=== PATIENT | male | born 1965 | race American Indian/Alaskan Native ===

== ENCOUNTER 2016-12-18 22:20 | Inpatient (IN) | payer OTHER ==
[~2016-12-18] VITALS: Ht 185.4 cm; Wt 70.9 kg
[2016-12-19 04:17] VITALS: PULSE 98
[2016-12-19 04:35] VITALS: BP 170/113; RESP 20
[2016-12-19] MEDS ORDERED: THIA100T56 PO (04:41)
[2016-12-19] MEDS ORDERED: METH10TA2 PO (04:41)
[2016-12-19] MEDS ORDERED: LISI10TA2 PO (04:41)
[2016-12-19] MEDS ORDERED: METO-448 PO (04:41)
[2016-12-19] MEDS ORDERED: CHLO25CA9 PO (04:41)
[2016-12-19] MEDS ORDERED: QUET25TA33 PO (04:41)
[2016-12-19] MEDS ORDERED: LORAZEPAM 2 MG INJ IM PRN (05:00)
[2016-12-19] MEDS ORDERED: ACETAMINOPHEN 500 MG TAB PO PRN (05:00)
[2016-12-19] MEDS ORDERED: SOD CHLORIDE 0.9% 1,000 ML IV SCH (05:00)
[2016-12-19] MEDS ORDERED: ONDANSETRON 4 MG INJ IV PRN ×2 (05:00)
[2016-12-19] MEDS ORDERED: CHLORDIAZEPOXIDE 25 MG CAP PO PRN (05:00)
[2016-12-19 05:10] VITALS: Ht 185.4 cm; Wt 70.9 kg
--- NOTE | 2016-12-19 05:15 | HP ---
Date/Time of Note Date/Time of Note DATE: 12/19/16 TIME: 05:05 Assessment/Plan VTE Prophylaxis VTE Prophylaxis Intervention: SCD's Assessment/Plan Assessment/Plan 1. Alcohol intoxication, monitor for withdrawal -Banana bag alternating with IV fluids, Librium with as needed Ativan -Check basic labs including Utox -stoneworker/correctional case manager to provide information to help with abstinence 2. Probable alcohol induced seizure -See #1 3. Right elbow bursitis: no sign of septic joint - IR for drainage. will send sample for analysis -NSAIDs for now -We will order x-ray 4. Left wrist fracture, status post fall 3 weeks ago -currently covered -obtain xray of both hands because of right wrist pain and swelling(related to fall) -Pain medication as needed 5. History of hypertension -Continue home meds with adjustment as needed HPI/ROS Admit Date/Time Admit Date/Time Dec 19, 2016 at 03:50 Hx of Present Illness This is a 51-year-old male with history of hypertension and chronic alcohol abuse who initially presented to an outside hospital complaining of right elbow pain and tremor. He said his last drink was 20 hours prior to arriving to the outside hospital. He said he first noticed swelling on his right elbow 5 month ago which has been progressively getting worse. He is not quite sure whether or not this is related to trauma. He did however state that 3 weeks ago he fell down injuring his left wrist. He went to a hospital and was told he had a left wrist fracture and was placed on the splint, which he self removed due to discomfort. He made at that time of the fall, he might have had a seizure secondary to alcohol withdrawal. He denied a history of seizure, but reported he has been" blacking out really ". Patient is transferred to [facility] because of insurance reasons. He denies chest pain, shortness of breath, fever/chills, nausea or vomiting. Of note patient's home medication includes methadone which he said he has been taking for the past 4 years secondary to herniated cervical disc. He denied history of illicit drug use. . PMH/Family/Social Past Medical History Medical History: hypertension, other Social History Alcohol Use: heavy Smoking Status: Unknown if ever smoked Drug Use: none Exam/Review of Systems Vital Signs Vitals Vital Signs Date Time Temp Pulse Resp B/P Pulse Ox O2 Delivery O2 Flow Rate FiO2 9/4/17 04:35 97.9 88 20 170/113 97 Exam Constitutional: other (No acute distress) Head: atraumatic, normocephalic Eyes: EOMI, PERRL Respiratory: clear to auscultation, normal air movement Cardiovascular: nl pulses, regular rate and rhythm Gastrointestinal: non-tender, soft Extremities: normal pulses Medications Medications Current Medications Chlordiazepoxide (Librium) 25 mg Q6 PRN PO ANXIETY; Start 12/19/16 at 05:00 Lisinopril (Zestril) 10 mg DAILY PO ; Start 12/19/16 at 09:00 Methadone HCl (Methadone) 65 mg DAILY PO ; Start 12/19/16 at 09:00; Status UNV Metoprolol Tartrate (Lopressor) 12.5 mg BID PO ; Start 12/19/16 at 09:00 Quetiapine Fumarate (Seroquel) 25 mg HS PO ; Start 12/19/16 at 21:00 Thiamine HCl (Vitamin B1) 100 mg DAILY PO ; Start 12/19/16 at 09:00 Ondansetron HCl (Zofran Inj) 4 mg Q6H PRN IV NAUSEA AND/OR VOMITING; Start 12/19 at 05:00 Acetaminophen 500 mg 500 mg Q6H PRN PO PAIN AND OR ELEVATED TEMP; Start at 05:00 Sodium Chloride 1,000 ml @ 125 mls/hr Q8H IV ; Start 12/19/16 at 05:00; Status UNV Multivitamins/ Thiamine HCl/ Folic Acid/Sodium Chloride (Mvi Adult/ Vitamin B1/ Folic Acid/NS) 1,011.2 ml @ 125 mls/ hr DAILY@09 IVPB ; Start 12/19/16 at 09:00 ; Status UNV Chlordiazepoxide (Librium) 60 mg TID PO ; Start 12/19/16 at 09:00; Status UNV Lorazepam (Ativan) 2 mg Q1HWA PRN IM seizure & agitation withdrawal; Start 12/19 at 05:00; Status UNV Hydralazine HCl (Apresoline) 10 mg Q6 IV ; Start 12/19/16 at 06:00; Status UNV Ondansetron HCl (Zofran Inj) 4 mg Q4H PRN IV NAUSEA AND/OR VOMITING; Start 12/19 at 05:00; Status UNV TERRY YOUNGBLOOD MD Dec 19, 2016 05:15
[2016-12-19] MEDS ORDERED: hydrALAzine 20 MG INJ IV PRN (06:00)
[2016-12-19] MEDS ORDERED: IBUPROFEN 400 MG TAB PO SCH (06:00)
[2016-12-19 07:07] LABS: ABNORMAL IP MESSAGE 1; BASOPHILS % 0.4 % (0.0-2.0); EOSINOPHILS # 0.3 10^3/ul (0.0-0.5); EOSINOPHILS % 5.7 % (0.0-7.0); HEMATOCRIT 37.4 % (42.0-52.0); HEMOGLOBIN 12.5 g/dl (14.0-18.0); LYMPHOCYTES # 1.4 10^3/ul (0.8-2.9); LYMPHOCYTES % 25.6 % (15.0-51.0); MEAN CORPUSCULAR HEMOGLOBIN 31.6 pg (29.0-33.0); MEAN CORPUSCULAR HGB CONC 33.4 g/dl (32.0-37.0); MEAN CORPUSCULAR VOLUME 94.7 fl (82.0-101.0); MEAN PLATELET VOLUME 10.4 fl (7.4-10.4); MONOCYTE # 0.4 10^3/ul (0.3-0.9); NEUTROPHILS % 60.1 % (39.0-77.0); PLATELET COUNT 99 10^3/UL (140-415); POSITIVE DIFF @See below; RED BLOOD COUNT 3.95 10^6/ul (4.70-6.10); RED CELL DISTRIBUTION WIDTH 12.5 % (11.5-14.5); WHITE BLOOD COUNT 5.3 10^3/ul (4.8-10.8)
[2016-12-19 07:41] LABS: ALBUMIN 3.8 g/dl (3.3-4.9); ALBUMIN/GLOBULIN RATIO 1.18; BILIRUBIN,INDIRECT 1.6 mg/dl (0-1.1); BILIRUBIN,TOTAL 1.6 mg/dl (0.2-1.3); CALCIUM 9.2 mg/dl (8.4-10.2); CREATININE 0.63 mg/dl (0.61-1.24)
[2016-12-19 08:06] VITALS: BP 155/95; PULSE 112; RESP 20
[2016-12-19] MEDS ORDERED: MULTIVITAMINS 10 ML, THIAMINE 100 MG, FOLIC ACID 1 MG in SOD CHLORIDE 0.9% 1,000 ML IVPB SCH (09:00)
[2016-12-19] MEDS ORDERED: CHLORDIAZEPOXIDE 25 MG CAP PO SCH (09:00)
[2016-12-19] MEDS ORDERED: METOPROLOL 25 MG TAB PO SCH (09:00)
[2016-12-19] MEDS ORDERED: CHLORDIAZEPOXIDE 5 MG CAP PO SCH (09:00)
[2016-12-19] MEDS ORDERED: METHADONE 10 MG TAB PO SCH ×2 (09:00)
[2016-12-19] MEDS ORDERED: LORAZEPAM 2 MG INJ IV PRN (09:00)
[2016-12-19] MEDS ORDERED: LISINOPRIL 10 MG TAB PO SCH (09:00)
[2016-12-19] MEDS ORDERED: THIAMINE 100 MG TAB PO SCH (09:00)
[2016-12-19] MEDS ORDERED: METHADONE 10 MG TAB PO ONE (12:00)
--- NOTE | 2016-12-19 14:43 | RADRPT ---
PROCEDURE: XR Elbow. CLINICAL INDICATION: Right elbow pain TECHNIQUE: Three views of the right elbow are available for review COMPARISON: None available FINDINGS: No acute fracture or dislocation is seen. No radiopaque foreign body is identified. No fat pad sail sign is identified to indicate a hemarthrosis. There is no significant soft tissue swelling. IMPRESSION: 1. No acute fracture or dislocation. RPTAT: HH .Melissa Dawson MD, MD Date Time Electronically viewed and signed by .Melissa Dawson MD, on 12/19/2016 14:42 .N/
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
[2016-12-19] MEDS ORDERED: QUETIAPINE 25 MG TAB PO SCH (21:00)
== END 2016-12-19 11:15 | disposition left against medical advice (07) | DRG 558 ==
LOC: MS4 12-19 03:50
PROVIDERS: ADMIT Internal Medicine; ATTEND Internal Medicine
DX: M71.521 Other bursitis, not elsewhere classified, right elbow (principal); I10 Essential (primary) hypertension; F10.129 Alcohol abuse with intoxication, unspecified; S62.102D Fracture of unspecified carpal bone, left wrist, subsequent encounter for fracture with routine healing; W19.XXXD Unspecified fall, subsequent encounter
CPT/HCPCS: 80053; 85025; J0360; J2060; J3411; J7030

== ENCOUNTER 2016-12-25 22:16 | Inpatient (IN) | payer OTHER ==
[~2016-12-25] VITALS: Ht 185.4 cm; Wt 72.0 kg
[~2016-12-25 22:16] MED LIST: CHLO25CA9 PO; LISI10TA2 PO; METH10TA2 PO; METO-448 PO; QUET25TA33 PO; THIA100T56 PO
[2016-12-26] VITALS (15 sets, daily range): BP systolic 128–186; BP diastolic 86–112; PULSE 65–88; RESP 18–20; Ht 185.4 cm; Wt 72.0 kg
[2016-12-26] MEDS ORDERED: KETOROLAC 30 MG INJ IV STA (00:53)
[2016-12-26] MEDS ORDERED: hydrALAzine 20 MG INJ IV PRN (01:00)
[2016-12-26] MEDS: SOD CHLORIDE 0.9% 1,000 ML IV SCH ×2 (02:52→12:55)
[2016-12-26] MEDS ORDERED: ONDANSETRON 4 MG INJ IV PRN (03:00)
[2016-12-26] MEDS ORDERED: BISACODYL (EC) 5 MG TAB PO PRN (03:00)
[2016-12-26] MEDS ORDERED: NACL 0.9% 3 ML SYG IV SCH (03:00)
[2016-12-26] MEDS ORDERED: DOCUSATE SODIUM 100 MG CAP PO PRN (03:00)
[2016-12-26] MEDS ORDERED: ACETAMINOPHEN 325 MG TAB PO PRN (03:00)
[2016-12-26] MEDS: MULTIVITAMINS 10 ML, THIAMINE 100 MG, FOLIC ACID 1 MG in SOD CHLORIDE 0.9% 1,000 ML IV SCH (04:28)
[2016-12-26] MEDS: LORAZEPAM 2 MG INJ IV PRN (04:29)
[2016-12-26] MEDS: CHLORDIAZEPOXIDE 25 MG CAP PO SCH ×4 (04:29→22:04)
--- NOTE | 2016-12-26 05:45 | HP ---
Date/Time of Note Date/Time of Note DATE: 12/26/16 TIME: 05:28 Assessment/Plan VTE Prophylaxis VTE Prophylaxis Intervention: SCD's Assessment/Plan Chief Complaint/Hosp Course This is a 51-year-old male being admitted to the telemetry floor for: #1 alcohol withdrawal syndrome: Patient upon my examination was visibly anxious however he is not displaying any tremulous behavior, no hallucinations. At the current time will put the patient on a banana bag. Will start him on a Librium taper, Ativan as needed. Monitor for any seizure activity. Patient also reportedly fell and he has a left forehead abrasion. Will check a CAT scan of the head. #2 hypertension: Monitor patient's blood pressure, continue home metoprolol and lisinopril #3 chronic pain syndrome: Patient is taking methadone, will need to confirm methadone dosage in the a.m. #4 left upper extremity deformity: There appears to be a visible deformity of the left upper extremity, will obtain x-rays of the left forearm and the wrist. Patient likely will need an orthotic consult and cast/sling. #5 right elbow bursitis: Previous x-rays do not show any hemarthrosis. Continue to monitor provide pain control. #6 DVT GI prophylaxis: SCDs, acid faby Further treatment strategy will be implemented as per the clinical course Problems: HPI/ROS Admit Date/Time Admit Date/Time Dec 26, 2016 at 00:04 Hx of Present Illness Chief complaint: Alcohol withdrawal This is a 51-year-old male who was transferred from [facility] secondary to symptoms of alcohol withdrawal. Patient states that he was with his congregational group and there they noticed that he was tremulous and shaking. Patient was taken to [facility] where he was also visibly seen showing signs of alcohol withdrawal. Patient was stabilized with Ativan at [facility] and was subsequently transferred to [facility]. upon my examination patient states that he has been drinking for approximately a year when he started having issues with his . He reports that his last drink was approximately 2 days ago. His blood alcohol level according to the ED physician that I spoke to prior to the transfer on the phone was approximately 80. At the current time patient does not appear to be displaying withdrawal symptoms, though he does state that he feels anxious. Of note patient states that he also fell and hit his head however is unclear when this happened. He does have an abrasion of the forehead on the left side. Allergies: Penicillin, codeine Medications: See MAR ROS Const: As per HPI Eyes : No pain discharge or redness or change in visual acuity ENT: No pain, sore throat, congestion, congestion, dysphagia or discharge Respiratory: No shortness of breath, cough, sputum, wheezing, or pleuritic pain Cardiovascular: No chest pain, palpitation, PND, or edema GI : no change in appetite, abdominal pain, nausea, vomiting, diarrhea, constipation, or change in the color his stool Genitourinary: No dysuria, hematuria, flank pain , discharge or CVA tenderness Musculoskeletal: No joint pain, back pain, neck pain, restricted range of motion in neck or joints Skin: No rash, bruising or hives Neuro: As per HPI Endocrine: No polyuria, polydipsia, temperature intolerance Psych: As per HPI PMH/Family/Social Past Medical History Hypertension, chronic pain Past Surgical History None Past Surgical Hx: no surgical history Family History Significant Family History: other (Alcoholism: Father, brother) Social History Alcohol Use: heavy Smoking Status: Unknown if ever smoked Drug Use: none Exam/Review of Systems Vital Signs Vitals Vital Signs Date Time Temp Pulse Resp B/P Pulse Ox O2 Delivery O2 Flow Rate FiO2 12/26/16 04:09 83 12/26/16 04:01 98.6 19 151/91 96 12/26/16 00:21 Room Air Exam Exam General: Patient is lying in bed in no acute distress, patient does appear anxious. HEENT: Atraumatic, normocephalic. The pupils are equal, round and reactive. Extraocular motor are intact Neck: Supple with full range of motion. No rigidity or meningismus Chest: Nontender Lungs: Clear to auscultation bilaterally no crackles rales or wheezing Heart: Normal S1-S2, Regular rhythm and rate. No overt murmurs appreciated Abdomen: Soft , nontender, nondistended , bowel sounds are present. No guarding no rebound tenderness , No masses or organomegaly. No costovertebral temporal angle mass Extremities: Left forearm and wrist do display slight deformity, there apparently was fracture documented on his previous admission however there are no x-rays, right elbow appears to have bursitis Neurologic: Normal mental status, alert and oriented 3, patient does appear anxious. Speech normal, cranial nerves II through XII are intact, motor and sensory are intact, Skin: There does appear to be an abrasion of the right forehead Additional Comments Pertinent laboratory findings from the transferring facility [facility], please see documentation in the chart for additional details: CPK: 260 Hemoglobin 11.2, hematocrit 34.3 white blood cell count 6.9 platelets 144 INR 0.3 As per edition of [facility] blood alcohol level was approximately in the 80s Medications Medications Current Medications Lorazepam (Ativan) 1 mg Q2 PRN IV ANXIETY Last administered on 12/26/16 04:29 ; Admin Dose 1 MG; Start 12/26/16 at 01:00 Hydralazine HCl 10 mg 10 mg Q4H PRN IV HTN Last administered on 12/26/16 02:44 ; Admin Dose 10 MG; Start 12/26/16 at 01:00 Multivitamins 10 ml/Thiamine HCl 100 mg/Folic Acid 1 mg/Sodium Chloride 1,011.2 ml @ 125 mls/ hr DAILY@09 IV Last administered on 12/26/16 04:28; Admin Dose 125 MLS/HR; Start 12/26/16 at 01:34 Sodium Chloride (NS) 1,000 ml @ 80 mls/hr [id number] IV ; Start 12/26/16 at 02:52 Ondansetron HCl (Zofran Inj) 4 mg Q6H PRN IV NAUSEA AND/OR VOMITING; Start 03/03 at 03:00 Acetaminophen (Tylenol Tab) 650 mg Q6H PRN PO PAIN LEVEL 1-3 OR FEVER; Start at 03:00 Morphine Sulfate (morphine) 2 mg Q4H PRN IV PAIN LEVEL 7-10; Start 12/26/16 at 03:00 Docusate Sodium (Colace) 100 mg Q12H PRN PO CONSTIPATION; Start 12/26/16 at 03: 00 Bisacodyl (Dulcolax) 5 mg DAILY PRN PO CONSTIPATION; Start 12/26/16 at 03:00 Pantoprazole (Protonix Iv) 40 mg DAILY@06 IV ; Start 12/26/16 at 06:00 Chlordiazepoxide (Librium) 50 mg TID PO Last administered on 12/26/16 04:29; Admin Dose 50 MG; Start 12/26/16 at 03:00; Stop 12/27/16 at 02:59 Chlordiazepoxide (Librium) 25 mg QID PO ; Start 12/27/16 at 03:00; Stop at 02:59 Chlordiazepoxide (Librium) 25 mg TID PO ; Start 12/28/16 at 09:00; Stop at 08:59 DONITA KWAN Dec 26, 2016 05:41
[2016-12-26] MEDS: PANTOPRAZOLE 40 MG INJ IV SCH (06:56)
[2016-12-26 07:51] LABS: HEMOGLOBIN 11.3 g/dl (14.0-18.0)
[2016-12-26 08:36] LABS: ALBUMIN 3.6 g/dl (3.3-4.9); ALBUMIN/GLOBULIN RATIO 1.16; CALCIUM 8.8 mg/dl (8.4-10.2); CREATININE 0.59 mg/dl (0.61-1.24); POTASSIUM 3.5 mmol/L (3.5-5.1); TOTAL PROTEIN 6.7 g/dl (6.1-8.1)
[2016-12-26] MEDS ORDERED: MULTIVITAMINS 10 ML, THIAMINE 100 MG, FOLIC ACID 1 MG in SOD CHLORIDE 0.9% 1,000 ML IV SCH (09:00)
[2016-12-26] MEDS: LISINOPRIL 10 MG TAB PO SCH (09:00)
[2016-12-26] MEDS: METOPROLOL 25 MG TAB PO SCH ×2 (09:00→22:05)
[2016-12-26] MEDS: METHADONE 10 MG TAB PO SCH (11:19)
--- NOTE | 2016-12-26 12:09 | RADRPT ---
PROCEDURE: XR Left Wrist and forearm. CLINICAL INDICATION: Fall on the left hand with deformity TECHNIQUE: Three views of the left wrist were obtained. 2 views of the left forearm were obtained. COMPARISON: No prior studies are available for comparison. FINDINGS: Wrist: There is an ossific fragment within the dorsal aspect of the wrist dorsal to the carpal bone s measuring about 4 mm which may correspond with a triquetral fracture with overlying soft tissue sw elling. The carpal bones are otherwise intact. Forearm: There is no acute fracture within the radius or ulna. Small enthesophytes are present with in the olecranon. There is mild soft tissue swelling within the dorsal aspect of the mid forearm. No significant joint effusion is visualized within the elbow. RPTAT: ZZ IMPRESSION: 1. Small 4 mm ossific fragment dorsal to the carpal bones likely corresponding with a triquetral fra cture with overlying soft tissue swelling. 2. Mild soft tissue swelling within the dorsal mid forearm. No acute fracture within the forearm. .Rosa Maria Morris MD, MD Date Time Electronically viewed and signed by .Rosa Maria Morris MD, on 12/26/2016 12:09 .T/
[2016-12-26] MEDS: morphine 2 MG INJ IV PRN ×3 (12:45→22:12)
--- NOTE | 2016-12-26 20:22 | RADRPT ---
PROCEDURE: CT Brain without contrast. CLINICAL INDICATION: Fall, alcohol withdrawal. TECHNIQUE: A CT of the brain was performed on multidetector high-resolution CT scanner utilizing a xial sections from the skull base through the vertex without contrast. The scan was reviewed in sof t tissue brain and high frequency resolution bone algorithm windows. Images were reviewed on a high -resolution PACS workstation. One or more the following does reduction techniques were utilized: Aut omated exposure control, adjustment of the mA/ or kV according to patient's size, or use of iterativ e reconstruction technique. The exam CTDI = 44.84 mGy and the DLP = 720.23 mGy-cm. COMPARISON: None available. FINDINGS: The ventricles and sulci are mildly prominent indicative of volume loss. There is no intracranial h emorrhage, mass effect or midline shift. No abnormal intra-axial or extra-axial fluid collections a re seen. The crystal/white matter differentiation is preserved. There are mild scattered foci of hypoattenuation in the white matter, which are nonspecific in etiol ogy but likely reflect chronic small vessel ischemic changes. The visualized paranasal sinuses demo nstrate mild to moderate mucosal thickening of ethmoid air cells. The mastoid air cells are essentia lly clear. IMPRESSION: 1. No acute intracranial hemorrhage, transcortical infarction or mass effect. 2. Mild chronic small vessel ischemic changes. 3. Mild generalized cerebral volume loss. RPTAT: HH .Melissa Dawson MD, MD Date Time Electronically viewed and signed by .Melissa Dawson MD, MD on 12/26/2016 20:21 .N/
[2016-12-27] VITALS (11 sets, daily range): BP systolic 120–152; BP diastolic 75–102; PULSE 66–88; RESP 16–73
[2016-12-27] MEDS: morphine 2 MG INJ IV PRN ×5 (02:18→20:49)
[2016-12-27] MEDS: CHLORDIAZEPOXIDE 25 MG CAP PO SCH ×5 (03:32→20:18)
[2016-12-27] MEDS: SOD CHLORIDE 0.9% 1,000 ML IV SCH ×2 (03:34→16:22)
[2016-12-27] MEDS: PANTOPRAZOLE 40 MG INJ IV SCH (06:43)
[2016-12-27 08:03] LABS: ALBUMIN 3.5 g/dl (3.3-4.9); BILIRUBIN,INDIRECT 0.6 mg/dl (0-1.1); BILIRUBIN,TOTAL 0.6 mg/dl (0.2-1.3); TOTAL PROTEIN 6.6 g/dl (6.1-8.1)
[2016-12-27] MEDS: MULTIVITAMINS 10 ML, THIAMINE 100 MG, FOLIC ACID 1 MG in SOD CHLORIDE 0.9% 1,000 ML IV SCH (08:48)
[2016-12-27] MEDS: METHADONE 10 MG TAB PO SCH (08:49)
[2016-12-27] MEDS: METOPROLOL 25 MG TAB PO SCH ×2 (08:49→20:18)
[2016-12-27] MEDS: LISINOPRIL 10 MG TAB PO SCH (08:49)
--- NOTE | 2016-12-27 13:33 | PN ---
Date/Time of Note Date/Time of Note DATE: 12/27/16 TIME: 13:22 Assessment/Plan VTE Prophylaxis VTE Prophylaxis Intervention: SCD's Lines/Catheters IV Catheter Type (from Nrs): Peripheral IV Urinary Cath still in place: No Assessment/Plan Chief Complaint/Hosp Course Assessment and plan 1. Alcohol withdrawal syndrome. Cessation was advised. agriculture worker is following. On benzodiazepines as needed. Appears stable at present. CT scan of the head negative for any acute findings. 2. Essential hypertension. Continue on antihypertensives and adjust needed. Appears stable at present. 3. Reported chronic pain syndrome. Patient to be resumed on methadone medication. 4. Left upper extremity deformity. X-ray did show small from millimeter ossific fragment dorsal to the carpal bones likely corresponding with a triquetral fracture. Orthopedic surgeon was notified. Will place on left wrist splint per recommendations and plan for outpatient follow-up with Dr. Malone 5. Reported right elbow bursitis. Continue with pain management. Disposition and plan: Continue with analgesics. Patient with reported right knee pain and difficulty with ambulation. Will get physical therapy to follow. Will check following imaging of the right knee. Anticipate discharge within the next 24 hours if medically stable discussed plan of care with Dr. Liang Problems: Subjective 24 Hr Interval Summary Free Text/Dictation Reports moderate left wrist pain and difficulty with mobility Exam/Review of Systems Vital Signs Vitals Vital Signs Date Time Temp Pulse Resp B/P Pulse Ox O2 Delivery O2 Flow Rate FiO2 12/27/16 12:28 75 12/27/16 11:50 98.4 73 152/102 97 12/26/16 00:21 Room Air Intake and Output 12/26/16 12/26/16 12/27/16 15:00 23:00 07:00 Intake Total 1020 ml 1440 ml Output Total 1150 ml 900 ml Balance -130 ml 540 ml Exam Constitutional: alert, oriented Psych: nl mood/affect Eyes: nl conjunctiva Respiratory: clear to auscultation Cardiovascular: regular rate and rhythm Gastrointestinal: non-tender, soft Musculoskeletal: other (swelling left wrist with decreased mobility) Neurological: HEARING INSTRUMENT SPECIALIST II-XII intact, nl mental status, nl speech Skin: nl turgor Results Result Diagram: 12/26/1625 12/26/16 0625 Results 24 hrs Laboratory Tests Test 12/27/16 06:25 Total Bilirubin 0.6 Direct Bilirubin 0.00 Indirect Bilirubin 0.6 Aspartate Amino Transf (AST/SGOT) 29 Alanine Aminotransferase (ALT/SGPT) 24 Alkaline Phosphatase 65 Total Protein 6.6 Albumin 3.5 Medications Medications Current Medications Lorazepam (Ativan) 1 mg Q2 PRN IV ANXIETY Last administered on 12/26/16 04:29 ; Admin Dose 1 MG; Start 12/26/16 at 01:00 Hydralazine HCl 10 mg 10 mg Q4H PRN IV HTN Last administered on 12/26/16 02:44 ; Admin Dose 10 MG; Start 12/26/16 at 01:00 Multivitamins 10 ml/Thiamine HCl 100 mg/Folic Acid 1 mg/Sodium Chloride 1,011.2 ml @ 125 mls/ hr DAILY@09 IV Last administered on 12/27/16 08:48; Admin Dose 125 MLS/HR; Start 12/26/16 at 01:34 Sodium Chloride (NS) 1,000 ml @ 80 mls/hr [id number] IV Last administered on 12/27 03:34; Admin Dose 80 MLS/HR; Start 12/26/16 at 02:52 Ondansetron HCl (Zofran Inj) 4 mg Q6H PRN IV NAUSEA AND/OR VOMITING; Start 03/03 at 03:00 Acetaminophen (Tylenol Tab) 650 mg Q6H PRN PO PAIN LEVEL 1-3 OR FEVER; Start at 03:00 Morphine Sulfate (morphine) 2 mg Q4H PRN IV PAIN LEVEL 7-10 Last administered on 12/27/16 10:50; Admin Dose 2 MG; Start 12/26/16 at 03:00 Docusate Sodium (Colace) 100 mg Q12H PRN PO CONSTIPATION; Start 12/26/16 at 03: 00 Bisacodyl (Dulcolax) 5 mg DAILY PRN PO CONSTIPATION; Start 12/26/16 at 03:00 Pantoprazole (Protonix Iv) 40 mg DAILY@06 IV Last administered on 12/27/16 06: 43; Admin Dose 40 MG; Start 12/26/16 at 06:00 Chlordiazepoxide (Librium) 25 mg QID PO Last administered on 12/27/16 12:40; Admin Dose 25 MG; Start 12/27/16 at 03:00; Stop 12/28/16 at 02:59 Chlordiazepoxide (Librium) 25 mg TID PO ; Start 12/28/16 at 09:00; Stop at 08:59 Lisinopril (Zestril) 10 mg DAILY PO Last administered on 12/27/16 08:49; Admin Dose 10 MG; Start 12/26/16 at 09:00 Metoprolol Tartrate (Lopressor) 12.5 mg BID PO Last administered on 12/27/16 08:49; Admin Dose 12.5 MG; Start 12/26/16 at 09:00 Methadone HCl (Methadone) 65 mg DAILY PO Last administered on 12/27/16 08:49; Admin Dose 65 MG; Start 12/26/16 at 11:00 FATMATA CASH Dec 27, 2016 13:33
[2016-12-27] MEDS: LORAZEPAM 2 MG INJ IV PRN (20:18)
[2016-12-28] VITALS (13 sets, daily range): BP systolic 130–156; BP diastolic 81–96; PULSE 62–83; RESP 16–18
[2016-12-28] MEDS: LORAZEPAM 2 MG INJ IV PRN ×4 (00:54→21:51)
[2016-12-28] MEDS: morphine 2 MG INJ IV PRN ×5 (00:54→21:51)
[2016-12-28] MEDS: SOD CHLORIDE 0.9% 1,000 ML IV SCH ×2 (05:10→17:54)
[2016-12-28] MEDS: PANTOPRAZOLE (EC) 40 MG TAB PO SCH (05:10)
[2016-12-28] MEDS: MULTIVITAMINS 10 ML, THIAMINE 100 MG, FOLIC ACID 1 MG in SOD CHLORIDE 0.9% 1,000 ML IV SCH (08:25)
[2016-12-28] MEDS: METOPROLOL 25 MG TAB PO SCH ×2 (08:26→20:23)
[2016-12-28] MEDS: CHLORDIAZEPOXIDE 25 MG CAP PO SCH ×3 (08:28→20:23)
[2016-12-28] MEDS: LISINOPRIL 10 MG TAB PO SCH (08:29)
[2016-12-28] MEDS: METHADONE 10 MG TAB PO SCH (08:30)
--- NOTE | 2016-12-28 10:06 | RADRPT ---
PROCEDURE: XR Knee 3 Views. CLINICAL INDICATION: Right knee pain. TECHNIQUE: AP, lateral and tunnel view of the right knee were obtained. The images reviewed on a PACS workstation. COMPARISON: None. FINDINGS: The osseous structures are intact. No destructive bony lesions are observed. Interosseous spaces a re normal. Soft tissues are unremarkable. IMPRESSION: No visualized traumatic injury. If there is high clinical suspicion for traumatic injury, further evaluation with CT should be consi dered. RPTAT: AA .Quinten Roberto MD, MD Date Time Electronically viewed and signed by .Quinten Roberto MD, on 12/28/2016 10:05 .P/
[2016-12-28] MEDS ORDERED: QUET25TA33 PO (11:34)
[2016-12-28] MEDS ORDERED: METO-448 PO (11:34)
[2016-12-28] MEDS ORDERED: THIA100T56 PO (11:34)
[2016-12-28] MEDS ORDERED: LISI10TA2 PO (11:34)
--- NOTE | 2016-12-28 19:34 | PDOCDIS ---
Discharge Instructions DIAGNOSIS Discharge Diagnosis 1. Alcohol withdrawal syndrome. 2. Essential hypertension. 3. Reported chronic pain syndrome. 4. Left upper extremity deformity. 5. Reported right elbow bursitis. CONDITION Patient Condition: Stable HOME CARE INSTRUCTIONS: Special Diet: low fat/chol FOLLOW UP/APPOINTMENTS Follow-up Plan 1. Follow up with Dr. Malone within one week Office Address [address] [place] [id number] Office FATMATA CASH Dec 28, 2016 19:34
--- NOTE | 2016-12-28 19:46 | DS ---
Date/Time of Note Date/Time of Note DATE: 12/28/16 TIME: 19:45 Discharge Summary Admission/Discharge Info Admit Date/Time Dec 26, 2016 at 00:04 Discharge Date/Time Discharge Diagnosis 1. Alcohol withdrawal syndrome. 2. Essential hypertension. 3. Reported chronic pain syndrome. 4. Left upper extremity deformity. 5. Reported right elbow bursitis. Patient Condition: Stable Consults 1. Dr. Malone Hospital Course This is a 51-year-old male transferred from [facility] secondary to symptoms of alcohol withdrawal. Patient reportedly was with his anabaptism group when he was noted to be tremulous. He was brought to the hospital initially and given Ativan with good response. He was transferred to [facility] due to insurance issues. Patient reportedly had been drinking approximately about a year heavily due to having issues with his . He also reported that he had fell and hit his head however he does not know how this occurred. He is noted with an abrasion on his forehead as well. He had a CT scan of his brain that was negative for any acute intracranial hemorrhage or transcortical infarction or mass-effect. He also complained of left wrist pain and we did do a left wrist x-ray that did show him to have a small 4 mm ossific fragment dorsal to the carpus bones likely corresponding with a triquetral fracture with overlying soft tissue swelling. We did discuss with orthopedic surgeon Dr. Malone who after discussion recommended for placement of left wrist splint and outpatient follow-up with him in his office within a week. Patient was otherwise optimized medically. He was seen by health social work professor and advised for alcohol cessation. He was continued on antihypertensives for his hypertension and methadone for his chronic pain syndrome. He also was noted with a right elbow bursitis for which she was continued on analgesics. During his course of stay he did improve. The plan of care was discussed with the patient and patient did verbalizes understanding. On the day of discharge patient was in stable condition Discussed plan of care with Dr. Liang [place] Meds Active Scripts Thiamine* (Vitamin B-1*) 100 Mg Tablet, 100 MG PO DAILY for 30 Days, TAB Prov:FATMATA CASH 12/28/16 Metoprolol Tartrate* (Lopressor*) 25 Mg Tab, 12.5 MG PO BID, #60 TAB Prov:FATMATA CASH 12/28/16 Quetiapine Fumarate* (Quetiapine Fumarate*) 25 Mg Tablet, 25 MG PO HS for 30 Days, TAB Prov:FATMATA CASH 12/28/16 Lisinopril* (Lisinopril*) 10 Mg Tablet, 10 MG PO DAILY, #30 TAB Prov:FATMATA CASH 12/28/16 Reported Medications Methadone Hcl* (Methadone*) 10 Mg Tab, 65 MG PO DAILY, TAB 12/19/16 Discontinued Reported Medications Chlordiazepoxide* (Chlordiazepoxide*) 25 Mg Capsule, 25 MG PO Q6 Y for ANXIETY, CAP 12/19/16 Follow-up Plan 1. Follow up with Dr. Malone within one week Office Address [id number] [place] [address] [place] [id number] Office Primary Care Provider Care Physician No Primary Time spent on discharge: > 30 minutes FATMATA CASH Dec 28, 2016 19:46
[2016-12-29] VITALS (8 sets, daily range): BP systolic 121–150; BP diastolic 75–98; PULSE 66–78; RESP 16–18
[2016-12-29] MEDS: morphine 2 MG INJ IV PRN ×2 (01:58→05:48)
[2016-12-29] MEDS: LORAZEPAM 2 MG INJ IV PRN ×2 (01:58→05:48)
[2016-12-29] MEDS: SOD CHLORIDE 0.9% 1,000 ML IV SCH (05:53)
[2016-12-29] MEDS: PANTOPRAZOLE (EC) 40 MG TAB PO SCH (06:45)
[2016-12-29] MEDS: METOPROLOL 25 MG TAB PO SCH (08:24)
[2016-12-29] MEDS: LISINOPRIL 10 MG TAB PO SCH (08:24)
[2016-12-29] MEDS: METHADONE 10 MG TAB PO SCH (08:25)
[2016-12-29] MEDS: CHLORDIAZEPOXIDE 25 MG CAP PO SCH (08:25)
[2016-12-29] MEDS: MULTIVITAMINS 10 ML, THIAMINE 100 MG, FOLIC ACID 1 MG in SOD CHLORIDE 0.9% 1,000 ML IV SCH (08:29)
== END 2016-12-29 13:15 | disposition home or self-care (01) | DRG 897 ==
LOC: TEL 12-26 00:04
PROVIDERS: ADMIT Family Medicine; ATTEND Family Medicine
DX: F10.239 Alcohol dependence with withdrawal, unspecified (principal); I10 Essential (primary) hypertension; G89.4 Chronic pain syndrome; Y90.4 Blood alcohol level of 80-99 mg/100 ml; S62.112A Displaced fracture of triquetrum [cuneiform] bone, left wrist, initial encounter for closed fracture; M70.31 Other bursitis of elbow, right elbow; Z81.1 Family history of alcohol abuse and dependence; X58.XXXA Exposure to other specified factors, initial encounter; W19.XXXA Unspecified fall, initial encounter
CPT/HCPCS: 70450; 73090; 73560; 80053; 80076; 80306; 83036; 84443; 85014; 85018; 97116; 97161; 97166; C9113; J0360; J1885; J2060; J2270; J3411; J7030

== ENCOUNTER 2017-01-04 03:24 | Inpatient (IN) | payer OTHER ==
[2017-01-04] VITALS (12 sets, daily range): BP systolic 118–160; BP diastolic 78–102; PULSE 64–82; RESP 18–20; Ht 185.4 cm; Wt 72.6 kg
[~2017-01-04] VITALS: Ht 185.4 cm; Wt 72.6 kg
[~2017-01-04 03:24] MED LIST changes: -CHLO25CA9 PO
[2017-01-04] MEDS ORDERED: DOCUSATE SODIUM 100 MG CAP PO PRN (04:00)
[2017-01-04] MEDS ORDERED: NACL 0.9% 3 ML SYG IV SCH (04:00)
[2017-01-04] MEDS ORDERED: BISACODYL (EC) 5 MG TAB PO PRN (04:00)
[2017-01-04] MEDS ORDERED: ONDANSETRON 4 MG INJ IV PRN (04:00)
[2017-01-04] MEDS ORDERED: LORAZEPAM 2 MG INJ IM PRN (04:30)
[2017-01-04] MEDS ORDERED: HYDROCODONE/APAP (5/325) TAB PO PRN (04:30)
[2017-01-04] MEDS: CHLORDIAZEPOXIDE 25 MG CAP PO SCH ×4 (04:46→20:40)
[2017-01-04] MEDS: LORAZEPAM 2 MG INJ IV PRN ×4 (04:47→20:42)
[2017-01-04] MEDS ORDERED: traMADol 50 MG TAB PO PRN (06:00)
--- NOTE | 2017-01-04 06:03 | HP ---
Date/Time of Note Date/Time of Note DATE: 01/04/17 TIME: 05:53 Assessment/Plan VTE Prophylaxis VTE Prophylaxis Intervention: SCD's Lines/Catheters Urinary Cath still in place: No (CONDOM CATH) Assessment/Plan Chief Complaint/Hosp Course This is a 51-year-old male being admitted to the telemetry floor for: #1 alcohol intoxication: not displaying any tremulous behavior, no hallucinations. Blood alcohol level 367 at the current time will put the patient on a banana bag. Will start him on a Librium taper, Ativan as needed. Monitor for any seizure activity. #2 hypertension: Monitor patient's blood pressure, continue home metoprolol and lisinopril #3 chronic pain syndrome: Continue methadone for now, will need to to confirm dose in the a.m. #4 left upper extremity deformity: Left wrist fracture of the triquetral area patient. Patient was recommended to have a wrist splint laced however he is not wearing one at this time, he is to follow-up as an outpatient with Dr. Malone. #5 DVT GI prophylaxis: SCDs, acid faby Further treatment strategy will be implemented as per the clinical course Problems: HPI/ROS Admit Date/Time Admit Date/Time Jan 04, 2017 at 03:24 Hx of Present Illness Chief complaint: Alcohol intoxication This is a 51-year-old male who was transferred from [facility] with alcohol intoxication. As per transfer documentation, patient was found by family outside at the store being confused and he was drunk. Patient reports that he had a seizure however this was not witnessed. He states that he only had a 24 ounce of beer can yesterday. Patient's urine drug screen showed positive for methadone and his alcohol level was 367. Patient had a CAT scan that was performed at [facility] which was negative for any acute abnormality. Currently patient denies any visual or auditory hallucinations. Patient denies any suicidal or homicidal ideations Allergies: Penicillin, codeine medications: See YANETH HUNTER Const: As per HPI Eyes : No pain discharge or redness or change in visual acuity ENT: No pain, sore throat, congestion, congestion, dysphagia or discharge Respiratory: No shortness of breath, cough, sputum, wheezing, or pleuritic pain Cardiovascular: No chest pain, palpitation, PND, or edema GI : no change in appetite, abdominal pain, nausea, vomiting, diarrhea, constipation, or change in the color his stool Genitourinary: No dysuria, hematuria, flank pain , discharge or CVA tenderness Musculoskeletal: Left wrist pain status post fracture Skin: No rash, bruising or hives Neuro: No headache, dizziness, syncope, seizure, focal weakness Endocrine: No polyuria, polydipsia, temperature intolerance Psych: As per HPI PMH/Family/Social Past Medical History Hypertension, chronic pain, alcoholism Past Surgical History Past Surgical Hx: no surgical history Family History Significant Family History: other (Alcoholism in father, brother) Social History Alcohol Use: heavy Smoking Status: Unknown if ever smoked Drug Use: none Exam/Review of Systems Vital Signs Vitals Vital Signs Date Time Temp Pulse Resp B/P Pulse Ox O2 Delivery O2 Flow Rate FiO2 01/04/17 04:23 76 01/04/17 04:16 Nasal Cannula 2.0 01/04/17 04:13 98.2 18 155/97 100 Exam Exam General: Patient is lying in bed sleeping, he is easily arousable, he does appear slightly confused. HEENT: Atraumatic, normocephalic. The pupils are equal, round and reactive. Extraocular motor are intact Neck: Supple with full range of motion. No rigidity or meningismus Chest: Nontender Lungs: Clear to auscultation bilaterally no crackles rales or wheezing Heart: Normal S1-S2, Regular rhythm and rate. No overt murmurs appreciated Abdomen: Soft , nontender, nondistended , bowel sounds are present. No guarding no rebound tenderness , No masses or organomegaly. No costovertebral temporal angle mass Extremities: Left upper extremity visible deformity noted from recent wrist fracture Neurologic: Patient does appear slightly confused however he is alert and oriented 3. He is easily arousable. Cranial nerves II through XII intact. Additional Comments Pertinent laboratory findings below, full full report from [facility] available in the chart: Urine drug screen positive for methadone, blood alcohol level 367 CT scan of the head: No acute abnormality Medications Medications Current Medications Ondansetron HCl (Zofran Inj) 4 mg Q6H PRN IV NAUSEA AND/OR VOMITING; Start at 04:00 Docusate Sodium (Colace) 100 mg Q12H PRN PO CONSTIPATION; Start 01/04/17 at 04: 00 Bisacodyl (Dulcolax) 5 mg DAILY PRN PO CONSTIPATION; Start 01/04/17 at 04:00 Famotidine 20 mg 20 mg Q12 IV ; Start 01/04/17 at 09:00 Multivitamins/ Thiamine HCl/ Folic Acid/Sodium Chloride (Mvi Adult/ Vitamin B1/ Folic Acid/NS) 1,011.2 ml @ 125 mls/ hr DAILY@09 IVPB ; Start 01/04/17 at 09:00 Chlordiazepoxide (Librium) 50 mg TID PO Last administered on 01/04/17t 04:46; Admin Dose 50 MG; Start 01/04/17 at 04:30; Stop 01/05/17 at 04:29 Chlordiazepoxide (Librium) 25 mg QID PO ; Start 01/05/17 at 04:09; Stop at 04:08 Chlordiazepoxide (Librium) 25 mg TID PO ; Start 01/06/17 at 04:09; Stop at 04:08 Lorazepam (Ativan) 1 mg Q2H PRN IV AGITATION/ANXIETY Last administered on t 04:47; Admin Dose 1 MG; Start 01/04/17 at 04:30 Tramadol HCl (Ultram) 100 mg Q6H PRN PO PAIN LEVEL 1-5; Start 01/04/17 at 06:00 DONITA KWAN Jan 04, 2017 06:03
[2017-01-04] MEDS ORDERED: FAMOTIDINE 20 MG INJ IV SCH (09:00)
[2017-01-04] MEDS: MULTIVITAMINS 10 ML, THIAMINE 100 MG, FOLIC ACID 1 MG in SOD CHLORIDE 0.9% 1,000 ML IVPB SCH (09:20)
[2017-01-04] MEDS: METOPROLOL 25 MG TAB PO SCH ×2 (09:20→20:40)
[2017-01-04] MEDS: LISINOPRIL 10 MG TAB PO SCH (09:21)
[2017-01-04] MEDS: METHADONE 10 MG TAB PO SCH (09:21)
[2017-01-04] MEDS: THIAMINE 100 MG TAB PO SCH (09:21)
[2017-01-04] MEDS ORDERED: IBUPROFEN 200 MG TAB PO PRN (16:30)
[2017-01-04] MEDS: FAMOTIDINE 20 MG TAB PO SCH (20:40)
[2017-01-04] MEDS ORDERED: QUETIAPINE 25 MG TAB PO SCH (21:00)
[2017-01-05] VITALS (10 sets, daily range): BP systolic 137–160; BP diastolic 84–106; PULSE 65–74; RESP 16–20
[2017-01-05] MEDS: LORAZEPAM 2 MG INJ IV PRN ×2 (00:56→09:59)
[2017-01-05] MEDS: traMADol 50 MG TAB PO PRN ×2 (01:01→12:47)
[2017-01-05] MEDS: CHLORDIAZEPOXIDE 25 MG CAP PO SCH ×4 (07:38→17:52)
[2017-01-05 09:08] LABS: ALBUMIN 4.7 g/dl (3.3-4.9); ALBUMIN/GLOBULIN RATIO 1.34; ALKALINE PHOSPHATASE 290 IU/L (42-121); ANION GAP 13 (8-16); ASPARTATE AMINO TRANSFERASE 163 IU/L (15-46); BILIRUBIN,INDIRECT 0.9 mg/dl (0-1.1); BILIRUBIN,TOTAL 0.9 mg/dl (0.2-1.3); BLOOD UREA NITROGEN 7 mg/dl (7-20); CALCIUM 8.7 mg/dl (8.4-10.2); CARBON DIOXIDE 25 mmol/L (21-31); CHLORIDE 104 mmol/L (97-110); CREATININE 0.64 mg/dl (0.61-1.24); GLUCOSE 81 mg/dl (70-220); MAGNESIUM 1.7 mg/dl (1.7-2.5); POTASSIUM 4.4 mmol/L (3.5-5.1); SODIUM 138 mmol/L (135-144); TOTAL PROTEIN 8.2 g/dl (6.1-8.1)
[2017-01-05 09:19] LABS: ALANINE AMINOTRANSFERASE < 6 IU/L (13-69)
[2017-01-05] MEDS: THIAMINE 100 MG TAB PO SCH (09:42)
[2017-01-05] MEDS: METOPROLOL 25 MG TAB PO SCH (09:44)
[2017-01-05] MEDS: LISINOPRIL 10 MG TAB PO SCH (09:45)
[2017-01-05] MEDS: FAMOTIDINE 20 MG TAB PO SCH (09:45)
[2017-01-05] MEDS: METHADONE 10 MG TAB PO SCH (09:46)
[2017-01-05] MEDS: MULTIVITAMINS 10 ML, THIAMINE 100 MG, FOLIC ACID 1 MG in SOD CHLORIDE 0.9% 1,000 ML IVPB SCH (09:59)
[2017-01-05 11:14] LABS: BASOPHIL # 0.1 10^3/ul (0.0-0.1); BASOPHILS % 1.2 % (0.0-2.0); EOSINOPHILS # 0.2 10^3/ul (0.0-0.5); EOSINOPHILS % 3.7 % (0.0-7.0); HEMATOCRIT 34.3 % (42.0-52.0); HEMOGLOBIN 11.7 g/dl (14.0-18.0); LYMPHOCYTES # 1.3 10^3/ul (0.8-2.9); LYMPHOCYTES % 22.4 % (15.0-51.0); MEAN CORPUSCULAR HEMOGLOBIN 32.8 pg (29.0-33.0); MEAN CORPUSCULAR HGB CONC 34.1 g/dl (32.0-37.0); MEAN CORPUSCULAR VOLUME 96.1 fl (82.0-101.0); MEAN PLATELET VOLUME 8.9 fl (7.4-10.4); MONOCYTE # 0.7 10^3/ul (0.3-0.9); MONOCYTES % 11.7 % (0.0-11.0); NEUTROPHIL # 3.4 10^3/ul (1.6-7.5); NEUTROPHILS % 60.8 % (39.0-77.0); PLATELET COUNT 263 10^3/UL (140-415); RED BLOOD COUNT 3.57 10^6/ul (4.70-6.10); RED CELL DISTRIBUTION WIDTH 12.2 % (11.5-14.5); WHITE BLOOD COUNT 5.7 10^3/ul (4.8-10.8)
--- NOTE | 2017-01-05 14:31 | PN ---
Date/Time of Note Date/Time of Note DATE: 01/05/17 TIME: 14:30 Assessment/Plan VTE Prophylaxis VTE Prophylaxis Intervention: SCD's Lines/Catheters IV C[facility]ter Type (from [facility]): Peripheral IV Urinary Cath still in place: No ([facility] CATH) Assessment/Plan Chief Complaint/Hosp Course 1. Alcohol intoxication. The patient currently on Librium taper. On IV Ativan as needed. Monitor for any withdrawal seizures. 2. Essential hypertension. Continue antihypertensives. 3. Chronic pain syndrome. Continue methadone for now. 4. Small 4 mm ossific fragment dorsal to the left carpal bones likely corresponding with a triquetral fracture with overlying soft tissue swelling as per the x-ray on 12/26/2016. Orthopedic surgery was consulted on his previous visit to [facility], and orthopedic surgeon (Dr. Malone ) recommended left wrist splint and outpatient follow-up with him in his office in 1 week. The patient has been non-complaint with wearing a left wrist wrist. Nevertheless, his left wrist is less painful and functional. 5. Deconditioning. Status post physical therapy evaluation. Physical therapy recommending jail facility placement. 6. Fluids, electrolytes, and nutrition. Regular diet. 7. DVT prophylaxis. Bilateral sequential compression devices. 8. Plan. Physical therapy. Continue tapering dose of Librium. Move the patient to medical surgical floor. Case management consult for SNF placement. Case discussed with Dr. Doan. Problems: Subjective 24 Hr Interval Summary Free Text/Dictation Complains of feeling weak. Exam/Review of Systems Vital Signs Vitals Vital Signs Date Time Temp Pulse Resp B/P Pulse Ox O2 Delivery O2 Flow Rate FiO2 01/05/17 12:27 74 01/05/17 11:36 98.4 16 156/106 96 01/04/17 20:00 Nasal Cannula 2.0 Intake and Output 01/04/17 01/04/17 01/05/17 15:00 23:00 07:00 Intake Total 1520 ml 600 ml Output Total 400 ml 4000 ml Balance 1120 ml -3400 ml Exam General: Adequately build 51 year-old male lying in bed in no apparent distress. HEENT: Normocephalic, atraumatic. Eyes: Anicteric sclerae, conjunctivae clear. ENT: Nasal septum midline, oral mucosa moist. Neck supple, no JVD noticed. Respiratory: Bilaterally clear breath sounds. No use of accessory muscles of respiration. No adventitious breath sounds. Cardiovascular: S1, S2 heard. No murmurs or gallops. Abdomen: Soft, nontender, and nondistended. Bowel sounds positive in all 4 quadrants. Genitourinary: Deferred. Extremities: No cyanosis, no clubbing. Peripheral pulses palpable. Right elbow tenderness. Left wrist tenderness. Neurologic: Cranial nerves II through XII grossly intact. The patient is awake, alert, and oriented. Skin: Normal skin turgor. No skin rashes. Results Result Diagram: 01/05/17 1053 01/05/17 0800 Results 24 hrs Laboratory Tests Test 01/05/17 08:00 01/05/17 10:53 Sodium Level 138 Potassium Level 4.4 Chloride Level 104 Carbon Dioxide Level 25 Anion Gap 13 Blood Urea Nitrogen 7 Creatinine 0.64 Glucose Level 81 Calcium Level 8.7 Magnesium Level 1.7 Total Bilirubin 0.9 Direct Bilirubin 0.00 Indirect Bilirubin 0.9 Aspartate Amino Transf (AST/SGOT) 163 H Alanine Aminotransferase (ALT/SGPT) < 6 L Alkaline Phosphatase 290 H Total Protein 8.2 H Albumin 4.7 Globulin 3.50 H Albumin/Globulin Ratio 1.34 White Blood Count 5.7 Red Blood Count 3.57 L Hemoglobin 11.7 L Hematocrit 34.3 L Mean Corpuscular Volume 96.1 Mean Corpuscular Hemoglobin 32.8 Mean Corpuscular Hemoglobin Concent 34.1 Red Cell Distribution Width 12.2 Platelet Count 263 # Mean Platelet Volume 8.9 Neutrophils % 60.8 Lymphocytes % 22.4 Monocytes % 11.7 H Eosinophils % 3.7 Basophils % 1.2 Nucleated Red Blood Cells % 0.0 Neutrophils # 3.4 Lymphocytes # 1.3 Monocytes # 0.7 Eosinophils # 0.2 Basophils # 0.1 Nucleated Red Blood Cells # 0.0 Medications Medications Current Medications Ondansetron HCl (Zofran Inj) 4 mg Q6H PRN IV NAUSEA AND/OR VOMITING; Start at 04:00 Docusate Sodium (Colace) 100 mg Q12H PRN PO CONSTIPATION; Start 01/04/17 at 04: 00 Bisacodyl 5 mg 5 mg DAILY PRN PO CONSTIPATION; Start 01/04/17 at 04:00 Multivitamins/ Thiamine HCl/ Folic Acid/Sodium Chloride (Mvi Adult/ Vitamin B1/ Folic Acid/NS) 1,011.2 ml @ 125 mls/ hr DAILY@09 IVPB Last administered on 09:59; Admin Dose 125 MLS/HR; Start 01/04/17 at 09:00 Chlordiazepoxide (Librium) 25 mg QID PO Last administered on 01/05/17 12:46; Admin Dose 25 MG; Start 01/05/17 at 04:09; Stop 01/06/17 at 04:08 Chlordiazepoxide (Librium) 25 mg TID PO ; Start 01/06/17 at 04:09; Stop at 04:08 Lorazepam (Ativan) 1 mg Q2H PRN IV AGITATION/ANXIETY Last administered on 09:59; Admin Dose 1 MG; Start 01/04/17 at 04:30 Lisinopril (Zestril) 10 mg DAILY PO Last administered on 01/05/17 09:45; Admin Dose 10 MG; Start 01/04/17 at 09:00 Methadone HCl (Methadone) 65 mg DAILY PO Last administered on 01/05/17 09:46; Admin Dose 65 MG; Start 01/04/17 at 09:00 Metoprolol Tartrate (Lopressor) 12.5 mg BID PO Last administered on 01/05/17 09:44; Admin Dose 12.5 MG; Start 01/04/17 at 09:00 Quetiapine Fumarate (Seroquel) 25 mg HS PO Last administered on 01/04/17 20:40 ; Admin Dose 25 MG; Start 01/04/17 at 21:00 Thiamine HCl (Vitamin B1) 100 mg DAILY PO Last administered on 01/05/17 09:42 ; Admin Dose 100 MG; Start 01/04/17 at 09:00 Ibuprofen (Motrin) 200 mg Q6H PRN PO PAIN OR TEMP ABOVE 38C; Start 01/04/17 at 16:30 Tramadol HCl (Ultram) 50 mg Q6H PRN PO Pain Last administered on 01/05/17 12: 47; Admin Dose 50 MG; Start 01/04/17 at 16:30 Famotidine (Pepcid) 20 mg BID PO Last administered on 01/05/17 09:45; Admin Dose 20 MG; Start 01/04/17 at 21:00 ALLEGRA FAULKNER NP Jan 05, 2017 14:31
[2017-01-06] MEDS ORDERED: CHLORDIAZEPOXIDE 25 MG CAP PO SCH (04:09)
--- NOTE | 2017-01-06 07:13 | DS ---
Date/Time of Note Date/Time of Note DATE: 01/06/17 TIME: 07:13 Discharge Summary Admission/Discharge Info Admit Date/Time Jan 04, 2017 at 03:24 Discharge Date/Time Jan 05, 2017 at 20:25 Left AGAINST MEDICAL ADVICE. Discharge Diagnosis 1. Alcohol intoxication. 2. Essential hypertension. 3. Chronic pain syndrome. 4. Small 4 mm ossific fragment dorsal to the carpal bones likely corresponding with a triquetral fracture with overlying soft tissue swelling as per the x-ray on 12/26/2016. 5. Deconditioning. Patient Condition: Fair Hx of Present Illness Chief complaint: Alcohol intoxication This is a 51-year-old male who was transferred from [facility] with alcohol intoxication. As per transfer documentation, patient was found by family outside at the store being confused and he was drunk. Patient reported that he had a seizure however this was not witnessed. He stated that he only had a 24 ounce of beer can the previous day. Patient's urine drug screen showed positive for methadone and his alcohol level was 367. Patient had a CAT scan that was performed at [facility] which was negative for any acute abnormality. Allergies: Penicillin, codeine medications: See [facility] Hospital Course The patient was admitted to inpatient setting. The patient was started on a daily banana bag and tapering dose of Librium. The patient's antihypertensives were resumed for his underlying essential hypertension. The patient was maintained on methadone for his chronic pain. The patient had this small 4 mm ossific fragment dorsal to the carpal bones likely corresponding with a triquetral fracture with overlying soft tissue swelling as per the x-ray on 12/26. Orthopedic surgery was consulted on his previous visit to [facility], and orthopedic surgeon (Dr. Malone) recommended left wrist splint and outpatient follow-up with him in his office in 1 week. However, the patient has been noncompliant with wearing a left wrist splint and has not followed up with outpatient orthopedic surgery. The patient's left wrist edema and pain is more or less resolved. Ideally the patient needs to follow-up with outpatient orthopedic surgery. The patient was noticed to be deconditioned. Hence physical therapy evaluated the patient. Physical therapy recommended group home facility placement. Case management order was put in for a group home facility placement. Meanwhile, the patient decided to leave the hospital AGAINST MEDICAL ADVICE. The patient was informed about the consequences of leaving the hospital against medical advice including the possibility of . Nevertheless, the patient left the hospital AGAINST MEDICAL ADVICE. No discharge planning was done since the patient left the hospital AGAINST MEDICAL ADVICE. Home Meds Active Scripts Ibuprofen* (Motrin*) 600 Mg Tab, 600 MG PO Q8, #30 TAB Prov:SANTI DOTSON. DO 01/07/17 Tramadol HCl (Tramadol HCl) 50 Mg Tablet, 50 MG PO Q6, #20 TAB Prov:COURTNEYIONASBMARYJANEMARVIN A. DO 01/07/17 Lorazepam* (Lorazepam*) 1 Mg Tablet, 1 MG PO Q8H Y for ANXIETY, #10 TAB Prov:COURTNEYIONASBMARYJANEMARVIN MoyHernandez DO 01/07/17 Thiamine* (Vitamin B-1*) 100 Mg Tablet, 100 MG PO DAILY for 30 Days, TAB Prov:FATMATA CASH 12/28/16 Metoprolol Tartrate* (Lopressor*) 25 Mg Tab, 12.5 MG PO BID, #60 TAB Prov:FATMATA CASH 12/28/16 Quetiapine Fumarate* (Quetiapine Fumarate*) 25 Mg Tablet, 25 MG PO HS for 30 Days, TAB Prov:REGIDOFATMATA Sorto 12/28/16 Lisinopril* (Lisinopril*) 10 Mg Tablet, 10 MG PO DAILY, #30 TAB Prov:SHREYAFATMATA 12/28/16 Reported Medications Methadone Hcl* (Methadone*) 10 Mg Tab, 65 MG PO DAILY, TAB 12/19/16 Follow-up Plan Follow-up plan was provided since the patient left the hospital AGAINST MEDICAL ADVICE. Primary Care Provider Care Physician No Primary Time spent on discharge: < 30 minutes Pending Labs Laboratory Tests Test 01/05/17 08:00 01/05/17 10:53 Sodium Level 138mmol/L (135-144) Potassium Level 4.4mmol/L (3.5-5.1) Chloride Level 104mmol/L (97-110) Carbon Dioxide Level 25mmol/L (21-31) Anion Gap 13 (8-16) Blood Urea Nitrogen 7mg/dl (7-20) Creatinine 0.64mg/dl (0.61-1.24) Glucose Level 81mg/dl (70-220) Calcium Level 8.7mg/dl (8.4-10.2) Magnesium Level 1.7mg/dl (1.7-2.5) Total Bilirubin 0.9mg/dl (0.2-1.3) Direct Bilirubin 0.00mg/dl (0.00-0.20) Indirect Bilirubin 0.9mg/dl (0-1.1) Aspartate Amino Transf (AST/SGOT) 163IU/L (15-46) Alanine Aminotransferase (ALT/SGPT) < 6IU/L (13-69) Alkaline Phosphatase 290IU/L (42-121) Total Protein 8.2g/dl (6.1-8.1) Albumin 4.7g/dl (3.3-4.9) Globulin 3.50g/dl (1.3-3.2) Albumin/Globulin Ratio 1.34 White Blood Count 5.710^3/ul (4.8-10.8) Red Blood Count 3.5710^6/ul (4.70-6.10) Hemoglobin 11.7g/dl (14.0-18.0) Hematocrit 34.3% (42.0-52.0) Mean Corpuscular Volume 96.1fl (82.0-101.0) Mean Corpuscular Hemoglobin 32.8pg (29.0-33.0) Mean Corpuscular Hemoglobin Concent 34.1g/dl (32.0-37.0) Red Cell Distribution Width 12.2% (11.5-14.5) Platelet Count 07356^3/UL (140-415) Mean Platelet Volume 8.9fl (7.4-10.4) Neutrophils % 60.8% (39.0-77.0) Lymphocytes % 22.4% (15.0-51.0) Monocytes % 11.7% (0.0-11.0) Eosinophils % 3.7% (0.0-7.0) Basophils % 1.2% (0.0-2.0) Nucleated Red Blood Cells % 0.0/100WBC (0.0-0.0) Neutrophils # 3.410^3/ul (1.6-7.5) Lymphocytes # 1.310^3/ul (0.8-2.9) Monocytes # 0.710^3/ul (0.3-0.9) Eosinophils # 0.210^3/ul (0.0-0.5) Basophils # 0.110^3/ul (0.0-0.1) Nucleated Red Blood Cells # 0.010^3/ul (0.0-0.0) ALLEGRA FAULKNER NP Jan 06, 2017 07:13
== END 2017-01-05 20:25 | disposition left against medical advice (07) | DRG 894 ==
LOC: TEL 03:24
PROVIDERS: ADMIT Internal Medicine; ATTEND Internal Medicine
DX: F10.129 Alcohol abuse with intoxication, unspecified (principal); I10 Essential (primary) hypertension; G89.4 Chronic pain syndrome; M21.932 Unspecified acquired deformity of left forearm
CPT/HCPCS: 80053; 83735; 85025; 87081; 97162; 97530; J2060; J3411; J7030

== ENCOUNTER 2017-01-07 09:20 | Emergency (ER) | payer OTHER ==
[~2017-01-07] VITALS: Ht 167.6 cm; Wt 73.5 kg
[2017-01-07 09:23] VITALS: Ht 167.6 cm; Wt 73.5 kg
[2017-01-07] MEDS ORDERED: SOD CHLORIDE 0.9% 1,000 ML IV STA (09:44)
[2017-01-07] MEDS ORDERED: morphine 2 MG INJ IV ONE (10:00)
[2017-01-07] MEDS ORDERED: ONDANSETRON 4 MG INJ IV ONE (10:00)
[2017-01-07 10:11] LABS: BASOPHIL # 0.1 10^3/ul (0.0-0.1); BASOPHILS % 0.6 % (0.0-2.0); EOSINOPHILS # 0.1 10^3/ul (0.0-0.5); EOSINOPHILS % 0.9 % (0.0-7.0); HEMATOCRIT 36.8 % (42.0-52.0); HEMOGLOBIN 12.6 g/dl (14.0-18.0); LYMPHOCYTES # 1.4 10^3/ul (0.8-2.9); LYMPHOCYTES % 17.3 % (15.0-51.0); MEAN CORPUSCULAR HEMOGLOBIN 33.1 pg (29.0-33.0); MEAN CORPUSCULAR HGB CONC 34.2 g/dl (32.0-37.0); MEAN CORPUSCULAR VOLUME 96.6 fl (82.0-101.0); MEAN PLATELET VOLUME 8.7 fl (7.4-10.4); MONOCYTE # 0.5 10^3/ul (0.3-0.9); MONOCYTES % 6.1 % (0.0-11.0); NEUTROPHILS % 74.8 % (39.0-77.0); PLATELET COUNT 270 10^3/UL (140-415); RED BLOOD COUNT 3.81 10^6/ul (4.70-6.10); RED CELL DISTRIBUTION WIDTH 12.5 % (11.5-14.5)
--- NOTE | 2017-01-07 10:25 | ERD ---
ER Documentation Chief Complaint Date/Time DATE: 01/07/17 TIME: 10:21 Chief Complaint PT FELL DOWN JABIER ETOH SCENT ON PATIENT ALSO SAYS HE HAS A SEIZURE HPI This is a 51-year-old male who states that he missed his methadone dose yesterday and got drunk last night. He said he was at a park and he said he had a seizure and fell down an embankment and woke up in a river bed. The liver bed was dry. The patient states he is complaining of pain in both of his elbows, right knee, lumbar spine and right periorbital area. The patient smells of alcohol. Patient says he has a history of cervical and lumbar disc herniations, substance and alcohol abuse and seizures but states he is not on any seizure medication other than benzodiazepines. Patient denies any neck pain chest pain but does have some right rib pain, denies abdominal pain. The pain in the elbows and knee is described as sharp and worse with movement ROS All systems reviewed and are negative except as per history of present illness. Medications Home Meds Active Scripts Ibuprofen* (Motrin*) 600 Mg Tab, 600 MG PO Q8, #30 TAB Prov:SANTI DOTSON DO 01/07/17 Tramadol HCl (Tramadol HCl) 50 Mg Tablet, 50 MG PO Q6, #20 TAB Prov:SANTI DOTSON DO 01/07/17 Lorazepam* (Lorazepam*) 1 Mg Tablet, 1 MG PO Q8H Y for ANXIETY, #10 TAB Prov:SANTI DOTSON DO 01/07/17 Thiamine* (Vitamin B-1*) 100 Mg Tablet, 100 MG PO DAILY for 30 Days, TAB Prov:FATMATA CASH 12/28/16 Metoprolol Tartrate* (Lopressor*) 25 Mg Tab, 12.5 MG PO BID, #60 TAB Prov:FATMATA CASH 12/28/16 Quetiapine Fumarate* (Quetiapine Fumarate*) 25 Mg Tablet, 25 MG PO HS for 30 Days, TAB Prov:FATMATA CASH 12/28/16 Lisinopril* (Lisinopril*) 10 Mg Tablet, 10 MG PO DAILY, #30 TAB Prov:FATMATA CASH 12/28/16 Reported Medications Methadone Hcl* (Methadone*) 10 Mg Tab, 65 MG PO DAILY, TAB 12/19/16 Allergies Allergies: Coded Allergies: Penicillins (Verified Allergy, Severe, Hives, 12/19/16) codeine (Verified Allergy, Severe, Hives, 12/19/16) PMhx/Soc History of Surgery: No Anesthesia Reaction: No Hx Neurological Disorder: Yes (seizures) Hx Respiratory Disorders: Yes (has a nodule in the lungs) Hx Cardiac Disorders: Yes (HTN) Hx Psychiatric Problems: No Hx Miscellaneous Medical Probl: Yes (alcohol intoxication,htn,chronic pain syndrome) Hx Alcohol Use: Yes Hx Substance Use: Yes Hx Tobacco Use: Yes Smoking Status: Current every day smoker FmHx Family History: No coronary disease Physical Exam Vitals Vital Signs Date Time Temp Pulse Resp B/P Pulse Ox O2 Delivery O2 Flow Rate FiO2 01/07/17 11:47 98.8 89 18 116/78 98 01/07/17 09:23 98.8 112 18 119/82 98 Physical Exam Const: Well-developed, well-nourished smells of alcohol Head: Atraumatic, normocephalic Eyes: Normal Conjunctiva, PERRLA, EOMI, normal sclera, no nystagmus, there is some left periorbital contusion with some ecchymosis but no swelling. He says he can see the left thigh but is slightly blurry ENT: Normal External Ears, Nose and Mouth, moist mucus membranes. Neck: Full range of motion. No meningismus, no lymphadenopathy. Resp: Clear to auscultation bilaterally, no wheezing, rhonchi, rales, right mid axillary anterior rib tenderness Cardio: Regular rate and rhythm, no murmurs, S1 S2 present Abd: Soft, moderate right upper quadrant tenderness non distended. Normal bowel sounds, no guarding or rebound, no pulsitile abdominal masses or bruits Skin: No petechiae or rashes, no ecchymosis , no maculopapular rash Back: No midline or flank tenderness Ext: No cyanosis, or edema, FROM x 4, normal inspection, neurovascularly intact x 4, both elbows are tender to palpation of the medial aspects right more than left there is pain with range of motion but no swelling , the right lateral knee has tenderness with palpation and range of motion Neur: Awake and alert, STR 5/5 x 4, sensation intact x 4, no focal findings, cerebellum intact Psych: Normal Mood and Affect Result Diagram: 01/07/1759 01/07/1759 Results 24 hrs Laboratory Tests Test 01/07/17 09:59 White Blood Count 8.010^3/ul Red Blood Count 3.8110^6/ul Hemoglobin 12.6g/dl Hematocrit 36.8% Mean Corpuscular Volume 96.6fl Mean Corpuscular Hemoglobin 33.1pg Mean Corpuscular Hemoglobin Concent 34.2g/dl Red Cell Distribution Width 12.5% Platelet Count 71388^3/UL Mean Platelet Volume 8.7fl Neutrophils % 74.8% Lymphocytes % 17.3% Monocytes % 6.1% Eosinophils % 0.9% Basophils % 0.6% Nucleated Red Blood Cells % 0.0/100WBC Neutrophils # 6.010^3/ul Lymphocytes # 1.410^3/ul Monocytes # 0.510^3/ul Eosinophils # 0.110^3/ul Basophils # 0.110^3/ul Nucleated Red Blood Cells # 0.010^3/ul Sodium Level 143mmol/L Potassium Level 3.3mmol/L Chloride Level 102mmol/L Carbon Dioxide Level 29mmol/L Anion Gap 15 Blood Urea Nitrogen 5mg/dl Creatinine 0.71mg/dl Glucose Level 120mg/dl Calcium Level 8.7mg/dl Ethyl Alcohol Level 182.0mg/dl Current Medications Medications (Trade) Dose Ordered Sig/Minesh Route PRN Reason Start Time Stop Time Status Last Admin Dose Admin Sodium Chloride (NS) 1,000 ml @ 1,000 mls/hr Q1H STAT IV 01/07/17 09:44 01/07/17 10:43 DC 01/07/17 10:18 Morphine Sulfate (morphine) 6 mg ONCE ONCE IV 01/07/17 10:00 01/07/17 10:01 DC 01/07/17 10:19 Ondansetron HCl (Zofran Inj) 4 mg ONCE ONCE IV 01/07/17 10:00 01/07/17 10:01 DC 01/07/17 10:18 IV Flush 10 ml 10 ml STK-MED ONCE .ROUTE 01/07/17 10:44 01/07/17 10:45 DC Sodium Chloride (NS) 100 ml @ ud STK-MED ONCE .ROUTE 01/07/17 10:44 01/07/17 10:45 DC Iohexol (Omnipaque 300mg/ ml) 150 ml STK-MED ONCE .ROUTE 01/07/17 10:44 01/07/17 10:45 DC Procedures/MDM PROCEDURE: X-ray rib series CLINICAL INDICATION: Trauma, pain TECHNIQUE: Multiple images of the right ribs are obtained. COMPARISON: None available FINDINGS: Visualized osseous structures appear intact, without evidence of fracture or dislocation. There is no visualized pneumothorax. There is scarring or contusion in the peripheral right mid lung.. Soft tissue structures appear within normal limits. IMPRESSION: No rib fracture identified on plain film. Scarring or contusion in the peripheral right mid lung.. RPTAT: DD .Mick Kulkarni MD, MD Date Time Electronically viewed and signed by .Mick Kulkarni MD, MD on 01/07/2017 11:42 .T/ CC: SANTI DOTSON DO PROCEDURE: CT Abdomen and pelvis with contrast. CLINICAL INDICATION: Trauma TECHNIQUE: CT scan of the abdomen and pelvis with contrast was performed on a multidetector high-resolution CT scan. The patient was scanned following the uncomplicated intravenous administration of 90 ml Omnipaque-300. Coronal and sagittal reformatted images were obtained from the axial source images. Standard CT of the abdomen pelvis with contrast protocols were performed. The total exam CTDI equals 16.61 mGy and the total exam DLP equals 1072.45 mGy- cm. One or more of the following dose reduction techniques were used: - Automated exposure control. - Adjustment of the mA and/or kV according to patient size. Use of iterative reconstruction technique. COMPARISON: None. FINDINGS: There are acute fractures involving the right L1 and L2 transverse processes with minimal distraction but no offset. There are no other acute fractures. There is no evidence of subluxations. There is mild degenerative enthesopathy involving the lower thoracic and lumbar spine. In the dependent portions of the lung bases there is parenchymal changes suggestive of atelectasis. Remainder the lung bases are unremarkable. There is mild atherosclerosis of the aorta but no aneurysm. There is no evidence of extravasation of contrast to suggest active hemorrhage. No evidence of major vascular injury. The liver is normal in size with hepatic fatty infiltration. No focal hepatic lesions. The spleen pancreas adrenal glands and gallbladder are unremarkable. No evidence biliary ductal dilation. The kidneys are normal in size without focal lesions or obstructive uropathy. The urinary bladder is unremarkable. Prostate is unremarkable. Negative for intra-abdominal free fluid, free air or lymphadenopathy. The stomach, small bowel and large bowel are unremarkable. IMPRESSION: 1. Acute fractures of the right L1 and L2 transverse processes with minimal distraction but no offset. No other acute fractures or osseous malalignment. 2. No evidence of visceral lacerations. Negative for intra-abdominal free air or free fluid. 3. Mild hepatic fatty infiltration. 4. No evidence of major vascular injury. RPTAT:AAJJ Physician Brad Date Time Electronically viewed and signed by Angela Goodwin Physician on 01/07/2017 11:12 BM/ CC: SANTI DOTSON DO PROCEDURE: CT Brain without contrast. CLINICAL INDICATION: Trauma. Seizures. TECHNIQUE: CT scan of the brain was performed on a multidetector high- resolution CT scan. Axial imaging was obtained of the brain without contrast administration. Coronal and sagittal reformatted images were obtained from the axial source images. Standard CT scan of the head without contrast protocols were performed. The total exam CTDI equals 44.95 mGy and the total exam DLP equals 720.23 mGy- cm. One or more of the following dose reduction techniques were used: - Automated exposure control. - Adjustment of the mA and/or kV according to patient size. Use of iterative reconstruction technique. COMPARISON: None. FINDINGS: The ventricular system and peripheral CSF spaces are are proportionate prominent consistent with mild generalized cerebral volume loss. There is mild periventricular deep white matter changes that is nonspecific and consistent with chronic microvascular ischemic disease.. Negative for intracranial masses or midline shift. There is encephalomalacia involving the anterior inferior left frontal lobe likely sequelae from previous trauma. Franks-white matter junction is otherwise unremarkable. There is left periorbital soft tissue swelling. There is chronic bilateral maxillary , frontal and ethmoid sinus disease. No air-fluid levels within the paranasal sinuses visualized. The mastoids are unremarkable. The bones of the calvarium are intact. IMPRESSION: 1. Encephalomalacia involving the anterior inferior left frontal lobe likely sequela from previous trauma. Negative for intracranial masses or acute hemorrhages. 2. Left periorbital soft tissue swelling. 3. Mild generalized cerebral volume loss and nonspecific chronic microvascular ischemic disease. RPTAT:AAJJ Physician Brad Date Time Electronically viewed and signed by Physician Brad on 01/07/2017 10:48 BM/ CC: SANTI DOTSON DO PROCEDURE: CT Cervical Spine without contrast. CLINICAL INDICATION: Trauma, pain TECHNIQUE: Multiple axial cuts through the cervical spine with coronal and sagittal reformats were obtained without contrast. The calculated radiation dose measures 574 mGy centimeters. The CTDI measures 22 mGy One or more of the following dose reduction techniques were used: Automated exposure control. Adjustment of the mA and/or kV according to patient size. Use of iterative reconstruction technique. COMPARISON: None available FINDINGS: There is straightening of the normal cervical lordosis. There is a cervical levocurvature, which may be partially positional. There is moderate to severe disc space narrowing at C6-C7, and mild to moderate disc space narrowing at other levels from C4-C5 through C7-T1. Vertebral body heights are maintained. There is no subluxation. There is no dislocation or fracture. The atlantoaxial articulation appears normal. There is normal craniocervical alignment. There are mild broad-based disc protrusions at C3-C4 and C4-C5, and mild to moderate broad-based disc protrusions at C5-C6 and C6-C7, up to 3 mm. There is associated mild appearing central canal stenosis at C5-C6 and C6-C7, and minimal appearing central canal stenosis at C4-C5. There is uncovertebral hypertrophy most prominent at C6-C7. There is bony foraminal stenosis which appears mild to moderate on the left and moderate to severe on the right at C6- C7. There is no abnormal paravertebral soft tissue mass. IMPRESSION: 1. Straightening of the cervical lordosis. Cervical levocurvature, which may be partially positional. 2. No visualized acute fracture or dislocation. 3. Mild to moderate disc protrusions at C5-C6 and C6-C7, and mild disc protrusions at C3-C4 and C4-C5. Resulting mild appearing central canal stenosis at C5-C6 and C6-C7. 4. Uncovertebral hypertrophy most prominent at C6-C7. Resulting bony foraminal stenosis, which appears moderate to severe on the right and mild to moderate on the left at C6-C7. RPTAT: QQ .Mick Kulkarni MD, Date Time Electronically viewed and signed by .Mick Kulkarni MD, MD on 01/07/2017 10:52 .T/ CC: SANTI DOTSON DO PROCEDURE: XR Chest. CLINICAL INDICATION: Trauma TECHNIQUE: Frontal chest x-ray was obtained. COMPARISON: None. FINDINGS: Heart is not enlarged. Mediastinum is not widened. No hilar masses seen. Lungs are clear of any infiltrates. There is no effusion or pneumothorax. No fractures are visualized. IMPRESSION: No evidence for active cardiopulmonary disease. .Colby Matt MD, MD Date Time Electronically viewed and signed by .Colby Matt MD, MD on 01/07/2017 11: 52 .A/ CC: SANTI DOTSON DO PROCEDURE: XR Elbow. CLINICAL INDICATION: Trauma, pain TECHNIQUE: AP, lateral and oblique views of the left elbow performed. COMPARISON: None. FINDINGS: There is normal mineralization and alignment. No fracture or osseous lesion is identified. There are normal joints without evidence of arthritis or effusion. The soft tissues are unremarkable. There is a small posterior olecranon spur. There is mild overlying soft tissue swelling. IMPRESSION: No visualized fracture or dislocation. Mild soft tissue swelling over the posterior olecranon. Small olecranon spur. RPTAT: QQ .Mick Kulkarni MD, MD Date Time Electronically viewed and signed by .Mick Kulkarni MD, MD on 01/07/2017 11:54 .T/ CC: SANTI DOTSON DO PROCEDURE: XR Elbow. CLINICAL INDICATION: Trauma, pain TECHNIQUE: AP, lateral and oblique views of the right elbow performed. COMPARISON: None. FINDINGS: There is normal mineralization and alignment. No fracture or osseous lesion is identified. There are normal joints without evidence of arthritis or effusion. The soft tissues are unremarkable. IMPRESSION: Unremarkable examination. No visualized fracture or dislocation. RPTAT: QQ .Mick Kulkarni MD, MD Date Time Electronically viewed and signed by .Mick Kulkarni MD, MD on 01/07/2017 11:51 .T/ CC: SANTI DOTSON DO PROCEDURE: XR Knee. CLINICAL INDICATION: Trauma, pain TECHNIQUE: AP, lateral and oblique view of the right knee were obtained. The images reviewed on a PACS workstation. COMPARISON: None. FINDINGS: The bones appear intact, with no evidence of fracture, erosion, demineralization , or dislocation. The alignment of the femorotibial and patellofemoral joints appears normal. There is mild medial femoral tibial joint space narrowing. No evidence of effusion or soft tissue swelling is present. IMPRESSION: Mild medial femoral tibial joint space narrowing. No visualized fracture or dislocation. RPTAT: QQ .Mick Kulkarni MD, MD Date Time Electronically viewed and signed by .Mick Kulkarni MD, MD on 01/07/2017 11:46 .T/ CC: SANTI DOTSON DO PROCEDURE: CT Lumbar Spine. CLINICAL INDICATION: Trauma TECHNIQUE: Axial imaging was obtained through the lumbar spine using a multi- slice CT scanner. Standard CT scan of the lumbar spine without contrast protocols were performed. CTDI: 25.53 and DLP: 964.21. One or more of the following dose reduction techniques were used: - Automated exposure control. - Adjustment of the mA and/or kV according to patient size. Use of iterative reconstruction technique. COMPARISON: None. FINDINGS: There are acute fractures involving the right L1 and L2 transverse process sees. No other acute fractures. No evidence of subluxations. There is mild degenerative enthesopathy involving the lower thoracic and lumbar spine. There are posterior broad-based disc bulges involving the L2-3, L3-4, L4-5 and L5-S1 discs. No evidence of central spinal canal stenosis. No evidence of neural foraminal narrowing. The facet joints are unremarkable. There are no paraspinous masses. There is atherosclerosis of the aorta but no aneurysm. IMPRESSION: 1. Acute fractures involving the right L1 and L2 transverse processes without other acute fractures. No evidence of subluxations. 2. Degenerate changes as above. No evidence of central spinal canal or neural foraminal stenosis. Addendum: Dr. Dotson was telephoned this results on 01/07/2017 at 1055 hours. RPTAT:AAJJ Physician Brad Date Time Electronically viewed and signed by Physician Brad on 01/07/2017 11:03 BM/ CC: SANTI DOTSON DO Reevaluation patient is more comfortable. He is awake and alert and oriented discussed his injuries with him. He will seizure is alcohol related says he takes a medication of the benzos which he says he has Given prescription for Ativan and pain control Departure Diagnosis: Primary Impression: Fracture of transverse process of lumbar vertebra Encounter type: initial encounter Fracture type: closed Qualified Code: S32.009A - Closed fracture of transverse process of lumbar vertebra, initial encounter Additional Impressions: Contusion of knee, right Encounter type: initial encounter Qualified Code: S80.01XA - Contusion of right knee, initial encounter Multiple contusions Seizure disorder Condition: Stable SANTI DOTSON DO Jan 07, 2017 10:25
[2017-01-07 10:34] LABS: CALCIUM 8.7 mg/dl (8.4-10.2); CREATININE 0.71 mg/dl (0.61-1.24); POTASSIUM 3.3 mmol/L (3.5-5.1)
[2017-01-07] MEDS ORDERED: IOHEXOL 300MG/ML 150 ML BTL ONE (10:44)
[2017-01-07] MEDS ORDERED: SOD CHLORIDE 0.9% 100 ML ONE (10:44)
--- NOTE | 2017-01-07 10:48 | RADRPT ---
PROCEDURE: CT Brain without contrast. CLINICAL INDICATION: Trauma. Seizures. TECHNIQUE: CT scan of the brain was performed on a multidetector high-resolution CT scan. Axial im aging was obtained of the brain without contrast administration. Coronal and sagittal reformatted i mages were obtained from the axial source images. Standard CT scan of the head without contrast prot ocols were performed. The total exam CTDI equals 44.95 mGy and the total exam DLP equals 720.23 mGy-cm. One or more of the following dose reduction techniques were used: - Automated exposure control. - Adjustment of the mA and/or kV according to patient size. Use of iterative reconstruction technique. COMPARISON: None. FINDINGS: The ventricular system and peripheral CSF spaces are are proportionate prominent consistent with mil d generalized cerebral volume loss. There is mild periventricular deep white matter changes that is nonspecific and consistent with chronic microvascular ischemic disease.. Negative for intracranial m asses or midline shift. There is encephalomalacia involving the anterior inferior left frontal lobe likely sequelae from previous trauma. Franks-white matter junction is otherwise unremarkable. There is left periorbital soft tissue swelling. There is chronic bilateral maxillary , frontal and ethmoid s inus disease. No air-fluid levels within the paranasal sinuses visualized. The mastoids are unremark able. The bones of the calvarium are intact. IMPRESSION: 1. Encephalomalacia involving the anterior inferior left frontal lobe likely sequela from previous trauma. Negative for intracranial masses or acute hemorrhages. 2. Left periorbital soft tissue swelling. 3. Mild generalized cerebral volume loss and nonspecific chronic microvascular ischemic disease. RPTAT:AAJJ Physician Brad Date Time Electronically viewed and signed by Physician Brad on 01/07/2017 10:48 BM/
--- NOTE | 2017-01-07 10:52 | RADRPT ---
PROCEDURE: CT Cervical Spine without contrast. CLINICAL INDICATION: Trauma, pain TECHNIQUE: Multiple axial cuts through the cervical spine with coronal and sagittal reformats were obtained without contrast. The calculated radiation dose measures 574 mGy centimeters. The CTDI suze sures 22 mGy One or more of the following dose reduction techniques were used: Automated exposure control. Adjustment of the mA and/or kV according to patient size. Use of iterative reconstruction technique. COMPARISON: None available FINDINGS: There is straightening of the normal cervical lordosis. There is a cervical levocurvature, which may be partially positional. There is moderate to severe disc space narrowing at C6-C7, and mild to mod erate disc space narrowing at other levels from C4-C5 through C7-T1. Vertebral body heights are main tained. There is no subluxation. There is no dislocation or fracture. The atlantoaxial articulation appears normal. There is normal craniocervical alignment. There are mild broad-based disc protrusions at C3-C4 and C4-C5, and mild to moderate broad-based dis c protrusions at C5-C6 and C6-C7, up to 3 mm. There is associated mild appearing central canal steno sis at C5-C6 and C6-C7, and minimal appearing central canal stenosis at C4-C5. There is uncovertebra l hypertrophy most prominent at C6-C7. There is bony foraminal stenosis which appears mild to modera te on the left and moderate to severe on the right at C6-C7. There is no abnormal paravertebral soft tissue mass. IMPRESSION: 1. Straightening of the cervical lordosis. Cervical levocurvature, which may be partially positiona l. 2. No visualized acute fracture or dislocation. 3. Mild to moderate disc protrusions at C5-C6 and C6-C7, and mild disc protrusions at C3-C4 and C4- C5. Resulting mild appearing central canal stenosis at C5-C6 and C6-C7. 4. Uncovertebral hypertrophy most prominent at C6-C7. Resulting bony foraminal stenosis, which appe ars moderate to severe on the right and mild to moderate on the left at C6-C7. RPTAT: QQ .Mick Kulkarni MD, MD Date Time Electronically viewed and signed by .Mick Kulkarni MD, on 01/07/2017 10:52 .T/
--- NOTE | 2017-01-07 11:03 | RADRPT ---
PROCEDURE: CT Lumbar Spine. CLINICAL INDICATION: Trauma TECHNIQUE: Axial imaging was obtained through the lumbar spine using a multi-slice CT scanner. Sta ndard CT scan of the lumbar spine without contrast protocols were performed. CTDI: 25.53 and DLP: 964.21. One or more of the following dose reduction techniques were used: - Automated exposure control. - Adjustment of the mA and/or kV according to patient size. Use of iterative reconstruction technique. COMPARISON: None. FINDINGS: There are acute fractures involving the right L1 and L2 transverse process sees. No other acute frac tures. No evidence of subluxations. There is mild degenerative enthesopathy involving the lower thor acic and lumbar spine. There are posterior broad-based disc bulges involving the L2-3, L3-4, L4-5 an d L5-S1 discs. No evidence of central spinal canal stenosis. No evidence of neural foraminal narrowi ng. The facet joints are unremarkable. There are no paraspinous masses. There is atherosclerosis of the aorta but no aneurysm. IMPRESSION: 1. Acute fractures involving the right L1 and L2 transverse processes without other acute fracture s. No evidence of subluxations. 2. Degenerate changes as above. No evidence of central spinal canal or neural foraminal stenosis. Addendum: Dr. Santoyo was telephoned this results on 01/07/2017 at 1055 hours. RPTAT:AAJJ Physician Brad Date Time Electronically viewed and signed by Physician Brad on 01/07/2017 11:03 BM/
--- NOTE | 2017-01-07 11:12 | RADRPT ---
PROCEDURE: CT Abdomen and pelvis with contrast. CLINICAL INDICATION: Trauma TECHNIQUE: CT scan of the abdomen and pelvis with contrast was performed on a multidetector high-r esolution CT scan. The patient was scanned following the uncomplicated intravenous administration o f 90 ml Omnipaque-300. Coronal and sagittal reformatted images were obtained from the axial source images. Standard CT of the abdomen pelvis with contrast protocols were performed. The total exam CTDI equals 16.61 mGy and the total exam DLP equals 1072.45 mGy-cm. One or more of the following dose reduction techniques were used: - Automated exposure control. - Adjustment of the mA and/or kV according to patient size. Use of iterative reconstruction technique. COMPARISON: None. FINDINGS: There are acute fractures involving the right L1 and L2 transverse processes with minimal distractio n but no offset. There are no other acute fractures. There is no evidence of subluxations. There is mild degenerative enthesopathy involving the lower thoracic and lumbar spine. In the dependent portions of the lung bases there is parenchymal changes suggestive of atelectasis. Remainder the lung bases are unremarkable. There is mild atherosclerosis of the aorta but no aneurysm. There is no evidence of extravasation of contrast to suggest active hemorrhage. No evidence of major vascular injury. The liver is normal in size with hepatic fatty infiltration. No focal hepatic lesions. The spleen pa ncreas adrenal glands and gallbladder are unremarkable. No evidence biliary ductal dilation. The kidneys are normal in size without focal lesions or obstructive uropathy. The urinary bladder is unremarkable. Prostate is unremarkable. Negative for intra-abdominal free fluid, free air or lymphadenopathy. The stomach, small bowel and large bowel are unremarkable. IMPRESSION: 1. Acute fractures of the right L1 and L2 transverse processes with minimal distraction but no offs et. No other acute fractures or osseous malalignment. 2. No evidence of visceral lacerations. Negative for intra-abdominal free air or free fluid. 3. Mild hepatic fatty infiltration. 4. No evidence of major vascular injury. RPTAT:AAJJ Physician Brad Date Time Electronically viewed and signed by Physician Brad on 01/07/2017 11:12 BM/
--- NOTE | 2017-01-07 11:42 | RADRPT ---
PROCEDURE: X-ray rib series CLINICAL INDICATION: Trauma, pain TECHNIQUE: Multiple images of the right ribs are obtained. COMPARISON: None available FINDINGS: Visualized osseous structures appear intact, without evidence of fracture or dislocation. There is no visualized pneumothorax. There is scarring or contusion in the peripheral right mid lung.. Soft tissue structures appear within normal limits. IMPRESSION: No rib fracture identified on plain film. Scarring or contusion in the peripheral right mid lung.. RPTAT: DD .Mick Kulkarni MD, Date Time Electronically viewed and signed by .Mick Kulkarni MD, on 01/07/2017 11:42 .T/
--- NOTE | 2017-01-07 11:46 | RADRPT ---
PROCEDURE: XR Knee. CLINICAL INDICATION: Trauma, pain TECHNIQUE: AP, lateral and oblique view of the right knee were obtained. The images reviewed on a PACS workstation. COMPARISON: None. FINDINGS: The bones appear intact, with no evidence of fracture, erosion, demineralization, or dislocation. Th e alignment of the femorotibial and patellofemoral joints appears normal. There is mild medial femor al tibial joint space narrowing. No evidence of effusion or soft tissue swelling is present. IMPRESSION: Mild medial femoral tibial joint space narrowing. No visualized fracture or dislocation. RPTAT: QQ .Mick Kulkarni MD, MD Date Time Electronically viewed and signed by .Mick Kulkarni MD, MD on 01/07/2017 11:46 .T/
--- NOTE | 2017-01-07 11:51 | RADRPT ---
PROCEDURE: XR Elbow. CLINICAL INDICATION: Trauma, pain TECHNIQUE: AP, lateral and oblique views of the right elbow performed. COMPARISON: None. FINDINGS: There is normal mineralization and alignment. No fracture or osseous lesion is identified. There are normal joints without evidence of arthritis or effusion. The soft tissues are unremarkable. IMPRESSION: Unremarkable examination. No visualized fracture or dislocation. RPTAT: QQ .Mick Kulkarni MD, MD Date Time Electronically viewed and signed by .Mick Kulkarni MD, on 01/07/2017 11:51 .T/
--- NOTE | 2017-01-07 11:52 | RADRPT ---
PROCEDURE: XR Chest. CLINICAL INDICATION: Trauma TECHNIQUE: Frontal chest x-ray was obtained. COMPARISON: None. FINDINGS: Heart is not enlarged. Mediastinum is not widened. No hilar masses seen. Lungs are clear of any infi ltrates. There is no effusion or pneumothorax. No fractures are visualized. IMPRESSION: No evidence for active cardiopulmonary disease. .Colby Matt MD, MD Date Time Electronically viewed and signed by .Colby Mtat MD, on 01/07/2017 11:52 .A/
--- NOTE | 2017-01-07 11:54 | RADRPT ---
PROCEDURE: XR Elbow. CLINICAL INDICATION: Trauma, pain TECHNIQUE: AP, lateral and oblique views of the left elbow performed. COMPARISON: None. FINDINGS: There is normal mineralization and alignment. No fracture or osseous lesion is identified. There are normal joints without evidence of arthritis or effusion. The soft tissues are unremarkable. There i s a small posterior olecranon spur. There is mild overlying soft tissue swelling. IMPRESSION: No visualized fracture or dislocation. Mild soft tissue swelling over the posterior olecranon. Small olecranon spur. RPTAT: QQ .Mick Kulkarni MD, Date Time Electronically viewed and signed by .Mick Kulkarni MD, on 01/07/2017 11:54 .T/
[2017-01-07] MEDS ORDERED: TRAM50TA2 PO (13:16)
[2017-01-07] MEDS ORDERED: IBUP-1542 PO (13:16)
[2017-01-07] MEDS ORDERED: LORA1TAB PO (13:16)
[2017-01-07 14:47] VITALS: BP 125/74; PULSE 78; RESP 16; TEMP 98.2
== END 2017-01-07 14:45 | disposition home or self-care (01) ==
LOC: E/R 09:20
DX: S32.018A Other fracture of first lumbar vertebra, initial encounter for closed fracture (principal); S32.029A Unspecified fracture of second lumbar vertebra, initial encounter for closed fracture; S80.01XA Contusion of right knee, initial encounter; S00.12XA Contusion of left eyelid and periocular area, initial encounter; I10 Essential (primary) hypertension; F17.210 Nicotine dependence, cigarettes, uncomplicated; G40.909 Epilepsy, unspecified, not intractable, without status epilepticus; R40.2142 Coma scale, eyes open, spontaneous, at arrival to emergency department; R40.2252 Coma scale, best verbal response, oriented, at arrival to emergency department; R40.2362 Coma scale, best motor response, obeys commands, at arrival to emergency department; W18.39XA Other fall on same level, initial encounter; Y92.830 Public park as the place of occurrence of the external cause
CPT/HCPCS: 70450; 71010; 71100; 72125; 72131; 73080; 73562; 74177; 80048; 80306; 85025; 96374; 96375; J2270; J2405; J7030; Q9967; Z7502; Z7610

== ENCOUNTER 2017-01-12 18:39 | Emergency (ER) | payer OTHER ==
[~2017-01-12] VITALS: Ht 182.9 cm; Wt 76.0 kg
[~2017-01-12 18:39] MED LIST changes: +IBUP-1542 PO; +LORA1TAB PO; +TRAM50TA2 PO
[2017-01-12 18:54] VITALS: Ht 182.9 cm; Wt 76.0 kg
[2017-01-12] MEDS ORDERED: LORAZEPAM 2 MG INJ IV ONE (21:30)
[2017-01-12 22:30] LABS: HEMATOCRIT 36.2 % (42.0-52.0); MEAN CORPUSCULAR HEMOGLOBIN 33.2 pg (29.0-33.0); MEAN CORPUSCULAR HGB CONC 33.1 g/dl (32.0-37.0); MEAN CORPUSCULAR VOLUME 100.3 fl (82.0-101.0); POSITIVE DIFF @See below; RED BLOOD COUNT 3.61 10^6/ul (4.70-6.10); RED CELL DISTRIBUTION WIDTH 12.9 % (11.5-14.5); WHITE BLOOD COUNT 5.6 10^3/ul (4.8-10.8)
[2017-01-12 22:32] LABS: MEAN PLATELET VOLUME 11.4 fl (7.4-10.4); PLATELET COUNT 102 10^3/UL (140-415)
[2017-01-12 22:35] LABS: PROTIME 13.2 Sec (12.2-14.2)
[2017-01-12 22:36] LABS: PARTIAL THROMBOPLASTIN TIME 23.7 Sec (25.0-35.0)
[2017-01-12] MEDS ORDERED: HYDR-902 PO (22:36)
--- NOTE | 2017-01-12 22:42 | RADRPT ---
PROCEDURE: CT Brain without contrast. CLINICAL INDICATION: Trauma due to a fall. Headache. TECHNIQUE: A CT of the brain without contrast was performed utilizing axial sections from the skul l base through the vertex. The patient was scanned without intravenous contrast enhancement. Sagitta l and coronal reformatted images were obtained using the data from the axial images. Total exam DLP is 844.30 mGy-cm. CTDIvol is 43.20 mGy. One or more of the following dose reduction techniques we re used: Automated exposure control, adjustment of the mA and/or kV according to patient size, use o f iterative reconstruction technique. COMPARISON: CT scan of the brain dated 01/07/2017. FINDINGS: As seen previously, there is a small region of encephalomalacia in the left frontal lobe inferiorly medially. The crystal and white matter differentiation is otherwise normal. There is mild enlargement of the ventricles and subarachnoid spaces consistent with atrophy. There is no intracranial hemorrhage or space-occupying lesion. There is no skull fracture or lytic lesion. There is bilateral maxillary sinus mucoperiosteal thick ening. IMPRESSION: 1. Small region of encephalomalacia in the left frontal lobe inferiorly medially. 2. Mild atrophy. 3. Bilateral maxillary sinus mucoperiosteal thickening. 4. Otherwise unremarkable noncontrast CT scan of the brain. 5. No significant change from 01/07/2017. RPTAT: QQ .Sushil Suárez MD, Date Time Electronically viewed and signed by .Sushil Suárez MD, on 01/12/2017 22:41 .R/
[2017-01-12 22:44] LABS: CALCIUM 9.1 mg/dl (8.4-10.2); CREATININE 0.7 mg/dl (0.61-1.24); POTASSIUM 4.3 mmol/L (3.5-5.1)
--- NOTE | 2017-01-12 22:45 | RADRPT ---
PROCEDURE: CT Facial Bones. CLINICAL INDICATION: Trauma due to a fall. Facial pain. TECHNIQUE: Helical axial sections were obtained through the facial bones without intravenous contr ast enhancement. Sagittal and coronal reformatted images were accomplished using the data from the axial images. Total exam DLP is 564.12 mGy-cm. CTDIvol is 29.45 mGy. One or more of the followin g dose reduction techniques were used: Automated exposure control, adjustment of the mA and/or kV ac cording to patient size, use of iterative reconstruction technique. COMPARISON: No prior study is available for comparison. FINDINGS: There is bilateral maxillary sinus mucoperiosteal thickening consistent with chronic sinusitis. Ther e is mild mucosal thickening in the ethmoid and frontal sinuses. The sinuses are otherwise normal. There is diastases of the region of the medial wall of the right orbit. The osseous structures are o therwise intact. There is no fracture or lytic lesion. The orbits are normal. The globes are intact. The extraocular muscles and optic nerves are normal. The nasal septum is midline. The ostiomeatal complexes are normal. There is bilateral nilsa bullosa. The turbinates are otherwise unremarkable. The mandible and maxilla are intact. The zygomatic arches and pterygoid plates are normal. IMPRESSION: 1. Bilateral chronic maxillary sinusitis. 2. Mild mucosal thickening in the ethmoid and frontal sinuses. 3. 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 4. Bilateral nilsa bullosa. 5. Otherwise unremarkable study. RPTAT: QQ .Sushil Suárez MD, Date Time Electronically viewed and signed by .Sushil Suárez MD, on 01/12/2017 22:44 .R/
--- NOTE | 2017-01-12 22:46 | RADRPT ---
PROCEDURE: CT Cervical Spine without contrast. CLINICAL INDICATION: Trauma due to a fall. Neck pain. TECHNIQUE: Helical axial sections were obtained through the cervical spine without intravenous con trast enhancement. Sagittal and coronal reformatted images were accomplished using the data from th e axial images. Total exam DLP is 454.54 mGy-cm. CTDIvol is 22.15 mGy. One or more of the followi ng dose reduction techniques were used: Automated exposure control, adjustment of the mA and/or kV a ccording to patient size, use of iterative reconstruction technique. COMPARISON: No prior studies are available for comparison. FINDINGS: There is normal stature and alignment of the vertebrae. There is no fracture. There are degenerative changes with disc space narrowing and osteophytes at C4-5 and C6-7. There is no lytic or blastic lesion. The paravertebral soft tissues are normal. IMPRESSION: 1. Degenerative change at C4-5 and C6-7. 2. No acute abnormality. RPTAT: QQ .Sushil Suárez MD, MD Date Time Electronically viewed and signed by .Sushil Suárez MD, on 01/12/2017 22:46 .R/
--- NOTE | 2017-01-12 22:48 | ERD ---
ER Documentation Chief Complaint Date/Time DATE: 01/12/17 TIME: 22:47 Chief Complaint seizure yesterday and fell down, nasal injury,Leye hematoma L/R arm pain HPI Patient is a 51-year-old male with hypertension and alcohol abuse who presents with a seizure. He said that he fell to the ground. He says "I have been having seizures for over 1 month". He said that he fell and hit his face and thinks he might have broken his nose. He also has right elbow pain. ROS All systems reviewed and are negative except as per history of present illness. Medications Home Meds Active Scripts Hydrocodone/Acetaminophen ([place] 10-325 Tablet) 1 Each Tablet, 1 TAB PO Q6H Y for PAIN, #4 TAB Prov:HORTENSIA JUDGE MD 01/12/17 Ibuprofen* (Motrin*) 600 Mg Tab, 600 MG PO Q8, #30 TAB Prov:SANTI DOTSON DO 01/07/17 Tramadol HCl (Tramadol HCl) 50 Mg Tablet, 50 MG PO Q6, #20 TAB Prov:SANTI DOTSON DO 01/07/17 Lorazepam* (Lorazepam*) 1 Mg Tablet, 1 MG PO Q8H Y for ANXIETY, #10 TAB Prov:SANTI DOTSON DO 01/07/17 Thiamine* (Vitamin B-1*) 100 Mg Tablet, 100 MG PO DAILY for 30 Days, TAB Prov:FATMATA CASH 12/28/16 Metoprolol Tartrate* (Lopressor*) 25 Mg Tab, 12.5 MG PO BID, #60 TAB Prov:FATMATA CASH 12/28/16 Quetiapine Fumarate* (Quetiapine Fumarate*) 25 Mg Tablet, 25 MG PO HS for 30 Days, TAB Prov:FATMATA CASH 12/28/16 Lisinopril* (Lisinopril*) 10 Mg Tablet, 10 MG PO DAILY, #30 TAB Prov:FATMATA CASH 12/28/16 Reported Medications Methadone Hcl* (Methadone*) 10 Mg Tab, 65 MG PO DAILY, TAB 12/19/16 Allergies Allergies: Coded Allergies: Penicillins (Verified Allergy, Severe, Hives, 12/19/16) codeine (Verified Allergy, Severe, Hives, 12/19/16) PMhx/Soc History of Surgery: No Anesthesia Reaction: No Hx Neurological Disorder: Yes (seizures) Hx Respiratory Disorders: Yes (has a nodule in the lungs) Hx Cardiac Disorders: Yes (HTN) Hx Psychiatric Problems: No Hx Miscellaneous Medical Probl: Yes (alcohol intoxication,htn,chronic pain syndrome) Hx Alcohol Use: Yes Hx Substance Use: Yes Hx Tobacco Use: Yes Smoking Status: Current every day smoker FmHx Family History: No diabetes Physical Exam Vitals Vital Signs Date Time Temp Pulse Resp B/P Pulse Ox O2 Delivery O2 Flow Rate FiO2 01/12/17 21:13 97.6 88 20 105/72 97 Room Air 01/12/17 18:54 97.6 98 20 106/59 97 Physical Exam Const: Swelling to the face Head: Atraumatic Eyes: Normal Conjunctiva ENT: Swelling to the left face and nose Neck: Full range of motion..~ No meningismus. Resp: Clear to auscultation bilaterally Cardio: Regular rate and rhythm, no murmurs Abd: Soft, non tender, non distended. Normal bowel sounds Skin: Bruising to the elbow Back: No midline or flank tenderness Ext: Left elbow swelling over the olecranon with bruising Neur: Awake and alert, moves all 4 extremities Result Diagram: 01/12/17215101/12/172151 Results 24 hrs Laboratory Tests Test 01/12/17 21:52 White Blood Count 5.610^3/ul Red Blood Count 3.6110^6/ul Hemoglobin 12.0g/dl Hematocrit 36.2% Mean Corpuscular Volume 100.3fl Mean Corpuscular Hemoglobin 33.2pg Mean Corpuscular Hemoglobin Concent 33.1g/dl Red Cell Distribution Width 12.9% Platelet Count 42219^3/UL Mean Platelet Volume 11.4fl Neutrophils % % Lymphocytes % % Monocytes % % Eosinophils % % Basophils % % Nucleated Red Blood Cells % 0.0/100WBC Neutrophils # 10^3/ul Lymphocytes # 10^3/ul Monocytes # 10^3/ul Eosinophils # 10^3/ul Basophils # 10^3/ul Nucleated Red Blood Cells # 10^3/ul Prothrombin Time 13.2Sec Prothrombin Time Ratio 1.0 INR International Normalized Ratio 1.00 Activated Partial Thromboplast Time 23.7Sec Sodium Level 140mmol/L Potassium Level 4.3mmol/L Chloride Level 105mmol/L Carbon Dioxide Level 26mmol/L Anion Gap 13 Blood Urea Nitrogen 5mg/dl Creatinine 0.70mg/dl Glucose Level 72mg/dl Calcium Level 9.1mg/dl Troponin I Pending Current Medications Medications (Trade) Dose Ordered Sig/Minesh Route PRN Reason Start Time Stop Time Status Last Admin Dose Admin Lorazepam (Ativan) 1 mg ONCE ONCE IV 01/12/17 21:30 01/12/17 21:31 DC 01/12/17 22:02 Procedures/MDM CT brain shows no skull fracture or hemorrhage per radiology. CT facial bone shows no obvious fracture per radiology. CT cervical spine shows no fracture per radiology. X-ray of the right elbow is pending at this time. Smoking Cessation Therapy: Pt. was lectured for greater than 3 minutes on the health risks of continued smoking and the benefits of cessation. Patient is a 51-year-old male who presents with likely alcohol withdrawal seizure. He has a history of heavy alcohol use. The patient was given Ativan to prevent alcohol withdrawal. The patient has a CT scan of the brain, face, and cervical spine which were basically negative for serious traumatic injury. The patient has an x-ray of the right elbow pending. Laboratory studies are basically normal but troponin is pending at this time as well. If the x-ray of the elbow and troponin are negative I believe outpatient management is appropriate. The patient will be given a short course of [place] for pain he can return for any worsening symptoms. He needs to follow-up with a primary doctor within the next 24-48 hours as he does not currently have a primary doctor. He may require antiseizure medications. He should try to stop drinking alcohol to excess under the care of a local outpatient treatment center. He could return for any worsening symptoms. Departure Diagnosis: Primary Impression: Fall Encounter type: initial encounter Qualified Code: W19.XXXA - Fall, initial encounter Additional Impressions: Alcohol abuse Seizure disorder Condition: Fair Patient Instructions: Fracture, Nose (With X-Ray), Seizure, Recurrent [Adult] Referrals: COMMUNITY CLINICS YOU HAVE RECEIVED A MEDICAL SCREENING EXAM AND THE RESULTS INDICATE THAT YOU DO NOT HAVE A CONDITION THAT REQUIRES URGENT TREATMENT IN THE EMERGENCY DEPARTMENT. FURTHER EVALUATION AND TREATMENT OF YOUR CONDITION CAN WAIT UNTIL YOU ARE SEEN IN YOUR DOCTORS OFFICE WITHIN THE NEXT 1-2 DAYS. IT IS YOUR RESPONSIBILITY TO MAKE AN APPOINTMENT FOR FOLOW-UP CARE. IF YOU HAVE A PRIMARY DOCTOR --you should call your primary doctor and schedule an appointment IF YOU DO NOT HAVE A PRIMARY DOCTOR YOU CAN CALL OUR PHYSICIAN REFERRAL HOTLINE AT IF YOU CAN NOT AFFORD TO SEE A PHYSICIAN YOU CAN CHOSE FROM THE FOLLOWING [facility] [address] [facility] [address] [facility] [facility] [address] [facility] [address] [facility]. [facility] [address] [facility]. [facility]. [address] Additional Instructions: Call your primary care doctor TOMORROW for an appointment during the next 1-2 days.See the doctor sooner or return here if your condition worsens before your appointment time. HORTENSIA JUDGE MD Jan 12, 2017 22:48
[2017-01-12 22:53] LABS: TROPONIN-I 0.022 ng/ml (0.00-0.12)
[2017-01-12 23:28] LABS: EOSINOPHILS # 0.1 10^3/ul (0.0-0.5); EOSINOPHILS % (M) 2 % (0.0-7.0); LYMPHOCYTES # 2.6 10^3/ul (0.8-2.9); MONOCYTE # 0.4 10^3/ul (0.3-0.9); MONOCYTES % (M) 8 % (0-11)
--- NOTE | 2017-01-13 00:19 | RADRPT ---
PROCEDURE: XR Elbow. CLINICAL INDICATION: 51-year of age, male. Pain. TECHNIQUE: Three views of the right elbow. COMPARISON: None available. FINDINGS: Negative for evidence of acute fracture. Normal alignment. Negative for evidence of elbow joint effusion. There is soft tissue swelling at the ulnar and posterior aspects of the elbow. IMPRESSION: Negative for evidence of acute fracture or dislocation of the right elbow. Soft tissue swelling of the ulnar and posterior aspects of the elbow. If there is a history of traum a, this could represent contusion. RPTAT: HCTS Physician Justina Date Time Electronically viewed and signed by Physician Justian on 01/13/2017 00:18 CS/
[2017-01-13 00:33] VITALS: BP 111/76; PULSE 78; RESP 16; TEMP 97.6
[2017-01-14] MEDS ORDERED: LORA0.5T PO (05:48)
[2017-01-14] MEDS ORDERED: HYDR-906 PO (05:50)
== END 2017-01-13 00:34 | disposition home or self-care (01) ==
LOC: E/R 18:39
DX: F10.120 Alcohol abuse with intoxication, uncomplicated (principal); R40.2252 Coma scale, best verbal response, oriented, at arrival to emergency department; G40.909 Epilepsy, unspecified, not intractable, without status epilepticus; I10 Essential (primary) hypertension; F17.210 Nicotine dependence, cigarettes, uncomplicated; R40.2142 Coma scale, eyes open, spontaneous, at arrival to emergency department; R40.2362 Coma scale, best motor response, obeys commands, at arrival to emergency department; R07.9 Chest pain, unspecified
CPT/HCPCS: 36415; 70450; 70486; 72125; 73080; 80048; 84484; 85025; 85610; 85730; 96374; J2060; Z7502

== ENCOUNTER 2017-01-13 21:01 | Inpatient (IN) | payer OTHER ==
[~2017-01-13] VITALS: Ht 185.4 cm; Wt 74.2 kg
[~2017-01-13 21:01] MED LIST changes: +HYDR-902 PO
[2017-01-13] MEDS ORDERED: LEVETIRACETAM 1000 MG (PMX) 100 ML IVPB STA (22:45)
[2017-01-13] MEDS ORDERED: SOD CHLORIDE 0.9% 1,000 ML IV STA (22:45)
[2017-01-13 23:40] LABS: BASOPHILS % 0.6 % (0.0-2.0); EOSINOPHILS # 0.4 10^3/ul (0.0-0.5); EOSINOPHILS % 7.2 % (0.0-7.0); HEMATOCRIT 33.2 % (42.0-52.0); LYMPHOCYTES # 2.1 10^3/ul (0.8-2.9); LYMPHOCYTES % 43.1 % (15.0-51.0); MEAN CORPUSCULAR HEMOGLOBIN 33.1 pg (29.0-33.0); MEAN CORPUSCULAR HGB CONC 33.1 g/dl (32.0-37.0); MEAN PLATELET VOLUME 11.1 fl (7.4-10.4); MONOCYTE # 0.6 10^3/ul (0.3-0.9); MONOCYTES % 11.4 % (0.0-11.0); NEUTROPHIL # 1.8 10^3/ul (1.6-7.5); NEUTROPHILS % 37.5 % (39.0-77.0); POSITIVE DIFF @See below; RED BLOOD COUNT 3.32 10^6/ul (4.70-6.10); RED CELL DISTRIBUTION WIDTH 12.9 % (11.5-14.5); WHITE BLOOD COUNT 4.8 10^3/ul (4.8-10.8)
[2017-01-13 23:56] LABS: CALCIUM 8.7 mg/dl (8.4-10.2); CREATININE 0.91 mg/dl (0.61-1.24); POTASSIUM 3.7 mmol/L (3.5-5.1)
[2017-01-14 00:11] LABS: ADD UMIC NO; UR ASCORBIC ACID NEGATIVE (NEGATIVE); UR BILIRUBIN (Dip) NEGATIVE (NEGATIVE); UR BLOOD (Dip) NEGATIVE (NEGATIVE); UR CLARITY CLEAR (CLEAR); UR COLOR STRAW (YELLOW); UR GLUCOSE (Dip) NEGATIVE (NEGATIVE); UR KETONES (Dip) NEGATIVE (NEGATIVE); UR LEUKOCYTE ESTERASE (Dip) NEGATIVE Leu/ul (NEGATIVE); UR NITRITE (Dip) NEGATIVE (NEGATIVE); UR SPECIFIC GRAVITY (Dip) 1.003 (1.003-1.030); UR TOTAL PROTEIN (Dip) NEGATIVE (NEGATIVE); UR UROBILINOGEN (Dip) NEGATIVE (NEGATIVE)
[2017-01-14 00:51] LABS: PLATELET COUNT 130 10^3/UL (140-415)
--- NOTE | 2017-01-14 03:22 | ERA ---
ER Documentation Chief Complaint Date/Time DATE: 01/14/17 TIME: 03:17 Chief Complaint seizure today hx- alcoholic abuse HPI This 51-year-old male comes to emergency room after [place] [address] [place] [address]. He states there witnessed by bystanders and it was a innocent bystander who was unknown to him that gave him a ride to the hospital afterwards. Denies having drank alcohol for the last 2 days. States that he has been falling multiple times including today. Says that he has no specific pain but has pain all over his entire body. Has a history of alcohol withdrawal seizures. States that his seizure medicines are Ativan and Librium, and so is not on any actual seizure medication. Review of the patient's EMR and he was admitted 10 days ago. At that time physical therapy thought the patient has significant debility and recommended transfer to a rehab facility however the patient left AGAINST MEDICAL ADVICE. Documentation of any seizures witnessed by medical personnel. ROS All systems reviewed and are negative except as per history of present illness. Medications Home Meds Active Scripts Hydrocodone/Acetaminophen ([place] 10-325 Tablet) 1 Each Tablet, 1 TAB PO Q6H Y for PAIN, #4 TAB Prov:HORTENSIA JUDGE MD 01/12/17 Ibuprofen* (Motrin*) 600 Mg Tab, 600 MG PO Q8, #30 TAB Prov:SANTI DOTSON DO 01/07/17 Tramadol HCl (Tramadol HCl) 50 Mg Tablet, 50 MG PO Q6, #20 TAB Prov:SANTI DOTSON DO 01/07/17 Lorazepam* (Lorazepam*) 1 Mg Tablet, 1 MG PO Q8H Y for ANXIETY, #10 TAB Prov:SANTI DOTSON DO 01/07/17 Thiamine* (Vitamin B-1*) 100 Mg Tablet, 100 MG PO DAILY for 30 Days, TAB Prov:FATMATA CASH 12/28/16 Metoprolol Tartrate* (Lopressor*) 25 Mg Tab, 12.5 MG PO BID, #60 TAB Prov:FATMATA CASH 12/28/16 Quetiapine Fumarate* (Quetiapine Fumarate*) 25 Mg Tablet, 25 MG PO HS for 30 Days, TAB Prov:FATMATA CASH 12/28/16 Lisinopril* (Lisinopril*) 10 Mg Tablet, 10 MG PO DAILY, #30 TAB Prov:FATMATA CASH 12/28/16 Reported Medications Methadone Hcl* (Methadone*) 10 Mg Tab, 65 MG PO DAILY, TAB 12/19/16 Allergies Allergies: Coded Allergies: Penicillins (Verified Allergy, Severe, Hives, 12/19/16) codeine (Verified Allergy, Severe, Hives, 12/19/16) PMhx/Soc History of Surgery: No Anesthesia Reaction: No Hx Neurological Disorder: Yes (seizures) Hx Respiratory Disorders: Yes (has a nodule in the lungs) Hx Cardiac Disorders: Yes (HTN) Hx Psychiatric Problems: Yes Hx Miscellaneous Medical Probl: Yes (alcohol intoxication,htn,chronic pain syndrome) Hx Alcohol Use: Yes Hx Substance Use: Yes Hx Tobacco Use: No Smoking Status: Unknown if ever smoked Physical Exam Vitals Vital Signs Date Time Temp Pulse Resp B/P Pulse Ox O2 Delivery O2 Flow Rate FiO2 01/14/17 01:58 71 27 116/74 100 Nasal Cannula 2.0 01/14/17 00:33 75 16 107/65 100 Room Air 01/13/17 23:49 68 13 112/71 99 Nasal Cannula 2.0 01/13/17 21:04 97.6 99 20 109/61 98 Physical Exam Const: [] No distress Head: Atraumatic Eyes: Normal Conjunctiva EOMI, PERRLA ENT: Normal External Ears, Nose and Mouth. Neck: Full range of motion..~No midline tenderness or tenderness in range of motion. Resp: Clear to auscultation bilaterally Cardio: Regular rate and rhythm, no murmurs Abd: Soft, non tender, non distended. Normal bowel sounds Skin: No petechiae or rashes Back: No midline or flank tenderness Ext: No cyanosis, or edema distal pulses intact all 4 extremities. Neur: Awake and alert oriented 3, somnolent slow to answer some questions, cranial nerves II through XII intact, no cerebellar deficits. Gait not tested Psych: Normal Mood and Affect Result Diagram: 01/13/17231201/13/17 2313 Results 24 hrs Laboratory Tests Test 01/13/17 23:13 01/13/17 23:45 White Blood Count 4.810^3/ul Red Blood Count 3.3210^6/ul Hemoglobin 11.0g/dl Hematocrit 33.2% Mean Corpuscular Volume 100.0fl Mean Corpuscular Hemoglobin 33.1pg Mean Corpuscular Hemoglobin Concent 33.1g/dl Red Cell Distribution Width 12.9% Platelet Count 51304^3/UL Mean Platelet Volume 11.1fl Neutrophils % 37.5% Lymphocytes % 43.1% Monocytes % 11.4% Eosinophils % 7.2% Basophils % 0.6% Nucleated Red Blood Cells % 0.0/100WBC Neutrophils # 1.810^3/ul Lymphocytes # 2.110^3/ul Monocytes # 0.610^3/ul Eosinophils # 0.410^3/ul Basophils # 0.010^3/ul Nucleated Red Blood Cells # 0.010^3/ul Sodium Level 136mmol/L Potassium Level 3.7mmol/L Chloride Level 102mmol/L Carbon Dioxide Level 28mmol/L Anion Gap 10 Blood Urea Nitrogen 4mg/dl Creatinine 0.91mg/dl Glucose Level 78mg/dl Calcium Level 8.7mg/dl Urine Color STRAW Urine Clarity CLEAR Urine pH 5.0 Urine Specific [place] 1.003 Urine Ketones NEGATIVEmg/dL Urine Nitrite NEGATIVEmg/dL Urine Bilirubin NEGATIVEmg/dL Urine Urobilinogen NEGATIVEmg/dL Urine Leukocyte Esterase NEGATIVELeu/ul Urine Hemoglobin NEGATIVEmg/dL Urine Glucose NEGATIVEmg/dL Urine Total Protein NEGATIVEmg/dl Current Medications Medications (Trade) Dose Ordered Sig/Minesh Route PRN Reason Start Time Stop Time Status Last Admin Dose Admin Sodium Chloride 1,000 ml @ 1,000 mls/hr Q1H STAT IV 01/13/17 22:45 01/13/17 23:44 DC 01/14/17 00:04 Levetiracetam (Keppra 1,000mg/ 100ml (Pmx)) 100 ml @ 400 mls/hr ONCE STAT IVPB 01/13/17 22:45 01/13/17 22:59 DC 01/14/17 00:09 Ondansetron HCl (Zofran Inj) 4 mg BRIDGE ORDER PRN IV NAUSEA AND/OR VOMITING 01/14/17 03:30 01/15/17 03:29 Acetaminophen (Tylenol Tab) 650 mg ER BRIDGE PRN PO MILD PAIN/FEVER 01/14/17 03:30 01/15/17 03:29 Procedures/MDM Patient with possible multiple seizures with possible alcohol withdrawal as an etiology. Also states he has multiple falls. The patient does not seem completely reliable himself he did have 2 visits the emergency room since his hospitalization and leaving AGAINST MEDICAL ADVICE. 1 of those he had a transverse process fracture. Patient fears that is going to continue to follow and continue to have seizures. He was given a liter of normal saline and loaded with a gram of Keppra in the emergency room. He states that he is willing to stay in the hospital and receive transfer to acute facility because he does not want to keep falling down and passing out for unknown reasons. Departure Diagnosis: Primary Impression: Seizure disorder Additional Impressions: Thrombocytopenia Multiple falls Condition: Stable ARIN PARSONS DO Jan 14, 2017 03:22
[2017-01-14] MEDS ORDERED: ACETAMINOPHEN 325 MG TAB PO PRN (03:30)
[2017-01-14] MEDS ORDERED: ONDANSETRON 4 MG INJ IV PRN (03:30)
[2017-01-14 04:08] LABS: BARBITURATES Negative (NEGATIVE); BENZODIAZEPINES Positive (NEGATIVE); CANNABINOIDS Negative (NEGATIVE); COCAINE Negative (NEGATIVE); OPIATES Negative (NEGATIVE)
[2017-01-14] MEDS ORDERED: ALBUTEROL/IPRATROPIUM (NEB) 3 ML AMP HHN PRN (05:00)
[2017-01-14] MEDS ORDERED: LORAZEPAM 2 MG INJ IV PRN (05:00)
[2017-01-14] MEDS ORDERED: NACL 0.9% 3 ML SYG IV SCH (05:00)
[2017-01-14 05:35] VITALS: Ht 185.4 cm; Wt 74.2 kg
[2017-01-14] MEDS ORDERED: LORA0.5T PO (05:48)
[2017-01-14] MEDS ORDERED: HYDR-906 PO (05:50)
[2017-01-14] MEDS ORDERED: IBUPROFEN 600 MG TAB PO SCH (06:00)
[2017-01-14] MEDS: traMADol 50 MG TAB PO SCH ×3 (06:00→18:00)
[2017-01-14 06:11] VITALS: BP 132/86; RESP 16
--- NOTE | 2017-01-14 06:28 | HP ---
Date/Time of Note Date/Time of Note DATE: 01/14/17 TIME: 06:19 Assessment/Plan VTE Prophylaxis VTE Prophylaxis Intervention: heparin Assessment/Plan Assessment/Plan 1. Seizure disorder -Keppra with as needed Ativan -Head CT from 2 days ago shows a small encephalomalacia but no acute findings -Check EtOH -Neurology consult 2. History of alcohol abuse, as well as alcohol induced seizure -Patient denied drinking since last admission about 2 weeks ago -We will check EtOH level -Abstinence enforced 3. History of hypertension -Continue antihypertensives adjustment as needed HPI/ROS Admit Date/Time Admit Date/Time Jan 14, 2017 at 03:05 Hx of Present Illness This is a 51-year-old male with a history of hypertension, alcohol abuse, chronic pain syndrome who presented to the emergency department complaining of seizure. Patient was recently admitted here and was actually discharged about 10 days ago. At that time he was admitted for alcohol intoxication and frequent falls. He was evaluated by PT and plan was to discharge to acute rehab , however patient decided to leave AMA. He was actually 2 days ago complaining of seizure. At that time head CT shows small encephalomalacia otherwise no acute findings. Now he is returning back to the ER complaining of having had 2 episodes of seizure while [place]. Denied recently drinking alcohol. PMH/Family/Social Past Medical History Medical History: hypertension, other (Seizure) Past Surgical History Past Surgical Hx: no surgical history Social History Alcohol Use: heavy Smoking Status: Unknown if ever smoked Drug Use: none Exam/Review of Systems Vital Signs Vitals Vital Signs Date Time Temp Pulse Resp B/P Pulse Ox O2 Delivery O2 Flow Rate FiO2 01/14/17 06:11 98.5 67 16 132/86 96 01/14/17 04:06 Room Air 01/14/17 01:58 2.0 Exam Constitutional: alert, oriented Head: atraumatic, normocephalic Eyes: EOMI, PERRL Respiratory: clear to auscultation, normal air movement Cardiovascular: nl pulses, regular rate and rhythm Gastrointestinal: non-tender, soft Extremities: normal pulses Labs Result Diagram: 01/13/17 88101/13/172312 Medications Medications Current Medications Lorazepam (Ativan) 2 mg Q1H PRN IV seizure; Start 01/14/17 at 05:00 Morphine Sulfate (morphine) 2 mg Q4H PRN IV PAIN LEVEL 7-10; Start 01/14/17 at 05:00 Acetaminophen/ Hydrocodone Bitart ([place] (10/325)) 1 tab Q6H PRN PO PAIN; Start 01/14/17 at 05:00 Ibuprofen (Motrin) 600 mg Q8 PO ; Start 01/14/17 at 06:00 Lisinopril (Zestril) 10 mg DAILY PO ; Start 01/14/17 at 09:00 Lorazepam (Ativan) 1 mg Q8H PRN PO ANXIETY; Start 01/14/17 at 05:00 Methadone HCl (Methadone) 65 mg DAILY PO ; Start 01/14/17 at 09:00; Status UNV Metoprolol Tartrate (Lopressor) 12.5 mg BID PO ; Start 01/14/17 at 09:00 Quetiapine Fumarate (Seroquel) 25 mg HS PO ; Start 01/14/17 at 21:00 Thiamine HCl (Vitamin B1) 100 mg DAILY PO ; Start 01/14/17 at 09:00 Tramadol HCl 50 mg 50 mg Q6 PO ; Start 01/14/17 at 06:00 Levetiracetam (Keppra 500 Mg/ 100ml (Pmx)) 100 ml @ 400 mls/hr Q12 IVPB ; Start 01/14/17 at 09:00 TERRY YOUNGBLOOD MD Jan 14, 2017 06:28
[2017-01-14] MEDS: HYDROCODONE/APAP (10/325) TAB PO PRN ×2 (07:06→17:12)
[2017-01-14 07:08] LABS: BASOPHILS % 0.8 % (0.0-2.0); EOSINOPHILS # 0.2 10^3/ul (0.0-0.5); EOSINOPHILS % 4.8 % (0.0-7.0); HEMATOCRIT 35.5 % (42.0-52.0); HEMOGLOBIN 11.5 g/dl (14.0-18.0); LYMPHOCYTES # 1.5 10^3/ul (0.8-2.9); LYMPHOCYTES % 38.5 % (15.0-51.0); MEAN CORPUSCULAR HGB CONC 32.4 g/dl (32.0-37.0); MEAN CORPUSCULAR VOLUME 101.7 fl (82.0-101.0); MEAN PLATELET VOLUME 9.4 fl (7.4-10.4); MONOCYTE # 0.4 10^3/ul (0.3-0.9); MONOCYTES % 10.2 % (0.0-11.0); NEUTROPHIL # 1.8 10^3/ul (1.6-7.5); NEUTROPHILS % 45.4 % (39.0-77.0); PLATELET COUNT 153 10^3/UL (140-415); RED BLOOD COUNT 3.49 10^6/ul (4.70-6.10); RED CELL DISTRIBUTION WIDTH 12.8 % (11.5-14.5); WHITE BLOOD COUNT 3.9 10^3/ul (4.8-10.8)
[2017-01-14 07:36] LABS: ALBUMIN 3.4 g/dl (3.3-4.9); ALBUMIN/GLOBULIN RATIO 1.17; BILIRUBIN,INDIRECT 0.2 mg/dl (0-1.1); BILIRUBIN,TOTAL 0.2 mg/dl (0.2-1.3); CALCIUM 8.4 mg/dl (8.4-10.2); CREATININE 0.74 mg/dl (0.61-1.24); POTASSIUM 4.1 mmol/L (3.5-5.1); TOTAL PROTEIN 6.3 g/dl (6.1-8.1)
--- NOTE | 2017-01-14 07:41 | RADRPT ---
PROCEDURE: CT Brain without contrast. CLINICAL INDICATION: Seizure, fall TECHNIQUE: A CT of the brain was performed on a GE 64-slice CT scanner utilizing axial imaging fr om the skull base through the vertex without IV contrast. Multiplanar reformatted images were made. Images were reviewed on a PACS workstation. The CTDIvol is 44.1 mGy and the DLP is 720.23 mGycm. One or more of the following dose reduction techniques were used: automated exposure control, adjus tment of the mA and/or kV according to patient size, or use of iterative reconstruction technique. COMPARISON: 01/12/2017 FINDINGS: Small inferior right frontal cortical hypodensity and inferior frontal lobe encephalomalacia are aga in seen. There is no intracranial hemorrhage, mass effect, or midline shift. No extra-axial fluid c ollection is seen. The ventricles and sulci are normal in size and configuration. The crystal white ma tter differentiation appears well-preserved. The brainstem and posterior fossa are normal. There is mucosal thickening in the bilateral ethmoid sinuses. The calvarium is normal. IMPRESSION: 1. No evidence of acute intracranial pathology. 2. Evidence of prior traumatic injury in the inferior frontal lobes. RPTAT: HCNS Physician Percy Date Time Electronically viewed and signed by Physician Percy on 01/14/2017 07:40 /
[2017-01-14 08:46] VITALS: BP 144/91; RESP 21
[2017-01-14] MEDS ORDERED: LISINOPRIL 10 MG TAB PO SCH (09:00)
[2017-01-14] MEDS ORDERED: METOPROLOL 25 MG TAB PO SCH (09:00)
[2017-01-14] MEDS: LEVETIRACETAM 500 MG (PMX) 100 ML IVPB SCH ×2 (09:07→21:37)
[2017-01-14] MEDS: THIAMINE 100 MG TAB PO SCH (09:11)
[2017-01-14] MEDS: METHADONE 10 MG TAB PO SCH (10:17)
[2017-01-14] MEDS: LORAZEPAM 1 MG TAB PO PRN ×2 (12:31→23:15)
[2017-01-14 14:00] VITALS: BP 135/57; RESP 21
--- NOTE | 2017-01-14 14:29 | PN ---
Date/Time of Note Date/Time of Note DATE: 01/14/17 TIME: 14:25 Assessment/Plan VTE Prophylaxis VTE Prophylaxis Intervention: LMWH Lines/Catheters IV Catheter Type (from Nrsg): Saline Lock Assessment/Plan Chief Complaint/Hosp Course 51 yo male with h/o etoh use d/o, opiate use d/o on methadone who presents with recurrent orthostatic syncope - EKG without arrythmia - Monitor on telemetry - Remove offending medications - Check TTE Opiate use d/o: - Continue methadone maintenance Etoh use d/o: - Monitor for withdrawal - Thiamine, folate PT/OT DIscharge to self care Problems: Subjective 24 Hr Interval Summary Free Text/Dictation To me patient reprots clear orhtostatic symptoms, does not seem like there was any seizure activity to my histoyr Reprots feelign dizzy when standing, clear prodrome and then syncoep Denies any chest symptoms prior, no palpitations or CP Exam/Review of Systems Vital Signs Vitals Vital Signs Date Time Temp Pulse Resp B/P Pulse Ox O2 Delivery O2 Flow Rate FiO2 01/14/17 08:46 98.0 70 21 144/91 95 01/14/17 04:06 Room Air 01/14/17 01:58 2.0 Intake and Output 01/13/17 01/13/17 01/14/17 15:00 23:00 07:00 Intake Total 150 ml Output Total 0 ml Balance 150 ml Results Result Diagram: 01/14/1736 01/14/1736 Results 24 hrs Laboratory Tests Test 01/13/17 23:13 01/13/17 23:45 01/14/17 06:36 White Blood Count 4.8 3.9 L Red Blood Count 3.32 L 3.49 L Hemoglobin 11.0 L 11.5 L Hematocrit 33.2 L 35.5 L Mean Corpuscular Volume 100.0 101.7 H Mean Corpuscular Hemoglobin 33.1 H 33.0 Mean Corpuscular Hemoglobin Concent 33.1 32.4 Red Cell Distribution Width 12.9 12.8 Platelet Count 130 #L 153 Mean Platelet Volume 11.1 H 9.4 Neutrophils % 37.5 L 45.4 Lymphocytes % 43.1 38.5 Monocytes % 11.4 H 10.2 Eosinophils % 7.2 H 4.8 Basophils % 0.6 0.8 Nucleated Red Blood Cells % 0.0 0.0 Neutrophils # 1.8 1.8 Lymphocytes # 2.1 1.5 Monocytes # 0.6 0.4 Eosinophils # 0.4 0.2 Basophils # 0.0 0.0 Nucleated Red Blood Cells # 0.0 0.0 Sodium Level 136 141 Potassium Level 3.7 4.1 Chloride Level 102 109 Carbon Dioxide Level 28 24 Anion Gap 10 12 Blood Urea Nitrogen 4 L 3 L Creatinine 0.91 0.74 Glucose Level 78 71 Calcium Level 8.7 8.4 Urine Color STRAW Urine Clarity CLEAR Urine pH 5.0 Urine Specific Felch 1.003 Urine Ketones NEGATIVE Urine Nitrite NEGATIVE Urine Bilirubin NEGATIVE Urine Urobilinogen NEGATIVE Urine Leukocyte Esterase NEGATIVE Urine Hemoglobin NEGATIVE Urine Glucose NEGATIVE Urine Total Protein NEGATIVE Urine Opiates Screen Negative Urine Barbiturates Negative Urine Amphetamines Screen Negative Urine Benzodiazepines Screen Positive Urine Cocaine Screen Negative Urine Cannabinoids Negative Total Bilirubin 0.2 Direct Bilirubin 0.00 Indirect Bilirubin 0.2 Aspartate Amino Transf (AST/SGOT) 43 Alanine Aminotransferase (ALT/SGPT) 28 Alkaline Phosphatase 52 Total Protein 6.3 Albumin 3.4 Globulin 2.90 Albumin/Globulin Ratio 1.17 Medications Medications Current Medications Lorazepam (Ativan) 2 mg Q1H PRN IV seizure; Start 01/14/17 at 05:00 Morphine Sulfate (morphine) 2 mg Q4H PRN IV PAIN LEVEL 7-10; Start 01/14/17 at 05:00 Acetaminophen/ Hydrocodone Bitart ([place] (10/325)) 1 tab Q6H PRN PO PAIN Last administered on 01/14/17 07:06; Admin Dose 1 TAB; Start 01/14/17 at 05:00 Ibuprofen (Motrin) 600 mg Q8 PO ; Start 01/14/17 at 06:00 Lisinopril (Zestril) 10 mg DAILY PO Last administered on 01/14/17 09:11; Admin Dose 10 MG; Start 01/14/17 at 09:00 Lorazepam (Ativan) 1 mg Q8H PRN PO ANXIETY Last administered on 01/14/17 12:31 ; Admin Dose 1 MG; Start 01/14/17 at 05:00 Methadone HCl (Methadone) 65 mg DAILY PO Last administered on 01/14/17 10:17; Admin Dose 65 MG; Start 01/14/17 at 10:00 Metoprolol Tartrate (Lopressor) 12.5 mg BID PO Last administered on 01/14/17 09:13; Admin Dose 12.5 MG; Start 01/14/17 at 09:00 Quetiapine Fumarate (Seroquel) 25 mg HS PO ; Start 01/14/17 at 21:00 Thiamine HCl (Vitamin B1) 100 mg DAILY PO Last administered on 01/14/17 09:11 ; Admin Dose 100 MG; Start 01/14/17 at 09:00 Tramadol HCl 50 mg 50 mg Q6 PO ; Start 01/14/17 at 06:00 Levetiracetam (Keppra 500 Mg/ 100ml (Pmx)) 100 ml @ 400 mls/hr Q12 IVPB Last administered on 01/14/17 09:07; Admin Dose 400 MLS/HR; Start 01/14/17 at 09:00 Miscellaneous Information Patients own medicat... BID@10,16 XX ; Start 01/14/17 at 10:00 JUANITA LAWTON MD Jan 14, 2017 14:29
[2017-01-14 20:59] VITALS: BP 127/84; RESP 16
[2017-01-14] MEDS: morphine 2 MG INJ IV PRN (21:46)
[2017-01-14] MEDS: QUETIAPINE 25 MG TAB PO SCH (21:46)
[2017-01-15 02:54] VITALS: BP 139/91; RESP 16
[2017-01-15] MEDS: traMADol 50 MG TAB PO SCH ×4 (05:15→18:00)
[2017-01-15] MEDS: morphine 2 MG INJ IV PRN ×4 (05:15→20:19)
[2017-01-15 05:30] LABS: BASOPHILS % 0.4 % (0.0-2.0); EOSINOPHILS # 0.3 10^3/ul (0.0-0.5); EOSINOPHILS % 5.7 % (0.0-7.0); HEMATOCRIT 34.3 % (42.0-52.0); HEMOGLOBIN 11.3 g/dl (14.0-18.0); LYMPHOCYTES # 1.8 10^3/ul (0.8-2.9); LYMPHOCYTES % 40.2 % (15.0-51.0); MEAN CORPUSCULAR HEMOGLOBIN 32.6 pg (29.0-33.0); MEAN CORPUSCULAR HGB CONC 32.9 g/dl (32.0-37.0); MEAN CORPUSCULAR VOLUME 98.8 fl (82.0-101.0); MEAN PLATELET VOLUME 9.5 fl (7.4-10.4); MONOCYTE # 0.4 10^3/ul (0.3-0.9); MONOCYTES % 9.2 % (0.0-11.0); NEUTROPHILS % 44.3 % (39.0-77.0); PLATELET COUNT 177 10^3/UL (140-415); RED BLOOD COUNT 3.47 10^6/ul (4.70-6.10); RED CELL DISTRIBUTION WIDTH 12.7 % (11.5-14.5); WHITE BLOOD COUNT 4.6 10^3/ul (4.8-10.8)
[2017-01-15 06:03] LABS: CALCIUM 8.8 mg/dl (8.4-10.2); CREATININE 0.77 mg/dl (0.61-1.24); MAGNESIUM 1.7 mg/dl (1.7-2.5); PHOSPHORUS 4.3 mg/dl (2.5-4.9); POTASSIUM 3.7 mmol/L (3.5-5.1)
[2017-01-15 08:00] VITALS: BP 155/91; RESP 20
[2017-01-15] MEDS: THIAMINE 100 MG TAB PO SCH (08:48)
[2017-01-15] MEDS: METHADONE 10 MG TAB PO SCH (08:49)
[2017-01-15] MEDS: LEVETIRACETAM 500 MG (PMX) 100 ML IVPB SCH (08:49)
[2017-01-15] MEDS: LORAZEPAM 1 MG TAB PO PRN (12:52)
[2017-01-15 14:00] VITALS: BP 141/80; RESP 19
--- NOTE | 2017-01-15 15:08 | RADRPT ---
PROCEDURE: MRI Brain without contrast. CLINICAL INDICATION: Seizure. TECHNIQUE: An MRI of the brain was performed utilizing the following sequences: Sagittal and axial T1 weighted, axial T2 weighted, coronal FSPGR, axial diffusion weighted with ADC mapping, coronal G RE, coronal and axial FLAIR. COMPARISON: 01/07/2017. FINDINGS: No diffusion weighted abnormalities are seen to suggest the presence of acute ischemia or recent inf arct. No hypointense signal abnormalities are seen on the GRE images to suggest the presence of blo od degradation products. There is no evidence of intracranial hemorrhage, mass effect, or midline s hift. No extra-axial fluid collections are seen. The ventricles and sulci are mildly enlarged indica tive of volume loss including bilateral hippocampi. Bilateral hippocampi are otherwise symmetric in size and signal intensity. There is encephalomalacia involving bilateral anterior inferior frontal lobes, left greater than rig ht, which likely represents sequela of prior traumatic injury. There are mild scattered foci of T2 FLAIR hyperintensity in the periventricular, deep, and subcortic al white matter, which are nonspecific in etiology but likely reflect chronic small vessel ischemic changes. No abnormal intracranial vascular flow void is noted. The visualized paranasal sinuses demonstrate m ild to moderate mucosal thickening more pronounced in maxillary sinuses and ethmoid air cells. IMPRESSION: 1. No acute intracranial hemorrhage, infarction or mass. 2. Mild chronic small vessel ischemic changes. 3. Encephalomalacia involving bilateral anterior inferior frontal lobes, likely sequela of prior tr aumatic injury. 4. Mild generalized cerebral volume loss. RPTAT: HFN .Melissa Dawson MD, MD Date Time Electronically viewed and signed by .Melissa Dawson MD, MD on 01/15/2017 15:07 .N/
--- NOTE | 2017-01-15 15:48 | PN ---
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0 Intake and Output 01/14/17 01/14/17 01/15/17 15:00 23:00 07:00 Intake Total 100 ml 900 ml 560 ml Output Total 1200 ml 1750 ml Balance 100 ml -300 ml -1190 ml Exam Constitutional: alert, oriented, well developed Psych: nl mood/affect, no complaints Head: atraumatic, normocephalic Eyes: EOMI, PERRL, nl conjunctiva, nl lids, nl sclera ENMT: nl external ears & nose, nl lips & teeth, nl nasal mucosa & septum Neck: non-tender, supple Respiratory: clear to auscultation, normal air movement Cardiovascular: nl pulses, regular rate and rhythm Gastrointestinal: nl liver, spleen, non-tender, soft Musculoskeletal: nl extremities to inspection, nl gait and stance Extremities: normal pulses Neurological: 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 intact, nl mental status, nl speech, nl strength Skin: nl turgor, No rash or lesions Lymph: nl lymph nodes Results Result Diagram: 01/15/17 0507 01/15/17 0507 Results 24 hrs Laboratory Tests Test 01/15/17 05:07 White Blood Count 4.6 L Red Blood Count 3.47 L Hemoglobin 11.3 L Hematocrit 34.3 L Mean Corpuscular Volume 98.8 Mean Corpuscular Hemoglobin 32.6 Mean Corpuscular Hemoglobin Concent 32.9 Red Cell Distribution Width 12.7 Platelet Count 177 Mean Platelet Volume 9.5 Neutrophils % 44.3 Lymphocytes % 40.2 Monocytes % 9.2 Eosinophils % 5.7 Basophils % 0.4 Nucleated Red Blood Cells % 0.0 Neutrophils # 2.0 Lymphocytes # 1.8 Monocytes # 0.4 Eosinophils # 0.3 Basophils # 0.0 Nucleated Red Blood Cells # 0.0 Sodium Level 139 Potassium Level 3.7 Chloride Level 104 Carbon Dioxide Level 31 Anion Gap 8 Blood Urea Nitrogen 7 Creatinine 0.77 Glucose Level 91 Calcium Level 8.8 Phosphorus Level 4.3 Magnesium Level 1.7 Medications Medications Current Medications Lorazepam (Ativan) 2 mg Q1H PRN IV seizure; Start 01/14/17 at 05:00 Morphine Sulfate (morphine) 2 mg Q4H PRN IV PAIN LEVEL 7-10 Last administered on 01/15/17 15:25; Admin Dose 2 MG; Start 01/14/17 at 05:00 Acetaminophen/ Hydrocodone Bitart ([place] (10/325)) 1 tab Q6H PRN PO PAIN Last administered on 01/14/17 17:12; Admin Dose 1 TAB; Start 01/14/17 at 05:00 Lorazepam (Ativan) 1 mg Q8H PRN PO ANXIETY Last administered on 01/15/17 12:52 ; Admin Dose 1 MG; Start 01/14/17 at 05:00 Methadone HCl (Methadone) 65 mg DAILY PO Last administered on 01/15/17 08:49; Admin Dose 65 MG; Start 01/14/17 at 10:00 Quetiapine Fumarate (Seroquel) 25 mg HS PO Last administered on 01/14/17 21:46 ; Admin Dose 25 MG; Start 01/14/17 at 21:00 Thiamine HCl (Vitamin B1) 100 mg DAILY PO Last administered on 01/15/17 08:48 ; Admin Dose 100 MG; Start 01/14/17 at 09:00 Tramadol HCl (Ultram) 50 mg Q6 PO ; Start 01/14/17 at 06:00 Miscellaneous Information Patients own medicat... BID@ XX ; Start 01/14/17 at 10:00 Levetiracetam (Keppra) 500 mg BID PO ; Start 01/15/17 at 21:00 JUANITA LAWTON MD Jan 15, 2017 15:48
[2017-01-15 19:28] VITALS: BP 151/91; RESP 16
[2017-01-15] MEDS: QUETIAPINE 25 MG TAB PO SCH (20:19)
[2017-01-15] MEDS: LEVETIRACETAM 500 MG TAB PO SCH (20:19)
[2017-01-15 21:20] VITALS: BP 140/84; RESP 16
[2017-01-16] MEDS: morphine 2 MG INJ IV PRN ×5 (01:03→20:43)
[2017-01-16 01:57] VITALS: BP 168/94; RESP 18
[2017-01-16] MEDS: hydrALAzine 20 MG INJ IV PRN (03:06)
[2017-01-16 03:46] VITALS: BP 143/95; PULSE 68
[2017-01-16] MEDS: traMADol 50 MG TAB PO SCH ×4 (05:13→18:00)
[2017-01-16 07:41] VITALS: BP 158/92; RESP 18
[2017-01-16] MEDS: METHADONE 10 MG TAB PO SCH (08:50)
[2017-01-16] MEDS: LEVETIRACETAM 500 MG TAB PO SCH ×2 (08:51→20:40)
[2017-01-16] MEDS: THIAMINE 100 MG TAB PO SCH (08:52)
[2017-01-16] MEDS: LISINOPRIL 10 MG TAB PO SCH (13:13)
[2017-01-16 14:28] VITALS: BP 148/73; RESP 16
[2017-01-16] MEDS: LORAZEPAM 1 MG TAB PO PRN (15:10)
--- NOTE | 2017-01-16 17:56 | PN ---
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 as well as imbalance /disequilibrium Opiate use d/o: - Continue methadone maintenance Etoh use d/o: - Monitor for withdrawal - Thiamine, folate SW consult for social issues/alcoholism PT/OT DIscharge to SNF Problems: Subjective 24 Hr Interval Summary Free Text/Dictation Recommended for SNF by PT, referred Emotinal problems at length, no pain Feels imbalance Exam/Review of Systems Vital Signs Vitals Vital Signs Date Time Temp Pulse Resp B/P Pulse Ox O2 Delivery O2 Flow Rate FiO2 01/16/17 14:28 98.3 82 16 148/73 96 01/14/17 04:06 Room Air 01/14/17 01:58 2.0 Intake and Output 01/15/17 01/15/17 01/16/17 15:00 23:00 07:00 Intake Total 100 ml 1200 ml 480 ml Output Total 1500 ml 1700 ml Balance 100 ml -300 ml -1220 ml Results Result Diagram: 01/15/17 0507 01/15/17 0507 Medications Medications Current Medications Lorazepam (Ativan) 2 mg Q1H PRN IV seizure; Start 01/14/17 at 05:00 Morphine Sulfate (morphine) 2 mg Q4H PRN IV PAIN LEVEL 7-10 Last administered on 01/16/17 16:43; Admin Dose 2 MG; Start 01/14/17 at 05:00 Acetaminophen/ Hydrocodone Bitart ([place] (10/325)) 1 tab Q6H PRN PO PAIN Last administered on 01/14/17 17:12; Admin Dose 1 TAB; Start 01/14/17 at 05:00 Lorazepam (Ativan) 1 mg Q8H PRN PO ANXIETY Last administered on 01/16/17 15:10 ; Admin Dose 1 MG; Start 01/14/17 at 05:00 Methadone HCl (Methadone) 65 mg DAILY PO Last administered on 01/16/17 08:50; Admin Dose 65 MG; Start 01/14/17 at 10:00 Quetiapine Fumarate (Seroquel) 25 mg HS PO Last administered on 01/15/17 20:19 ; Admin Dose 25 MG; Start 01/14/17 at 21:00 Thiamine HCl (Vitamin B1) 100 mg DAILY PO Last administered on 01/16/17 08:52 ; Admin Dose 100 MG; Start 01/14/17 at 09:00 Tramadol HCl (Ultram) 50 mg Q6 PO ; Start 01/14/17 at 06:00 Miscellaneous Information Patients own medicat... BID@10,16 XX ; Start 01/14/17 at 10:00 Levetiracetam (Keppra) 500 mg BID PO Last administered on 01/16/17 08:51; Admin Dose 500 MG; Start 01/15/17 at 21:00 Hydralazine HCl (Apresoline) 10 mg Q4H PRN IV ELEVATED BLOOD PRESSURE Last administered on 01/16/17 03:06; Admin Dose 10 MG; Start 01/16/17 at 03:30 Lisinopril (Zestril) 10 mg DAILY PO Last administered on 01/16/17 13:13; Admin Dose 10 MG; Start 01/16/17 at 12:00 JUANITA LAWTON MD Jan 16, 2017 17:56
[2017-01-16] MEDS: QUETIAPINE 25 MG TAB PO SCH (20:40)
[2017-01-16 21:17] VITALS: BP 137/75; RESP 18
--- NOTE | 2017-01-16 22:29 | RADRPT ---
Echocardiogram Report Patient Name: ALLI CAI Gender: Male Date: 1965 Study Date: 15-Jan-2017 Jailer/Training Officer: MAC Location: I Ref. Physician: JUANITA LAWTON Quality: Adequate Procedures: Transthoracic echocardiogram with complete 2D, M-Mode, and Doppler examination. Indications: Syncope. 2D/M Mode Doppler Measurement Value Normal Ranges Measurement Value Normal Ranges AoR Diam MM 3.5 cm AV Peak Bowen 1.3 m/sec ACS MM 2.0 cm AV Peak PG 6.5 mmHg LVIDd 2D 5.1 3.5 - 5.6 cm LVOT Peak Bow[place] 0.7 m/sec LVIDs 2D 3.4 2.1 - 4.1 cm LVOT Peak PG 1.8 mmHg LVPWd 2D 1.0 0.6 - 1.1 cm MV E Peak Bowen 0.6 m/sec IVSd 2D 1.0 0.6 - 1.1 cm MV A Peak Bowen 0.3 m/sec EDV 2D 122.1 cm3 MV E/A 1.8 ESV 2D 37.7 cm3 MV Decel Time 120 msec LA Dimen 2D 3.6 2.3 - 4.0 cm MV Decel Clare 5 MV E/A 1.8 TR Peak Bowen 2.0 m/sec TR Peak PG 16.5 mmHg PV Peak Bowen 0.8 m/sec PV Peak PG 3.0 mmHg RVSP 19.5 mmHg Findings Left Ventricle: Normal left ventricular systolic function. Normal left ventricular cavity size. Normal left ventricular wall thickness. Ejection fraction is visually estimated at 55 %. Right Ventricle: Normal right ventricular size. Normal right ventricular systolic function. Left Atrium: The left atrium is normal in size. Right Atrium: The right atrium is normal in size. Mitral Valve: Normal appearance of the mitral valve. Mild mitral valve regurgitation. Aortic Valve: No significant aortic stenosis or insufficiency. Normal trileaflet aortic valve structure. Tricuspid Valve: Normal appearance of the tricuspid valve. Estimated peak PA systolic pressure 19 mmHg. There is trace tricuspid regurgitation. Pulmonic Valve: Normal pulmonic valve appearance. There is trace pulmonic regurgitation. Pericardium: Normal pericardium with no significant pericardial effusion. Aorta: Normal aortic root. IVC: Normal size and normal respiratory collapse consistent with normal right atrial pressure. Pulmonary Artery: Normal pulmonary artery size. Conclusions Normal left ventricular systolic function. Normal left ventricular cavity size. Normal left ventricular wall thickness. Ejection fraction is visually estimated at 55 %. Normal right ventricular size. Normal right ventricular systolic function. The left atrium is normal in size. The right atrium is normal in size. Normal appearance of the mitral valve. Mild mitral valve regurgitation. No significant valvular stenosis or regurgitation seen of remaining visualized valves. Normal pericardium with no significant pericardial effusion. Electronically Signed By: Miguel Paige 16-Jan-2017 22:28:51 -0700 Patient Name: ALLI CAI Study Date: 15-Jan-2017 [id number]
[2017-01-17 02:41] VITALS: BP 154/82; RESP 18
[2017-01-17] MEDS: morphine 2 MG INJ IV PRN ×5 (02:52→22:59)
[2017-01-17] MEDS: traMADol 50 MG TAB PO SCH ×4 (05:49→16:33)
[2017-01-17 07:39] VITALS: BP 143/85; RESP 16
[2017-01-17] MEDS: THIAMINE 100 MG TAB PO SCH (08:11)
[2017-01-17] MEDS: LEVETIRACETAM 500 MG TAB PO SCH ×2 (08:12→20:40)
[2017-01-17] MEDS: METHADONE 10 MG TAB PO SCH (08:12)
[2017-01-17] MEDS: LISINOPRIL 10 MG TAB PO SCH (08:13)
[2017-01-17] MEDS: LORAZEPAM 1 MG TAB PO PRN ×2 (08:17→20:40)
[2017-01-17 14:22] VITALS: BP 129/82; RESP 18
--- NOTE | 2017-01-17 15:16 | PN ---
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 as well as imbalance /disequilibrium Opiate use d/o: - Continue methadone maintenance Etoh use d/o: - Thiamine, folate SW consult for social issues/alcoholism PT/OT DIscharge to [facility] Stable for discharge Problems: Subjective 24 Hr Interval Summary Free Text/Dictation Working w PT Feels well Awaiting placement Exam/Review of Systems Vital Signs Vitals Vital Signs Date Time Temp Pulse Resp B/P Pulse Ox O2 Delivery O2 Flow Rate FiO2 01/17/17 14:22 98.0 69 18 129/82 93 01/14/17 04:06 Room Air 01/14/17 01:58 2.0 Intake and Output 01/16/17 01/16/17 01/17/17 15:00 23:00 07:00 Intake Total 600 ml 600 ml Output Total 500 ml Balance 600 ml 100 ml Exam Constitutional: alert, oriented, well developed Psych: nl mood/affect, no complaints Head: atraumatic, normocephalic Eyes: EOMI, PERRL, nl conjunctiva, nl lids, nl sclera ENMT: nl external ears & nose, nl lips & teeth, nl nasal mucosa & septum Neck: non-tender, supple Respiratory: clear to auscultation, normal air movement Cardiovascular: nl pulses, regular rate and rhythm Gastrointestinal: nl liver, spleen, non-tender, soft Musculoskeletal: nl extremities to inspection, nl gait and stance Extremities: normal pulses 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, nl mental status, nl speech, nl strength Skin: nl turgor, No rash or lesions Lymph: nl lymph nodes Results Result Diagram: 01/15/17 0507 01/15/17 050 Medications Medications Current Medications Lorazepam (Ativan) 2 mg Q1H PRN IV seizure; Start 01/14/17 at 05:00 Morphine Sulfate (morphine) 2 mg Q4H PRN IV PAIN LEVEL 7-10 Last administered on 01/17/17 13:06; Admin Dose 2 MG; Start 01/14/17 at 05:00 Acetaminophen/ Hydrocodone Bitart ([place] (10/325)) 1 tab Q6H PRN PO PAIN Last administered on 01/14/17 17:12; Admin Dose 1 TAB; Start 01/14/17 at 05:00 Lorazepam (Ativan) 1 mg Q8H PRN PO ANXIETY Last administered on 01/17/17 08:17 ; Admin Dose 1 MG; Start 01/14/17 at 05:00 Methadone HCl (Methadone) 65 mg DAILY PO Last administered on 01/17/17 08:12; Admin Dose 65 MG; Start 01/14/17 at 10:00 Quetiapine Fumarate (Seroquel) 25 mg HS PO Last administered on 01/16/17 20:40 ; Admin Dose 25 MG; Start 01/14/17 at 21:00 Thiamine HCl (Vitamin B1) 100 mg DAILY PO Last administered on 01/17/17 08:11 ; Admin Dose 100 MG; Start 01/14/17 at 09:00 Tramadol HCl (Ultram) 50 mg Q6 PO ; Start 01/14/17 at 06:00 Miscellaneous Information Patients own medicat... BID@10,16 XX Last administered on 01/17/17 10:00; Admin Dose 1 EA; Start 01/14/17 at 10:00 Levetiracetam (Keppra) 500 mg BID PO Last administered on 01/17/17 08:12; Admin Dose 500 MG; Start 01/15/17 at 21:00 Hydralazine HCl (Apresoline) 10 mg Q4H PRN IV ELEVATED BLOOD PRESSURE Last administered on 01/16/17 03:06; Admin Dose 10 MG; Start 01/16/17 at 03:30 Lisinopril (Zestril) 10 mg DAILY PO Last administered on 01/17/17 08:13; Admin Dose 10 MG; Start 01/16/17 at 12:00 JUANITA LAWTON MD Jan 17, 2017 15:16
[2017-01-17 20:24] VITALS: BP 143/81; RESP 20
[2017-01-17] MEDS: QUETIAPINE 25 MG TAB PO SCH (20:41)
[2017-01-18 02:00] VITALS: BP 151/79; RESP 19
[2017-01-18] MEDS: morphine 2 MG INJ IV PRN ×5 (02:54→23:00)
[2017-01-18] MEDS: traMADol 50 MG TAB PO SCH ×4 (05:01→17:54)
[2017-01-18 08:00] VITALS: BP 170/94; RESP 20
[2017-01-18] MEDS: METHADONE 10 MG TAB PO SCH (08:20)
[2017-01-18] MEDS: LEVETIRACETAM 500 MG TAB PO SCH ×2 (08:20→20:34)
[2017-01-18] MEDS: THIAMINE 100 MG TAB PO SCH (08:21)
[2017-01-18] MEDS: LISINOPRIL 10 MG TAB PO SCH (08:21)
[2017-01-18] MEDS: hydrALAzine 20 MG INJ IV PRN (08:21)
[2017-01-18 14:25] VITALS: BP 133/83; RESP 18
--- NOTE | 2017-01-18 15:36 | PN ---
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 as well as imbalance /disequilibrium Opiate use d/o: - Continue methadone maintenance Etoh use d/o: - Thiamine, folate SW consult for social issues/alcoholism PT/OT DIscharge to [facility] Stable for discharge Problems: Subjective 24 Hr Interval Summary Free Text/Dictation No change to clinical status Awaiting placement Exam/Review of Systems Vital Signs Vitals Vital Signs Date Time Temp Pulse Resp B/P Pulse Ox O2 Delivery O2 Flow Rate FiO2 01/18/17 14:25 98.7 81 18 133/83 96 Intake and Output 01/17/17 01/17/17 01/18/17 15:00 23:00 07:00 Intake Total 1380 ml 500 ml Output Total 800 ml Balance 1380 ml -300 ml Exam Constitutional: alert, oriented, well developed Psych: nl mood/affect, no complaints Head: atraumatic, normocephalic Eyes: EOMI, PERRL, nl conjunctiva, nl lids, nl sclera ENMT: nl external ears & nose, nl lips & teeth, nl nasal mucosa & septum Neck: non-tender, supple Respiratory: clear to auscultation, normal air movement Cardiovascular: nl pulses, regular rate and rhythm Gastrointestinal: nl liver, spleen, non-tender, soft Musculoskeletal: nl extremities to inspection, nl gait and stance Extremities: normal pulses Neurological: FARO DEALER II-XII intact, nl mental status, nl speech, nl strength Skin: nl turgor, No rash or lesions Lymph: nl lymph nodes Results Result Diagram: 01/15/17 0507 01/15/17 0507 Medications Medications Current Medications Lorazepam (Ativan) 2 mg Q1H PRN IV seizure; Start 01/14/17 at 05:00 Morphine Sulfate (morphine) 2 mg Q4H PRN IV PAIN LEVEL 7-10 Last administered on 01/18/17t 14:34; Admin Dose 2 MG; Start 01/14/17 at 05:00 Acetaminophen/ Hydrocodone Bitart ([place] (10/325)) 1 tab Q6H PRN PO PAIN Last administered on 01/14/17 17:12; Admin Dose 1 TAB; Start 01/14/17 at 05:00 Lorazepam (Ativan) 1 mg Q8H PRN PO ANXIETY Last administered on 01/17/17 20:40 ; Admin Dose 1 MG; Start 01/14/17 at 05:00 Methadone HCl (Methadone) 65 mg DAILY PO Last administered on 01/18/17 08:20; Admin Dose 65 MG; Start 01/14/17 at 10:00 Quetiapine Fumarate (Seroquel) 25 mg HS PO Last administered on 01/17/17 20:41 ; Admin Dose 25 MG; Start 01/14/17 at 21:00 Thiamine HCl (Vitamin B1) 100 mg DAILY PO Last administered on 01/18/17 08:21 ; Admin Dose 100 MG; Start 01/14/17 at 09:00 Tramadol HCl (Ultram) 50 mg Q6 PO ; Start 01/14/17 at 06:00 Miscellaneous Information Patients own medicat... BID@10,16 XX Last administered on 01/17/17 16:33; Admin Dose 1 EA; Start 01/14/17 at 10:00 Levetiracetam (Keppra) 500 mg BID PO Last administered on 01/18/17 08:20; Admin Dose 500 MG; Start 01/15/17 at 21:00 Hydralazine HCl (Apresoline) 10 mg Q4H PRN IV ELEVATED BLOOD PRESSURE Last administered on 01/18/17 08:21; Admin Dose 10 MG; Start 01/16/17 at 03:30 Lisinopril (Zestril) 10 mg DAILY PO Last administered on 01/18/17 08:21; Admin Dose 10 MG; Start 01/16/17 at 12:00 JUANITA LAWTON MD Jan 18, 2017 15:36
[2017-01-18] MEDS: LORAZEPAM 1 MG TAB PO PRN (16:08)
[2017-01-18 19:24] VITALS: BP 133/78
[2017-01-18] MEDS: QUETIAPINE 25 MG TAB PO SCH (20:34)
[2017-01-18 21:37] VITALS: BP 144/87; RESP 18
[2017-01-19 02:00] VITALS: BP 123/72; RESP 19
[2017-01-19] MEDS: morphine 2 MG INJ IV PRN ×4 (04:27→22:33)
[2017-01-19] MEDS: traMADol 50 MG TAB PO SCH ×4 (05:20→16:41)
[2017-01-19 07:20] VITALS: BP 138/83; RESP 16
[2017-01-19] MEDS: LEVETIRACETAM 500 MG TAB PO SCH ×2 (09:04→21:15)
[2017-01-19] MEDS: THIAMINE 100 MG TAB PO SCH (09:04)
[2017-01-19] MEDS: LISINOPRIL 10 MG TAB PO SCH (09:05)
[2017-01-19] MEDS: METHADONE 10 MG TAB PO SCH (09:09)
--- NOTE | 2017-01-19 13:39 | PN ---
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 as well as imbalance /disequilibrium Opiate use d/o: - Continue methadone maintenance Etoh use d/o: - Thiamine, folate SW consult for social issues/alcoholism PT/OT DIscharge to [facility] Stable for discharge Problems: Subjective 24 Hr Interval Summary Free Text/Dictation No change to clinical status Awaiting placement Exam/Review of Systems Vital Signs Vitals Vital Signs Date Time Temp Pulse Resp B/P Pulse Ox O2 Delivery O2 Flow Rate FiO2 01/19/17 07:20 98.4 63 16 138/83 94 Intake and Output 01/18/17 01/18/17 01/19/17 15:00 23:00 07:00 Intake Total 1680 ml 950 ml Output Total 900 ml 1500 ml Balance 780 ml -550 ml Exam Constitutional: alert, oriented, well developed Psych: nl mood/affect, no complaints Head: atraumatic, normocephalic Eyes: EOMI, PERRL, nl conjunctiva, nl lids, nl sclera ENMT: nl external ears & nose, nl lips & teeth, nl nasal mucosa & septum Neck: non-tender, supple Respiratory: clear to auscultation, normal air movement Cardiovascular: nl pulses, regular rate and rhythm Gastrointestinal: nl liver, spleen, non-tender, soft Musculoskeletal: nl extremities to inspection, nl gait and stance Extremities: normal pulses Neurological: SURGICAL GARMENT ASSEMBLER II-XII intact, nl mental status, nl speech, nl strength Skin: nl turgor, No rash or lesions Lymph: nl lymph nodes Results Result Diagram: 01/15/177 01/15/17 050 Medications Medications Current Medications Lorazepam (Ativan) 2 mg Q1H PRN IV seizure; Start 01/14/17 at 05:00 Morphine Sulfate (morphine) 2 mg Q4H PRN IV PAIN LEVEL 7-10 Last administered on 01/19/17t 11:21; Admin Dose 2 MG; Start 01/14/17 at 05:00 Acetaminophen/ Hydrocodone Bitart ([place] (10/325)) 1 tab Q6H PRN PO PAIN Last administered on 01/14/17 17:12; Admin Dose 1 TAB; Start 01/14/17 at 05:00 Lorazepam (Ativan) 1 mg Q8H PRN PO ANXIETY Last administered on 01/18/17 16:08 ; Admin Dose 1 MG; Start 01/14/17 at 05:00 Methadone HCl (Methadone) 65 mg DAILY PO Last administered on 01/19/17 09:09; Admin Dose 65 MG; Start 01/14/17 at 10:00 Quetiapine Fumarate (Seroquel) 25 mg HS PO Last administered on 01/18/17 20:34 ; Admin Dose 25 MG; Start 01/14/17 at 21:00 Thiamine HCl (Vitamin B1) 100 mg DAILY PO Last administered on 01/19/17 09:04 ; Admin Dose 100 MG; Start 01/14/17 at 09:00 Tramadol HCl (Ultram) 50 mg Q6 PO ; Start 01/14/17 at 06:00 Miscellaneous Information Patients own medicat... BID@10,16 XX Last administered on 01/17/17 16:33; Admin Dose 1 EA; Start 01/14/17 at 10:00 Levetiracetam (Keppra) 500 mg BID PO Last administered on 01/19/17 09:04; Admin Dose 500 MG; Start 01/15/17 at 21:00 Hydralazine HCl (Apresoline) 10 mg Q4H PRN IV ELEVATED BLOOD PRESSURE Last administered on 01/18/17 08:21; Admin Dose 10 MG; Start 01/16/17 at 03:30 Lisinopril (Zestril) 10 mg DAILY PO Last administered on 01/19/17 09:05; Admin Dose 10 MG; Start 01/16/17 at 12:00 JUANITA LAWTON MD Jan 19, 2017 13:38
[2017-01-19 14:08] VITALS: BP 163/97; RESP 16
[2017-01-19] MEDS: LORAZEPAM 1 MG TAB PO PRN (21:14)
[2017-01-19] MEDS: QUETIAPINE 25 MG TAB PO SCH (21:15)
[2017-01-19 21:44] VITALS: BP 140/86; RESP 18
[2017-01-20] MEDS: hydrALAzine 20 MG INJ IV PRN ×2 (00:39→20:54)
[2017-01-20 03:10] VITALS: BP_SYST 122; BP_SYST 130; BP_DIAS 67; BP_DIAS 77; RESP 16
[2017-01-20] MEDS: morphine 2 MG INJ IV PRN ×5 (04:13→23:27)
[2017-01-20] MEDS: traMADol 50 MG TAB PO SCH ×4 (04:13→17:23)
[2017-01-20 07:47] VITALS: BP 126/82; RESP 18
[2017-01-20] MEDS: THIAMINE 100 MG TAB PO SCH (08:45)
[2017-01-20] MEDS: LEVETIRACETAM 500 MG TAB PO SCH ×2 (08:45→20:54)
[2017-01-20] MEDS: METHADONE 10 MG TAB PO SCH (08:45)
[2017-01-20] MEDS: LISINOPRIL 10 MG TAB PO SCH (08:45)
[2017-01-20 14:00] VITALS: BP 135/80; RESP 20
--- NOTE | 2017-01-20 14:51 | PN ---
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 as well as imbalance /disequilibrium Opiate use d/o: - Continue methadone maintenance Etoh use d/o: - Thiamine, folate SW consult for social issues/alcoholism PT/OT DIscharge to [facility] Stable for discharge Problems: Subjective 24 Hr Interval Summary Free Text/Dictation No change to clinical status Awaiting placement PT Exam/Review of Systems Vital Signs Vitals Vital Signs Date Time Temp Pulse Resp B/P Pulse Ox O2 Delivery O2 Flow Rate FiO2 01/20/17 07:47 98.3 70 18 126/82 98 Intake and Output 01/19/17 01/19/17 01/20/17 15:00 23:00 07:00 Intake Total 900 ml 440 ml Balance 900 ml 440 ml Exam Constitutional: alert, oriented, well developed Psych: nl mood/affect, no complaints Head: atraumatic, normocephalic Eyes: EOMI, PERRL, nl conjunctiva, nl lids, nl sclera ENMT: nl external ears & nose, nl lips & teeth, nl nasal mucosa & septum Neck: non-tender, supple Respiratory: clear to auscultation, normal air movement Cardiovascular: nl pulses, regular rate and rhythm Gastrointestinal: nl liver, spleen, non-tender, soft Musculoskeletal: nl extremities to inspection, nl gait and stance Extremities: normal pulses Neurological: POLICE JUDGE II-XII intact, nl mental status, nl speech, nl strength Skin: nl turgor, No rash or lesions Lymph: nl lymph nodes Medications Medications Current Medications Lorazepam (Ativan) 2 mg Q1H PRN IV seizure; Start 01/14/17 at 05:00 Morphine Sulfate (morphine) 2 mg Q4H PRN IV PAIN LEVEL 7-10 Last administered on 01/20/17t 13:00; Admin Dose 2 MG; Start 01/14/17 at 05:00 Acetaminophen/ Hydrocodone Bitart ([place] (10/325)) 1 tab Q6H PRN PO PAIN Last administered on 01/14/17 17:12; Admin Dose 1 TAB; Start 01/14/17 at 05:00 Lorazepam (Ativan) 1 mg Q8H PRN PO ANXIETY Last administered on 01/19/17 21:14 ; Admin Dose 1 MG; Start 01/14/17 at 05:00 Methadone HCl (Methadone) 65 mg DAILY PO Last administered on 01/20/17 08:45; Admin Dose 65 MG; Start 01/14/17 at 10:00 Quetiapine Fumarate (Seroquel) 25 mg HS PO Last administered on 01/19/17 21:15 ; Admin Dose 25 MG; Start 01/14/17 at 21:00 Thiamine HCl (Vitamin B1) 100 mg DAILY PO Last administered on 01/20/17 08:45 ; Admin Dose 100 MG; Start 01/14/17 at 09:00 Tramadol HCl (Ultram) 50 mg Q6 PO ; Start 01/14/17 at 06:00 Miscellaneous Information Patients own medicat... BID@10,16 XX Last administered on 01/17/17 16:33; Admin Dose 1 EA; Start 01/14/17 at 10:00 Levetiracetam (Keppra) 500 mg BID PO Last administered on 01/20/17 08:45; Admin Dose 500 MG; Start 01/15/17 at 21:00 Hydralazine HCl (Apresoline) 10 mg Q4H PRN IV ELEVATED BLOOD PRESSURE Last administered on 01/20/17 00:39; Admin Dose 10 MG; Start 01/16/17 at 03:30 Lisinopril (Zestril) 10 mg DAILY PO Last administered on 01/20/17 08:45; Admin Dose 10 MG; Start 01/16/17 at 12:00 JUANITA LAWTON MD Jan 20, 2017 14:51
[2017-01-20] MEDS: LORAZEPAM 1 MG TAB PO PRN (19:54)
[2017-01-20] MEDS: QUETIAPINE 25 MG TAB PO SCH (20:54)
[2017-01-20 22:36] VITALS: BP 169/100; RESP 18
[2017-01-21 03:26] VITALS: BP 120/71; RESP 18
[2017-01-21] MEDS: morphine 2 MG INJ IV PRN ×2 (04:02→09:01)
[2017-01-21] MEDS: traMADol 50 MG TAB PO SCH ×4 (06:00→18:00)
[2017-01-21 08:42] VITALS: BP 154/89; RESP 20
[2017-01-21] MEDS: THIAMINE 100 MG TAB PO SCH (09:00)
[2017-01-21] MEDS: LEVETIRACETAM 500 MG TAB PO SCH ×2 (09:00→20:43)
[2017-01-21] MEDS: LISINOPRIL 10 MG TAB PO SCH (09:00)
[2017-01-21] MEDS: METHADONE 10 MG TAB PO SCH (09:01)
[2017-01-21] MEDS ORDERED: IBUPROFEN 600 MG TAB PO PRN (11:30)
--- NOTE | 2017-01-21 14:07 | PN ---
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 as well as imbalance /disequilibrium Opiate use d/o: - Continue methadone maintenance Etoh use d/o: - Thiamine, folate SW consult for social issues/alcoholism PT/OT DIscharge to [facility] pending placement Stable for discharge Problems: Subjective 24 Hr Interval Summary Free Text/Dictation No change to clinical status Awaiting placement Exam/Review of Systems Vital Signs Vitals Vital Signs Date Time Temp Pulse Resp B/P Pulse Ox O2 Delivery O2 Flow Rate FiO2 01/21/17 08:42 98.2 82 20 154/89 96 Intake and Output 01/20/17 01/20/17 01/21/17 15:00 23:00 07:00 Intake Total 1420 ml 720 ml Output Total 550 ml Balance 1420 ml 170 ml Exam Constitutional: alert, oriented, well developed Psych: nl mood/affect, no complaints Head: atraumatic, normocephalic Eyes: EOMI, PERRL, nl conjunctiva, nl lids, nl sclera ENMT: nl external ears & nose, nl lips & teeth, nl nasal mucosa & septum Neck: non-tender, supple Respiratory: clear to auscultation, normal air movement Cardiovascular: nl pulses, regular rate and rhythm Gastrointestinal: nl liver, spleen, non-tender, soft Musculoskeletal: nl extremities to inspection, nl gait and stance Extremities: normal pulses Neurological: TRANSMITTER OPERATOR II-XII intact, nl mental status, nl speech, nl strength Skin: nl turgor, No rash or lesions Lymph: nl lymph nodes Medications Medications Current Medications Lorazepam (Ativan) 1 mg Q8H PRN PO ANXIETY Last administered on 01/20/17 19:54 ; Admin Dose 1 MG; Start 01/14/17 at 05:00 Methadone HCl (Methadone) 65 mg DAILY PO Last administered on 01/21/17 09:01; Admin Dose 65 MG; Start 01/14/17 at 10:00 Quetiapine Fumarate (Seroquel) 25 mg HS PO Last administered on 01/20/17 20:54 ; Admin Dose 25 MG; Start 01/14/17 at 21:00 Thiamine HCl (Vitamin B1) 100 mg DAILY PO Last administered on 01/21/17 09:00 ; Admin Dose 100 MG; Start 01/14/17 at 09:00 Tramadol HCl (Ultram) 50 mg Q6 PO ; Start 01/14/17 at 06:00 Miscellaneous Information Patients own medicat... BID@10,16 XX Last administered on 01/17/17 16:33; Admin Dose 1 EA; Start 01/14/17 at 10:00 Levetiracetam (Keppra) 500 mg BID PO Last administered on 01/21/17 09:00; Admin Dose 500 MG; Start 01/15/17 at 21:00 Lisinopril (Zestril) 10 mg DAILY PO Last administered on 01/21/17 09:00; Admin Dose 10 MG; Start 01/16/17 at 12:00 Ibuprofen (Motrin) 600 mg Q6H PRN PO pain; Start 01/21/17 at 11:30 JUANITA LAWTON MD Jan 21, 2017 14:07
[2017-01-21 14:35] VITALS: BP 160/94; RESP 20
[2017-01-21] MEDS: LORAZEPAM 1 MG TAB PO PRN (15:47)
[2017-01-21 20:17] VITALS: BP 146/64; RESP 20
[2017-01-21] MEDS: QUETIAPINE 25 MG TAB PO SCH (20:43)
[2017-01-22] MEDS: LORAZEPAM 1 MG TAB PO PRN ×3 (01:03→17:13)
[2017-01-22 02:21] VITALS: BP 138/74; RESP 18
[2017-01-22] MEDS: traMADol 50 MG TAB PO SCH ×5 (06:10→23:42)
[2017-01-22] MEDS: LISINOPRIL 10 MG TAB PO SCH (08:32)
[2017-01-22] MEDS: LEVETIRACETAM 500 MG TAB PO SCH ×2 (08:32→20:38)
[2017-01-22] MEDS: THIAMINE 100 MG TAB PO SCH (08:33)
[2017-01-22] MEDS: METHADONE 10 MG TAB PO SCH (08:33)
[2017-01-22 08:45] VITALS: BP 141/92; RESP 18
[2017-01-22 15:20] VITALS: BP 119/79; RESP 18
--- NOTE | 2017-01-22 15:32 | PN ---
Date/Time of Note Date/Time of Note DATE: 01/22/17 TIME: 15:31 Assessment/Plan VTE Prophylaxis VTE Prophylaxis Intervention: LMWH Lines/Catheters IV Catheter Type (from Nrsg): Saline Lock Assessment/Plan Chief Complaint/Hosp Course 51 yo male with h/o etoh use d/o, opiate use d/o on methadone who presents with recurrent orthostatic syncope, gait imbalance. Now awaiting placement to [facility]. No acute medical issues, cleared for discharge. 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 as well as imbalance /disequilibrium Opiate use d/o: - Continue methadone maintenance Etoh use d/o: - Thiamine, folate SW consult for social issues/alcoholism PT/OT DIscharge to [facility] pending placement Stable for discharge Problems: Subjective 24 Hr Interval Summary Free Text/Dictation No change to clinical status Awaiting placement Exam/Review of Systems Vital Signs Vitals Vital Signs Date Time Temp Pulse Resp B/P Pulse Ox O2 Delivery O2 Flow Rate FiO2 01/22/17 15:20 98.3 79 18 119/79 97 Intake and Output 01/21/17 01/21/17 01/22/17 15:00 23:00 07:00 Intake Total 1500 ml 60 ml Balance 1500 ml 60 ml Exam Constitutional: alert, oriented, well developed Psych: nl mood/affect, no complaints Head: atraumatic, normocephalic Eyes: EOMI, PERRL, nl conjunctiva, nl lids, nl sclera ENMT: nl external ears & nose, nl lips & teeth, nl nasal mucosa & septum Neck: non-tender, supple Respiratory: clear to auscultation, normal air movement Cardiovascular: nl pulses, regular rate and rhythm Gastrointestinal: nl liver, spleen, non-tender, soft Musculoskeletal: nl extremities to inspection, nl gait and stance Extremities: normal pulses Neurological: AUTOMATION DRIVER II-XII intact, nl mental status, nl speech, nl strength Skin: nl turgor, No rash or lesions Lymph: nl lymph nodes Medications Medications Current Medications Lorazepam (Ativan) 1 mg Q8H PRN PO ANXIETY Last administered on 01/22/17 09:13 ; Admin Dose 1 MG; Start 01/14/17 at 05:00 Methadone HCl (Methadone) 65 mg DAILY PO Last administered on 01/22/17 08:33; Admin Dose 65 MG; Start 01/14/17 at 10:00 Quetiapine Fumarate (Seroquel) 25 mg HS PO Last administered on 01/21/17 20:43 ; Admin Dose 25 MG; Start 01/14/17 at 21:00 Thiamine HCl (Vitamin B1) 100 mg DAILY PO Last administered on 01/22/17 08:33 ; Admin Dose 100 MG; Start 01/14/17 at 09:00 Tramadol HCl (Ultram) 50 mg Q6 PO Last administered on 01/22/17 12:00; Admin Dose 50 MG; Start 01/14/17 at 06:00 Miscellaneous Information Patients own medicat... BID@10,16 XX Last administered on 01/17/17 16:33; Admin Dose 1 EA; Start 01/14/17 at 10:00 Levetiracetam (Keppra) 500 mg BID PO Last administered on 01/22/17 08:32; Admin Dose 500 MG; Start 01/15/17 at 21:00 Lisinopril (Zestril) 10 mg DAILY PO Last administered on 01/22/17 08:32; Admin Dose 10 MG; Start 01/16/17 at 12:00 Ibuprofen (Motrin) 600 mg Q6H PRN PO pain; Start 01/21/17 at 11:30 JUANITA LAWTON MD Jan 22, 2017 15:32
[2017-01-22 19:40] VITALS: BP 171/101; RESP 16
[2017-01-22] MEDS: QUETIAPINE 25 MG TAB PO SCH (20:38)
[2017-01-22] MEDS ORDERED: HYDROCODONE/APAP (5/325) TAB ONE (22:06)
[2017-01-22] MEDS: HYDROCODONE/APAP (5/325) TAB PO PRN (22:10)
[2017-01-22 23:42] VITALS: BP 141/81; PULSE 66
[2017-01-23] VITALS (11 sets, daily range): BP systolic 142–172; BP diastolic 82–101; PULSE 62–76; RESP 16–20
[2017-01-23] MEDS: HYDROCODONE/APAP (5/325) TAB PO PRN ×3 (05:27→21:42)
[2017-01-23] MEDS: traMADol 50 MG TAB PO SCH ×3 (06:21→18:04)
[2017-01-23] MEDS: LEVETIRACETAM 500 MG TAB PO SCH ×2 (08:29→20:36)
[2017-01-23] MEDS: METHADONE 10 MG TAB PO SCH (08:30)
[2017-01-23] MEDS: LISINOPRIL 10 MG TAB PO SCH (08:30)
--- NOTE | 2017-01-23 16:29 | PN ---
Date/Time of Note Date/Time of Note DATE: 01/23/17 TIME: 16:24 Assessment/Plan VTE Prophylaxis VTE Prophylaxis Intervention: SCD's Lines/Catheters IV [facility] Saline Lock Assessment/Plan Chief Complaint/Hosp Course 1. Seizure secondary to alcohol withdrawal-stable Continue Keppra 2. Polysubstance abuse with opioid and alcohol abuse Continue methadone maintenance clinical resource manager to place in alcohol cessation program Continue thiamine, of note patient has only been drinking for approximately 6 months but has been drinking heavily SW consult for social issues/alcoholism Medically stable for discharge Prophylaxis: SCDs Dispo: Placement pending Problems: Subjective 24 Hr Interval Summary Constitutional: no complaints Exam/Review of Systems Vital Signs Vitals Vital Signs Date Time Temp Pulse Resp B/P Pulse Ox O2 Delivery O2 Flow Rate FiO2 01/23/17 15:15 98.6 80 20 148/101 97 Intake and Output 01/22/17 01/22/17 01/23/17 15:00 23:00 07:00 Intake Total 1400 ml 300 ml Balance 1400 ml 300 ml Exam Constitutional: alert, oriented Respiratory: clear to auscultation Cardiovascular: regular rate and rhythm Gastrointestinal: soft, No distended Musculoskeletal: nl extremities to inspection Medications Medications Current Medications Lorazepam (Ativan) 1 mg Q8H PRN PO ANXIETY Last administered on 01/22/17 17:13 ; Admin Dose 1 MG; Start 01/14/17 at 05:00 Methadone HCl (Methadone) 65 mg DAILY PO Last administered on 01/23/17 08:30; Admin Dose 65 MG; Start 01/14/17 at 10:00 Quetiapine Fumarate (Seroquel) 25 mg HS PO Last administered on 01/22/17 20:38 ; Admin Dose 25 MG; Start 01/14/17 at 21:00 Tramadol HCl (Ultram) 50 mg Q6 PO Last administered on 01/23/17 12:08; Admin Dose 50 MG; Start 01/14/17 at 06:00 Miscellaneous Information Patients own medicat... BID@10,16 XX Last administered on 01/17/17 16:33; Admin Dose 1 EA; Start 01/14/17 at 10:00 Levetiracetam (Keppra) 500 mg BID PO Last administered on 01/23/17 08:29; Admin Dose 500 MG; Start 01/15/17 at 21:00 Lisinopril (Zestril) 10 mg DAILY PO Last administered on 01/23/17 08:30; Admin Dose 10 MG; Start 01/16/17 at 12:00 Ibuprofen (Motrin) 600 mg Q6H PRN PO pain; Start 01/21/17 at 11:30 Hydralazine HCl (Apresoline) 25 mg Q6H PRN PO FOR SBP >160 Last administered on 01/23/17 09:49; Admin Dose 25 MG; Start 01/22/17 at 20:30 Acetaminophen/ Hydrocodone Bitart ([place] (5/325)) 1 tab Q6H PRN PO MODERATE PAIN Last administered on 01/23/17 15:23; Admin Dose 1 TAB; Start 01/22/17 at 22:30 EDIN FU Jan 23, 2017 16:29
[2017-01-23] MEDS: LORAZEPAM 1 MG TAB PO PRN (20:36)
[2017-01-23] MEDS: QUETIAPINE 25 MG TAB PO SCH (20:36)
[2017-01-24 00:22] VITALS: BP 131/81; PULSE 68
[2017-01-24 02:47] VITALS: BP 141/81; RESP 19
[2017-01-24] MEDS: traMADol 50 MG TAB PO SCH ×5 (05:27→23:58)
[2017-01-24 08:00] VITALS: BP 151/91; PULSE 69; RESP 20
[2017-01-24] MEDS: LEVETIRACETAM 500 MG TAB PO SCH ×2 (08:10→20:35)
[2017-01-24] MEDS: LISINOPRIL 10 MG TAB PO SCH (08:10)
[2017-01-24] MEDS: METHADONE 10 MG TAB PO SCH (08:11)
[2017-01-24] MEDS: LORAZEPAM 1 MG TAB PO PRN ×2 (11:44→20:38)
--- NOTE | 2017-01-24 15:43 | PN ---
Date/Time of Note Date/Time of Note DATE: 01/24/17 TIME: 15:41 Assessment/Plan VTE Prophylaxis VTE Prophylaxis Intervention: SCD's Lines/Catheters IV [facility]ter Type (from [facility]): Saline Lock Assessment/Plan Chief Complaint/Hosp Course 1. Seizure secondary to alcohol withdrawal-stable Continue Keppra 2. 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 Prophylaxis: SCDs Dispo: Placement pending Problems: Subjective 24 Hr Interval Summary Constitutional: no complaints Exam/Review of Systems Vital Signs Vitals Vital Signs Date Time Temp Pulse Resp B/P Pulse Ox O2 Delivery O2 Flow Rate FiO2 01/24/17 08:00 98.4 69 20 151/91 97 Room Air Intake and Output 01/23/17 01/23/17 01/24/17 15:00 23:00 07:00 Intake Total 1100 ml 620 ml Balance 1100 ml 620 ml Exam Constitutional: alert, oriented Respiratory: clear to auscultation Cardiovascular: regular rate and rhythm Gastrointestinal: soft, No distended Musculoskeletal: nl extremities to inspection Medications Medications Current Medications Lorazepam (Ativan) 1 mg Q8H PRN PO ANXIETY Last administered on 01/24/17 11: 44; Admin Dose 1 MG; Start 01/14/17 at 05:00 Methadone HCl (Methadone) 65 mg DAILY PO Last administered on 01/24/17 08:11 ; Admin Dose 65 MG; Start 01/14/17 at 10:00 Quetiapine Fumarate (Seroquel) 25 mg HS PO Last administered on 01/23/17 20:36 ; Admin Dose 25 MG; Start 01/14/17 at 21:00 Tramadol HCl (Ultram) 50 mg Q6 PO Last administered on 01/24/17 12:48; Admin Dose 50 MG; Start 01/14/17 at 06:00 Miscellaneous Information Patients own medicat... BID@10,16 XX Last administered on 01/17/17 16:33; Admin Dose 1 EA; Start 01/14/17 at 10:00 Levetiracetam (Keppra) 500 mg BID PO Last administered on 01/24/17 08:10; Admin Dose 500 MG; Start 01/15/17 at 21:00 Lisinopril (Zestril) 10 mg DAILY PO Last administered on 01/24/17 08:10; Admin Dose 10 MG; Start 01/16/17 at 12:00 Ibuprofen (Motrin) 600 mg Q6H PRN PO pain; Start 01/21/17 at 11:30 Hydralazine HCl (Apresoline) 25 mg Q6H PRN PO FOR SBP >160 Last administered on 01/23/17 20:36; Admin Dose 25 MG; Start 01/22/17 at 20:30 Acetaminophen/ Hydrocodone Bitart ([place] (5/325)) 1 tab Q6H PRN PO MODERATE PAIN Last administered on 01/23/17 21:42; Admin Dose 1 TAB; Start 01/22/17 at 22:30 EDIN FU Jan 24, 2017 15:43
[2017-01-24 15:58] VITALS: BP 151/82; PULSE 83; RESP 19
[2017-01-24] MEDS: HYDROCODONE/APAP (5/325) TAB PO PRN ×2 (16:00→22:31)
[2017-01-24 20:32] VITALS: BP 156/89; RESP 16
[2017-01-24] MEDS: QUETIAPINE 25 MG TAB PO SCH (20:35)
[2017-01-25 02:41] VITALS: BP 157/64; RESP 18
[2017-01-25] MEDS: HYDROCODONE/APAP (5/325) TAB PO PRN ×3 (04:42→22:14)
[2017-01-25] MEDS: traMADol 50 MG TAB PO SCH ×3 (05:49→17:40)
[2017-01-25 08:00] VITALS: BP 170/100; RESP 18
[2017-01-25] MEDS: LISINOPRIL 10 MG TAB PO SCH (09:06)
[2017-01-25] MEDS: METHADONE 10 MG TAB PO SCH (09:07)
[2017-01-25] MEDS: LEVETIRACETAM 500 MG TAB PO SCH ×2 (09:07→21:14)
[2017-01-25 14:39] VITALS: BP 169/93; RESP 20
[2017-01-25] MEDS: LORAZEPAM 1 MG TAB PO PRN (15:27)
--- NOTE | 2017-01-25 19:12 | PN ---
Date/Time of Note Date/Time of Note DATE: 01/25/17 TIME: 19:10 Assessment/Plan VTE Prophylaxis VTE Prophylaxis Intervention: SCD's Lines/Catheters IV [facility]from [facility] Saline Lock Assessment/Plan Chief Complaint/Hosp Course 1. Seizure secondary to alcohol withdrawal-stable Continue Keppra 2. 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 Hypertension-BP still elevated Increase lisinopril dose Prophylaxis: SCDs Dispo: Placement pending Problems: Subjective 24 Hr Interval Summary Psychological: anxiety Exam/Review of Systems Vital Signs Vitals Vital Signs Date Time Temp Pulse Resp B/P Pulse Ox O2 Delivery O2 Flow Rate FiO2 01/25/17 14:39 98.2 67 20 169/93 99 01/24/17 15:58 Room Air Intake and Output 01/24/17 01/24/17 01/25/17 15:00 23:00 07:00 Intake Total 1420 ml 520 ml Output Total 1000 ml 600 ml Balance 420 ml -80 ml Exam Constitutional: alert Respiratory: clear to auscultation Cardiovascular: regular rate and rhythm Gastrointestinal: soft, No distended Musculoskeletal: nl extremities to inspection Medications Medications Current Medications Lorazepam (Ativan) 1 mg Q8H PRN PO ANXIETY Last administered on 01/25/17 15: 27; Admin Dose 1 MG; Start 01/14/17 at 05:00 Methadone HCl (Methadone) 65 mg DAILY PO Last administered on 01/25/17 09:07 ; Admin Dose 65 MG; Start 01/14/17 at 10:00 Quetiapine Fumarate (Seroquel) 25 mg HS PO Last administered on 01/24/17 20: 35; Admin Dose 25 MG; Start 01/14/17 at 21:00 Tramadol HCl (Ultram) 50 mg Q6 PO Last administered on 01/25/17 17:40; Admin Dose 50 MG; Start 01/14/17 at 06:00 Miscellaneous Information Patients own medicat... BID@10,16 XX Last administered on 01/17/17 16:33; Admin Dose 1 EA; Start 01/14/17 at 10:00 Levetiracetam (Keppra) 500 mg BID PO Last administered on 01/25/17 09:07; Admin Dose 500 MG; Start 01/15/17 at 21:00 Lisinopril (Zestril) 10 mg DAILY PO Last administered on 01/25/17 09:06; Admin Dose 10 MG; Start 01/16/17 at 12:00 Ibuprofen (Motrin) 600 mg Q6H PRN PO pain; Start 01/21/17 at 11:30 Hydralazine HCl (Apresoline) 25 mg Q6H PRN PO FOR SBP >160 Last administered on 01/25/17 15:20; Admin Dose 25 MG; Start 01/22/17 at 20:30 Acetaminophen/ Hydrocodone Bitart ([place] (5/325)) 1 tab Q6H PRN PO MODERATE PAIN Last administered on 01/25/17 15:27; Admin Dose 1 TAB; Start 01/22/17 at 22:30 EDIN FU Jan 25, 2017 19:12
[2017-01-25] MEDS ORDERED: LISINOPRIL 10 MG TAB PO ONE (19:30)
[2017-01-25 20:41] VITALS: BP 147/91; RESP 16
[2017-01-25] MEDS: QUETIAPINE 25 MG TAB PO SCH (21:14)
[2017-01-26] MEDS: LORAZEPAM 1 MG TAB PO PRN ×2 (00:07→18:44)
[2017-01-26] MEDS: traMADol 50 MG TAB PO SCH ×5 (00:10→23:36)
[2017-01-26 02:40] VITALS: BP 134/82; RESP 16
[2017-01-26 07:54] VITALS: BP 130/79; RESP 18
[2017-01-26] MEDS: METHADONE 10 MG TAB PO SCH (08:13)
[2017-01-26] MEDS: LEVETIRACETAM 500 MG TAB PO SCH ×2 (08:13→21:16)
[2017-01-26] MEDS ORDERED: LISINOPRIL 20 MG TAB PO SCH (09:00)
[2017-01-26] MEDS: HYDROCODONE/APAP (5/325) TAB PO PRN ×2 (12:40→21:16)
--- NOTE | 2017-01-26 15:15 | PN ---
Date/Time of Note Date/Time of Note DATE: 01/26/17 TIME: 15:14 Assessment/Plan VTE Prophylaxis VTE Prophylaxis Intervention: SCD's Lines/Catheters IV Catheter Type (from [facility]): Saline Lock Assessment/Plan Chief Complaint/Hosp Course 1. Seizure secondary to alcohol withdrawal-stable Continue Keppra 2. 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 Hypertension-BP now stable Increased lisinopril dose Prophylaxis: SCDs Dispo: Placement pending Problems: Subjective 24 Hr Interval Summary Constitutional: no complaints Exam/Review of Systems Vital Signs Vitals Vital Signs Date Time Temp Pulse Resp B/P Pulse Ox O2 Delivery O2 Flow Rate FiO2 01/26/17 07:54 98.6 67 18 130/79 98 01/24/17 15:58 Room Air Intake and Output 01/25/17 01/25/17 01/26/17 15:00 23:00 07:00 Intake Total 800 ml 500 ml Output Total 600 ml Balance 800 ml -100 ml Exam Constitutional: alert Respiratory: clear to auscultation Cardiovascular: regular rate and rhythm Gastrointestinal: soft, No distended Musculoskeletal: nl extremities to inspection Medications Medications Current Medications Lorazepam (Ativan) 1 mg Q8H PRN PO ANXIETY Last administered on 01/26/17 00: 07; Admin Dose 1 MG; Start 01/14/17 at 05:00 Methadone HCl (Methadone) 65 mg DAILY PO Last administered on 01/26/17 08:13 ; Admin Dose 65 MG; Start 01/14/17 at 10:00 Quetiapine Fumarate (Seroquel) 25 mg HS PO Last administered on 01/25/17 21: 14; Admin Dose 25 MG; Start 01/14/17 at 21:00 Tramadol HCl (Ultram) 50 mg Q6 PO Last administered on 01/26/17 11:31; Admin Dose 50 MG; Start 01/14/17 at 06:00 Miscellaneous Information Patients own medicat... BID@10,16 XX Last administered on 01/17/17 16:33; Admin Dose 1 EA; Start 01/14/17 at 10:00 Levetiracetam (Keppra) 500 mg BID PO Last administered on 01/26/17 08:13; Admin Dose 500 MG; Start 01/15/17 at 21:00 Ibuprofen (Motrin) 600 mg Q6H PRN PO pain; Start 01/21/17 at 11:30 Hydralazine HCl (Apresoline) 25 mg Q6H PRN PO FOR SBP >160 Last administered on 01/25/17 22:18; Admin Dose 25 MG; Start 01/22/17 at 20:30 Acetaminophen/ Hydrocodone Bitart ([place] (5/325)) 1 tab Q6H PRN PO MODERATE PAIN Last administered on 01/26/17 12:40; Admin Dose 1 TAB; Start 01/22/17 at 22:30 Lisinopril (Zestril) 20 mg DAILY PO Last administered on 01/26/17 08:17; Admin Dose 20 MG; Start 01/26/17 at 09:00 EDIN FU Jan 26, 2017 15:15
[2017-01-26 16:48] VITALS: BP 141/89; RESP 20
[2017-01-26] MEDS: QUETIAPINE 25 MG TAB PO SCH (21:16)
[2017-01-26 21:57] VITALS: BP 163/98; RESP 18
[2017-01-26 22:48] VITALS: BP 155/88; PULSE 72
[2017-01-27 03:07] VITALS: BP 148/88; RESP 18
[2017-01-27] MEDS: HYDROCODONE/APAP (5/325) TAB PO PRN ×3 (04:33→20:15)
[2017-01-27] MEDS: traMADol 50 MG TAB PO SCH ×4 (06:12→23:37)
[2017-01-27 08:27] VITALS: BP 152/98; RESP 17
[2017-01-27] MEDS: LEVETIRACETAM 500 MG TAB PO SCH ×2 (09:39→20:31)
[2017-01-27] MEDS: METHADONE 10 MG TAB PO SCH (09:40)
[2017-01-27] MEDS ORDERED: LISINOPRIL 20 MG TAB PO ONE (10:00)
[2017-01-27 14:00] VITALS: BP 160/96; RESP 20
--- NOTE | 2017-01-27 14:08 | PN ---
Date/Time of Note Date/Time of Note DATE: 01/27/17 TIME: 14:03 Assessment/Plan VTE Prophylaxis VTE Prophylaxis Intervention: SCD's Lines/Catheters IV Catheter Type (from [facility]): Saline Lock Assessment/Plan Chief Complaint/Hosp Course 1. Seizure secondary to alcohol withdrawal-stable Continue Keppra 2. 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 Hypertension-BP still slightly elevated Increased lisinopril dose Prophylaxis: SCDs Dispo: Placement pending Problems: Subjective 24 Hr Interval Summary Constitutional: no complaints Exam/Review of Systems Vital Signs Vitals Vital Signs Date Time Temp Pulse Resp B/P Pulse Ox O2 Delivery O2 Flow Rate FiO2 01/27/17 08:27 97.2 63 17 152/98 97 01/24/17 15:58 Room Air Intake and Output 01/26/17 01/26/17 01/27/17 15:00 23:00 07:00 Intake Total 1270 ml 950 ml Balance 1270 ml 950 ml Exam Constitutional: alert, oriented Respiratory: clear to auscultation Cardiovascular: regular rate and rhythm Gastrointestinal: soft, No distended Musculoskeletal: nl extremities to inspection Medications Medications Current Medications Lorazepam (Ativan) 1 mg Q8H PRN PO ANXIETY Last administered on 01/26/17 18: 44; Admin Dose 1 MG; Start 01/14/17 at 05:00 Methadone HCl (Methadone) 65 mg DAILY PO Last administered on 01/27/17 09:40 ; Admin Dose 65 MG; Start 01/14/17 at 10:00 Quetiapine Fumarate (Seroquel) 25 mg HS PO Last administered on 01/26/17 21: 16; Admin Dose 25 MG; Start 01/14/17 at 21:00 Tramadol HCl (Ultram) 50 mg Q6 PO Last administered on 01/27/17 12:42; Admin Dose 50 MG; Start 01/14/17 at 06:00 Miscellaneous Information Patients own medicat... BID@10,16 XX Last administered on 01/17/17 16:33; Admin Dose 1 EA; Start 01/14/17 at 10:00 Levetiracetam (Keppra) 500 mg BID PO Last administered on 01/27/17 09:39; Admin Dose 500 MG; Start 01/15/17 at 21:00 Ibuprofen (Motrin) 600 mg Q6H PRN PO pain; Start 01/21/17 at 11:30 Hydralazine HCl (Apresoline) 25 mg Q6H PRN PO FOR SBP >160 Last administered on 01/26/17 21:17; Admin Dose 25 MG; Start 01/22/17 at 20:30 Acetaminophen/ Hydrocodone Bitart ([place] (5/325)) 1 tab Q6H PRN PO MODERATE PAIN Last administered on 01/27/17 11:12; Admin Dose 1 TAB; Start 01/22/17 at 22:30 Lisinopril (Zestril) 40 mg DAILY PO ; Start 01/28/17 at 09:00 EDIN FU Jan 27, 2017 14:08
[2017-01-27 15:07] VITALS: BP 146/85; RESP 20
[2017-01-27] MEDS: LORAZEPAM 1 MG TAB PO PRN ×2 (15:18→23:37)
[2017-01-27 20:00] VITALS: BP 169/98; RESP 19
[2017-01-27] MEDS: QUETIAPINE 25 MG TAB PO SCH (20:31)
[2017-01-27 20:45] VITALS: BP 155/84
[2017-01-28 02:00] VITALS: BP 130/84; RESP 19
[2017-01-28] MEDS: HYDROCODONE/APAP (5/325) TAB PO PRN ×3 (02:37→21:15)
[2017-01-28] MEDS: traMADol 50 MG TAB PO SCH ×3 (05:32→17:47)
[2017-01-28 08:27] VITALS: BP 156/92; RESP 18
[2017-01-28] MEDS: LEVETIRACETAM 500 MG TAB PO SCH ×2 (08:27→20:56)
[2017-01-28] MEDS: LISINOPRIL 20 MG TAB PO SCH (08:27)
[2017-01-28] MEDS: METHADONE 10 MG TAB PO SCH (08:28)
[2017-01-28] MEDS: LORAZEPAM 1 MG TAB PO PRN ×2 (12:57→21:15)
--- NOTE | 2017-01-28 14:04 | PN ---
Date/Time of Note Date/Time of Note DATE: 01/28/17 TIME: 14:04 Assessment/Plan VTE Prophylaxis VTE Prophylaxis Intervention: SCD's Lines/Catheters IV [facility]ter Type (from [facility]): Saline Lock Assessment/Plan Chief Complaint/Hosp Course 1. Seizure secondary to alcohol withdrawal-stable Continue Keppra 2. 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 Hypertension-BP still slightly elevated Increased lisinopril dose Prophylaxis: SCDs Dispo: Placement pending Problems: Subjective 24 Hr Interval Summary Constitutional: no complaints Exam/Review of Systems Vital Signs Vitals Vital Signs Date Time Temp Pulse Resp B/P Pulse Ox O2 Delivery O2 Flow Rate FiO2 01/28/17 08:27 98.1 61 18 156/92 98 01/27/17 15:07 Room Air Intake and Output 01/27/17 01/27/17 01/28/17 15:00 23:00 07:00 Intake Total 1020 ml 850 ml Output Total 240 ml Balance 780 ml 850 ml Exam Constitutional: alert, oriented Respiratory: clear to auscultation Cardiovascular: regular rate and rhythm Gastrointestinal: soft, No distended Musculoskeletal: nl extremities to inspection Medications Medications Current Medications Lorazepam (Ativan) 1 mg Q8H PRN PO ANXIETY Last administered on 01/28/17 12: 57; Admin Dose 1 MG; Start 01/14/17 at 05:00 Methadone HCl (Methadone) 65 mg DAILY PO Last administered on 01/28/17 08:28 ; Admin Dose 65 MG; Start 01/14/17 at 10:00 Quetiapine Fumarate (Seroquel) 25 mg HS PO Last administered on 01/27/17 20: 31; Admin Dose 25 MG; Start 01/14/17 at 21:00 Tramadol HCl (Ultram) 50 mg Q6 PO Last administered on 01/28/17 11:46; Admin Dose 50 MG; Start 01/14/17 at 06:00 Miscellaneous Information Patients own medicat... BID@10,16 XX Last administered on 01/17/17 16:33; Admin Dose 1 EA; Start 01/14/17 at 10:00 Levetiracetam (Keppra) 500 mg BID PO Last administered on 01/28/17 08:27; Admin Dose 500 MG; Start 01/15/17 at 21:00 Ibuprofen (Motrin) 600 mg Q6H PRN PO pain; Start 01/21/17 at 11:30 Hydralazine HCl (Apresoline) 25 mg Q6H PRN PO FOR SBP >160 Last administered on 01/27/17 20:15; Admin Dose 25 MG; Start 01/22/17 at 20:30 Acetaminophen/ Hydrocodone Bitart ([place] (5/325)) 1 tab Q6H PRN PO MODERATE PAIN Last administered on 01/28/17 02:37; Admin Dose 1 TAB; Start 01/22/17 at 22:30 Lisinopril (Zestril) 40 mg DAILY PO Last administered on 01/28/17 08:27; Admin Dose 40 MG; Start 01/28/17 at 09:00 EDIN FU Jan 28, 2017 14:04
[2017-01-28 14:14] VITALS: BP 130/94; RESP 16
[2017-01-28 20:00] VITALS: BP 160/100; RESP 18
[2017-01-28] MEDS: QUETIAPINE 25 MG TAB PO SCH (20:56)
[2017-01-28 21:08] VITALS: BP 161/100; PULSE 71
[2017-01-28 23:20] VITALS: BP 138/87; PULSE 61
[2017-01-29] MEDS: traMADol 50 MG TAB PO SCH ×4 (00:07→18:25)
[2017-01-29 02:58] VITALS: BP 139/91; RESP 18
[2017-01-29] MEDS: LORAZEPAM 1 MG TAB PO PRN ×3 (05:51→22:02)
[2017-01-29 08:21] VITALS: BP 138/84; RESP 18
[2017-01-29] MEDS: LEVETIRACETAM 500 MG TAB PO SCH ×2 (08:42→19:35)
[2017-01-29] MEDS: LISINOPRIL 20 MG TAB PO SCH (08:42)
[2017-01-29] MEDS: METHADONE 10 MG TAB PO SCH (08:43)
[2017-01-29 14:00] VITALS: BP 143/88; RESP 19
[2017-01-29] MEDS: HYDROCODONE/APAP (5/325) TAB PO PRN ×2 (16:00→23:01)
--- NOTE | 2017-01-29 18:35 | PN ---
Date/Time of Note Date/Time of Note DATE: 01/29/17 TIME: 18:34 Assessment/Plan VTE Prophylaxis VTE Prophylaxis Intervention: SCD's Lines/Catheters IV Catheter Type (from [facility]): Saline Lock Urinary Cath still in place: No Assessment/Plan Chief Complaint/Hosp Course 1. Seizure secondary to alcohol withdrawal-stable Continue Keppra 2. 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 Hypertension-BP stable Continue lisinopril 40 mg daily Prophylaxis: SCDs Dispo: Placement pending Problems: Subjective 24 Hr Interval Summary Constitutional: no complaints Exam/Review of Systems Vital Signs Vitals Vital Signs Date Time Temp Pulse Resp B/P Pulse Ox O2 Delivery O2 Flow Rate FiO2 01/29/17 14:00 98.5 70 19 143/88 97 01/27/17 15:07 Room Air Intake and Output 01/28/17 01/28/17 01/29/17 14:59 22:59 06:59 Intake Total 1380 ml 1150 ml Balance 1380 ml 1150 ml Exam Constitutional: alert, oriented Respiratory: clear to auscultation Cardiovascular: regular rate and rhythm Gastrointestinal: soft, No distended Musculoskeletal: nl extremities to inspection Medications Medications Current Medications Lorazepam (Ativan) 1 mg Q8H PRN PO ANXIETY Last administered on 01/29/17 14: 23; Admin Dose 1 MG; Start 01/14/17 at 05:00 Methadone HCl (Methadone) 65 mg DAILY PO Last administered on 01/29/17 08:43 ; Admin Dose 65 MG; Start 01/14/17 at 10:00 Quetiapine Fumarate (Seroquel) 25 mg HS PO Last administered on 01/28/17 20: 56; Admin Dose 25 MG; Start 01/14/17 at 21:00 Tramadol HCl (Ultram) 50 mg Q6 PO Last administered on 01/29/17 18:25; Admin Dose 50 MG; Start 01/14/17 at 06:00 Miscellaneous Information Patients own medicat... BID@10,16 XX Last administered on 01/17/17 16:33; Admin Dose 1 EA; Start 01/14/17 at 10:00 Levetiracetam (Keppra) 500 mg BID PO Last administered on 01/29/17 08:42; Admin Dose 500 MG; Start 01/15/17 at 21:00 Ibuprofen (Motrin) 600 mg Q6H PRN PO pain; Start 01/21/17 at 11:30 Hydralazine HCl (Apresoline) 25 mg Q6H PRN PO FOR SBP >160 Last administered on 01/28/17 21:08; Admin Dose 25 MG; Start 01/22/17 at 20:30 Acetaminophen/ Hydrocodone Bitart ([place] (5/325)) 1 tab Q6H PRN PO MODERATE PAIN Last administered on 01/29/17 16:00; Admin Dose 1 TAB; Start 01/22/17 at 22:30 Lisinopril (Zestril) 40 mg DAILY PO Last administered on 01/29/17 08:42; Admin Dose 40 MG; Start 01/28/17 at 09:00 EDIN FU Jan 29, 2017 18:35
[2017-01-29] MEDS: QUETIAPINE 25 MG TAB PO SCH (19:35)
[2017-01-29 20:50] VITALS: BP 155/94; RESP 18
[2017-01-30] VITALS (7 sets, daily range): BP systolic 129–174; BP diastolic 79–102; PULSE 73–79; RESP 16–18
[2017-01-30] MEDS: traMADol 50 MG TAB PO SCH ×4 (00:23→18:10)
[2017-01-30] MEDS: LISINOPRIL 20 MG TAB PO SCH (08:35)
[2017-01-30] MEDS: LEVETIRACETAM 500 MG TAB PO SCH ×2 (08:36→20:24)
[2017-01-30] MEDS: METHADONE 10 MG TAB PO SCH (08:36)
[2017-01-30] MEDS: HYDROCODONE/APAP (5/325) TAB PO PRN ×2 (14:20→20:24)
[2017-01-30] MEDS: LORAZEPAM 1 MG TAB PO PRN ×2 (14:51→22:37)
[2017-01-30] MEDS: QUETIAPINE 25 MG TAB PO SCH (20:24)
[2017-01-31] MEDS: traMADol 50 MG TAB PO SCH ×4 (00:08→17:29)
[2017-01-31 01:58] VITALS: BP 136/88; RESP 16
[2017-01-31 07:33] VITALS: BP 141/90; RESP 18
[2017-01-31] MEDS: METHADONE 10 MG TAB PO SCH (08:38)
[2017-01-31] MEDS: LEVETIRACETAM 500 MG TAB PO SCH ×2 (08:38→21:00)
[2017-01-31] MEDS: LISINOPRIL 20 MG TAB PO SCH (08:38)
[2017-01-31] MEDS: HYDROCODONE/APAP (5/325) TAB PO PRN ×3 (08:39→21:07)
[2017-01-31] MEDS: LORAZEPAM 1 MG TAB PO PRN ×2 (10:38→21:00)
[2017-01-31 14:37] VITALS: BP 129/78; RESP 18
--- NOTE | 2017-01-31 18:20 | PN ---
Date/Time of Note Date/Time of Note DATE: 01/31/17 TIME: 18:20 Assessment/Plan VTE Prophylaxis VTE Prophylaxis Intervention: LMWH Lines/Catheters IV Catheter Type (from Nrs): Saline Lock Urinary Cath still in place: No Assessment/Plan Chief Complaint/Hosp Course 51 yo male with h/o etoh use d/o, opiate use d/o on methadone who presents with recurrent orthostatic syncope, gait imbalance. Now awaiting placement to [facility]. No acute medical issues, cleared for discharge. 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 as well as imbalance /disequilibrium Opiate use d/o: - Continue methadone maintenance Etoh use d/o: - Thiamine, folate SW consult for social issues/alcoholism PT/OT DIscharge to [facility] tomorrow Stable for discharge Problems: Subjective 24 Hr Interval Summary Free Text/Dictation AMbulation improved Agrees to be discharged to community tomorrow, feels comfortable ambulating Exam/Review of Systems Vital Signs Vitals Vital Signs Date Time Temp Pulse Resp B/P Pulse Ox O2 Delivery O2 Flow Rate FiO2 01/31/17 14:37 98.3 80 18 129/78 95 01/30/17 12:27 Room Air 01/29/17 23:00 2.0 Intake and Output 01/30/17 01/30/17 01/31/17 15:00 23:00 07:00 Intake Total 480 ml Balance 480 ml Medications Medications Current Medications Lorazepam (Ativan) 1 mg Q8H PRN PO ANXIETY Last administered on 01/31/17 10: 38; Admin Dose 1 MG; Start 01/14/17 at 05:00 Methadone HCl (Methadone) 65 mg DAILY PO Last administered on 01/31/17 08:38 ; Admin Dose 65 MG; Start 01/14/17 at 10:00 Quetiapine Fumarate (Seroquel) 25 mg HS PO Last administered on 01/30/17 20: 24; Admin Dose 25 MG; Start 01/14/17 at 21:00 Tramadol HCl (Ultram) 50 mg Q6 PO Last administered on 01/31/17 17:29; Admin Dose 50 MG; Start 01/14/17 at 06:00 Miscellaneous Information Patients own medicat... BID@16 XX Last administered on 01/17/17 16:33; Admin Dose 1 EA; Start 01/14/17 at 10:00 Levetiracetam (Keppra) 500 mg BID PO Last administered on 01/31/17 08:38; Admin Dose 500 MG; Start 01/15/17 at 21:00 Ibuprofen (Motrin) 600 mg Q6H PRN PO pain; Start 01/21/17 at 11:30 Hydralazine HCl (Apresoline) 25 mg Q6H PRN PO FOR SBP >160 Last administered on 01/30/17 21:31; Admin Dose 25 MG; Start 01/22/17 at 20:30 Acetaminophen/ Hydrocodone Bitart ([place] (5/325)) 1 tab Q6H PRN PO MODERATE PAIN Last administered on 01/31/17 14:45; Admin Dose 1 TAB; Start 01/22/17 at 22:30 Lisinopril (Zestril) 40 mg DAILY PO Last administered on 01/31/17 08:38; Admin Dose 40 MG; Start 01/28/17 at 09:00 JAUNITA LAWTON MD Jan 31, 2017 18:20
[2017-01-31 20:50] VITALS: BP_SYST 109; BP_SYST 138; BP_DIAS 56; BP_DIAS 88; RESP 18
[2017-01-31] MEDS: QUETIAPINE 25 MG TAB PO SCH (21:00)
[2017-01-31 23:05] VITALS: BP 164/95
[2017-02-01] MEDS: traMADol 50 MG TAB PO SCH ×3 (00:13→13:04)
[2017-02-01 01:00] VITALS: BP 133/70
[2017-02-01 02:07] VITALS: BP 134/84; RESP 18
[2017-02-01 07:32] VITALS: BP 140/91; RESP 18
[2017-02-01] MEDS: LEVETIRACETAM 500 MG TAB PO SCH (09:02)
[2017-02-01] MEDS: LISINOPRIL 20 MG TAB PO SCH (09:02)
[2017-02-01] MEDS: METHADONE 10 MG TAB PO SCH (09:02)
--- NOTE | 2017-02-01 16:30 | DS ---
Date/Time of Note Date/Time of Note DATE: 02/01/17 TIME: 16:28 Discharge Summary Admission/Discharge Info Admit Date/Time Jan 14, 2017 at 03:05 Discharge Date/Time Feb 01, 2017 at 14:30 Hx of Present Illness This is a 51-year-old male with a history of hypertension, alcohol abuse, chronic pain syndrome who presented to the emergency department complaining of seizure. Patient was recently admitted here and was actually discharged about 10 days ago. At that time he was admitted for alcohol intoxication and frequent falls. He was evaluated by PT and plan was to discharge to acute rehab , however patient decided to leave AMA. He was actually 2 days ago complaining of seizure. At that time head CT shows small encephalomalacia otherwise no acute findings. Now he is returning back to the ER complaining of having had 2 episodes of seizure while [place]. Denied recently drinking alcohol. Hospital Course 51 yo male with h/o etoh use d/o, opiate use d/o on methadone who presents with recurrent orthostatic syncope, gait imbalance. 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 However he was not accepted. He stayed about two weeks and worked as an [employer] PT. His ambulation improved greatly so he was discharged to the community Home Meds Active Scripts Ibuprofen* (Motrin*) 600 Mg Tab, 600 MG PO Q8, #30 TAB Prov:SANTI DOTSON DO 01/07/17 Quetiapine Fumarate* (Quetiapine Fumarate*) 25 Mg Tablet, 25 MG PO HS for 30 Days, TAB Prov:FATMATA CASH 12/28/16 Lisinopril* (Lisinopril*) 10 Mg Tablet, 10 MG PO DAILY, #30 TAB Prov:FATMATA CASH 12/28/16 Reported Medications Methadone Hcl* (Methadone*) 10 Mg Tab, 65 MG PO DAILY, TAB 12/19/16 Discontinued Reported Medications Hydrocodone/Acetaminophen ([place] 5-325 Tablet) 1 Each Tablet, 1 EACH PO, TAB 9/30/17 Lorazepam* (Lorazepam*) 0.5 Mg Tablet, 0.5 MG PO HS Y for ANXIETY, TAB 01/14/17 Discontinued Scripts Tramadol HCl (Tramadol HCl) 50 Mg Tablet, 50 MG PO Q6, #20 TAB Prov:SANTI DOTSON DO 01/07/17 Thiamine* (Vitamin B-1*) 100 Mg Tablet, 100 MG PO DAILY for 30 Days, TAB Prov:FATMATA CASH 12/28/16 Metoprolol Tartrate* (Lopressor*) 25 Mg Tab, 12.5 MG PO BID, #60 TAB Prov:FATMATA CASH 12/28/16 Primary Care Provider Care Physician No Primary JUANITA LAWTON MD Feb 01, 2017 16:29
== END 2017-02-01 14:30 | disposition home or self-care (01) | DRG 897 ==
LOC: E/R 21:01 → PP2 01-14 03:05
PROVIDERS: ADMIT Internal Medicine; ATTEND Internal Medicine
DX: F10.239 Alcohol dependence with withdrawal, unspecified (principal); F11.20 Opioid dependence, uncomplicated; G93.89 Other specified disorders of brain; G62.1 Alcoholic polyneuropathy; I10 Essential (primary) hypertension; G40.909 Epilepsy, unspecified, not intractable, without status epilepticus; G89.4 Chronic pain syndrome; I95.1 Orthostatic hypotension; R26.89 Other abnormalities of gait and mobility; Z91.81 History of falling
CPT/HCPCS: 36415; 70450; 70551; 80048; 80053; 80307; 81003; 83735; 84100; 85025; 87081; 93306; 96374; 97110; 97116; 97164; 97530; J0360; J1953; J2270; J7030

== ENCOUNTER 2017-02-04 19:08 | Emergency (ER) | payer OTHER ==
[~2017-02-04] VITALS: Ht 182.9 cm; Wt 78.0 kg
[~2017-02-04 19:08] MED LIST changes: -HYDR-902 PO; -LORA1TAB PO; -METO-448 PO; -THIA100T56 PO; -TRAM50TA2 PO
[2017-02-04 19:11] VITALS: Ht 182.9 cm; Wt 78.0 kg
[2017-02-04] MEDS ORDERED: LORAZEPAM 2 MG INJ IV STA (20:04)
[2017-02-04] MEDS ORDERED: SOD CHLORIDE 0.9% 1,000 ML IV STA (20:04)
--- NOTE | 2017-02-04 20:57 | RADRPT ---
PROCEDURE: XR left elbow. CLINICAL INDICATION: Left elbow pain. TECHNIQUE: 3 views. Frontal, lateral, and oblique. COMPARISON: No prior study is available for comparison. FINDINGS: There is no fracture or dislocation. The soft tissues are normal. Articular surfaces are intact. There is an olecranon spur. There is no lytic or blastic lesion. There is no radiopaque foreign body. IMPRESSION: 1. Olecranon spur. 2. Otherwise unremarkable images of the left elbow. RPTAT: QQ .Sushil Suárez MD, MD Date Time Electronically viewed and signed by .Sushil Suárez MD, on 02/04/2017 20:57 .R/
--- NOTE | 2017-02-04 20:58 | RADRPT ---
PROCEDURE: XR Left Humerus. CLINICAL INDICATION: Left arm pain. TECHNIQUE: AP and lateral views of the left humerus were performed. COMPARISON: None. FINDINGS: There is no fracture or dislocation. The soft tissues are normal. Articular surfaces are intact. There is an olecranon spur. There is no lytic or blastic lesion. There is no radiopaque foreign body. IMPRESSION: 1. Olecranon spur. 2. Otherwise unremarkable images of the left humerus. RPTAT: QQ .Sushil Suárez MD, MD Date Time Electronically viewed and signed by .Sushil Suárez MD, on 02/04/2017 20:57 .R/
[2017-02-04 21:09] LABS: BASOPHILS % 0.6 % (0.0-2.0); EOSINOPHILS # 0.4 10^3/ul (0.0-0.5); HEMATOCRIT 34.9 % (42.0-52.0); HEMOGLOBIN 11.5 g/dl (14.0-18.0); LYMPHOCYTES # 2.5 10^3/ul (0.8-2.9); LYMPHOCYTES % 38.8 % (15.0-51.0); MEAN CORPUSCULAR HEMOGLOBIN 31.4 pg (29.0-33.0); MEAN CORPUSCULAR VOLUME 95.4 fl (82.0-101.0); MEAN PLATELET VOLUME 9.2 fl (7.4-10.4); MONOCYTE # 0.6 10^3/ul (0.3-0.9); MONOCYTES % 9.1 % (0.0-11.0); NEUTROPHIL # 2.9 10^3/ul (1.6-7.5); NEUTROPHILS % 45.3 % (39.0-77.0); PLATELET COUNT 211 10^3/UL (140-415); RED BLOOD COUNT 3.66 10^6/ul (4.70-6.10); RED CELL DISTRIBUTION WIDTH 11.9 % (11.5-14.5); WHITE BLOOD COUNT 6.4 10^3/ul (4.8-10.8)
[2017-02-04 21:32] LABS: ALANINE AMINOTRANSFERASE 32 IU/L (13-69); ALBUMIN 4.1 g/dl (3.3-4.9); ALBUMIN/GLOBULIN RATIO 1.41; ALKALINE PHOSPHATASE 54 IU/L (42-121); ANION GAP 14 (8-16); ASPARTATE AMINO TRANSFERASE 23 IU/L (15-46); BLOOD UREA NITROGEN 13 mg/dl (7-20); CALCIUM 8.4 mg/dl (8.4-10.2); CARBON DIOXIDE 29 mmol/L (21-31); CHLORIDE 104 mmol/L (97-110); CREATININE 0.98 mg/dl (0.61-1.24); GLUCOSE 86 mg/dl (70-220); POTASSIUM 3.7 mmol/L (3.5-5.1); SODIUM 143 mmol/L (135-144)
[2017-02-04 21:47] LABS: SALICYLATE < 1.0 mg/dl (5.0-30.0)
[2017-02-04 21:55] LABS: ACETAMINOPHEN < 10.0 ug/ml (10.0-30.0)
--- NOTE | 2017-02-04 22:19 | ERD ---
ER Documentation Chief Complaint Chief Complaint bib self, cc: uncontrolled seizures and weakness, last seizure was this mor HPI This is a 51-year-old male with a history of alcoholism and seizures who presents to the emergency room for evaluation of a seizure today. This patient states that he remembers having a seizure and it lasted approximately 30 seconds. This patient does state that he drank alcohol and his last drink was approximately 3 hours prior to arrival in the emergency room. Patient is not on any antilipid medications at this time denies any other coingestions of drugs. He denies any other symptoms except for pain in his left elbow which she has had for approximately 3 months duration. The patient denies any trauma to the area. ROS All systems reviewed and are negative except as per history of present illness. Medications Home Meds Active Scripts Ibuprofen* (Motrin*) 600 Mg Tab, 600 MG PO Q8, #30 TAB Prov:SANTI DOTSON DO 01/07/17 Quetiapine Fumarate* (Quetiapine Fumarate*) 25 Mg Tablet, 25 MG PO HS for 30 Days, TAB Prov:FATMATA CASH 12/28/16 Lisinopril* (Lisinopril*) 10 Mg Tablet, 10 MG PO DAILY, #30 TAB Prov:FATMATA CASH 12/28/16 Reported Medications Methadone Hcl* (Methadone*) 10 Mg Tab, 65 MG PO DAILY, TAB 12/19/16 Discontinued Reported Medications Hydrocodone/Acetaminophen ([place] 5-325 Tablet) 1 Each Tablet, 1 EACH PO, TAB 01/14/17 Lorazepam* (Lorazepam*) 0.5 Mg Tablet, 0.5 MG PO HS Y for ANXIETY, TAB 01/14/17 Discontinued Scripts Tramadol HCl (Tramadol HCl) 50 Mg Tablet, 50 MG PO Q6, #20 TAB Prov:SANTI DOTSON DO 01/07/17 Thiamine* (Vitamin B-1*) 100 Mg Tablet, 100 MG PO DAILY for 30 Days, TAB Prov:FATMATA CASH 12/28/16 Metoprolol Tartrate* (Lopressor*) 25 Mg Tab, 12.5 MG PO BID, #60 TAB Prov:FATMATA CASH 12/28/16 Allergies Allergies: Coded Allergies: Penicillins (Unverified Allergy, Severe, Hives, 01/14/17) codeine (Unverified Allergy, Severe, Hives, 01/14/17) PMhx/Soc History of Surgery: No Anesthesia Reaction: No Hx Neurological Disorder: Yes (seizures) Hx Respiratory Disorders: No Hx Cardiac Disorders: Yes (HTN) Hx Psychiatric Problems: Yes Hx Miscellaneous Medical Probl: Yes Hx Alcohol Use: Yes Hx Substance Use: No Hx Tobacco Use: No Physical Exam Vitals Vital Signs Date Time Temp Pulse Resp B/P Pulse Ox O2 Delivery O2 Flow Rate FiO2 02/04/17 19:11 98.5 81 19 120/81 Physical Exam Const: No acute distress Head: Atraumatic Eyes: Normal Conjunctiva ENT: Dry mucous membranes, normal External Ears, Nose and Mouth. Neck: Full range of motion..~ No meningismus. Resp: Clear to auscultation bilaterally Cardio: Regular rate and rhythm, no murmurs Abd: Soft, non tender, non distended. Normal bowel sounds Skin: No petechiae or rashes Back: No midline or flank tenderness Ext: No cyanosis, or edema Neur: Awake and alert Psych: Mild agitation Result Diagram: 02/04/17 2100 02/04/17 2100 Results 24 hrs Laboratory Tests Test 02/04/17 21:00 White Blood Count 6.410^3/ul Red Blood Count 3.6610^6/ul Hemoglobin 11.5g/dl Hematocrit 34.9% Mean Corpuscular Volume 95.4fl Mean Corpuscular Hemoglobin 31.4pg Mean Corpuscular Hemoglobin Concent 33.0g/dl Red Cell Distribution Width 11.9% Platelet Count 03501^3/UL Mean Platelet Volume 9.2fl Neutrophils % 45.3% Lymphocytes % 38.8% Monocytes % 9.1% Eosinophils % 6.0% Basophils % 0.6% Nucleated Red Blood Cells % 0.0/100WBC Neutrophils # 2.910^3/ul Lymphocytes # 2.510^3/ul Monocytes # 0.610^3/ul Eosinophils # 0.410^3/ul Basophils # 0.010^3/ul Nucleated Red Blood Cells # 0.010^3/ul Sodium Level 143mmol/L Potassium Level 3.7mmol/L Chloride Level 104mmol/L Carbon Dioxide Level 29mmol/L Anion Gap 14 Blood Urea Nitrogen 13mg/dl Creatinine 0.98mg/dl Glucose Level 86mg/dl Calcium Level 8.4mg/dl Total Bilirubin 0.0mg/dl Direct Bilirubin 0.00mg/dl Indirect Bilirubin 0.0mg/dl Aspartate Amino Transf (AST/SGOT) 23IU/L Alanine Aminotransferase (ALT/SGPT) 32IU/L Alkaline Phosphatase 54IU/L Total Protein 7.0g/dl Albumin 4.1g/dl Globulin 2.90g/dl Albumin/Globulin Ratio 1.41 Salicylates Level < 1.0mg/dl Acetaminophen Level < 10.0ug/ml Ethyl Alcohol Level 139.0mg/dl Current Medications Medications (Trade) Dose Ordered Sig/Minesh Route PRN Reason Start Time Stop Time Status Last Admin Dose Admin Sodium Chloride (NS) 1,000 ml @ 1,000 mls/hr Q1H STAT IV 02/04/17 20:04 02/04/17 21:03 DC 02/04/17 20:04 Lorazepam (Ativan) 1 mg ONCE STAT IV 02/04/17 20:04 02/04/17 20:07 DC 02/04/17 20:04 Procedures/MDM X-ray Elbow 3V Interpreted by me: Fat Pads: [Normal] Bones: [No fracture] Joints: [No dislocation] Foreign body: [None] X-ray Humerus 2V Interpreted by me: Bones: No fracture Joints: No dislocation Foreign body: None This 51-year-old male presents to the ER for evaluation of seizure activity. This patient has had no seizure activity since being in the emergency room. I reviewed this patient's previous medical records and it appears he has been admitted multiple times in the past month and he did have a transfer arranged for him for a assisted living facility however the patient refused and left the hospital AGAINST MEDICAL ADVICE. The patient is hemodynamically stable in the emergency room, he was mildly agitated and was given 1 mg of Ativan. His blood alcohol level is 139 and this patient will be discharged home is clinically sober as he is no signs of alcohol withdrawal at this time and lab work is within normal limits Departure Diagnosis: Primary Impression: Alcohol abuse Additional Impressions: Seizure-like activity Normocytic anemia Condition: Stable LIZ RIVERA DO Feb 04, 2017 22:19
[2017-02-05 01:59] LABS: ADD UMIC NO; UR ASCORBIC ACID NEGATIVE (NEGATIVE); UR BILIRUBIN (Dip) NEGATIVE (NEGATIVE); UR BLOOD (Dip) NEGATIVE (NEGATIVE); UR CLARITY CLEAR (CLEAR); UR COLOR STRAW (YELLOW); UR GLUCOSE (Dip) NEGATIVE (NEGATIVE); UR KETONES (Dip) NEGATIVE (NEGATIVE); UR LEUKOCYTE ESTERASE (Dip) NEGATIVE Leu/ul (NEGATIVE); UR NITRITE (Dip) NEGATIVE (NEGATIVE); UR SPECIFIC GRAVITY (Dip) 1.008 (1.003-1.030); UR TOTAL PROTEIN (Dip) NEGATIVE (NEGATIVE); UR UROBILINOGEN (Dip) NEGATIVE (NEGATIVE)
[2017-02-05 02:16] LABS: BENZODIAZEPINES Positive (NEGATIVE)
[2017-02-05 02:18] LABS: BARBITURATES Negative (NEGATIVE); CANNABINOIDS Negative (NEGATIVE); COCAINE Negative (NEGATIVE); OPIATES Negative (NEGATIVE)
[2017-02-05 02:40] VITALS: BP 114/74; PULSE 67; RESP 16; TEMP 98.3
== END 2017-02-05 02:45 | disposition home or self-care (01) ==
LOC: E/R 19:08
DX: F10.10 Alcohol abuse, uncomplicated (principal); D64.9 Anemia, unspecified; I10 Essential (primary) hypertension
CPT/HCPCS: 36415; 73060; 73080; 80053; 80306; 80307; 81003; 85025; 96374; J2060; J7030; Z7502

== ENCOUNTER 2017-02-06 04:20 | Inpatient (IN) | payer OTHER ==
[~2017-02-06] VITALS: Ht 185.4 cm; Wt 72.3 kg
[2017-02-06 07:19] VITALS: BP_SYST 169; BP_SYST 177; BP_DIAS 100; BP_DIAS 93; RESP 18
[2017-02-06 09:01] VITALS: Ht 185.4 cm; Wt 72.3 kg
--- NOTE | 2017-02-06 11:40 | HP ---
Date/Time of Note Date/Time of Note DATE: 02/06/17 TIME: 11:40 Assessment/Plan VTE Prophylaxis VTE Prophylaxis Intervention: ambulation Lines/Catheters IV Catheter Type (from Nrs): Saline Lock Assessment/Plan Chief Complaint/Hosp Course 51 yo male with h/o etoh use, chronic pain on methadone who was transferred from [facility] with recurrent seizure-like activities and sudden onset lower back pain after he fell 1. Unwitnessed seizure-like activities, in a patient with alcohol abuse. Currently he does not have any seizures. At this time, I am not sure if it is a seizure versus alcoholic polyneuropathy as well as imbalance/disequilibrium. -Obtain EEG,Ativan PRN. -At this time, we do not think that patient needs to be on seizure medication as there is no witnessed seizures and patient is not having any seizures in- house. Regardless, we will place patient on fall and seizure precautions. 2. Lumbar back pain, status post fall. -Obtain MRI lumbar spine. -Ketorolac IV PRN for pain control. 3. Chronic pain with opiate use -Continued on methadone maintenance. Dose affirmed with his methadone clinic. 4. Etoh use -Patient will be placed on daily banana bag -Cessation advised. 5. Essential hypertension, escalated. -Resume lisinopril. Add metoprolol. 5. Homelessness. 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 Follow-up with ordered testis. Patient will be placed on a diet. Rest of the management depend on hospital course. Approximately 60 minutes was spent on this history and physical. Patient was seen in collaboration with Dr. King. Problems: HPI/ROS Admit Date/Time Admit Date/Time Feb 06, 2017 at 06:24 Hx of Present Illness This is a 51-year-old male with a past medical history hypertension, alcohol abuse, chronic pain syndrome-on methadone treatment, multiple hospitalization and ER visits for EtOH associated syncopal episodes, seizure-like activities, who was transferred from [facility] for evaluation of similar unwitnessed seizure-like activities. This time he also had lower back pain after he fell. Patient has been drinking and his last alcohol consumption was 2 days ago. Patient had multiple ER visits and hospitalization for similar seizure-like activities after he had alcohol intake. Apparently patient was admitted and had workup done at [facility] from January 14 - February 01 and at that time,he left [place] though he could have benefited from further rehabilitation. At my encounter with the patient, he reported having malaise, inability to walk with tremors which she describes as a "seizure-like activities" that has been going on for a while. He is not on any seizure treatment as outpatient. Patient has not seen a neurologist in the past. He reports alcohol use, however he has not been drinking for the past 2 days. Patient denied chest pain , palpitation, shortness of breath, headache, vision changes, speech disturbance , focal deficits, nausea, vomiting, abdominal pain, alteration in consciousness or other constitutional symptoms. Medical records from outside hospital unremarkable labs except for mildly a potassium 3.3. He had negative UA. ROS A 12 point review of system was assessed and is negative other than what is mentioned in the HPI. PMH/Family/Social Past Medical History See HPI Past Surgical History See HPI Past Surgical Hx: no surgical history Social History Daily alcohol abuse. Denies smoking or illicit drug use history. Smoking Status: Light tobacco smoker Exam/Review of Systems Vital Signs Vitals Vital Signs Date Time Temp Pulse Resp B/P Pulse Ox O2 Delivery O2 Flow Rate FiO2 02/06/17 07:19 98.3 80 18 169/93 97 Exam Exam General: Anxious looking male , not in any acute distress . HEENT: Normocephalic, Atraumatic, No laceration or hematoma; Eyes: PEERL, Conjunctiva clear, Anicteric sclera Neck: Supple without any lymphadenopathy, nontender, no JVD, no carotid bruits, trachea midline, no thyromegaly Cardiac: S1, S2 auscultated, regular rhythm and rate, no mumurs or gallop Pulmonary: Normal respiratory effort. Chest clear to auscultation bilaterally, no adventitious breath sounds GI: Abdomen normal to inspection. Soft, non tender, non- distended, no masses, no rebound tenderness or guarding. Bowel sounds active on all four quadrants Genitourinary: Deferred Extremities: No cyanosis, clubbing, or edema. Pulses [2+] bilaterally. Full ROM on all four extremities. No focal weakness appreciated. Neurologic: Alert to person, place, time, and situation. Anxious, intact sensation. Skin: Clean,dry, and intact. No ecchymosis, no rashes, or lesions DUNBAR,CHANTELL V. MIXER LEVER OPERATOR Feb 06, 2017 11:40
[2017-02-06] MEDS ORDERED: ONDANSETRON 4 MG INJ IV PRN (12:00)
[2017-02-06] MEDS ORDERED: ACETAMINOPHEN 650 MG SUPP PR PRN (12:00)
[2017-02-06] MEDS ORDERED: NACL 0.9% 3 ML SYG IV SCH (12:00)
[2017-02-06] MEDS ORDERED: ACETAMINOPHEN 325 MG TAB PO PRN (12:00)
[2017-02-06] MEDS: METOPROLOL 25 MG TAB PO SCH ×2 (12:55→20:49)
[2017-02-06] MEDS: LISINOPRIL 10 MG TAB PO SCH (12:55)
[2017-02-06] MEDS: KETOROLAC 15 MG INJ IV PRN ×2 (12:57→20:48)
[2017-02-06 13:01] LABS: ANION GAP 12 (8-16); BLOOD UREA NITROGEN 8 mg/dl (7-20); CALCIUM 9.3 mg/dl (8.4-10.2); CARBON DIOXIDE 29 mmol/L (21-31); CHLORIDE 102 mmol/L (97-110); GLUCOSE 97 mg/dl (70-220); POTASSIUM 4.1 mmol/L (3.5-5.1); SODIUM 139 mmol/L (135-144)
[2017-02-06] MEDS: SOD CHLORIDE 0.9% 1,000 ML IV SCH ×2 (13:06→19:32)
[2017-02-06 13:53] VITALS: BP 159/97; RESP 18
[2017-02-06] MEDS ORDERED: METHADONE 10 MG TAB PO ONE (14:00)
[2017-02-06] MEDS: IBUPROFEN 600 MG TAB PO SCH ×2 (14:00→21:50)
[2017-02-06 14:10] LABS: FOLATE > 20.0 ng/ml (2.8-20.0)
[2017-02-06] MEDS: MULTIVITAMINS 10 ML, THIAMINE 100 MG, FOLIC ACID 1 MG in SOD CHLORIDE 0.9% 1,000 ML IVPB SCH (14:19)
[2017-02-06 16:19] LABS: BASOPHIL # 0.1 10^3/ul (0.0-0.1); BASOPHILS % 0.6 % (0.0-2.0); EOSINOPHILS # 0.1 10^3/ul (0.0-0.5); EOSINOPHILS % 0.6 % (0.0-7.0); HEMATOCRIT 41.4 % (42.0-52.0); HEMOGLOBIN 13.7 g/dl (14.0-18.0); LYMPHOCYTES # 1.6 10^3/ul (0.8-2.9); LYMPHOCYTES % 17.3 % (15.0-51.0); MEAN CORPUSCULAR HEMOGLOBIN 30.9 pg (29.0-33.0); MEAN CORPUSCULAR HGB CONC 33.1 g/dl (32.0-37.0); MEAN CORPUSCULAR VOLUME 93.2 fl (82.0-101.0); MEAN PLATELET VOLUME 9.8 fl (7.4-10.4); MONOCYTE # 0.4 10^3/ul (0.3-0.9); MONOCYTES % 4.8 % (0.0-11.0); NEUTROPHIL # 6.9 10^3/ul (1.6-7.5); NEUTROPHILS % 76.4 % (39.0-77.0); PLATELET COUNT 260 10^3/UL (140-415); RED BLOOD COUNT 4.44 10^6/ul (4.70-6.10); RED CELL DISTRIBUTION WIDTH 11.6 % (11.5-14.5)
[2017-02-06] MEDS ORDERED: hydrALAzine 20 MG INJ IV PRN (18:00)
[2017-02-06 20:13] VITALS: BP 153/96; RESP 18
[2017-02-06] MEDS: QUETIAPINE 25 MG TAB PO SCH (20:48)
[2017-02-06] MEDS: FAMOTIDINE 20 MG TAB PO SCH (20:48)
[2017-02-07 00:10] VITALS: BP 126/78; PULSE 65
[2017-02-07 02:00] VITALS: BP 128/77; RESP 18
[2017-02-07] MEDS: SOD CHLORIDE 0.9% 1,000 ML IV SCH ×4 (03:24→19:32)
[2017-02-07] MEDS: IBUPROFEN 600 MG TAB PO SCH ×3 (05:19→22:00)
[2017-02-07 06:19] LABS: BASOPHILS % 0.5 % (0.0-2.0); EOSINOPHILS # 0.3 10^3/ul (0.0-0.5); EOSINOPHILS % 3.9 % (0.0-7.0); HEMATOCRIT 37.2 % (42.0-52.0); HEMOGLOBIN 12.4 g/dl (14.0-18.0); LYMPHOCYTES # 2.3 10^3/ul (0.8-2.9); LYMPHOCYTES % 35.9 % (15.0-51.0); MEAN CORPUSCULAR HEMOGLOBIN 31.4 pg (29.0-33.0); MEAN CORPUSCULAR HGB CONC 33.3 g/dl (32.0-37.0); MEAN CORPUSCULAR VOLUME 94.2 fl (82.0-101.0); MEAN PLATELET VOLUME 9.8 fl (7.4-10.4); MONOCYTE # 0.5 10^3/ul (0.3-0.9); MONOCYTES % 7.1 % (0.0-11.0); NEUTROPHIL # 3.3 10^3/ul (1.6-7.5); NEUTROPHILS % 52.3 % (39.0-77.0); PLATELET COUNT 193 10^3/UL (140-415); RED BLOOD COUNT 3.95 10^6/ul (4.70-6.10); RED CELL DISTRIBUTION WIDTH 11.9 % (11.5-14.5); WHITE BLOOD COUNT 6.4 10^3/ul (4.8-10.8)
[2017-02-07 07:01] LABS: ALBUMIN 3.7 g/dl (3.3-4.9); ALBUMIN/GLOBULIN RATIO 1.32; BILIRUBIN,INDIRECT 0.4 mg/dl (0-1.1); BILIRUBIN,TOTAL 0.4 mg/dl (0.2-1.3); CALCIUM 8.7 mg/dl (8.4-10.2); CREATININE 0.78 mg/dl (0.61-1.24); MAGNESIUM 1.8 mg/dl (1.7-2.5); POTASSIUM 3.6 mmol/L (3.5-5.1); TOTAL PROTEIN 6.5 g/dl (6.1-8.1)
[2017-02-07 07:18] VITALS: BP 149/103; RESP 18
[2017-02-07] MEDS: MULTIVITAMINS 10 ML, THIAMINE 100 MG, FOLIC ACID 1 MG in SOD CHLORIDE 0.9% 1,000 ML IVPB SCH (08:20)
[2017-02-07] MEDS: LISINOPRIL 10 MG TAB PO SCH (08:21)
[2017-02-07] MEDS: METOPROLOL 25 MG TAB PO SCH ×2 (08:21→21:10)
[2017-02-07] MEDS: FAMOTIDINE 20 MG TAB PO SCH ×2 (08:21→21:09)
[2017-02-07] MEDS: KETOROLAC 15 MG INJ IV PRN ×3 (08:22→21:28)
[2017-02-07] MEDS: METHADONE 10 MG TAB PO SCH (08:22)
[2017-02-07 08:23] LABS: THYROID STIMULATING HORMONE 0.947 MIU/L (0.465-4.680)
[2017-02-07] MEDS ORDERED: LISINOPRIL 10 MG TAB PO SCH (09:00)
--- NOTE | 2017-02-07 10:33 | PN ---
Date/Time of Note Date/Time of Note DATE: 02/07/17 TIME: 10:30 Assessment/Plan VTE Prophylaxis VTE Prophylaxis Intervention: ambulation Lines/Catheters IV Catheter Type (from Nrs): Peripheral IV Urinary Cath still in place: No Assessment/Plan Chief Complaint/Hosp Course 51 yo male with h/o etoh use, chronic pain on methadone who was transferred from [facility] with recurrent seizure-like activities and sudden onset lower back pain after he fell 1. Unwitnessed seizure-like activities, in a patient with alcohol abuse. No seizures in house. At this time, I am not sure if it is a seizure versus alcoholic polyneuropathy as well as imbalance/disequilibrium. -F/u EEG, Continue Ativan PRN. -At this time, we do not think that patient needs to be on seizure medication as there is no witnessed seizures and patient is not having any seizures in- house. -Fall precaution 2. Lumbar back pain, status post fall. -F/u MRI lumbar spine. -Ketorolac IV PRN for pain control. 3. Chronic pain with opiate use -Continued on methadone maintenance. Dose affirmed with his methadone clinic. 4. Etoh use. Stable.No DTs -Continue daily banana bag -Cessation advised. 5. Essential hypertension, Stable -on lisinopril/ metoprolol. 5. Homelessness. 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 DISP: Estimate DC in next 24 hrs if no further work up needed based on diagnostic studies findings. Patient was seen in collaboration with Dr. King. Problems: Subjective 24 Hr Interval Summary Free Text/Dictation With improved pain status. No seizure activities. Exam/Review of Systems Vital Signs Vitals Vital Signs Date Time Temp Pulse Resp B/P Pulse Ox O2 Delivery O2 Flow Rate FiO2 02/07/17 07:18 98.5 62 18 149/103 97 Intake and Output 02/06/17 02/06/17 02/07/17 15:00 23:00 07:00 Intake Total 125 ml 2551.2 ml 1375 ml Output Total 1850 ml 1725 ml Balance 125 ml 701.2 ml -350 ml Exam General: Anxious looking male , not in any acute distress . HEENT: Normocephalic, Atraumatic, No laceration or hematoma; Eyes: PEERL, Conjunctiva clear, Anicteric sclera Neck: Supple without any lymphadenopathy, nontender, no JVD, no carotid bruits, trachea midline, no thyromegaly Cardiac: S1, S2 auscultated, regular rhythm and rate, no mumurs or gallop Pulmonary: Normal respiratory effort. Chest clear to auscultation bilaterally, no adventitious breath sounds GI: Abdomen normal to inspection. Soft, non tender, non- distended, no masses, no rebound tenderness or guarding. Bowel sounds active on all four quadrants Genitourinary: Deferred Extremities: No cyanosis, clubbing, or edema. Pulses [2+] bilaterally. Full ROM on all four extremities. No focal weakness appreciated. Neurologic: Alert to person, place, time, and situation. Anxious, intact sensation. Skin: Clean,dry, and intact. No ecchymosis, no rashes, or lesions Results Result Diagram: 02/07/17 0543 02/07/17 0543 Results 24 hrs Laboratory Tests Test 02/06/17 12:19 02/06/17 15:31 02/07/17 05:43 02/07/17 05:52 Sodium Level 139 140 Potassium Level 4.1 3.6 Chloride Level 102 105 Carbon Dioxide Level 29 25 Anion Gap 12 14 Blood Urea Nitrogen 8 14 Creatinine 0.70 0.78 Glucose Level 97 84 Calcium Level 9.3 8.7 Magnesium Level 2.0 1.8 Folate > 20.0 H White Blood Count 9.0 # 6.4 # Red Blood Count 4.44 #L 3.95 L Hemoglobin 13.7 L 12.4 L Hematocrit 41.4 L 37.2 L Mean Corpuscular Volume 93.2 94.2 Mean Corpuscular Hemoglobin 30.9 31.4 Mean Corpuscular Hemoglobin Concent 33.1 33.3 Red Cell Distribution Width 11.6 11.9 Platelet Count 260 # 193 # Mean Platelet Volume 9.8 9.8 Neutrophils % 76.4 52.3 Lymphocytes % 17.3 35.9 Monocytes % 4.8 7.1 Eosinophils % 0.6 3.9 Basophils % 0.6 0.5 Nucleated Red Blood Cells % 0.0 0.0 Neutrophils # 6.9 3.3 Lymphocytes # 1.6 2.3 Monocytes # 0.4 0.5 Eosinophils # 0.1 0.3 Basophils # 0.1 0.0 Nucleated Red Blood Cells # 0.0 0.0 Vitamin D 1,25-Dihydroxy 45.1 Total Bilirubin 0.4 Direct Bilirubin 0.00 Indirect Bilirubin 0.4 Aspartate Amino Transf (AST/SGOT) 15 Alanine Aminotransferase (ALT/SGPT) 28 Alkaline Phosphatase 52 Total Protein 6.5 Albumin 3.7 Globulin 2.80 Albumin/Globulin Ratio 1.32 Triglycerides Level 56 Cholesterol Level 125 LDL Cholesterol, Calculated 53 HDL Cholesterol 61 Cholesterol/HDL Ratio 2.0 Thyroid Stimulating Hormone (TSH) 0.947 Hemoglobin A1c 4.8 Medications Medications Current Medications Sodium Chloride (NS) 1,000 ml @ 125 mls/hr Q8H IV Last administered on 05:19; Admin Dose 125 MLS/HR; Start 02/06/17 at 11:32 Ondansetron HCl (Zofran Inj) 4 mg Q6H PRN IV NAUSEA AND/OR VOMITING; Start at 12:00 Acetaminophen (Tylenol Tab) 650 mg Q6H PRN PO PAIN LEVEL 1-3 OR FEVER; Start 02/06/17 at 12:00 Acetaminophen (Tylenol Supp) 650 mg Q6H PRN AR PAIN LEVEL 1-3 OR FEVER; Start 02/06/17 at 12:00 Famotidine (Pepcid) 20 mg Q12 PO Last administered on 02/07/17 08:21; Admin Dose 20 MG; Start 02/06/17 at 21:00 Lorazepam (Ativan) 1 mg Q2H PRN IV SEIZURE; Start 02/06/17 at 12:00 Ibuprofen (Motrin) 600 mg Q8 PO ; Start 02/06/17 at 14:00 Methadone HCl (Methadone) 65 mg DAILY PO Last administered on 02/07/17 08:22 ; Admin Dose 65 MG; Start 02/07/17 at 09:00 Quetiapine Fumarate 25 mg 25 mg HS PO Last administered on 02/06/17 20:48; Admin Dose 25 MG; Start 02/06/17 at 21:00 Multivitamins/ Thiamine HCl/ Folic Acid/Sodium Chloride (Mvi Adult/ Vitamin B1/ Folic Acid/NS) 1,011.2 ml @ 125 mls/ hr DAILY@09 IVPB Last administered on 08:20; Admin Dose 125 MLS/HR; Start 02/06/17 at 13:00 Lisinopril (Zestril) 10 mg DAILY PO Last administered on 02/07/17 08:21; Admin Dose 10 MG; Start 02/06/17 at 12:00 Metoprolol Tartrate (Lopressor) 25 mg BID PO Last administered on 02/07/17 08 :21; Admin Dose 25 MG; Start 02/06/17 at 12:00 Ketorolac Tromethamine (Toradol) 15 mg Q6H PRN IV PAIN Last administered on 08:22; Admin Dose 15 MG; Start 02/06/17 at 12:30; Stop 02/09/17 at 12: 29 Hydralazine HCl (Apresoline) 10 mg Q2 PRN IV ELEVATED BLOOD PRESSURE Last administered on 02/06/17 18:10; Admin Dose 10 MG; Start 02/06/17 at 18:00 CHANTELL DUNBAR NP Feb 07, 2017 10:33
[2017-02-07 13:47] VITALS: BP 172/108; RESP 18
[2017-02-07 14:00] VITALS: BP 151/70
[2017-02-07] MEDS: LORAZEPAM 2 MG INJ IV PRN ×2 (15:38→21:28)
--- NOTE | 2017-02-07 17:22 | RADRPT ---
PROCEDURE: MRI lumbar spine without contrast CLINICAL INDICATION: Back pain TECHNIQUE: An high-resolution MRI of the lumbar spine was performed utilizing the following sequen danny: Sagittal and axial T1 weighted, sagittal and axial T2 weighted, and sagittal fat suppressed T2 . COMPARISON: Lumbar spine CT. 01/07/2017 FINDINGS: Recent right L1 and L2 transverse process fractures with edema. No acute vertebral compression fracture. No evidence of a diffuse marrow replacing process. The conu s medullaris terminates at L1-2. T12 - L1: The disk is preserved in height. There is no significant disk protrusion, spinal canal or foraminal stenosis. L1 - L2: The disk is preserved in height. There is no significant disk protrusion, spinal canal or foraminal stenosis. L2 - L3: The disk is preserved in height. There is no significant disk protrusion, spinal canal or foraminal stenosis. L3 - L4: The disk is preserved in height. Minimal disc bulging without significant spinal canal or foraminal narrowing. L4 - L5: The disk is preserved in height. Small disc bulge with left foraminal disc annular fissu re. Mild bilateral foraminal narrowing. No significant spinal canal narrowing. L5 - S1: The disk is preserved in height. Small disc bulging and facet arthropathy. No significant spinal canal narrowing. Mild bilateral foraminal narrowing. Paraspinal soft tissues are unremarkable. IMPRESSION: Recent right L1 and L2 transverse process fractures with edema are again seen. No acute vertebral compression fracture. No significant spinal canal stenosis. Mild lower lumbar degenerative changes. RPTAT: AA .Jorge Milner MD, Date Time Electronically viewed and signed by .Jorge Milner MD, on 02/07/2017 17:22 .T/
[2017-02-07 21:00] VITALS: BP 164/100; RESP 20
[2017-02-07] MEDS: QUETIAPINE 25 MG TAB PO SCH (21:09)
[2017-02-08 01:39] VITALS: BP 147/91; RESP 20
[2017-02-08] MEDS: SOD CHLORIDE 0.9% 1,000 ML IV SCH ×2 (03:32→05:54)
[2017-02-08] MEDS: IBUPROFEN 600 MG TAB PO SCH ×2 (06:00→14:00)
[2017-02-08 07:23] VITALS: BP 163/103; RESP 18
[2017-02-08] MEDS: LISINOPRIL 10 MG TAB PO SCH (09:01)
[2017-02-08] MEDS: METHADONE 10 MG TAB PO SCH (09:01)
[2017-02-08] MEDS: FAMOTIDINE 20 MG TAB PO SCH (09:02)
[2017-02-08] MEDS: METOPROLOL 25 MG TAB PO SCH (09:02)
--- NOTE | 2017-02-08 09:20 | PDOCDIS ---
Discharge Instructions CONDITION Patient Condition: Stable HOME CARE INSTRUCTIONS: Diet Instructions: Regular FOLLOW UP/APPOINTMENTS Follow-up Plan 1.Follow up with primary care physician in 1 week If you don't have one please let someone know, we can give you resources that may help you pick one. You may also call your insurance company to assign one to you. Review your medication list with your nurse before leaving and if you need new prescriptions please let your nurse know. I may have made changes to your home medications or given you new prescriptions, please let your primary doctor know as well. Stay compliant with your medications and report any side effects to your PCP or pharmacist. Return to the ER if you have any concerns and cannot reach your doctors or call your insurance company, they usually have a nurse that can help you. 2. Call 911 or go to the nearest emergency room if experiencing loss of consciousness, dizziness, chest pain, shortness of breath, vomiting/abdominal pain, speech difficulties, motor weakness or any unusual symptoms. Other instructions to help with your back pain: Avoid prolonged sitting to avoid stress on the lower back. Can use some warm compress on lower back to help with pain. Take pain medications as prescribed. Do not lift anything over 15 pounds until all the pain is gone. You may also use a back brace. When you lift objects, use safe lifting technique. Follow- up with your healthcare provider in 1 week. Call your healthcare provider if you feel weakness or numbness in one or both legs, loss of control of bowels or bladder, numbness in the groin or genital area, chest pain, shortness of breath , back pain that spreads to one or both legs. CHANTELL DUNBAR NP Feb 08, 2017 09:20
[2017-02-08] MEDS ORDERED: METO-448 PO (09:21)
--- NOTE | 2017-02-08 09:28 | DS ---
Date/Time of Note Date/Time of Note DATE: 02/08/17 TIME: 09:26 Discharge Summary Admission/Discharge Info Admit Date/Time Feb 06, 2017 at 06:24 Discharge Date/Time Discharge Diagnosis 1. 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 2. Recent closed L1, L2 transverse process fracture. Stable. 3. Chronic pain with opiate use ,on methadone maintenance. 4. Etoh use. 5. Essential hypertension-with medication noncompliance. 5. Homelessness. Patient Condition: Stable Procedures 02/07/2017. Lumbar MRI. MPRESSION: Recent right L1 and L2 transverse process fractures with edema are again seen. No acute vertebral compression fracture. No significant spinal canal stenosis. Mild lower lumbar degenerative changes. Hx of Present Illness This is a 51-year-old male with a past medical history hypertension, alcohol abuse, chronic pain syndrome-on methadone treatment, multiple hospitalization and ER visits for EtOH associated syncopal episodes, seizure-like activities, who was transferred from [facility] for evaluation of similar unwitnessed seizure-like activities. This time he also had lower back pain after he fell. Patient has been drinking and his last alcohol consumption was 2 days ago. Patient had multiple ER visits and hospitalization for similar seizure-like activities after he had alcohol intake. Apparently patient was admitted and had workup done at [facility] from January 14 - February 01 and at that time,he left AMA though he could have benefited from further rehabilitation. At my encounter with the patient, he reported having malaise, inability to walk with tremors which she describes as a "seizure-like activities" that has been going on for a while. He is not on any seizure treatment as outpatient. Patient has not seen a neurologist in the past. He reports alcohol use, however he has not been drinking for the past 2 days. Patient denied chest pain , palpitation, shortness of breath, headache, vision changes, speech disturbance , focal deficits, nausea, vomiting, abdominal pain, alteration in consciousness or other constitutional symptoms. Medical records from outside hospital unremarkable labs except for mildly a potassium 3.3. He had negative UA. Hospital Course Patient was kept on seizure and fall precaution. He was given adequate analgesia for his underlying back pain. MRI of the lumbar spine revealed stable recent closed fracture of L1 and L2 transverse process. There was no acute vertebral compression fractures or spinal canal stenosis. Patient did not have any neurovascular compromise. He was able to ambulate without any assist. His pain was very minimal. At this time, patient does not require any further neurosurgical consult in house and he can be monitored as outpatient with pain medications as well as proper body mechanics to avoid further pressure on lumbar area. Patient was also counseled on alcohol cessation. During the course of hospitalization, he was noted with escalated hypertension as he was also very anxious. Patient also does not take his blood pressure medications regularly as outpatient. He was given instructions on medication compliance. Patient did not have any seizure activities while his stay at [facility]. EEG report pending. However, there is no seizure activities witnessed during the cours eof hospitalization. 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 He does not require any seizure treatment. Patient is medically stable for discharge with outpatient primary care follow- up. cut in worker consult has been ordered in regards to his homelessness situation. Patient opted for going back to his homelessness situation upon discharge. Disposition: Patient will be discharged home to society. Approximately 60 minutes was spent in coordinating the discharge on this patient. Patient was seen in collaboration with Dr. King. Home Meds Active Scripts Multivitamins* (Theragran*) 1 Tab Tab, 1 TAB PO DAILY, #30 TAB Prov:CHANTELL DUNBAR V. [employer] 02/08/17 Thiamine* (Thiamine*) 100 Mg Tablet, 100 MG PO DAILY, #30 TAB Prov:DUNBARPARADISE SANCHEZA V. [employer] 02/08/17 Metoprolol Tartrate* (Lopressor*) 25 Mg Tab, 25 MG PO BID, #60 TAB Prov:CHANTELL DUNBAR [employer]. [employer] 02/08/17 Ibuprofen* (Motrin*) 600 Mg Tab, 600 MG PO Q8, #30 TAB Prov:SANTI DOTSON DO 01/07/17 Quetiapine Fumarate* (Quetiapine Fumarate*) 25 Mg Tablet, 25 MG PO HS for 30 Days, TAB Prov:FATMATA CASH 12/28/16 Lisinopril* (Lisinopril*) 10 Mg Tablet, 10 MG PO DAILY, #30 TAB Prov:FATMATA CASH 12/28/16 Reported Medications Methadone Hcl* (Methadone*) 10 Mg Tab, 65 MG PO DAILY, TAB 12/19/16 Follow-up Plan 1.Follow up with primary care physician in 1 week If you don't have one please let someone know, we can give you resources that may help you pick one. You may also call your insurance company to assign one to you. Review your medication list with your nurse before leaving and if you need new prescriptions please let your nurse know. I may have made changes to your home medications or given you new prescriptions, please let your primary doctor know as well. Stay compliant with your medications and report any side effects to your PCP or pharmacist. Return to the ER if you have any concerns and cannot reach your doctors or call your insurance company, they usually have a nurse that can help you. 2. Call 911 or go to the nearest emergency room if experiencing loss of consciousness, dizziness, chest pain, shortness of breath, vomiting/abdominal pain, speech difficulties, motor weakness or any unusual symptoms. Other instructions to help with your back pain: Avoid prolonged sitting to avoid stress on the lower back. Can use some warm compress on lower back to help with pain. Take pain medications as prescribed. Do not lift anything over 15 pounds until all the pain is gone. You may also use a back brace. When you lift objects, use safe lifting technique. Follow- up with your healthcare provider in 1 week. Call your healthcare provider if you feel weakness or numbness in one or both legs, loss of control of bowels or bladder, numbness in the groin or genital area, chest pain, shortness of breath , back pain that spreads to one or both legs. Primary Care Provider [facility] CHANTELL DUNBAR NP Feb 08, 2017 09:28 Primary Care Provider [facility] CHANTELL DUNBAR NP Feb 08, 2017 09:28
[2017-02-08] MEDS: LORAZEPAM 2 MG INJ IV PRN ×2 (09:45→13:49)
[2017-02-08] MEDS ORDERED: THIA100T10 PO (09:48)
[2017-02-08] MEDS ORDERED: MULTI PO (09:48)
[2017-02-08 14:44] VITALS: BP 157/93; RESP 18
== END 2017-02-08 15:40 | disposition home or self-care (01) | DRG 74 ==
LOC: MS2 06:24
PROVIDERS: ADMIT Internal Medicine; ATTEND Internal Medicine
DX: G62.1 Alcoholic polyneuropathy (principal); E87.8 Other disorders of electrolyte and fluid balance, not elsewhere classified; S32.019A Unspecified fracture of first lumbar vertebra, initial encounter for closed fracture; R56.9 Unspecified convulsions; S32.029A Unspecified fracture of second lumbar vertebra, initial encounter for closed fracture; I10 Essential (primary) hypertension; F10.10 Alcohol abuse, uncomplicated; F11.10 Opioid abuse, uncomplicated; G89.29 Other chronic pain; M54.5 Low back pain; Z59.0 Homelessness; X58.XXXA Exposure to other specified factors, initial encounter; Y93.9 Activity, unspecified; Y92.009 Unspecified place in unspecified non-institutional (private) residence as the place of occurrence of the external cause; Z91.19 Patient's noncompliance with other medical treatment and regimen
CPT/HCPCS: 72148; 80048; 80053; 80061; 82652; 82746; 83036; 83735; 84425; 84443; 85025; 95819; 97163; J0360; J1885; J2060; J3411; J7030

== ENCOUNTER 2017-06-11 10:15 | Emergency (ER) | END 2017-06-11 12:51 | disposition home or self-care (01) ==

== ENCOUNTER 2017-07-18 17:35 | Emergency (ER) | END 2017-07-18 22:13 | disposition left against medical advice (07) ==

== ENCOUNTER 2017-08-21 15:51 | Emergency (ER) | END 2017-08-22 01:30 | disposition short-term general hospital (02) ==

== ENCOUNTER 2017-08-24 15:31 | Emergency (ER) | END 2017-08-24 18:40 | disposition left against medical advice (07) ==

== ENCOUNTER 2017-08-25 03:43 | Emergency (ER) | END 2017-08-25 08:58 | disposition home or self-care (01) ==

== ENCOUNTER 2017-09-12 15:45 | Emergency (ER) | END 2017-09-12 19:08 | disposition home or self-care (01) ==

== ENCOUNTER → 2017-10-05 | Emergency (ER) | END | disposition home or self-care (01) ==

== ENCOUNTER 2017-10-08 15:02 | Emergency (ER) | END 2017-10-08 20:58 | disposition home or self-care (01) ==

== ENCOUNTER 2017-10-11 10:44 | Emergency (ER) | END 2017-10-11 13:30 | disposition home or self-care (01) ==

== ENCOUNTER 2017-10-13 14:42 | Emergency (ER) | END 2017-10-13 22:55 | disposition home or self-care (01) ==

== ENCOUNTER 2017-10-16 09:06 | Emergency (ER) | END 2017-10-16 12:16 | disposition home or self-care (01) ==

== ENCOUNTER 2017-10-26 15:15 | Emergency (ER) | END 2017-10-26 18:26 | disposition left against medical advice (07) ==

== ENCOUNTER 2017-10-29 09:16 | Emergency (ER) | END 2017-10-29 12:42 | disposition home or self-care (01) ==

== ENCOUNTER 2017-10-30 20:22 | Emergency (ER) | END 2017-10-30 23:55 | disposition home or self-care (01) ==

== ENCOUNTER 2017-11-16 19:50 | Emergency (ER) | END 2017-11-17 00:49 | disposition home or self-care (01) ==

== ENCOUNTER 2017-11-24 15:08 | Emergency (ER) | END 2017-11-24 19:17 | disposition home or self-care (01) ==

== ENCOUNTER 2017-11-30 17:44 | Emergency (ER) | END 2017-11-30 19:12 | disposition home or self-care (01) ==

== ENCOUNTER 2017-12-04 22:44 | Emergency (ER) | END 2017-12-05 02:56 | disposition home or self-care (01) ==

== ENCOUNTER 2017-12-09 17:44 | Emergency (ER) | END 2017-12-09 19:58 | disposition left against medical advice (07) ==

== ENCOUNTER 2017-12-12 12:53 | Emergency (ER) | END 2017-12-12 15:41 | disposition home or self-care (01) ==

== ENCOUNTER 2017-12-12 20:36 | Emergency (ER) | END 2017-12-13 06:48 | disposition home or self-care (01) ==

== ENCOUNTER 2017-12-18 23:34 | Emergency (ER) | END 2017-12-19 04:41 | disposition home or self-care (01) ==

== ENCOUNTER 2017-12-26 02:12 | Inpatient (IN) | END 2017-12-27 16:15 | disposition left against medical advice (07) | DRG 894 ==

== ENCOUNTER 2017-12-31 23:11 | Emergency (ER) | END 2018-01-01 01:30 | disposition left against medical advice (07) ==

== ENCOUNTER 2018-01-01 07:38 | Emergency (ER) | END 2018-01-01 11:29 | disposition home or self-care (01) ==

== ENCOUNTER 2018-01-20 01:23 | Emergency (ER) | END 2018-01-20 02:33 | disposition home or self-care (01) ==

== ENCOUNTER 2018-09-13 15:41 | Emergency (ER) | payer OTHER ==
[~2018-09-13] VITALS: Ht 185.4 cm; Wt 71.5 kg
[~2018-09-13 15:41] MED LIST changes: +AMLO-147 PO; -IBUP-1542 PO; +LEVE-5 PO; +LEVE500T8 PO; +LEVE750T70 PO; -METH10TA2 PO; +METO-335 PO; +METO-448 PO; -QUET25TA33 PO
[2018-09-13 15:43] VITALS: Ht 185.4 cm; Wt 71.5 kg
[2018-09-13] MEDS ORDERED: ACETAMINOPHEN 325 MG TAB PO ONE (16:30)
[2018-09-13] MEDS ORDERED: IBUP-1542 PO (17:41)
[2018-09-13] MEDS ORDERED: HYDR25TA6 PO (18:00)
--- NOTE | 2018-09-13 18:28 | ERD ---
ER Documentation Chief Complaint Chief Complaint BODY PAIN DUE TO FALL; ETOH; TOMMY ALCOHOL @ 2 AM HPI Patient is a 52-year-old male with hypertension, alcohol abuse who presents saying "I am feeling bad". The patient said that he recently relapsed with alcohol today. He fell today. He has back pain and neck pain. He has bilateral hand pain. He is not on blood thinning medications. Upon review of old medical records the patient has multiple visits to the ER for various complaints. Review of the emergency department information exchange system shows visits to 5 separate emergency departments for a total of 33 visits over the past 1 year. He does not currently have a primary doctor. ROS All systems reviewed and are negative except as per history of present illness. Medications Home Meds Active Scripts Hydrochlorothiazide* (Hydrochlorothiazide*) 25 Mg Tab, 25 MG PO DAILY, #30 TAB Prov:HORTENSIA JUDGE MD 09/13/18 Ibuprofen* (Motrin*) 600 Mg Tab, 600 MG PO Q6H PRN for PAIN AND OR ELEVATED TEM P, #30 TAB Prov:HORTENSIA JUDGE MD 09/13/18 Metoprolol Succinate* (Toprol XL*) 25 Mg Tab.sr.24h, 25 MG PO DAILY, #30 TAB Prov:PASBETTE NAJERA F 01/20/18 Lisinopril* (Lisinopril*) 10 Mg Tablet, 10 MG PO DAILY, #30 TAB Prov:BETTE RICHEY F 01/20/18 Levetiracetam* (Keppra*) 500 Mg Tablet, 500 MG PO BID, #60 TAB Prov:BETTE RICHEY 01/20/18 Levetiracetam* (Keppra*) 750 Mg Tablet, 750 MG PO BID, #60 TAB Prov:SANTI DOTSON DO 01/01/18 Amlodipine Besylate* (Amlodipine Besylate*) 10 Mg Tablet, 10 MG PO BID, #30 TAB Prov:CLYDE TARIQ 10/30/17 Reported Medications Levetiracetam* (Levetiracetam*) 500 Mg Tablet, 500 MG PO BID, TAB 12/13/17 Lisinopril* (Lisinopril*) 10 Mg Tablet, 10 MG PO DAILY, #30 TAB 08/21/17 Metoprolol Tartrate* (Lopressor*) 25 Mg Tab, 25 MG PO BID, #60 TAB 08/21/17 Allergies Allergies: Coded Allergies: Penicillins (Verified Allergy, Severe, Hives, 01/01/18) codeine (Verified Allergy, Severe, Hives, 01/01/18) 10/13/17: PER MD, PT STATES CAN TOLERATE MORPHINE PMhx/Soc History of Surgery: No Anesthesia Reaction: No Hx Neurological Disorder: Yes (hx seizures ) Hx Respiratory Disorders: No Hx Cardiac Disorders: Yes (hx HTN) Hx Psychiatric Problems: No Hx Miscellaneous Medical Probl: Yes (Hx drug use, Alcoholism) Hx Alcohol Use: Yes (very minimal trying to quit) Hx Substance Use: Yes (sometimes) Hx Tobacco Use: Yes Smoking Status: Current every day smoker FmHx Family History: No diabetes Physical Exam Vitals Vital Signs Date Temp Pulse Resp B/P (MAP) Pulse Ox O2 O2 Flow FiO2 Time Delivery Rate 09/13/18 98.0 99 19 161/112 95 Room Air 16:26 (128) 09/13/18 98.0 111 19 186/113 96 15:43 (137) Physical Exam Const: No acute distress Head: Atraumatic Eyes: Normal Conjunctiva ENT: Normal External Ears, Nose and Mouth. Neck: Full range of motion. No meningismus. Resp: Clear to auscultation bilaterally Cardio: Regular rate and rhythm, no murmurs Abd: Soft, non tender, non distended. Normal bowel sounds Skin: No petechiae or rashes Back: No midline or flank tenderness Ext: Bilateral hand swelling Neur: Awake and alert Psych: Normal Mood and Affect Results 24 hrs Current Medications Medications Dose Sig/Minesh Start Time Status Last (Trade) Ordered Route PRN Stop Time Admin Dose Reason Admin 650 mg ONCE ONCE 09/13/18 DC 09/13/18 Acetaminophen PO 16:30 16:32 (Tylenol 09/13/18 16:31 Tab) Procedures/MDM CT head negative for skull fracture or intracranial hemorrhage per radiology. CT cervical spine negative for fracture per radiology. Smoking Cessation Therapy: Pt. was lectured for greater than 3 minutes on the health risks of continued smoking and the benefits of cessation. Patient is a 52-year-old male with hypertension and alcohol abuse who presents with a fall. CT head and cervical spine were negative. Bilateral hand x-ray were negative for fracture. The patient will be discharged and can follow-up with the local clinics within 24 to 48 hours for reevaluation. I believe he has a concussion but I doubt skull fracture or intracranial hemorrhage or other serious traumatic injury. The patient was given a list of the local outpatient alcohol detox centers as well. Departure Diagnosis: Primary Impression: Concussion Encounter type: initial encounter Loss of consciousness presence/duration: without LOC Qualified Codes: S06.0X0A - Concussion without loss of consciousness, initial encounter Additional Impressions: Alcoholic intoxication Complication of substance-induced condition: uncomplicated Qualified Codes: F10.920 - Alcohol use, unspecified with intoxication, uncomplicated Fall Encounter type: initial encounter Qualified Codes: W19.XXXA - Unspecified fall, initial encounter Condition: Fair Patient Instructions: Concussion, Alcohol Intoxication, Fall, Mechanical Additional Instructions: Call your primary care doctor TOMORROW for an appointment during the next 1-2 days.See the doctor sooner or return here if your condition worsens before your appointment time. HORTENSIA JUDGE MD September 13, 2018 18:28
[2018-09-13 18:30] VITALS: BP 160/103; PULSE 93; RESP 13
== END 2018-09-13 18:30 | disposition home or self-care (01) ==
LOC: E/R 15:41
DX: S06.0X0A Concussion without loss of consciousness, initial encounter (principal); F10.920 Alcohol use, unspecified with intoxication, uncomplicated; I10 Essential (primary) hypertension; F17.210 Nicotine dependence, cigarettes, uncomplicated; W18.39XA Other fall on same level, initial encounter; Y92.9 Unspecified place or not applicable
CPT/HCPCS: 70450; 72125; 73130; Z7610

== ENCOUNTER 2018-11-16 14:18 | Inpatient (IN) | payer OTHER ==
[~2018-11-16] VITALS: Ht 182.9 cm; Wt 76.7 kg
[~2018-11-16 14:18] MED LIST changes: +ACET325T33 PO; +ASPI-817 PO; +ATOR-2 PO; +CARV6.2579 PO; +CLIN150C17 PO; +CLIN300C10 PO; +ENAL10TA PO; +FOLI-49 PO; +HYDR-3609 PO; +HYDR25TA6 PO; +IBUP-1542 PO; +LACT1CAP28 PO; +LEVO500T48 PO; +LISI-471 PO; +NITR0.4T32 SL; +THIA100T56 PO
[2018-11-16 14:22] VITALS: Ht 182.9 cm; Wt 76.7 kg
[2018-11-16] MEDS ORDERED: KETOROLAC 30 MG INJ IV STA (14:40)
[2018-11-16] MEDS ORDERED: CLINDAMYCIN 900 MG/D5W (PMX) 50 ML IVPB STA (14:40)
--- NOTE | 2018-11-16 18:20 | ERD ---
ER Documentation Chief Complaint Chief Complaint RIGHT LEG POSSIBLE SPIDER BITE, SWOLLEN, RED HPI 53-year-old male who presents to the emergency room with left ankle pain and swelling. He states that he saw an insect bite in 1 to 2 days ago. Since then he has had noted significant swelling redness pain and discomfort to the ankle. To the point now where he is having trouble walking. He denies any fevers or chills. The pain is moderate to severe. It is worse to touch and constant. ROS All systems reviewed and are negative except as per history of present illness. Medications Home Meds Reported Medications Carvedilol* (Carvedilol*) 6.25 Mg Tablet, 6.25 MG PO BID, #60 TAB 11/16/18 Lisinopril* (Lisinopril*) 20 Mg Tablet, 40 MG PO DAILY, #30 TAB 11/16/18 Amlodipine Besylate* (Amlodipine Besylate*) 10 Mg Tablet, 10 MG PO DAILY, #30 TAB 11/16/18 Nitroglycerin* (Nitroglycerin* SL) 0.4 Mg Tab.subl, 0.4 MG SL Q5MIN PRN for CHEST PAIN, BOTTLE 11/16/18 Thiamine* (Vitamin B-1*) 100 Mg Tablet, 100 MG PO DAILY, TAB 11/16/18 Atorvastatin* (Atorvastatin*) 80 Mg Tablet, 80 MG PO QHS, #30 TAB 11/16/18 Levetiracetam* (Levetiracetam*) 500 Mg Tablet, 500 MG PO BID, TAB 11/16/18 Aspirin* (Aspirin* EC) 81 Mg Tablet.dr, 81 MG PO DAILY, TAB 11/16/18 Folic Acid* (Folic Acid*) 1 Mg Tablet, 1 MG PO DAILY, TAB 11/16/18 Enalapril Maleate* (Enalapril Maleate*) 10 Mg Tablet, 10 MG PO BID, TAB 11/16/18 Discontinued Reported Medications Levetiracetam* (Levetiracetam*) 500 Mg Tablet, 500 MG PO BID, TAB 12/13/17 Lisinopril* (Lisinopril*) 10 Mg Tablet, 10 MG PO DAILY, #30 TAB 08/21/17 Metoprolol Tartrate* (Lopressor*) 25 Mg Tab, 25 MG PO BID, #60 TAB 08/21/17 Discontinued Scripts Hydrochlorothiazide* (Hydrochlorothiazide*) 25 Mg Tab, 25 MG PO DAILY, #30 TAB Prov:HORTENSIA JUDGE MD 09/13/18 Ibuprofen* (Motrin*) 600 Mg Tab, 600 MG PO Q6H PRN for PAIN AND OR ELEVATED TEMP, #30 TAB Prov:HORTENSIA JUDGE MD 09/13/18 Metoprolol Succinate* (Toprol XL*) 25 Mg Tab.sr.24h, 25 MG PO DAILY, #30 TAB Prov:PASILABANBETTE F 01/20/18 Lisinopril* (Lisinopril*) 10 Mg Tablet, 10 MG PO DAILY, #30 TAB Prov:PASILABANBETTE F 01/20/18 Levetiracetam* (Keppra*) 500 Mg Tablet, 500 MG PO BID, #60 TAB Prov:BELENILABANBETTE F 01/20/18 Levetiracetam* (Keppra*) 750 Mg Tablet, 750 MG PO BID, #60 TAB Prov:SANTI DOTSON DO 01/01/18 Amlodipine Besylate* (Amlodipine Besylate*) 10 Mg Tablet, 10 MG PO BID, #30 TAB Prov:CLYDE TARIQ 10/30/17 Allergies Allergies: Coded Allergies: Penicillins (Verified Allergy, Severe, Hives, 11/16/18) codeine (Verified Allergy, Severe, Hives, 11/16/18) 10/13/17: PER MD, PT STATES CAN TOLERATE MORPHINE PMhx/Soc History of Surgery: No Anesthesia Reaction: No Hx Neurological Disorder: Yes (hx seizures ) Hx Respiratory Disorders: No Hx Cardiac Disorders: Yes (hx HTN) Hx Psychiatric Problems: No Hx Miscellaneous Medical Probl: Yes (Hx drug use, Alcoholism) Hx Alcohol Use: Yes (USED TO DRINK ALCOHOL BEFORE) Hx Substance Use: Yes (sometimes) Hx Tobacco Use: Yes Smoking Status: Former smoker FmHx Family History: No diabetes Physical Exam Vitals Vital Signs Date Temp Pulse Resp B/P (MAP) Pulse Ox O2 O2 Flow FiO2 Time Delivery Rate 11/16/18 89 17 142/88 100 Room Air 18:00 (106) 11/16/18 91 17 130/89 99 Room Air 16:00 (103) 8/2/19 99.2 90 18 152/90 99 14:22 (110) Physical Exam General: Well developed, well nourished, no acute distress Head: Normocephalic, atraumatic. Eyes: Pupils equally reactive, EOM intact ENT: Moist mucous membranes Neck: Supple, no lymphadenopathy Respiratory: Lungs clear bilaterally, no distress Cardiovascular: RRR, no murmurs, rubs, or gallops Abdominal: Soft, non-tender, non-distended, no peritoneal signs : Deferred MSK: Left lower extremity and left ankle significantly swollen with area of induration erythema warmth and tenderness. Patient's joint is able to be range for the patient is having significant pain. Good capillary refill. Neurologic: Alert and oriented, moving all extremities, normal speech, no focal weakness, no cerebellar signs Skin: No rash Psych: Normal mood Result Diagram: 11/16/18 1519 11/16/18 1519 Results 24 hrs Laboratory Tests Test 11/16/18 15:08 11/16/18 15:19 POC Venous Lactate 1.9 mmol/L White Blood Count 8.2 10^3/ul Red Blood Count 3.53 10^6/ul Hemoglobin 11.0 g/dl Hematocrit 33.7 % Mean Corpuscular Volume 95.5 fl Mean Corpuscular Hemoglobin 31.2 pg Mean Corpuscular Hemoglobin Concent 32.6 g/dl Red Cell Distribution Width 12.4 % Platelet Count 166 10^3/UL Mean Platelet Volume 9.5 fl Immature Granulocytes % 0.200 % Neutrophils % 71.1 % Lymphocytes % 15.6 % Monocytes % 11.5 % Eosinophils % 1.2 % Basophils % 0.4 % Nucleated Red Blood Cells % 0.0 /100WBC Immature Granulocytes # 0.020 10^3/ul Neutrophils # 5.8 10^3/ul Lymphocytes # 1.3 10^3/ul Monocytes # 0.9 10^3/ul Eosinophils # 0.1 10^3/ul Basophils # 0.0 10^3/ul Nucleated Red Blood Cells # 0.0 10^3/ul Erythrocyte Sedimentation Rate 48 mm/Hr Prothrombin Time 12.3 Sec Prothrombin Time Ratio 1.0 INR International Normalized Ratio 0.90 Activated Partial Thromboplast Time 27.5 Sec Sodium Level 140 mmol/L Potassium Level 3.4 mmol/L Chloride Level 101 mmol/L Carbon Dioxide Level 32 mmol/L Anion Gap 7 Blood Urea Nitrogen 17 mg/dl Creatinine 0.70 mg/dl Est Glomerular Filtrat Rate mL/min > 60 mL/min Glucose Level 93 mg/dl Calcium Level 8.9 mg/dl C-Reactive Protein 6.7 mg/dl Current Medications Medications Dose Sig/Minesh Start Time Status Last (Trade) Ordered Route PRN Stop Time Admin Dose Reason Admin Clindamycin 50 ml @ 50 ONCE STAT 11/16/18 DC 11/16/18 HCl/ mls/hr IVPB 14:40 11/16/18 15:30 Dextrose 15:39 Ketorolac 30 mg ONCE STAT 11/16/18 DC 11/16/18 Tromethamine IV 14:40 11/16/18 15:17 (Toradol) 14:43 Ondansetron 4 mg BRIDGE ORDER 11/16/18 HCl (Zofran PRN IV 18:30 11/17/18 Inj) NAUSEA/VOMITI 18:29 NG 650 mg ER BRIDGE 11/16/18 Acetaminophen PRN PO 18:30 11/17/18 (Tylenol .MILD PAIN 18:29 Tab) 1-3 OR TEMP Procedures/MDM EKG, MONITORS, & DIAGNOSTIC IMAGING: X-ray left ankle: IMPRESSION: 1. Diffuse soft tissue swelling with no subcutaneous air or radiopaque foreign body. 2. Otherwise, unremarkable left ankle series. CXR Chest x-ray: I reviewed and interpreted a 1 view of the chest Mediastinum: No enlargement Cardiac silhouette: No cardiomegaly Airspace: Clear lung stroud bilaterally without evidence of pneumothorax Bones: No evidence of fracture LAB INTERPRETATION: I reviewed the laboratory testing and it shows elevated ESR CRP MEDICAL DECISION MAKING: Patient has evidence of cellulitis of the left ankle. The clinical exam is not consistent with necrotizing fasciitis. Low concern for septic arthritis given that the patient seems to have extra-articular swelling. ER COURSE: * The patient's laboratory testing is reassuring however the patient's ESR and CRP are elevated. Again low concern for septic arthritis or necrotizing process. However the patient is having difficulty ambulating. I discussed inpatient versus outpatient options. The patient feels very uncomfortable with discharge. I believe inpatient hospitalization for several doses of IV antibiotics would be reasonable. * Patient does not have Sirs criteria this is not consistent with sepsis. Clindamycin provided. CONSULTATION: None DISPOSITION PLAN: Accepting care team and consultations: I discussed the current laboratory data, diagnostic imaging and emergency care provided. Admitting team: Dr. Liang Admitting team indication: Insurance directed Departure Diagnosis: Primary Impression: Cellulitis of left lower extremity Condition: Stable DEANDRE AGARWAL MD Nov 16, 2018 18:20
[2018-11-16] MEDS ORDERED: ACETAMINOPHEN 325 MG TAB PO PRN ×2 (18:30→19:00)
[2018-11-16] MEDS ORDERED: ONDANSETRON 4 MG INJ IV PRN ×2 (18:30→19:00)
--- NOTE | 2018-11-16 18:50 | HP ---
Date/Time of Note Date/Time of Note DATE: 11/16/18 TIME: 18:49 Assessment/Plan VTE Prophylaxis SCD applied (from Nsg): Yes Pharmacological prophylaxis: other Lines/Catheters IV Catheter Type (from Nrsg): Saline Lock Assessment/Plan Hospital Course Assessment and plan: 53-year-old male past medical history of alcohol use, seizures from alcohol use, hypertension, chronic low back pain, anxiety depression, who presents to the emergency room with left ankle pain and swelling. #Lower extremity left cellulitis: -Continue broad-spectrum antibiotics, consider getting wound care consult and or podiatry consult. -Get PT eval, check TSH, A1c lipid panel -Tylenol. Beta fevers, low-dose IV fluids #Alcohol use: Counseled on cessation, monitor for withdrawal #Prior history of alcohol induced seizures: No present issues, monitor for now, Ativan as needed #Hypertension: Blood pressure stable, hydralazine as needed monitor #Chronic low back pain: Coccygeal pain control medicine, PT eval Result Diagram: 11/16/18 1519 11/16/18 1519 Results 24hrs Laboratory Tests Test 11/16/18 15:08 11/16/18 15:19 POC Venous Lactate 1.9 White Blood Count 8.2 # Red Blood Count 3.53 L Hemoglobin 11.0 L Hematocrit 33.7 L Mean Corpuscular Volume 95.5 Mean Corpuscular Hemoglobin 31.2 Mean Corpuscular Hemoglobin Concent 32.6 Red Cell Distribution Width 12.4 Platelet Count 166 Mean Platelet Volume 9.5 Immature Granulocytes % 0.200 Neutrophils % 71.1 Lymphocytes % 15.6 Monocytes % 11.5 H Eosinophils % 1.2 Basophils % 0.4 Nucleated Red Blood Cells % 0.0 Immature Granulocytes # 0.020 Neutrophils # 5.8 Lymphocytes # 1.3 Monocytes # 0.9 Eosinophils # 0.1 Basophils # 0.0 Nucleated Red Blood Cells # 0.0 Erythrocyte Sedimentation Rate 48 H Prothrombin Time 12.3 Prothrombin Time Ratio 1.0 INR International Normalized Ratio 0.90 Activated Partial Thromboplast Time 27.5 Sodium Level 140 Potassium Level 3.4 L Chloride Level 101 Carbon Dioxide Level 32 H Anion Gap 7 Blood Urea Nitrogen 17 Creatinine 0.70 Est Glomerular Filtrat Rate mL/min > 60 Glucose Level 93 Calcium Level 8.9 C-Reactive Protein 6.7 H HPI/ROS Admit Date/Time Admit Date/Time Hx of Present Illness 53-year-old male past medical history of alcohol use, seizures from alcohol use, hypertension, chronic low back pain, anxiety depression, who presents to the emergency room with left ankle pain and swelling. Symptoms have been going on for the last few days. She claims possible insect bite in 1 to 2 days ago. Since then he has had noted significant swelling redness pain and discomfort to the ankle. Patient also has had difficulty ambulating. He denies any fevers or chills, nausea vomiting, upper lower GI bleeding, chest pain or shortness of breath. The pain is moderate to severe. It is worse to touch and constant. When patient arrived he was given a dose of IV antibiotics secondary to signs of cellulitis. PMH/Family/Social Past Medical History Medications Current Medications Ondansetron HCl (Zofran Inj) 4 mg BRIDGE ORDER PRN IV NAUSEA/VOMITING; Start 11/16/18 at 18:30; Stop 11/17/18 at 18:29 Acetaminophen (Tylenol Tab) 650 mg ER BRIDGE PRN PO .MILD PAIN 1-3 OR TEMP; Start 11/16/18 at 18:30; Stop 11/17/18 at 18:29 Coded Allergies: Penicillins (Verified Allergy, Severe, Hives, 11/16/18) codeine (Verified Allergy, Severe, Hives, 11/16/18) 10/13/17: PER MD, PT STATES CAN TOLERATE MORPHINE Past Surgical History Past Surgical Hx: no surgical history Family History Significant Family History: no pertinent family hx Social History Alcohol Use: occasionally Smoking Status: Former smoker Drug Use: other (Former) Exam/Review of Systems Vital Signs Vitals Vital Signs Date Temp Pulse Resp B/P (MAP) Pulse Ox O2 O2 Flow FiO2 Time Delivery Rate 11/16/18 89 17 142/88 100 Room Air 18:00 (106) 11/16/18 99.2 14:22 Exam Exam General: Lying in bed, no acute distress Head: Normocephalic, atraumatic. Eyes: Pupils equally reactive, EOM intact ENT: Moist mucous membranes Neck: Supple, no lymphadenopathy Respiratory: Lungs clear bilaterally, no distress Cardiovascular: RRR, no murmurs, rubs, or gallops Abdominal: Soft, non-tender, non-distended, no peritoneal signs MSK: Left lower extremity and left ankle significantly swollen with area of induration erythema warmth and tenderness. Neurologic: No focal deficit RAMAN WEBER. Nov 16, 2018 18:50
[2018-11-16] MEDS ORDERED: NACL 0.9% 3 ML SYG IV SCH (19:00)
[2018-11-16] MEDS ORDERED: DOCUSATE SODIUM 100 MG CAP PO PRN (19:00)
[2018-11-16] MEDS ORDERED: ALBUTEROL/IPRATROPIUM (NEB) 3 ML AMP HHN PRN (19:00)
[2018-11-16] MEDS ORDERED: VANCOMYCIN IV PER PHARMACY XX SCH (19:00)
[2018-11-16] MEDS ORDERED: MAGNESIUM HYDROXIDE 30ML CUP PO PRN (19:00)
[2018-11-16] MEDS ORDERED: NITROGLYCERIN (SL) 0.4 MG TAB SL PRN (19:00)
[2018-11-16] MEDS ORDERED: hydrALAzine 20 MG INJ IV PRN (19:00)
[2018-11-16] MEDS: SOD CHLORIDE 0.45% 1,000 ML IV SCH (19:54)
[2018-11-16] MEDS ORDERED: VANCOMYCIN HCL 2 GM in SOD CHLORIDE 0.9% 500 ML IVPB SCH (20:30)
[2018-11-16] MEDS: morphine 2 MG INJ IV PRN (21:44)
[2018-11-16 22:31] VITALS: BP 174/86; PULSE 83; RESP 18
[2018-11-16] MEDS: CLINDAMYCIN 900 MG/D5W (PMX) 50 ML IVPB SCH (23:33)
[2018-11-17 02:38] VITALS: BP 162/85; PULSE 84; RESP 20
[2018-11-17] MEDS: CLINDAMYCIN 900 MG/D5W (PMX) 50 ML IVPB SCH ×3 (06:29→22:00)
[2018-11-17 08:00] VITALS: BP 140/87; PULSE 91; RESP 20
[2018-11-17] MEDS ORDERED: VANCOMYCIN 1.5 GM/NS 250 ML 250 ML IVPB SCH (08:00)
[2018-11-17] MEDS: SOD CHLORIDE 0.45% 1,000 ML IV SCH ×2 (08:06→19:11)
[2018-11-17] MEDS: morphine 2 MG INJ IV PRN ×4 (08:18→23:44)
[2018-11-17] MEDS ORDERED: POTASSIUM CHLORIDE (SR) 20 MEQ TAB PO STA (12:28)
--- NOTE | 2018-11-17 12:34 | PN ---
Date/Time of Note Date/Time of Note DATE: 11/17/18 TIME: 12:32 Assessment/Plan VTE Prophylaxis Risk score (from Nsg)>0 risk: 2 SCD applied (from Nsg): Yes Pharmacological prophylaxis: other Lines/Catheters IV Catheter Type (from Nrsg): Peripheral IV Assessment/Plan Hospital Course S: Patient seen by speech therapy team awoken physical therapy team. Also seen by social work assistant. Still having some left lower semi-pain complaints, no fevers. On antibiotic still. O: VS- see below PE: General: Lying in bed, no acute distress Head: Normocephalic, atraumatic. Eyes: Pupils equally reactive, EOM intact ENT: Moist mucous membranes Neck: Supple, no lymphadenopathy Respiratory: Lungs clear bilaterally, no distress Cardiovascular: RRR, no murmurs, rubs, or gallops Abdominal: Soft, non-tender, non-distended, no peritoneal signs MSK: Left lower extremity and left ankle significantly swollen with area of induration erythema warmth and tenderness. Neurologic: No focal deficit Assessment and plan: 53-year-old male past medical history of alcohol use, seizures from alcohol use, hypertension, chronic low back pain, anxiety depression, who presents to the emergency room with left ankle pain and swelling. #Lower extremity left cellulitis: Slowly improving -Continue broad-spectrum antibiotics, follow further recommendations from wound care team, follow-up final culture results -Continue PT -Tylenol as needed, low-dose IV fluids -We will also check bilateral lower extremity Doppler study to rule out DVT #Alcohol use: Counseled on cessation, monitor for withdrawal #Prior history of alcohol induced seizures: No present issues - monitor for now, Ativan as needed #Hypertension: Blood pressure stable - continue hydralazine as needed, monitor #Chronic low back pain: Continue pain control medicine use cautiously, PT eval Result Diagram: 11/17/18 0434 11/17/18 0434 Results 24hrs Laboratory Tests Test 11/16/18 15:08 11/16/18 15:19 11/16/18 20:00 11/16/18 22:17 POC Venous Lactate 1.9 White Blood Count 8.2 # Red Blood Count 3.53 L Hemoglobin 11.0 L Hematocrit 33.7 L Mean Corpuscular Volume 95.5 Mean Corpuscular 31.2 Hemoglobin Mean Corpuscular 32.6 Hemoglobin Concent Red Cell Distribution 12.4 Width Platelet Count 166 Mean Platelet Volume 9.5 Immature Granulocytes % 0.200 Neutrophils % 71.1 Lymphocytes % 15.6 Monocytes % 11.5 H Eosinophils % 1.2 Basophils % 0.4 Nucleated Red Blood 0.0 Cells % Immature Granulocytes # 0.020 Neutrophils # 5.8 Lymphocytes # 1.3 Monocytes # 0.9 Eosinophils # 0.1 Basophils # 0.0 Nucleated Red Blood 0.0 Cells # Erythrocyte 48 H Sedimentation Rate Prothrombin Time 12.3 Prothrombin Time Ratio 1.0 INR International 0.90 Normalized Ratio Activated 27.5 Partial Thromboplast Time Sodium Level 140 Potassium Level 3.4 L Chloride Level 101 Carbon Dioxide Level 32 H Anion Gap 7 Blood Urea Nitrogen 17 Creatinine 0.70 Est Glomerular Filtrat > 60 Rate mL/min Glucose Level 93 Calcium Level 8.9 C-Reactive Protein 6.7 H Free Thyroxine 0.90 Ethyl Alcohol Level < 10.0 H Lactic Acid Level 2.6 *H 0.7 Test 11/17/18 04:34 White Blood Count 6.0 # Red Blood Count 3.31 L Hemoglobin 10.4 L Hematocrit 31.0 L Mean Corpuscular Volume 93.7 Mean Corpuscular 31.4 Hemoglobin Mean Corpuscular 33.5 Hemoglobin Concent Red Cell Distribution 12.0 Width Platelet Count 152 Mean Platelet Volume 9.8 Immature Granulocytes % 0.200 Neutrophils % 60.9 Lymphocytes % 24.1 Monocytes % 12.0 H Eosinophils % 2.5 Basophils % 0.3 Nucleated Red Blood 0.0 Cells % Immature Granulocytes # 0.010 Neutrophils # 3.7 Lymphocytes # 1.5 Monocytes # 0.7 Eosinophils # 0.2 Basophils # 0.0 Nucleated Red Blood 0.0 Cells # Sodium Level 140 Potassium Level 3.1 L Chloride Level 105 Carbon Dioxide Level 28 Anion Gap 7 Blood Urea Nitrogen 10 Creatinine 0.52 L Est Glomerular Filtrat > 60 Rate mL/min Glucose Level 100 Hemoglobin A1c 5.6 Lactic Acid Level 1.0 Calcium Level 8.4 Phosphorus Level 3.5 Magnesium Level 1.9 Triglycerides Level 40 Cholesterol Level 96 L LDL Cholesterol, 50 Calculated HDL Cholesterol 38 Cholesterol/HDL Ratio 2.5 Thyroid Stimulating 0.194 L Hormone (TSH) Exam/Review of Systems Exam Vitals Vital Signs Date Temp Pulse Resp B/P (MAP) Pulse Ox O2 O2 Flow FiO2 Time Delivery Rate 11/17/18 98.6 91 20 140/87 98 08:00 (104) 11/16/18 Room Air 20:54 Intake and Output 11/16/18 11/16/18 11/17/18 1515:00 23:00 07:00 IntakeIntake Total 925 ml OutputOutput Total 300 ml BalanceBalance 625 ml Results Results 24hrs Laboratory Tests Test 11/16/18 15:08 11/16/18 15:19 11/16/18 20:00 11/16/18 22:17 POC Venous Lactate 1.9 White Blood Count 8.2 # Red Blood Count 3.53 L Hemoglobin 11.0 L Hematocrit 33.7 L Mean Corpuscular Volume 95.5 Mean Corpuscular 31.2 Hemoglobin Mean Corpuscular 32.6 Hemoglobin Concent Red Cell Distribution 12.4 Width Platelet Count 166 Mean Platelet Volume 9.5 Immature Granulocytes % 0.200 Neutrophils % 71.1 Lymphocytes % 15.6 Monocytes % 11.5 H Eosinophils % 1.2 Basophils % 0.4 Nucleated Red Blood 0.0 Cells % Immature Granulocytes # 0.020 Neutrophils # 5.8 Lymphocytes # 1.3 Monocytes # 0.9 Eosinophils # 0.1 Basophils # 0.0 Nucleated Red Blood 0.0 Cells # Erythrocyte 48 H Sedimentation Rate Prothrombin Time 12.3 Prothrombin Time Ratio 1.0 INR International 0.90 Normalized Ratio Activated 27.5 Partial Thromboplast Time Sodium Level 140 Potassium Level 3.4 L Chloride Level 101 Carbon Dioxide Level 32 H Anion Gap 7 Blood Urea Nitrogen 17 Creatinine 0.70 Est Glomerular Filtrat > 60 Rate mL/min Glucose Level 93 Calcium Level 8.9 C-Reactive Protein 6.7 H Free Thyroxine 0.90 Ethyl Alcohol Level < 10.0 H Lactic Acid Level 2.6 *H 0.7 Test 11/17/18 04:34 White Blood Count 6.0 # Red Blood Count 3.31 L Hemoglobin 10.4 L Hematocrit 31.0 L Mean Corpuscular Volume 93.7 Mean Corpuscular 31.4 Hemoglobin Mean Corpuscular 33.5 Hemoglobin Concent Red Cell Distribution 12.0 Width Platelet Count 152 Mean Platelet Volume 9.8 Immature Granulocytes % 0.200 Neutrophils % 60.9 Lymphocytes % 24.1 Monocytes % 12.0 H Eosinophils % 2.5 Basophils % 0.3 Nucleated Red Blood 0.0 Cells % Immature Granulocytes # 0.010 Neutrophils # 3.7 Lymphocytes # 1.5 Monocytes # 0.7 Eosinophils # 0.2 Basophils # 0.0 Nucleated Red Blood 0.0 Cells # Sodium Level 140 Potassium Level 3.1 L Chloride Level 105 Carbon Dioxide Level 28 Anion Gap 7 Blood Urea Nitrogen 10 Creatinine 0.52 L Est Glomerular Filtrat > 60 Rate mL/min Glucose Level 100 Hemoglobin A1c 5.6 Lactic Acid Level 1.0 Calcium Level 8.4 Phosphorus Level 3.5 Magnesium Level 1.9 Triglycerides Level 40 Cholesterol Level 96 L LDL Cholesterol, 50 Calculated HDL Cholesterol 38 Cholesterol/HDL Ratio 2.5 Thyroid Stimulating 0.194 L Hormone (TSH) Medications Medication Current Medications IV Flush (NS 3 ml) 3 ml PER PROTOCOL IV ; Start 11/16/18 at 19:00 Ondansetron HCl (Zofran Inj) 4 mg Q6H PRN IV NAUSEA/VOMITING; Start 11/16/18 at 19:00 Acetaminophen (Tylenol Tab) 650 mg Q6H PRN PO .PAIN 1-3 OR TEMP; Start 11/16/18 at 19:00 Acetaminophen/ Hydrocodone Bitart ([place] (5/325)) 1 tab Q6H PRN PO .MOD PAIN 4- 6; Start 11/16/18 at 19:00 Morphine Sulfate (morphine) 2 mg Q4H PRN IV .SEVERE PAIN 7-10 Last administered on 11/17/18at 08:18; Admin Dose 2 MG; Start 11/16/18 at 19:00 Docusate Sodium (Colace) 100 mg Q12H PRN PO .CONSTIPATION; Start 11/16/18 at 19:00 Magnesium Hydroxide (Milk Of Mag) 30 ml DAILY PRN PO .CONSTIPATION; Start 11/16/18 at 19:00 Sodium Chloride 1,000 ml @ 75 mls/hr [id number] IV Last administered on 11/16/18at 19:54; Admin Dose 75 MLS/HR; Start 11/16/18 at 18:46 Lorazepam (Ativan) 0.5 mg Q6H PRN IV ANXIETY; Start 11/16/18 at 19:00 Albuterol/ Ipratropium (Duoneb) 3 ml Q4H RESP THERAPY PRN HHN SHORTNESS OF BREATH; Start 11/16/18 at 19:00 Hydralazine HCl (Apresoline) 10 mg Q6H PRN IV ELEVATED BLOOD PRESSURE; Start 11/16/18 at 19:00 Nitroglycerin (Nitroglycerin (Sl Tab) 0.4 Mg) 1 tab Q5M PRN SL ANGINA; Start 11/16/18 at 19:00 Clindamycin HCl/ Dextrose 50 ml @ 50 mls/hr Q8 IVPB Last administered on 11/17/18at 06:29; Admin Dose 50 MLS/HR; Start 11/16/18 at 22:00 Potassium Chloride (Klor-Con 20) 40 meq ONCE STAT PO ; Start 11/17/18 at 12:28; Stop 11/17/18 at 12:29; Status RAMAN PARIKH Nov 17, 2018 12:34
[2018-11-17] MEDS: HYDROCODONE/APAP (5/325) TAB PO PRN ×2 (12:52→21:40)
[2018-11-17 14:09] VITALS: BP 171/95; PULSE 94; RESP 20
[2018-11-17 14:10] VITALS: BP 188/91
[2018-11-17 15:10] VITALS: BP 138/86; PULSE 89; RESP 20
[2018-11-17 20:17] VITALS: BP 149/95; PULSE 92; RESP 19
[2018-11-18 01:39] VITALS: BP 137/89; PULSE 83; RESP 18
[2018-11-18] MEDS: morphine 2 MG INJ IV PRN ×4 (04:57→23:45)
[2018-11-18] MEDS: CLINDAMYCIN 900 MG/D5W (PMX) 50 ML IVPB SCH ×3 (05:31→21:12)
[2018-11-18 08:00] VITALS: BP 173/99; PULSE 88; RESP 20
[2018-11-18 09:34] VITALS: BP 156/87; PULSE 94
[2018-11-18] MEDS: SOD CHLORIDE 0.45% 1,000 ML IV SCH (10:18)
[2018-11-18] MEDS: HYDROCODONE/APAP (5/325) TAB PO PRN ×3 (11:09→22:11)
[2018-11-18 13:45] VITALS: BP 168/97; PULSE 95; RESP 20
--- NOTE | 2018-11-18 15:28 | PN ---
Date/Time of Note Date/Time of Note DATE: 11/18/18 TIME: 15:26 Assessment/Plan VTE Prophylaxis Risk score (from Nsg)>0 risk: 2 SCD applied (from Nsg): Yes Pharmacological prophylaxis: other Lines/Catheters IV Catheter Type (from Nrsg): Saline Lock Assessment/Plan Hospital Course S: Patient had no acute events overnight. Lower extremity ultrasound results reviewed. Waiting to be seen by podiatry team in the next few minutes. O: VS- see below PE: General: Lying in bed, no acute distress Head: Normocephalic, atraumatic. Eyes: Pupils equally reactive, EOM intact ENT: Moist mucous membranes Neck: Supple, no lymphadenopathy Respiratory: Lungs clear bilaterally, no distress Cardiovascular: RRR, no murmurs, rubs, or gallops Abdominal: Soft, non-tender, non-distended, no peritoneal signs MSK: Left lower extremity and left ankle significantly swollen with area of induration erythema warmth and tenderness, with elevation noted on the left medial malleolar area Neurologic: No focal deficit Assessment and plan: 53-year-old male past medical history of alcohol use, seizures from alcohol use, hypertension, chronic low back pain, anxiety depression, who presents to the emergency room with left ankle pain and swelling. #Lower extremity left cellulitis: Slowly improving, but still much fluctuance around the left medial ankle/malleolar area -Continue broad-spectrum antibiotics, follow further recommendations from wound care team, follow-up final culture results -Continue PT, and again we will obtain podiatry consult, as patient may need incision and drainage -Tylenol as needed, low-dose IV fluids #Alcohol use: Counseled on cessation, monitor for withdrawal #Prior history of alcohol induced seizures: No present issues - monitor for now, Ativan as needed #Hypertension: Blood pressure stable - continue hydralazine as needed, monitor #Chronic low back pain: Continue pain control medicine use cautiously, PT Result Diagram: 11/18/1852511/18/18525 Results 24hrs Laboratory Tests Test 11/18/18 05:26 White Blood Count 7.4 # Red Blood Count 3.45 L Hemoglobin 10.8 L Hematocrit 32.0 L Mean Corpuscular Volume 92.8 Mean Corpuscular Hemoglobin 31.3 Mean Corpuscular Hemoglobin Concent 33.8 Red Cell Distribution Width 11.9 Platelet Count 168 Mean Platelet Volume 10.0 Immature Granulocytes % 0.300 Neutrophils % 68.7 Lymphocytes % 18.7 Monocytes % 10.4 Eosinophils % 1.6 Basophils % 0.3 Nucleated Red Blood Cells % 0.0 Immature Granulocytes # 0.020 Neutrophils # 5.1 Lymphocytes # 1.4 Monocytes # 0.8 Eosinophils # 0.1 Basophils # 0.0 Nucleated Red Blood Cells # 0.0 Sodium Level 137 Potassium Level 3.3 L Chloride Level 102 Carbon Dioxide Level 30 Anion Gap 5 Blood Urea Nitrogen 10 Creatinine 0.59 L Est Glomerular Filtrat Rate mL/min > 60 Glucose Level 102 Calcium Level 8.6 Free Thyroxine 0.93 Exam/Review of Systems Exam Vitals Vital Signs Date Temp Pulse Resp B/P (MAP) Pulse Ox O2 O2 Flow FiO2 Time Delivery Rate 11/18/18 98.7 95 20 168/97 98 13:45 (120) 11/16/18 Room Air 20:54 Intake and Output 11/17/18 11/17/18 11/18/18 1515:00 23:00 07:00 IntakeIntake Total 900 ml 1175 ml 725 ml OutputOutput Total 2000 ml 500 ml 875 ml BalanceBalance -1100 ml 675 ml -150 ml Results Results 24hrs Laboratory Tests Test 11/18/18 05:26 White Blood Count 7.4 # Red Blood Count 3.45 L Hemoglobin 10.8 L Hematocrit 32.0 L Mean Corpuscular Volume 92.8 Mean Corpuscular Hemoglobin 31.3 Mean Corpuscular Hemoglobin Concent 33.8 Red Cell Distribution Width 11.9 Platelet Count 168 Mean Platelet Volume 10.0 Immature Granulocytes % 0.300 Neutrophils % 68.7 Lymphocytes % 18.7 Monocytes % 10.4 Eosinophils % 1.6 Basophils % 0.3 Nucleated Red Blood Cells % 0.0 Immature Granulocytes # 0.020 Neutrophils # 5.1 Lymphocytes # 1.4 Monocytes # 0.8 Eosinophils # 0.1 Basophils # 0.0 Nucleated Red Blood Cells # 0.0 Sodium Level 137 Potassium Level 3.3 L Chloride Level 102 Carbon Dioxide Level 30 Anion Gap 5 Blood Urea Nitrogen 10 Creatinine 0.59 L Est Glomerular Filtrat Rate mL/min > 60 Glucose Level 102 Calcium Level 8.6 Free Thyroxine 0.93 Medications Medication Current Medications IV Flush (NS 3 ml) 3 ml PER PROTOCOL IV ; Start 11/16/18 at 19:00 Ondansetron HCl (Zofran Inj) 4 mg Q6H PRN IV NAUSEA/VOMITING; Start 11/16/18 at 19:00 Acetaminophen (Tylenol Tab) 650 mg Q6H PRN PO .PAIN 1-3 OR TEMP; Start 11/16/18 at 19:00 Acetaminophen/ Hydrocodone Bitart ([place] (5/325)) 1 tab Q6H PRN PO .MOD PAIN 4- 6 Last administered on 11/18/18 11:09; Admin Dose 1 TAB; Start 11/16/18 at 19:00 Morphine Sulfate (morphine) 2 mg Q4H PRN IV .SEVERE PAIN 7-10 Last administered on 11/18/18 12:56; Admin Dose 2 MG; Start 11/16/18 at 19:00 Docusate Sodium (Colace) 100 mg Q12H PRN PO .CONSTIPATION; Start 11/16/18 at 19:00 Magnesium Hydroxide (Milk Of Mag) 30 ml DAILY PRN PO .CONSTIPATION; Start 11/16/18 at 19:00 Sodium Chloride 1,000 ml @ 75 mls/hr [id number] IV Last administered on 11/18/18 10:18; Admin Dose 75 MLS/HR; Start 11/16/18 at 18:46 Lorazepam (Ativan) 0.5 mg Q6H PRN IV ANXIETY; Start 11/16/18 at 19:00 Albuterol/ Ipratropium (Duoneb) 3 ml Q4H RESP THERAPY PRN HHN SHORTNESS OF BREATH; Start 11/16/18 at 19:00 Hydralazine HCl (Apresoline) 10 mg Q6H PRN IV ELEVATED BLOOD PRESSURE Last administered on 11/18/18 08:14; Admin Dose 10 MG; Start 11/16/18 at 19:00 Nitroglycerin (Nitroglycerin (Sl Tab) 0.4 Mg) 1 tab Q5M PRN SL ANGINA; Start 11/16/18 at 19:00 Clindamycin HCl/ Dextrose 50 ml @ 50 mls/hr Q8 IVPB Last administered on 11/18/18 05:31; Admin Dose 50 MLS/HR; Start 11/16/18 at 22:00 RAMAN WEBER Nov 18, 2018 15:28
--- NOTE | 2018-11-18 15:43 | CONS ---
Assessment/Plan Assessment/Plan Assessment/Plan (Daily) Left lower extremity cellulitis Left lower extremity abscess Pain in limb Alcohol dependence HTN Plan Patient with clinical signs of abscess formation to left lower extremity. Plan for OR incision and drainage tomorrow. NPO after midnight tonight. Prepare consent. Betadine to abscess site with dry sterile dressings, Continue with IV abx as per recommendations. DVT negative. MRI and non invasive arterial studies ordered. Consultation Date/Type/Reason Admit Date/Time Date/Time of Note DATE: 11/18/18 TIME: 15:42 Hx of Present Illness 53 y/o M with past medical history of alcohol use, seizures from alcohol use, hypertension, chronic low back pain, anxiety depression, presents to the floor with left ankle swelling, redness, and pain. Patient relates an insect bite to the left medial ankle area and he also noted the insect scurry away when it happened. Patient reported headaches, fevers, and chills. Patient admitted to the hospital and had been receiving IV abx which has improved some of his symptoms. Patient also reported pain 7/10 aching pain and had difficulty walking. ROS negative except for HPI Past Medical History alcohol use, seizures from alcohol use, hypertension, chronic low back pain, anxiety depression Home Meds Reported Medications Carvedilol* (Carvedilol*) 6.25 Mg Tablet, 6.25 MG PO BID, #60 TAB 11/16/18 Lisinopril* (Lisinopril*) 20 Mg Tablet, 40 MG PO DAILY, #30 TAB 11/16/18 Amlodipine Besylate* (Amlodipine Besylate*) 10 Mg Tablet, 10 MG PO DAILY, #30 TAB 11/16/18 Nitroglycerin* (Nitroglycerin* SL) 0.4 Mg Tab.subl, 0.4 MG SL Q5MIN PRN for CHEST PAIN, BOTTLE 11/16/18 Thiamine* (Vitamin B-1*) 100 Mg Tablet, 100 MG PO DAILY, TAB 11/16/18 Atorvastatin* (Atorvastatin*) 80 Mg Tablet, 80 MG PO QHS, #30 TAB 11/16/18 Levetiracetam* (Levetiracetam*) 500 Mg Tablet, 500 MG PO BID, TAB 11/16/18 Aspirin* (Aspirin* EC) 81 Mg Tablet.dr, 81 MG PO DAILY, TAB 11/16/18 Folic Acid* (Folic Acid*) 1 Mg Tablet, 1 MG PO DAILY, TAB 11/16/18 Enalapril Maleate* (Enalapril Maleate*) 10 Mg Tablet, 10 MG PO BID, TAB 11/16/18 Discontinued Reported Medications Levetiracetam* (Levetiracetam*) 500 Mg Tablet, 500 MG PO BID, TAB 12/13/17 Lisinopril* (Lisinopril*) 10 Mg Tablet, 10 MG PO DAILY, #30 TAB 08/21/17 Metoprolol Tartrate* (Lopressor*) 25 Mg Tab, 25 MG PO BID, #60 TAB 08/21/17 Discontinued Scripts Hydrochlorothiazide* (Hydrochlorothiazide*) 25 Mg Tab, 25 MG PO DAILY, #30 TAB Prov:HORTENSIA JUDGE MD 09/13/18 Ibuprofen* (Motrin*) 600 Mg Tab, 600 MG PO Q6H PRN for PAIN AND OR ELEVATED TEMP, #30 TAB Prov:HORTENSIA JUDGE MD 09/13/18 Metoprolol Succinate* (Toprol XL*) 25 Mg Tab.sr.24h, 25 MG PO DAILY, #30 TAB Prov:PASILABANORAAR F 01/20/18 Lisinopril* (Lisinopril*) 10 Mg Tablet, 10 MG PO DAILY, #30 TAB Prov:PASILABANORAAR F 01/20/18 Levetiracetam* (Keppra*) 500 Mg Tablet, 500 MG PO BID, #60 TAB Prov:PASILABANORAAR F 01/20/18 Levetiracetam* (Keppra*) 750 Mg Tablet, 750 MG PO BID, #60 TAB Prov:SANTI DOTSON DO 01/01/18 Amlodipine Besylate* (Amlodipine Besylate*) 10 Mg Tablet, 10 MG PO BID, #30 TAB Prov:CLYDE TARIQ 10/30/17 Medications Current Medications IV Flush (NS 3 ml) 3 ml PER PROTOCOL IV ; Start 11/16/18 at 19:00 Ondansetron HCl (Zofran Inj) 4 mg Q6H PRN IV NAUSEA/VOMITING; Start 11/16/18 at 19:00 Acetaminophen (Tylenol Tab) 650 mg Q6H PRN PO .PAIN 1-3 OR TEMP; Start 11/16/18 at 19:00 Acetaminophen/ Hydrocodone Bitart ([place] (5/325)) 1 tab Q6H PRN PO .MOD PAIN 4- 6 Last administered on 11/18/18 11:09; Admin Dose 1 TAB; Start 11/16/18 at 19:00 Morphine Sulfate (morphine) 2 mg Q4H PRN IV .SEVERE PAIN 7-10 Last administered on 11/18/18 12:56; Admin Dose 2 MG; Start 11/16/18 at 19:00 Docusate Sodium (Colace) 100 mg Q12H PRN PO .CONSTIPATION; Start 11/16/18 at 19:00 Magnesium Hydroxide (Milk Of Mag) 30 ml DAILY PRN PO .CONSTIPATION; Start 11/16/18 at 19:00 Sodium Chloride 1,000 ml @ 75 mls/hr [id number] IV Last administered on 11/18/18 10:18; Admin Dose 75 MLS/HR; Start 11/16/18 at 18:46 Lorazepam (Ativan) 0.5 mg Q6H PRN IV ANXIETY; Start 11/16/18 at 19:00 Albuterol/ Ipratropium (Duoneb) 3 ml Q4H RESP THERAPY PRN HHN SHORTNESS OF BREATH; Start 11/16/18 at 19:00 Hydralazine HCl (Apresoline) 10 mg Q6H PRN IV ELEVATED BLOOD PRESSURE Last administered on 11/18/18 08:14; Admin Dose 10 MG; Start 11/16/18 at 19:00 Nitroglycerin (Nitroglycerin (Sl Tab) 0.4 Mg) 1 tab Q5M PRN SL ANGINA; Start 11/16/18 at 19:00 Clindamycin HCl/ Dextrose 50 ml @ 50 mls/hr Q8 IVPB Last administered on 11/18/18 05:31; Admin Dose 50 MLS/HR; Start 11/16/18 at 22:00 Allergies: Coded Allergies: Penicillins (Verified Allergy, Severe, Hives, 11/16/18) codeine (Verified Allergy, Severe, Hives, 11/16/18) 10/13/17: PER MD, PT STATES CAN TOLERATE MORPHINE Past Surgical History Past Surgical Hx: no surgical history Family History Significant Family History: hypertension Social History Alcohol Use: occasionally Smoking Status: Light tobacco smoker Drug Use: other (Former) Exam/Review of Systems Exam Vitals Vital Signs Date Temp Pulse Resp B/P (MAP) Pulse Ox O2 O2 Flow FiO2 Time Delivery Rate 11/18/18 98.7 95 20 168/97 98 13:45 (120) 11/16/18 Room Air 20:54 Intake and Output 11/17/18 11/17/18 11/18/18 1515:00 23:00 07:00 IntakeIntake Total 900 ml 1175 ml 725 ml OutputOutput Total 2000 ml 500 ml 875 ml BalanceBalance -1100 ml 675 ml -150 ml Exam DP/PT pulses palpable Protective sensations intact Pain on palpation to left medial ankle abscess site with localized erythema. Eschar formation to the posterior achilles area with no open ulcerations appreciated. Muscle strength 4/5 to left foot in all compartments. Calf is soft however mild tenderness noted with palpation. Results Result Diagram: 11/18/18 0526 11/18/18 0526 Results 24hrs Laboratory Tests Test 11/18/18 05:26 White Blood Count 7.4 # Red Blood Count 3.45 L Hemoglobin 10.8 L Hematocrit 32.0 L Mean Corpuscular Volume 92.8 Mean Corpuscular Hemoglobin 31.3 Mean Corpuscular Hemoglobin Concent 33.8 Red Cell Distribution Width 11.9 Platelet Count 168 Mean Platelet Volume 10.0 Immature Granulocytes % 0.300 Neutrophils % 68.7 Lymphocytes % 18.7 Monocytes % 10.4 Eosinophils % 1.6 Basophils % 0.3 Nucleated Red Blood Cells % 0.0 Immature Granulocytes # 0.020 Neutrophils # 5.1 Lymphocytes # 1.4 Monocytes # 0.8 Eosinophils # 0.1 Basophils # 0.0 Nucleated Red Blood Cells # 0.0 Sodium Level 137 Potassium Level 3.3 L Chloride Level 102 Carbon Dioxide Level 30 Anion Gap 5 Blood Urea Nitrogen 10 Creatinine 0.59 L Est Glomerular Filtrat Rate mL/min > 60 Glucose Level 102 Calcium Level 8.6 Free Thyroxine 0.93 Medications Medication Current Medications IV Flush (NS 3 ml) 3 ml PER PROTOCOL IV ; Start 11/16/18 at 19:00 Ondansetron HCl (Zofran Inj) 4 mg Q6H PRN IV NAUSEA/VOMITING; Start 11/16/18 at 19:00 Acetaminophen (Tylenol Tab) 650 mg Q6H PRN PO .PAIN 1-3 OR TEMP; Start 11/16/18 at 19:00 Acetaminophen/ Hydrocodone Bitart ([place] (5/325)) 1 tab Q6H PRN PO .MOD PAIN 4- 6 Last administered on 11/18/18 11:09; Admin Dose 1 TAB; Start 11/16/18 at 19:00 Morphine Sulfate (morphine) 2 mg Q4H PRN IV .SEVERE PAIN 7-10 Last administered on 11/18/18 12:56; Admin Dose 2 MG; Start 11/16/18 at 19:00 Docusate Sodium (Colace) 100 mg Q12H PRN PO .CONSTIPATION; Start 11/16/18 at 19:00 Magnesium Hydroxide (Milk Of Mag) 30 ml DAILY PRN PO .CONSTIPATION; Start 11/16/18 at 19:00 Sodium Chloride 1,000 ml @ 75 mls/hr [id number] IV Last administered on 11/18/18 10:18; Admin Dose 75 MLS/HR; Start 11/16/18 at 18:46 Lorazepam (Ativan) 0.5 mg Q6H PRN IV ANXIETY; Start 11/16/18 at 19:00 Albuterol/ Ipratropium (Duoneb) 3 ml Q4H RESP THERAPY PRN HHN SHORTNESS OF BREATH; Start 11/16/18 at 19:00 Hydralazine HCl (Apresoline) 10 mg Q6H PRN IV ELEVATED BLOOD PRESSURE Last administered on 11/18/18 08:14; Admin Dose 10 MG; Start 11/16/18 at 19:00 Nitroglycerin (Nitroglycerin (Sl Tab) 0.4 Mg) 1 tab Q5M PRN SL ANGINA; Start 11/16/18 at 19:00 Clindamycin HCl/ Dextrose 50 ml @ 50 mls/hr Q8 IVPB Last administered on 11/18/18 05:31; Admin Dose 50 MLS/HR; Start 11/16/18 at 22:00 NICOLE CONNOR DPM Nov 18, 2018 15:43
[2018-11-18] MEDS ORDERED: POTASSIUM CHLORIDE (SR) 20 MEQ TAB PO STA (15:48)
[2018-11-18 19:31] VITALS: BP 176/105; PULSE 85; RESP 18
[2018-11-18] MEDS: LORAZEPAM 2 MG INJ IV PRN (21:12)
[2018-11-18] MEDS ORDERED: HYDROCODONE/APAP (5/325) TAB PO PRN (21:30)
[2018-11-19] VITALS (16 sets, daily range): BP systolic 152–171; BP diastolic 63–105; PULSE 68–96; RESP 12–96
[2018-11-19] MEDS: SOD CHLORIDE 0.45% 1,000 ML IV SCH ×2 (00:06→04:01)
[2018-11-19] MEDS: morphine 2 MG INJ IV PRN ×4 (04:25→20:23)
[2018-11-19] MEDS: CLINDAMYCIN 900 MG/D5W (PMX) 50 ML IVPB SCH ×3 (05:46→21:23)
[2018-11-19] MEDS: HYDROCODONE/APAP (5/325) TAB PO PRN (06:00)
[2018-11-19] MEDS: LORAZEPAM 2 MG INJ IV PRN ×2 (09:49→21:29)
--- NOTE | 2018-11-19 10:17 | PN ---
Date/Time of Note Date/Time of Note DATE: 11/19/18 TIME: 10:14 Assessment/Plan VTE Prophylaxis Risk score (from Ns)>0 risk: 3 SCD applied (from Ns): No SCD contraindicated: low risk/ambulating Pharmacological prophylaxis: NA/contraindicated Pharm contraindication: surgical contra Lines/Catheters IV Catheter Type (from [facility], [place]): Saline Lock Assessment/Plan Hospital Course Assessment and plan 1. Left lower extremity abscess, stable. May need home health wound care on discharge. for I&D today. -No chest pain dyspnea, patient can proceed forward to I&D, with low perioperative risk 2. Chronic alcoholism, quit 2 years ago 3. Past tobacco 4. Past substance abuse? 5. Chronic hypertension 6. Anemia stable 7. Chronic anxiety depression 8. Seizure disorder? Last seizure 2 3 months ago S: moderate pain no fever no diarrhea O: vss Sickle exam No pallor Regular clear Benign No edema, abscess dressed pulses intact Result Diagram: 11/19/18 0535 11/19/18 0535 Results 24hrs Laboratory Tests Test 11/19/18 05:35 White Blood Count 5.9 # Red Blood Count 3.47 L Hemoglobin 10.9 L Hematocrit 31.6 L Mean Corpuscular Volume 91.1 Mean Corpuscular Hemoglobin 31.4 Mean Corpuscular Hemoglobin Concent 34.5 Red Cell Distribution Width 11.8 Platelet Count 188 Mean Platelet Volume 9.6 Immature Granulocytes % 0.300 Neutrophils % 61.7 Lymphocytes % 24.2 Monocytes % 10.4 Eosinophils % 2.9 Basophils % 0.5 Nucleated Red Blood Cells % 0.0 Immature Granulocytes # 0.020 Neutrophils # 3.6 Lymphocytes # 1.4 Monocytes # 0.6 Eosinophils # 0.2 Basophils # 0.0 Nucleated Red Blood Cells # 0.0 Sodium Level 139 Potassium Level 3.5 Chloride Level 104 Carbon Dioxide Level 28 Anion Gap 7 Blood Urea Nitrogen 13 Creatinine 0.65 Est Glomerular Filtrat Rate mL/min > 60 Glucose Level 98 Calcium Level 8.7 Exam/Review of Systems Exam Vitals Vital Signs Date Temp Pulse Resp B/P (MAP) Pulse Ox O2 O2 Flow FiO2 Time Delivery Rate 11/19/18 98.0 76 20 161/88 97 08:09 (112) 11/16/18 Room Air 20:54 Intake and Output 11/18/18 11/18/18 11/19/18 1515:00 23:00 07:00 IntakeIntake Total 1725 ml 1150 ml 1180 ml OutputOutput Total 3700 ml 1100 ml 900 ml BalanceBalance -1975 ml 50 ml 280 ml Results Results 24hrs Laboratory Tests Test 11/19/18 05:35 White Blood Count 5.9 # Red Blood Count 3.47 L Hemoglobin 10.9 L Hematocrit 31.6 L Mean Corpuscular Volume 91.1 Mean Corpuscular Hemoglobin 31.4 Mean Corpuscular Hemoglobin Concent 34.5 Red Cell Distribution Width 11.8 Platelet Count 188 Mean Platelet Volume 9.6 Immature Granulocytes % 0.300 Neutrophils % 61.7 Lymphocytes % 24.2 Monocytes % 10.4 Eosinophils % 2.9 Basophils % 0.5 Nucleated Red Blood Cells % 0.0 Immature Granulocytes # 0.020 Neutrophils # 3.6 Lymphocytes # 1.4 Monocytes # 0.6 Eosinophils # 0.2 Basophils # 0.0 Nucleated Red Blood Cells # 0.0 Sodium Level 139 Potassium Level 3.5 Chloride Level 104 Carbon Dioxide Level 28 Anion Gap 7 Blood Urea Nitrogen 13 Creatinine 0.65 Est Glomerular Filtrat Rate mL/min > 60 Glucose Level 98 Calcium Level 8.7 Medications Medication Current Medications IV Flush (NS 3 ml) 3 ml PER PROTOCOL IV ; Start 11/16/18 at 19:00 Ondansetron HCl (Zofran Inj) 4 mg Q6H PRN IV NAUSEA/VOMITING; Start 11/16/18 at 19:00 Acetaminophen (Tylenol Tab) 650 mg Q6H PRN PO .PAIN 1-3 OR TEMP; Start 11/16/18 at 19:00 Morphine Sulfate (morphine) 2 mg Q4H PRN IV .SEVERE PAIN 7-10 Last administered on 11/19/18at 08:29; Admin Dose 2 MG; Start 11/16/18 at 19:00 Docusate Sodium (Colace) 100 mg Q12H PRN PO .CONSTIPATION; Start 11/16/18 at 19:00 Magnesium Hydroxide (Milk Of Mag) 30 ml DAILY PRN PO .CONSTIPATION; Start 11/16/18 at 19:00 Sodium Chloride 1,000 ml @ 75 mls/hr [id number] IV Last administered on 11/19/18at 04:01; Admin Dose 75 MLS/HR; Start 11/16/18 at 18:46 Lorazepam (Ativan) 0.5 mg Q6H PRN IV ANXIETY Last administered on 11/19/18at 09:49; Admin Dose 0.5 MG; Start 11/16/18 at 19:00 Albuterol/ Ipratropium (Duoneb) 3 ml Q4H RESP THERAPY PRN HHN SHORTNESS OF BREATH; Start 11/16/18 at 19:00 Hydralazine HCl (Apresoline) 10 mg Q6H PRN IV ELEVATED BLOOD PRESSURE Last administered on 11/18/18at 08:14; Admin Dose 10 MG; Start 11/16/18 at 19:00 Nitroglycerin (Nitroglycerin (Sl Tab) 0.4 Mg) 1 tab Q5M PRN SL ANGINA; Start 11/16/18 at 19:00 Clindamycin HCl/ Dextrose 50 ml @ 50 mls/hr Q8 IVPB Last administered on 11/19/18at 05:46; Admin Dose 50 MLS/HR; Start 11/16/18 at 22:00 Acetaminophen/ Hydrocodone Bitart ([place] (5/325)) 1 tab Q4H PRN PO pain level 1-5; Start 11/18/18 at 21:30 Acetaminophen/ Hydrocodone Bitart ([place] (5/325)) 2 tab Q4H PRN PO pain level 6-10 Last administered on 11/19/18at 06:00; Admin Dose 2 TAB; Start 11/18/18 at 21:30 GRICELDA CANTU MD Nov 19, 2018 10:16
--- NOTE | 2018-11-19 12:14 | PREAC ---
Date/Time of Note Date/Time of Note DATE: 11/19/18 TIME: 12:10 Anesthesia Eval and Record Evaluation Time Pre-Procedure Interview DATE: 11/19/18 TIME: 12:10 Age 53 Sex male NPO: 8 hrs Preoperative diagnosis LLE cellulitis Planned procedure LLE I&D Past Medical History Past Medical History: Includes (chronic back pain) Cardio: HTN, Dyslipidemia Neuro: Seizure disorder (seizure d/t alcohol withdrawal) Heme: Anemia Psych: Anxiety Surgery & Anesthesia Issues No known issue Meds Anticoagulation: No Beta Lisette within 24 hr: Yes Reported Medications Carvedilol* (Carvedilol*) 6.25 Mg Tablet, 6.25 MG PO BID, #60 TAB 11/16/18 Lisinopril* (Lisinopril*) 20 Mg Tablet, 40 MG PO DAILY, #30 TAB 11/16/18 Amlodipine Besylate* (Amlodipine Besylate*) 10 Mg Tablet, 10 MG PO DAILY, #30 TAB 11/16/18 Nitroglycerin* (Nitroglycerin* SL) 0.4 Mg Tab.subl, 0.4 MG SL Q5MIN PRN for CHEST PAIN, BOTTLE 11/16/18 Thiamine* (Vitamin B-1*) 100 Mg Tablet, 100 MG PO DAILY, TAB 11/16/18 Atorvastatin* (Atorvastatin*) 80 Mg Tablet, 80 MG PO QHS, #30 TAB 11/16/18 Levetiracetam* (Levetiracetam*) 500 Mg Tablet, 500 MG PO BID, TAB 11/16/18 Aspirin* (Aspirin* EC) 81 Mg Tablet.dr, 81 MG PO DAILY, TAB 11/16/18 Folic Acid* (Folic Acid*) 1 Mg Tablet, 1 MG PO DAILY, TAB 11/16/18 Enalapril Maleate* (Enalapril Maleate*) 10 Mg Tablet, 10 MG PO BID, TAB 11/16/18 Discontinued Reported Medications Levetiracetam* (Levetiracetam*) 500 Mg Tablet, 500 MG PO BID, TAB 12/13/17 Lisinopril* (Lisinopril*) 10 Mg Tablet, 10 MG PO DAILY, #30 TAB 08/21/17 Metoprolol Tartrate* (Lopressor*) 25 Mg Tab, 25 MG PO BID, #60 TAB 08/21/17 Discontinued Scripts Hydrochlorothiazide* (Hydrochlorothiazide*) 25 Mg Tab, 25 MG PO DAILY, #30 TAB Prov:HORTENSIA JUDGE MD 09/13/18 Ibuprofen* (Motrin*) 600 Mg Tab, 600 MG PO Q6H PRN for PAIN AND OR ELEVATED TEMP, #30 TAB Prov:HORTENSIA JUDGE MD 09/13/18 Metoprolol Succinate* (Toprol XL*) 25 Mg Tab.sr.24h, 25 MG PO DAILY, #30 TAB Prov:PASILABANBETTE F 01/20/18 Lisinopril* (Lisinopril*) 10 Mg Tablet, 10 MG PO DAILY, #30 TAB Prov:PASILABANBETTE F 01/20/18 Levetiracetam* (Keppra*) 500 Mg Tablet, 500 MG PO BID, #60 TAB Prov:PASILABANBETTE F 01/20/18 Levetiracetam* (Keppra*) 750 Mg Tablet, 750 MG PO BID, #60 TAB Prov:SANTI DOTSON DO 01/01/18 Amlodipine Besylate* (Amlodipine Besylate*) 10 Mg Tablet, 10 MG PO BID, #30 TAB Prov:CLYDE TARIQ 10/30/17 Current Medications IV Flush (NS 3 ml) 3 ml PER PROTOCOL IV ; Start 11/16/18 at 19:00 Ondansetron HCl (Zofran Inj) 4 mg Q6H PRN IV NAUSEA/VOMITING; Start 11/16/18 at 19:00 Acetaminophen (Tylenol Tab) 650 mg Q6H PRN PO .PAIN 1-3 OR TEMP; Start 11/16/18 at 19:00 Morphine Sulfate (morphine) 2 mg Q4H PRN IV .SEVERE PAIN 7-10 Last administered on 11/19/18at 08:29; Admin Dose 2 MG; Start 11/16/18 at 19:00 Docusate Sodium (Colace) 100 mg Q12H PRN PO .CONSTIPATION; Start 11/16/18 at 19:00 Magnesium Hydroxide (Milk Of Mag) 30 ml DAILY PRN PO .CONSTIPATION; Start 11/16/18 at 19:00 Sodium Chloride 1,000 ml @ 75 mls/hr [id number] IV Last administered on 11/19/18at 04:01; Admin Dose 75 MLS/HR; Start 11/16/18 at 18:46 Lorazepam (Ativan) 0.5 mg Q6H PRN IV ANXIETY Last administered on 11/19/18at 09:49; Admin Dose 0.5 MG; Start 11/16/18 at 19:00 Albuterol/ Ipratropium (Duoneb) 3 ml Q4H RESP THERAPY PRN HHN SHORTNESS OF BREATH; Start 11/16/18 at 19:00 Hydralazine HCl (Apresoline) 10 mg Q6H PRN IV ELEVATED BLOOD PRESSURE Last administered on 11/18/18at 08:14; Admin Dose 10 MG; Start 11/16/18 at 19:00 Nitroglycerin (Nitroglycerin (Sl Tab) 0.4 Mg) 1 tab Q5M PRN SL ANGINA; Start 11/16/18 at 19:00 Clindamycin HCl/ Dextrose 50 ml @ 50 mls/hr Q8 IVPB Last administered on 11/19/18at 05:46; Admin Dose 50 MLS/HR; Start 11/16/18 at 22:00 Acetaminophen/ Hydrocodone Bitart ([place] (10/325)) 1 tab Q4H PRN PO MODERATE PAIN LEVEL 4-6; Start 11/19/18 at 10:30 Meds reviewed: Yes Allergies Coded Allergies: Penicillins (Verified Allergy, Severe, Hives, 11/16/18) codeine (Verified Allergy, Severe, Hives, 11/16/18) 10/13/17: PER MD, PT STATES CAN TOLERATE MORPHINE Allergies Reviewed: Yes Labs/Studies Labs Reviewed: Reviewed by anesthesiologist Result Diagram: 11/19/18 0535 11/19/18 0535 Laboratory Tests 11/19/18 05:35 test: N/A Studies: CXR (No acute cardiopulmonary disease.) Pre-procedure Exam Last vitals Vital Signs Date Temp Pulse Resp B/P (MAP) Pulse Ox O2 O2 Flow FiO2 Time Delivery Rate 11/19/18 98.0 76 20 161/88 97 08:09 (112) 11/16/18 Room Air 20:54 Airway: Adequate mouth opening, Adequate thyromental dist Mallampati: Mallampati I Teeth: Abnormal (multiple missing teeth) Lung: Normal Heart: Normal ASA Physical Status ASA physical status: 2 Emergency: None Planned Anesthetic General/MAC: MAC, TIVA Pre-operative Attestations Prior to commencing anesthesia and surgery, the patient was re-evaluated, there was verification of: *The patient's identity *The results of appropriate recent lab work and preoperative vital signs *The above evaluation not changing prior to induction *Anesthetic plan, risk benefits, alternative and complications discussed with patient/family; questions answered; patient/family understands, accepts and wishes to proceed. GREG CHRISTIE Nov 19, 2018 12:14
[2018-11-19] MEDS ORDERED: FENTAnyl 50 MCG/ML VIAL ONE (12:20)
[2018-11-19] MEDS ORDERED: MIDAZOLAM 1 MG/ML 2 ML INJ ONE (12:20)
[2018-11-19] MEDS ORDERED: LIDOCAINE 2% (SDV) 5 ML INJ ONE (12:20)
[2018-11-19] MEDS ORDERED: PROPOFOL 40 ML ONE (12:20)
[2018-11-19] MEDS ORDERED: BUPIVACAINE 0.5% (SDV) 30 ML INJ ONE (12:22)
[2018-11-19] MEDS ORDERED: LIDOCAINE 1% (MPF) 30 ML INJ ONE (12:22)
[2018-11-19] MEDS ORDERED: morphine 2 MG INJ IV PRN ×2 (12:30)
[2018-11-19] MEDS ORDERED: EPHEDrine 25 MG/5 ML SYG IV PRN (12:30)
[2018-11-19] MEDS ORDERED: hydrALAzine 20 MG INJ IV PRN (12:30)
[2018-11-19] MEDS ORDERED: MEPERIDINE 25 MG INJ IV PRN (12:30)
[2018-11-19] MEDS ORDERED: HYDROmorphONE 1 MG/5 ML IV SYRINGE IV PRN ×3 (12:30)
[2018-11-19] MEDS ORDERED: POLYMYXIN/BACITRACIN 1L IRRIG IRR ONE (12:30)
[2018-11-19] MEDS ORDERED: DIPHENHYDRAMINE 50 MG INJ IV PRN (12:30)
[2018-11-19] MEDS ORDERED: ALBUTEROL 0.083% (NEB) 2.5 MG/3 ML AMP HHN PRN (12:30)
[2018-11-19] MEDS ORDERED: BUPIVACAINE 0.5% 30 ML VIAL INJ ONE (12:30)
[2018-11-19] MEDS ORDERED: ONDANSETRON 4 MG INJ IV PRN (12:30)
[2018-11-19] MEDS ORDERED: LABETALOL HCL 20MG INJ IV PRN (12:30)
[2018-11-19] MEDS ORDERED: LIDOCAINE 1% (MPF) 30 ML INJ INJ ONE (12:30)
[2018-11-19] MEDS ORDERED: FENTAnyl 50 MCG/ML VIAL IV PRN ×2 (12:30)
--- NOTE | 2018-11-19 12:56 | SIPON ---
Date/Time of Note Date/Time of Note DATE: 11/19/18 TIME: 12:56 Operative Report Preoperative Diagnosis Left lower extremity cellulitis Left lower extremity abscess Pain in limb Postoperative Diagnosis Left lower extremity cellulitis Left lower extremity abscess Pain in limb Operation/Procedure Performed Left lower extremity incision and drainage Surgeon see signature line laboratory assistant none Anesthesia: MAC Estimated blood loss: 10 - 50 ml's Transfusion Required none Specimen left ankle wound culture Grafts/Implants none Complications none NICOLE CONNOR DPM Nov 19, 2018 12:56
--- NOTE | 2018-11-19 13:05 | OPR ---
Date/Time of Note Date/Time of Note DATE: 11/19/18 TIME: 13:05 Operative Report Preoperative Diagnosis Left lower extremity cellulitis Left lower extremity abscess Pain in limb Postoperative Diagnosis Left lower extremity cellulitis Left lower extremity abscess Pain in limb Operation/Procedure Performed Left lower extremity incision and drainage Surgeon see signature line Bee Keeper none Anesthesia Type: MAC Estimated Blood Loss: 10 - 50 ml's Transfusion none Specimen left ankle wound culture Grafts/Implants none Complications none Indications 53 y/o M patient with history of a spider bite to his left medial ankle. Patient had noticed improvement with antibiotic therapy however the abscess per sisted to his left ankle. Patient amenable to surgical intervention at this time. All of the patient's questions and concerns were addressed. No promises or guarantees were given. Procedure Description Patient was brought into the OR and placed in the supine position. The left lower extremity was scrubbed, prepped, and draped in the usual aseptic manner. A formal time out was conducted. Attention was directed to the left medial ankle at the site of abscess. A stab incision was made a thick purulent drainage came out of the incision site. There was approximately 15mL of purulent drainage that was appreciated to the abscess site. Wound cultures were obtained. Blunt dissection was carried out at the incision site and there was undermining noted at the proximal, distal, medial and lateral aspects of the abscess site. Tracked approximately 8cm in the proximal direction, 6cm in the medial direction, 5cm in lateral direction and 4.5cm in the distal aspect. Copious antibiotic infused saline irrigation was used at the abscess site. There was serosanguinous drainage noted and no further purulence could be expressed. There was pitting edema and some induration noted to the periwound area. 1/4in iodoform packing was applied to the deep wound space, betadine 4x4 gauze kerlix and philippe wrap. Patient was transferred to the PACU with vital signs stable and neurovascular status intact. NICOLE CONNOR DPM Nov 19, 2018 13:05
--- NOTE | 2018-11-19 13:11 | PAC ---
Date/Time of Note Date/Time of Note DATE: 11/19/18 TIME: 13:10 Post-Anesthesia Notes Post-Anesthesia Note Last documented vital signs Vital Signs Date Temp Pulse Resp B/P (MAP) Pulse Ox O2 O2 Flow FiO2 Time Delivery Rate 11/19/18 98.0 98 76 81 20 18 161/88 97 99 RA 08:09 130 (112) 154 5 /99 11/16/18 Room Air 20:54 Activity: WNL Respiratory function: WNL Cardiovascular function: WNL Mental status: Baseline Pain reasonably controlled: Yes Hydration appropriate: Yes Nausea/Vomiting absent: Yes GREG CHRISTIE Nov 19, 2018 13:10
--- NOTE | 2018-11-19 15:39 | CONS ---
DATE OF ADMISSION: 11/16/2018 DATE OF CONSULTATION: 11/19/2018 TYPE OF CONSULTATION: Infectious disease. REASON FOR CONSULTATION: Antibiotic management. HISTORY OF PRESENT ILLNESS: Colby Ramirez is a 53-year-old male who came to the emergency room on 11/16/2018 with right leg infection which he claims was due to a spider bite. The patient presents w ith left ankle pain and swelling. He says he saw an insect bite 1 to 2 days ago. Usually that is me thicillin-resistant Staphylococcus aureus. Since then, he has noted significant swelling, redness, p ain and discomfort to the ankle. He is having trouble walking at this point. PAST MEDICAL HISTORY: History of seizures, hypertension. SOCIAL HISTORY: Drug use and alcoholism. He is a former smoker, former abuser of drugs. ALLERGIES: 1. PENICILLIN. 2. CODEINE, HE GETS HIVES. MEDICATIONS: Per chart. REVIEW OF SYSTEMS: Noncontributory. On admission, his white count was 8.2, H and H of 11 and 33.7, platelet count 166,000. BUN and creat inine 17/0.7. His neutrophil count was 71%. The patient had diffuse soft tissue swelling with no jones bcutaneous air or radiopaque body. Otherwise, unremarkable left ankle series. IMAGING: Chest x-ray showed clear lung stroud. IMPRESSION AND PLAN: The patient had evidence for cellulitis of left ankle, not consistent with necr otizing fasciitis, low concern for septic arthritis. Patient was started on clindamycin. PHYSICAL EXAMINATION: GENERAL: He is a well-developed, well-nourished male in no acute distress. VITAL SIGNS: Stable. He is afebrile. SKIN: Without generalized rash. HEENT: Within normal limits. NECK: Supple. LYMPH NODES: None palpable. CHEST: Decreased breath sounds at the bases. HEART: Without murmur or gallop. ABDOMEN: Soft, nontender, without organosplenomegaly or masses. EXTREMITIES: Without cyanosis, clubbing, or edema. Left lower extremity left ankle was swollen with areas of induration, erythema, warmth and tenderness. HOSPITAL COURSE: The patient was seen by Dr. Decker who noted left lower extremity cellulitis, le ft lower extremity abscess. He had incision and drainage of the left lower extremity abscess. This was done today. Left lower extremity abscess with incision and drainage. NEUROLOGICAL: The patient is currently on clindamycin 900 mg IV piggyback q.8h. to which I concur. We will continue him on this regimen. ANCILLARY LABORATORY DATA: Blood cultures so far negative. Ankle MRI was done which shows severe and diffuse soft tissue edema suggesting cellulitis with superi mposed more focal-appearing fluid collection at the medial malleolus concerning for abscess. This wa s prior to the drainage. No evidence for osteomyelitis. I want to thank the hospitalist and Dr. Decker for asking us to see this fausto gentleman in consu ltation. Dictated By: REGGIE THOMPSON MD, JD/REBECA Conf#: [id number] DID#: [id number] CC: RAMAN WEBER;*End*
[2018-11-19] MEDS: HYDROCODONE/APAP (10/325) TAB PO PRN (17:25)
[2018-11-20] MEDS: morphine 2 MG INJ IV PRN ×5 (01:14→20:48)
[2018-11-20 01:28] VITALS: BP 160/93; PULSE 97; RESP 17
[2018-11-20] MEDS: LORAZEPAM 2 MG INJ IV PRN ×3 (04:46→21:35)
[2018-11-20] MEDS: CLINDAMYCIN 900 MG/D5W (PMX) 50 ML IVPB SCH ×3 (07:00→21:35)
[2018-11-20 08:09] VITALS: BP 167/101; PULSE 93; RESP 20
[2018-11-20] MEDS: DAKINS 0.0125%(1/40) 473 ML SOLUTION TP SCH (09:30)
[2018-11-20 14:20] VITALS: BP 135/65; PULSE 65; RESP 18
--- NOTE | 2018-11-20 15:05 | CONS ---
Assessment/Plan Assessment/Plan Hospital Course (Demo Recall) No events patient is sleeping looks comfortable he is afebrile WBC 6.8 no shift no bands BUN 9 creatinine 0.66 Antimicrobials: Clindamycin Microbiology: Wound cultures pending, blood cultures remain negative Physical examination: Well-developed well-nourished middle-aged white man who is in no distress. Head atraumatic normocephalic neck is supple chest rise symmetrical breath sounds diminished bases heart: S1-S2 abdomen soft bowel sounds present extremities with left foot dressing intact Assessment: 1. Left foot cellulitis with abscess, status post I&D Plan: Remains stable continue antibiotics, await for wound cultures, follow podiatry recommendations Consultation Date/Type/Reason Admit Date/Time Nov 16, 2018 at 21:20 Initial Consult Date Type of Consult id Date/Time of Note DATE: 11/20/18 TIME: 15:05 Exam/Review of Systems Exam Vitals Vital Signs Date Temp Pulse Resp B/P (MAP) Pulse Ox O2 O2 Flow FiO2 Time Delivery Rate 11/20/18 98.6 93 20 167/101 97 08:09 (123) 11/19/18 Room Air 13:56 Intake and Output 11/19/18 11/19/18 11/20/18 1515:00 23:00 07:00 IntakeIntake Total 250 ml 1970 ml 1280 ml OutputOutput Total 602 ml 1700 ml 1250 ml BalanceBalance -352 ml 270 ml 30 ml Results Result Diagram: 11/20/18 0515 11/20/18 0516 Results 24hrs Laboratory Tests Test 11/20/18 05:15 11/20/18 05:16 White Blood Count 6.8 Red Blood Count 3.64 L Hemoglobin 11.4 L Hematocrit 32.9 L Mean Corpuscular Volume 90.4 Mean Corpuscular Hemoglobin 31.3 Mean Corpuscular Hemoglobin Concent 34.7 Red Cell Distribution Width 11.8 Platelet Count 213 Mean Platelet Volume 9.2 Immature Granulocytes % 0.300 Neutrophils % 65.3 Lymphocytes % 20.5 Monocytes % 11.8 H Eosinophils % 1.8 Basophils % 0.3 Nucleated Red Blood Cells % 0.0 Immature Granulocytes # 0.020 Neutrophils # 4.4 Lymphocytes # 1.4 Monocytes # 0.8 Eosinophils # 0.1 Basophils # 0.0 Nucleated Red Blood Cells # 0.0 Sodium Level 139 Potassium Level 3.7 Chloride Level 103 Carbon Dioxide Level 29 Anion Gap 7 Blood Urea Nitrogen 9 Creatinine 0.66 Est Glomerular Filtrat Rate mL/min > 60 Glucose Level 108 Calcium Level 8.8 Free Thyroxine 1.04 Total Triiodothyronine 1.20 Hepatitis B Surface Antigen NEGATIVE Hepatitis B Core Total Antibody REACTIVE H Hepatitis C Antibody REACTIVE H Medications Medication Current Medications IV Flush (NS 3 ml) 3 ml PER PROTOCOL IV ; Start 11/16/18 at 19:00 Ondansetron HCl (Zofran Inj) 4 mg Q6H PRN IV NAUSEA/VOMITING; Start 11/16/18 at 19:00 Acetaminophen (Tylenol Tab) 650 mg Q6H PRN PO .PAIN 1-3 OR TEMP; Start 11/16/18 at 19:00 Morphine Sulfate (morphine) 2 mg Q4H PRN IV .SEVERE PAIN 7-10 Last administered on 11/20/18at 12:04; Admin Dose 2 MG; Start 11/16/18 at 19:00 Docusate Sodium (Colace) 100 mg Q12H PRN PO .CONSTIPATION; Start 11/16/18 at 19:00 Magnesium Hydroxide (Milk Of Mag) 30 ml DAILY PRN PO .CONSTIPATION; Start 11/16/18 at 19:00 Lorazepam (Ativan) 0.5 mg Q6H PRN IV ANXIETY Last administered on 11/20/18at 13:12; Admin Dose 0.5 MG; Start 11/16/18 at 19:00 Albuterol/ Ipratropium (Duoneb) 3 ml Q4H RESP THERAPY PRN HHN SHORTNESS OF BREATH; Start 11/16/18 at 19:00 Hydralazine HCl (Apresoline) 10 mg Q6H PRN IV ELEVATED BLOOD PRESSURE Last administered on 11/18/18 08:14; Admin Dose 10 MG; Start 11/16/18 at 19:00 Nitroglycerin (Nitroglycerin (Sl Tab) 0.4 Mg) 1 tab Q5M PRN SL ANGINA; Start 11/16/18 at 19:00 Clindamycin HCl/ Dextrose 50 ml @ 50 mls/hr Q8 IVPB Last administered on 11/20/18at 12:55; Admin Dose 50 MLS/HR; Start 11/16/18 at 22:00 Acetaminophen/ Hydrocodone Bitart ([place] (10/325)) 1 tab Q4H PRN PO MODERATE PAIN LEVEL 4-6 Last administered on 11/19/18at 17:25; Admin Dose 1 TAB; Start 11/19/18 at 10:30 Sodium Hypochlorite ([place] Diluted ()) 1 applic DAILY TP Last administered on 11/20/18at 09:30; Admin Dose 1 APPLIC; Start 11/20/18 at 09:00 AVNI AGUILAR NP Nov 20, 2018 15:05
--- NOTE | 2018-11-20 16:27 | PN ---
Date/Time of Note Date/Time of Note DATE: 11/20/18 TIME: 16:24 Assessment/Plan VTE Prophylaxis Risk score (from Nsg)>0 risk: 2 SCD applied (from Nsg): No SCD contraindicated: low risk/ambulating Pharmacological prophylaxis: LMWH Lines/Catheters IV Catheter Type (from Nrsg): Peripheral IV Assessment/Plan Hospital Course Assessment and plan 1. Lt lwr ext abscess, stable. May need home health/ wound care on discharge; maybe Monday. sp I&D 2. Chronic alcoholism, quit 2 years ago 3. Past tobacco 4. Past substance abuse? 5. Chronic hypertension 6. Anemia stable 7. Chronic anxiety depression 8. Seizure disorder? Last seizure 2 3 months ago 9. Hepatitis? Confirmatory testing pending 10. Subclinical hyperthyroidism, observe S: 11/19 moderate pain no fever no diarrhea /6 about the same moderate pain; probably home tomorrow O: vss PE No pallor Regular clear Benign No edema, ankle c/d/i; pulses intact Result Diagram: 11/20/18 0515 11/20/18 0516 Results 24hrs Laboratory Tests Test 11/20/18 05:15 11/20/18 05:16 White Blood Count 6.8 Red Blood Count 3.64 L Hemoglobin 11.4 L Hematocrit 32.9 L Mean Corpuscular Volume 90.4 Mean Corpuscular Hemoglobin 31.3 Mean Corpuscular Hemoglobin Concent 34.7 Red Cell Distribution Width 11.8 Platelet Count 213 Mean Platelet Volume 9.2 Immature Granulocytes % 0.300 Neutrophils % 65.3 Lymphocytes % 20.5 Monocytes % 11.8 H Eosinophils % 1.8 Basophils % 0.3 Nucleated Red Blood Cells % 0.0 Immature Granulocytes # 0.020 Neutrophils # 4.4 Lymphocytes # 1.4 Monocytes # 0.8 Eosinophils # 0.1 Basophils # 0.0 Nucleated Red Blood Cells # 0.0 Sodium Level 139 Potassium Level 3.7 Chloride Level 103 Carbon Dioxide Level 29 Anion Gap 7 Blood Urea Nitrogen 9 Creatinine 0.66 Est Glomerular Filtrat Rate mL/min > 60 Glucose Level 108 Calcium Level 8.8 Free Thyroxine 1.04 Total Triiodothyronine 1.20 Hepatitis B Surface Antigen NEGATIVE Hepatitis B Core Total Antibody REACTIVE H Hepatitis C Antibody REACTIVE H Exam/Review of Systems Exam Vitals Vital Signs Date Temp Pulse Resp B/P (MAP) Pulse Ox O2 O2 Flow FiO2 Time Delivery Rate 8/6/19 98.3 65 18 135/65 99 14:20 (88) 11/19/18 Room Air 13:56 Intake and Output 11/19/18 11/19/18 11/20/18 1515:00 23:00 07:00 IntakeIntake Total 250 ml 1970 ml 1280 ml OutputOutput Total 602 ml 1700 ml 1250 ml BalanceBalance -352 ml 270 ml 30 ml Results Results 24hrs Laboratory Tests Test 11/20/18 05:15 11/20/18 05:16 White Blood Count 6.8 Red Blood Count 3.64 L Hemoglobin 11.4 L Hematocrit 32.9 L Mean Corpuscular Volume 90.4 Mean Corpuscular Hemoglobin 31.3 Mean Corpuscular Hemoglobin Concent 34.7 Red Cell Distribution Width 11.8 Platelet Count 213 Mean Platelet Volume 9.2 Immature Granulocytes % 0.300 Neutrophils % 65.3 Lymphocytes % 20.5 Monocytes % 11.8 H Eosinophils % 1.8 Basophils % 0.3 Nucleated Red Blood Cells % 0.0 Immature Granulocytes # 0.020 Neutrophils # 4.4 Lymphocytes # 1.4 Monocytes # 0.8 Eosinophils # 0.1 Basophils # 0.0 Nucleated Red Blood Cells # 0.0 Sodium Level 139 Potassium Level 3.7 Chloride Level 103 Carbon Dioxide Level 29 Anion Gap 7 Blood Urea Nitrogen 9 Creatinine 0.66 Est Glomerular Filtrat Rate mL/min > 60 Glucose Level 108 Calcium Level 8.8 Free Thyroxine 1.04 Total Triiodothyronine 1.20 Hepatitis B Surface Antigen NEGATIVE Hepatitis B Core Total Antibody REACTIVE H Hepatitis C Antibody REACTIVE H Medications Medication Current Medications IV Flush (NS 3 ml) 3 ml PER PROTOCOL IV ; Start 11/16/18 at 19:00 Ondansetron HCl (Zofran Inj) 4 mg Q6H PRN IV NAUSEA/VOMITING; Start 11/16/18 at 19:00 Acetaminophen (Tylenol Tab) 650 mg Q6H PRN PO .PAIN 1-3 OR TEMP; Start 11/16/18 at 19:00 Morphine Sulfate (morphine) 2 mg Q4H PRN IV .SEVERE PAIN 7-10 Last administered on 11/20/18at 16:09; Admin Dose 2 MG; Start 11/16/18 at 19:00 Docusate Sodium (Colace) 100 mg Q12H PRN PO .CONSTIPATION; Start 11/16/18 at 19:00 Magnesium Hydroxide (Milk Of Mag) 30 ml DAILY PRN PO .CONSTIPATION; Start 11/16/18 at 19:00 Lorazepam (Ativan) 0.5 mg Q6H PRN IV ANXIETY Last administered on 11/20/18 13:12; Admin Dose 0.5 MG; Start 11/16/18 at 19:00 Albuterol/ Ipratropium (Duoneb) 3 ml Q4H RESP THERAPY PRN HHN SHORTNESS OF BREATH; Start 11/16/18 at 19:00 Hydralazine HCl (Apresoline) 10 mg Q6H PRN IV ELEVATED BLOOD PRESSURE Last administered on 11/18/18 08:14; Admin Dose 10 MG; Start 11/16/18 at 19:00 Nitroglycerin (Nitroglycerin (Sl Tab) 0.4 Mg) 1 tab Q5M PRN SL ANGINA; Start 11/16/18 at 19:00 Clindamycin HCl/ Dextrose 50 ml @ 50 mls/hr Q8 IVPB Last administered on 11/20/18at 12:55; Admin Dose 50 MLS/HR; Start 11/16/18 at 22:00 Acetaminophen/ Hydrocodone Bitart ([place] (10/325)) 1 tab Q4H PRN PO MODERATE PAIN LEVEL 4-6 Last administered on 11/19/18 17:25; Admin Dose 1 TAB; Start 11/19/18 at 10:30 Sodium Hypochlorite (Dakins Diluted (/40)) 1 applic DAILY TP Last administered on 11/20/18 09:30; Admin Dose 1 APPLIC; Start 11/20/18 at 09:00 GRICELDA CANTU MD Nov 20, 2018 16:26
[2018-11-20] MEDS: AMLODIPINE 10 MG TAB PO SCH (16:44)
[2018-11-20] MEDS: FOLIC ACID 1 MG TAB PO SCH (16:44)
--- NOTE | 2018-11-20 17:01 | CONS ---
Assessment/Plan Assessment/Plan Assessment/Plan (Daily) Left lower extremity cellulitis Left lower extremity abscess - s/p I&D Pain in limb Alcohol dependence HTN Plan Intra-op wound cultures pending, currently showing gram pos cocci in pairs. Continue pain control. Appreciate abx recommendations from ID. Continue with daily dressing changes with compression. Patient may weight bear in CAM boot. Patient would benefit from home health care and daily dressing changes. Recommend outpatient follow up in wound care clinic at [facility] Consultation Date/Type/Reason Admit Date/Time Nov 16, 2018 at 21:20 Initial Consult Date Date/Time of Note DATE: 11/20/18 TIME: 17:01 24 HR Interval Summary Free Text/Dictation No acute events overnight Exam/Review of Systems Exam Vitals Vital Signs Date Temp Pulse Resp B/P (MAP) Pulse Ox O2 O2 Flow FiO2 Time Delivery Rate 11/20/18 98.3 65 18 135/65 99 14:20 (88) 11/19/18 Room Air 13:56 Intake and Output 11/19/18 11/19/18 11/20/18 1515:00 23:00 07:00 IntakeIntake Total 250 ml 1970 ml 1280 ml OutputOutput Total 602 ml 1700 ml 1250 ml BalanceBalance -352 ml 270 ml 30 ml Exam DP/PT pulses palpable Protective sensations intact Pain on palpation to left medial ankle surgican incision site. No purulence was expressed. Surrounding pitting edema appreciated. There is pain on palpation to the surgical site. Eschar formation to the posterior achilles area with no open ulcerations appreciated. Muscle strength 4/5 to left foot in all compartments. Calf is soft however mild tenderness noted with palpation. Results Result Diagram: 11/20/18 0515 11/20/18 0516 Results 24hrs Laboratory Tests Test 11/20/18 05:15 11/20/18 05:16 White Blood Count 6.8 Red Blood Count 3.64 L Hemoglobin 11.4 L Hematocrit 32.9 L Mean Corpuscular Volume 90.4 Mean Corpuscular Hemoglobin 31.3 Mean Corpuscular Hemoglobin Concent 34.7 Red Cell Distribution Width 11.8 Platelet Count 213 Mean Platelet Volume 9.2 Immature Granulocytes % 0.300 Neutrophils % 65.3 Lymphocytes % 20.5 Monocytes % 11.8 H Eosinophils % 1.8 Basophils % 0.3 Nucleated Red Blood Cells % 0.0 Immature Granulocytes # 0.020 Neutrophils # 4.4 Lymphocytes # 1.4 Monocytes # 0.8 Eosinophils # 0.1 Basophils # 0.0 Nucleated Red Blood Cells # 0.0 Sodium Level 139 Potassium Level 3.7 Chloride Level 103 Carbon Dioxide Level 29 Anion Gap 7 Blood Urea Nitrogen 9 Creatinine 0.66 Est Glomerular Filtrat Rate mL/min > 60 Glucose Level 108 Calcium Level 8.8 Free Thyroxine 1.04 Total Triiodothyronine 1.20 Hepatitis B Surface Antigen NEGATIVE Hepatitis B Core Total Antibody REACTIVE H Hepatitis C Antibody REACTIVE H Medications Medication Current Medications IV Flush (NS 3 ml) 3 ml PER PROTOCOL IV ; Start 11/16/18 at 19:00 Ondansetron HCl (Zofran Inj) 4 mg Q6H PRN IV NAUSEA/VOMITING; Start 11/16/18 at 19:00 Acetaminophen (Tylenol Tab) 650 mg Q6H PRN PO .PAIN 1-3 OR TEMP; Start 11/16/18 at 19:00 Morphine Sulfate (morphine) 2 mg Q4H PRN IV .SEVERE PAIN 7-10 Last administered on 11/20/18at 16:09; Admin Dose 2 MG; Start 11/16/18 at 19:00 Docusate Sodium (Colace) 100 mg Q12H PRN PO .CONSTIPATION; Start 11/16/18 at 19:00 Magnesium Hydroxide (Milk Of Mag) 30 ml DAILY PRN PO .CONSTIPATION; Start 11/16/18 at 19:00 Lorazepam (Ativan) 0.5 mg Q6H PRN IV ANXIETY Last administered on 11/20/18at 13:12; Admin Dose 0.5 MG; Start 11/16/18 at 19:00 Albuterol/ Ipratropium (Duoneb) 3 ml Q4H RESP THERAPY PRN HHN SHORTNESS OF BREATH; Start 11/16/18 at 19:00 Hydralazine HCl (Apresoline) 10 mg Q6H PRN IV ELEVATED BLOOD PRESSURE Last administered on 11/18/18at 08:14; Admin Dose 10 MG; Start 11/16/18 at 19:00 Nitroglycerin (Nitroglycerin (Sl Tab) 0.4 Mg) 1 tab Q5M PRN SL ANGINA; Start 11/16/18 at 19:00 Clindamycin HCl/ Dextrose 50 ml @ 50 mls/hr Q8 IVPB Last administered on 11/20/18at 12:55; Admin Dose 50 MLS/HR; Start 11/16/18 at 22:00 Acetaminophen/ Hydrocodone Bitart ([place] (10)) 1 tab Q4H PRN PO MODERATE P AIN LEVEL 4-6 Last administered on 11/19/18at 17:25; Admin Dose 1 TAB; Start 11/19/18 at 10:30 Sodium Hypochlorite (Dakins Diluted ()) 1 applic DAILY TP Last administered on 11/20/18at 09:30; Admin Dose 1 APPLIC; Start 11/20/18 at 09:00 Lactobacillus Acidophilus/ Rhamnosus (Culturelle) 1 cap BID PO ; Start 11/20/18 at 21:00 Enoxaparin Sodium (Lovenox) 40 mg DAILY SC ; Start 11/21/18 at 09:00 Amlodipine Besylate (Norvasc) 10 mg DAILY PO Last administered on 11/20/18at 16:44; Admin Dose 10 MG; Start 11/20/18 at 16:30 Aspirin (Halfprin) 81 mg DAILY PO ; Start 11/21/18 at 09:00 Atorvastatin Calcium (Lipitor) 80 mg QHS PO ; Start 11/20/18 at 21:00 Carvedilol (Coreg) 6.25 mg BID PO ; Start 11/20/18 at 21:00 Folic Acid (Folic Acid) 1 mg DAILY PO Last administered on 11/20/18at 16:44; Admin Dose 1 MG; Start 11/20/18 at 16:30 Levetiracetam (Keppra) 500 mg BID PO ; Start 11/20/18 at 21:00 Thiamine HCl (Vitamin B1) 100 mg DAILY PO ; Start 11/21/18 at 09:00 NICOLE CONNOR DPM Nov 20, 2018 17:01
[2018-11-20] MEDS: HYDROCODONE/APAP (10/325) TAB PO PRN (19:10)
[2018-11-20 20:03] VITALS: BP 152/86; PULSE 95; RESP 18
[2018-11-20] MEDS: LACTOBACILLUS RHAMNOSUS CAP PO SCH (20:43)
[2018-11-20] MEDS: LEVETIRACETAM 500 MG TAB PO SCH (20:44)
[2018-11-20] MEDS ORDERED: ATORVASTATIN 80 MG TAB PO SCH (21:00)
[2018-11-21] MEDS: HYDROCODONE/APAP (10/325) TAB PO PRN ×3 (00:17→14:30)
[2018-11-21 01:58] VITALS: BP 121/62; PULSE 85; RESP 18
[2018-11-21] MEDS: morphine 2 MG INJ IV PRN ×3 (02:05→12:00)
[2018-11-21] MEDS: CLINDAMYCIN 900 MG/D5W (PMX) 50 ML IVPB SCH (06:01)
[2018-11-21 08:36] VITALS: BP 143/88; PULSE 82; RESP 16
--- NOTE | 2018-11-21 08:38 | PQ ---
Date/Time of Note Date/Time of Note DATE: 11/21/18 TIME: 08:[address] Connor , A review of the medical record found a need for documentation clarification. on 11/19 patient underwent "Left lower extremity incision and drainage" " A stab incision was made a thick purulent drainage came out of the incision site." please specify the depth of incision and drainage done. Thank you Please clarify a diagnosis being treated. To facilitate accurate and complete coding, please bridget ( x ) the suspected diagnosis that apply: ( X ) Skin ( X ) Subcutaneous tissue ( ) Other ( ) unspecified Please provide your response by clicking edit document,make your choice (x ) , click ok/save and finally click sign. You may alsodocument your responseinyour progress notes. Thank you for your time. Dixie CAMPOSBS,CCS,CCDS Clinical Computer Game Programmer Health Information Management, CD[facility] and Coding Services Room # [id number] - Coding [address] [address] DIXIE CASE Nov 21, 2018 08:38 NICOLE CONNOR DPM Nov 21, 2018 09:43
[2018-11-21] MEDS ORDERED: THIAMINE 100 MG TAB PO SCH (09:00)
[2018-11-21] MEDS ORDERED: ASPIRIN (EC) 81 MG TAB PO SCH (09:00)
[2018-11-21] MEDS ORDERED: ENOXAPARIN 40 MG/0.4 ML SYG SC SCH (09:00)
[2018-11-21] MEDS: LACTOBACILLUS RHAMNOSUS CAP PO SCH (09:40)
[2018-11-21] MEDS: FOLIC ACID 1 MG TAB PO SCH (09:41)
[2018-11-21] MEDS: LEVETIRACETAM 500 MG TAB PO SCH (09:41)
[2018-11-21] MEDS: AMLODIPINE 10 MG TAB PO SCH (09:41)
[2018-11-21] MEDS: LORAZEPAM 2 MG INJ IV PRN (09:42)
[2018-11-21] MEDS: DAKINS 0.0125%(1/40) 473 ML SOLUTION TP SCH (09:51)
--- NOTE | 2018-11-21 10:50 | CONS ---
Assessment/Plan Assessment/Plan Assessment/Plan (Daily) Assessment/Plan (Daily) Left lower extremity cellulitis Left lower extremity abscess - s/p I&D (DOS: 11/19/18) Pain in limb Alcohol dependence HTN Plan Patient examined and evaluated under the direct personal supervision of Dr. Gustafson. All findings, assessment and plan discussed in detail amongst providers and patient. Intra-op wound cultures results show alpha hemolytic strep. Patient has been seen by infectious disease and appreciate recommendations now that final wound cultures have returned. Continue pain control. Continue with daily dressing changes with compression. New dressing applied consisting of Betadine 4 x 4's and compressive wrap. Patient may weight bear in CAM boot. Patient would benefit from home health care and daily dressing changes on discharge. Recommend outpatient follow up in wound care clinic at [facility] with our service 1 week s/p discharge from hospital, patient to call and schedule appointment Ok to be discharged from podiatry standpoint once ID discusses antibiotic course. Will continue to follow while in house All questions and concerns were addressed and answered patient satisfaction. Consultation Date/Type/Reason Admit Date/Time Nov 16, 2018 at 21:20 Initial Consult Date Date/Time of Note DATE: 11/21/18 TIME: 10:42 24 HR Interval Summary Free Text/Dictation 2 days status post I&D left ankle (DOS: 11/19/2018) Patient seen at bedside resting comfortably. Continues to have pain to left lower extremity specifically at surgical incision site at this time. No acute events overnight. No other pedal complaints at this time. Exam/Review of Systems Exam Vitals Vital Signs Date Temp Pulse Resp B/P (MAP) Pulse Ox O2 O2 Flow FiO2 Time Delivery Rate 11/21/18 98.4 82 16 143/88 96 Room Air 08:36 (106) Intake and Output 11/20/18 11/20/18 11/21/18 1515:00 23:00 07:00 IntakeIntake Total 1170 ml 1090 ml OutputOutput Total 2250 ml 1500 ml 600 ml BalanceBalance -1080 ml -410 ml -600 ml Exam DP/PT pulses palpable Protective sensations intact Pain on palpation to left medial ankle surgican incision site. No purulence was expressed. Surrounding pitting edema appreciated. There is pain on palpation to the surgical site. Eschar formation to the posterior achilles area with no open ulcerations appreciated. Muscle strength 4/5 to left foot in all compartments. Calf is soft however mild tenderness noted with palpation. Results Result Diagram: 11/21/18 0636 11/21/18 0636 Results 24hrs Laboratory Tests Test 11/21/18 06:36 White Blood Count 5.7 Red Blood Count 3.82 L Hemoglobin 11.7 L Hematocrit 35.5 L Mean Corpuscular Volume 92.9 Mean Corpuscular Hemoglobin 30.6 Mean Corpuscular Hemoglobin Concent 33.0 Red Cell Distribution Width 12.0 Platelet Count 232 Mean Platelet Volume 9.4 Immature Granulocytes % 0.200 Neutrophils % 53.2 Lymphocytes % 31.6 Monocytes % 10.6 Eosinophils % 3.9 Basophils % 0.5 Nucleated Red Blood Cells % 0.0 Immature Granulocytes # 0.010 Neutrophils # 3.0 Lymphocytes # 1.8 Monocytes # 0.6 Eosinophils # 0.2 Basophils # 0.0 Nucleated Red Blood Cells # 0.0 Sodium Level 138 Potassium Level 3.6 Chloride Level 102 Carbon Dioxide Level 29 Anion Gap 7 Blood Urea Nitrogen 13 Creatinine 0.64 Est Glomerular Filtrat Rate mL/min > 60 Glucose Level 101 Calcium Level 9.0 Medications Medication Current Medications IV Flush (NS 3 ml) 3 ml PER PROTOCOL IV ; Start 11/16/18 at 19:00 Ondansetron HCl (Zofran Inj) 4 mg Q6H PRN IV NAUSEA/VOMITING; Start 11/16/18 at 19:00 Acetaminophen (Tylenol Tab) 650 mg Q6H PRN PO .PAIN 1-3 OR TEMP; Start 11/16/18 at 19:00 Morphine Sulfate (morphine) 2 mg Q4H PRN IV .SEVERE PAIN 7-10 Last administered on 11/21/18at 06:11; Admin Dose 2 MG; Start 11/16/18 at 19:00 Docusate Sodium (Colace) 100 mg Q12H PRN PO .CONSTIPATION; Start 11/16/18 at 19:00 Magnesium Hydroxide (Milk Of Mag) 30 ml DAILY PRN PO .CONSTIPATION; Start 11/16/18 at 19:00 Lorazepam (Ativan) 0.5 mg Q6H PRN IV ANXIETY Last administered on 11/21/18at 09:42; Admin Dose 0.5 MG; Start 11/16/18 at 19:00 Albuterol/ Ipratropium (Duoneb) 3 ml Q4H RESP THERAPY PRN HHN SHORTNESS OF BREATH; Start 11/16/18 at 19:00 Hydralazine HCl (Apresoline) 10 mg Q6H PRN IV ELEVATED BLOOD PRESSURE Last administered on 11/18/18 08:14; Admin Dose 10 MG; Start 11/16/18 at 19:00 Nitroglycerin (Nitroglycerin (Sl Tab) 0.4 Mg) 1 tab Q5M PRN SL ANGINA; Start 11/16/18 at 19:00 Clindamycin HCl/ Dextrose 50 ml @ 50 mls/hr Q8 IVPB Last administered on 06:01; Admin Dose 50 MLS/HR; Start 11/16/18 at 22:00 Acetaminophen/ Hydrocodone Bitart ([place] (10)) 1 tab Q4H PRN PO MODERATE PAIN LEVEL 4-6 Last administered on 11/21/18 09:42; Admin Dose 1 TAB; Start 11/19/18 at 10:30 Sodium Hypochlorite (Dakins Diluted ()) 1 applic DAILY TP Last administered on 11/21/18 09:51; Admin Dose 1 APPLIC; Start 11/20/18 at 09:00 Lactobacillus Acidophilus/ Rhamnosus (Culturelle) 1 cap BID PO Last administered on 11/21/18 09:40; Admin Dose 1 CAP; Start 11/20/18 at 21:00 Enoxaparin Sodium (Lovenox) 40 mg DAILY SC Last administered on 11/21/18 10:04; Admin Dose 40 MG; Start 11/21/18 at 09:00 Amlodipine Besylate (Norvasc) 10 mg DAILY PO Last administered on 11/21/18 09:41; Admin Dose 10 MG; Start 11/20/18 at 16:30 Aspirin (Halfprin) 81 mg DAILY PO Last administered on 11/21/18 09:41; Admin Dose 81 MG; Start 11/21/18 at 09:00 Atorvastatin Calcium (Lipitor) 80 mg QHS PO ; Start 11/20/18 at 21:00 Carvedilol (Coreg) 6.25 mg BID PO Last administered on 11/21/18 09:41; Admin Dose 6.25 MG; Start 11/20/18 at 21:00 Folic Acid (Folic Acid) 1 mg DAILY PO Last administered on 11/21/18 09:41; Admin Dose 1 MG; Start 11/20/18 at 16:30 Levetiracetam (Keppra) 500 mg BID PO Last administered on 11/21/18 09:41; Admin Dose 500 MG; Start 11/20/18 at 21:00 Thiamine HCl (Vitamin B1) 100 mg DAILY PO Last administered on 11/21/18 09:41; Admin Dose 100 MG; Start 11/21/18 at 09:00 ROGER OTOOLE DPM Nov 21, 2018 10:50
--- NOTE | 2018-11-21 11:08 | CONS ---
Assessment/Plan Assessment/Plan Hospital Course (Demo Recall) No events, afebrile, wound cx + Strep Antimicrobials: Clindamycin Microbiology: Wound cultures pending, blood cultures remain negative Physical examination: Well-developed well-nourished middle-aged white man who is in no distress. Head atraumatic normocephalic neck is supple chest rise symmetrical breath sounds diminished bases heart: S1-S2 abdomen soft bowel sounds present extremities with left foot dressing intact Assessment: 1. Left foot cellulitis with abscess, status post I&D Plan: Stable, podiatry rec-s noted anticipate dc on oral abx, likely Clindamyci n, pending final sensitivities Consultation Date/Type/Reason Admit Date/Time Nov 16, 2018 at 21:20 Initial Consult Date Type of Consult id Date/Time of Note DATE: 11/21/18 TIME: 11:06 Exam/Review of Systems Exam Vitals Vital Signs Date Temp Pulse Resp B/P (MAP) Pulse Ox O2 O2 Flow FiO2 Time Delivery Rate 11/21/18 98.4 82 16 143/88 96 Room Air 08:36 (106) Intake and Output 11/20/18 11/20/18 11/21/18 1515:00 23:00 07:00 IntakeIntake Total 1170 ml 1090 ml OutputOutput Total 2250 ml 1500 ml 600 ml BalanceBalance -1080 ml -410 ml -600 ml Results Result Diagram: 11/21/18 0636 11/21/18 0636 Results 24hrs Laboratory Tests Test 11/21/18 06:36 White Blood Count 5.7 Red Blood Count 3.82 L Hemoglobin 11.7 L Hematocrit 35.5 L Mean Corpuscular Volume 92.9 Mean Corpuscular Hemoglobin 30.6 Mean Corpuscular Hemoglobin Concent 33.0 Red Cell Distribution Width 12.0 Platelet Count 232 Mean Platelet Volume 9.4 Immature Granulocytes % 0.200 Neutrophils % 53.2 Lymphocytes % 31.6 Monocytes % 10.6 Eosinophils % 3.9 Basophils % 0.5 Nucleated Red Blood Cells % 0.0 Immature Granulocytes # 0.010 Neutrophils # 3.0 Lymphocytes # 1.8 Monocytes # 0.6 Eosinophils # 0.2 Basophils # 0.0 Nucleated Red Blood Cells # 0.0 Sodium Level 138 Potassium Level 3.6 Chloride Level 102 Carbon Dioxide Level 29 Anion Gap 7 Blood Urea Nitrogen 13 Creatinine 0.64 Est Glomerular Filtrat Rate mL/min > 60 Glucose Level 101 Calcium Level 9.0 Medications Medication Current Medications IV Flush (NS 3 ml) 3 ml PER PROTOCOL IV ; Start 11/16/18 at 19:00 Ondansetron HCl (Zofran Inj) 4 mg Q6H PRN IV NAUSEA/VOMITING; Start 11/16/18 at 19:00 Acetaminophen (Tylenol Tab) 650 mg Q6H PRN PO .PAIN 1-3 OR TEMP; Start 11/16/18 at 19:00 Morphine Sulfate (morphine) 2 mg Q4H PRN IV .SEVERE PAIN 7-10 Last administered on 11/21/18 06:11; Admin Dose 2 MG; Start 11/16/18 at 19:00 Docusate Sodium (Colace) 100 mg Q12H PRN PO .CONSTIPATION; Start 11/16/18 at 19:00 Magnesium Hydroxide (Milk Of Mag) 30 ml DAILY PRN PO .CONSTIPATION; Start 11/16/18 at 19:00 Lorazepam (Ativan) 0.5 mg Q6H PRN IV ANXIETY Last administered on 11/21/18at 09:42; Admin Dose 0.5 MG; Start 11/16/18 at 19:00 Albuterol/ Ipratropium (Duoneb) 3 ml Q4H RESP THERAPY PRN HHN SHORTNESS OF BREATH; Start 11/16/18 at 19:00 Hydralazine HCl (Apresoline) 10 mg Q6H PRN IV ELEVATED BLOOD PRESSURE Last administered on 11/18/18 08:14; Admin Dose 10 MG; Start 11/16/18 at 19:00 Nitroglycerin (Nitroglycerin (Sl Tab) 0.4 Mg) 1 tab Q5M PRN SL ANGINA; Start 11/16/18 at 19:00 Clindamycin HCl/ Dextrose 50 ml @ 50 mls/hr Q8 IVPB Last administered on 06:01; Admin Dose 50 MLS/HR; Start 11/16/18 at 22:00 Acetaminophen/ Hydrocodone Bitart ([place] (10)) 1 tab Q4H PRN PO MODERATE PAIN LEVEL 4-6 Last administered on 11/21/18 09:42; Admin Dose 1 TAB; Start 11/19/18 at 10:30 Sodium Hypochlorite (Dakins Diluted ()) 1 applic DAILY TP Last administered on 11/21/18 09:51; Admin Dose 1 APPLIC; Start 11/20/18 at 09:00 Lactobacillus Acidophilus/ Rhamnosus (Culturelle) 1 cap BID PO Last administered on 11/21/18 09:40; Admin Dose 1 CAP; Start 11/20/18 at 21:00 Enoxaparin Sodium (Lovenox) 40 mg DAILY SC Last administered on 11/21/18 10:04; Admin Dose 40 MG; Start 11/21/18 at 09:00 Amlodipine Besylate (Norvasc) 10 mg DAILY PO Last administered on 11/21/18 09:41; Admin Dose 10 MG; Start 11/20/18 at 16:30 Aspirin (Halfprin) 81 mg DAILY PO Last administered on 11/21/18 09:41; Admin Dose 81 MG; Start 11/21/18 at 09:00 Atorvastatin Calcium (Lipitor) 80 mg QHS PO ; Start 11/20/18 at 21:00 Carvedilol (Coreg) 6.25 mg BID PO Last administered on 11/21/18 09:41; Admin Dose 6.25 MG; Start 11/20/18 at 21:00 Folic Acid (Folic Acid) 1 mg DAILY PO Last administered on 11/21/18 09:41; Admin Dose 1 MG; Start 11/20/18 at 16:30 Levetiracetam (Keppra) 500 mg BID PO Last administered on 11/21/18 09:41; Admin Dose 500 MG; Start 11/20/18 at 21:00 Thiamine HCl (Vitamin B1) 100 mg DAILY PO Last administered on 11/21/18 09:41; Admin Dose 100 MG; Start 11/21/18 at 09:00 AVNI AGUILAR NP Nov 21, 2018 11:08
--- NOTE | 2018-11-21 11:14 | PDOCDIS ---
Discharge Instructions CONDITION [id number] Patient Condition: [id number] Stable HOME CARE INSTRUCTIONS: [id number] Diet Instructions: [id number] Regular ACTIVITY: [id number] Activity Restrictions: [id number] Slowly Increase Activity FOLLOW UP/APPOINTMENTS Follow-up Plan appt Dr Decker 1wk Primary 1-2wks GRICELDA CANTU MD Nov 21, 2018 11:14
--- NOTE | 2018-11-21 11:14 | DS ---
Date/Time of Note Date/Time of Note DATE: 11/21/18 TIME: 11:11 Discharge Summary Admission/Discharge Info Admit Date/Time Nov 16, 2018 at 21:20 Discharge Date/Time Patient Condition: Good Consults Dr Brianne Cheng Procedures Chest x-ray No acute process Venous ultrasound: No acute process Arterial ultrasound Minimal disease X-ray ankle No fracture MRI ankle IMPRESSION: Severe and diffuse soft tissue edema suggesting cellulitis, with superimposed more focal appearing fluid collection at the medial malleolus concerning for abscess. No evidence of osteomyelitis. Hx of Present Illness 83-year-old gentleman admitted with abscess near his ankle Hospital Course Hospital course Evaluated for left lower extremity abscess status post I&D. Presently stable for for discharge to follow-up with [facility] wound care clinic. Appears to have alpha strep bacteria growth. Home on clindamycin. Wbat with Cam boot walker A/P 1. Lt lwr ext abscess, stable. dc home w home health/ wound care 2. Chronic alcoholism, quit 2 years ago 3. Past tobacco 4. Past substance abuse? 5. Chronic hypertension 6. Anemia stable 7. Chronic anxiety depression 8. Seizure disorder? Last seizure 2- 3 months ago 9. Hepatitis? Confirmatory testing pending 10. Subclinical hyperthyroidism, observe S: 11/19 moderate pain no fever no diarrhea /6 about the same moderate pain; probably home tomorrow 11/21: no events Home Meds Reported Medications Carvedilol* (Carvedilol*) 6.25 Mg Tablet, 6.25 MG PO BID, #60 TAB 11/16/18 Lisinopril* (Lisinopril*) 20 Mg Tablet, 40 MG PO DAILY, #30 TAB 11/16/18 Amlodipine Besylate* (Amlodipine Besylate*) 10 Mg Tablet, 10 MG PO DAILY, #30 TAB 11/16/18 Nitroglycerin* (Nitroglycerin* SL) 0.4 Mg Tab.subl, 0.4 MG SL Q5MIN PRN for CHEST PAIN, BOTTLE 11/16/18 Thiamine* (Vitamin B-1*) 100 Mg Tablet, 100 MG PO DAILY, TAB 11/16/18 Atorvastatin* (Atorvastatin*) 80 Mg Tablet, 80 MG PO QHS, #30 TAB 11/16/18 Levetiracetam* (Levetiracetam*) 500 Mg Tablet, 500 MG PO BID, TAB 11/16/18 Aspirin* (Aspirin* EC) 81 Mg Tablet.dr, 81 MG PO DAILY, TAB 11/16/18 Folic Acid* (Folic Acid*) 1 Mg Tablet, 1 MG PO DAILY, TAB 11/16/18 Enalapril Maleate* (Enalapril Maleate*) 10 Mg Tablet, 10 MG PO BID, TAB 11/16/18 Discontinued Reported Medications Levetiracetam* (Levetiracetam*) 500 Mg Tablet, 500 MG PO BID, TAB 12/13/17 Lisinopril* (Lisinopril*) 10 Mg Tablet, 10 MG PO DAILY, #30 TAB 08/21/17 Metoprolol Tartrate* (Lopressor*) 25 Mg Tab, 25 MG PO BID, #60 TAB 08/21/17 Discontinued Scripts Hydrochlorothiazide* (Hydrochlorothiazide*) 25 Mg Tab, 25 MG PO DAILY, #30 TAB Prov:HORTENSIA JUDGE MD 09/13/18 Ibuprofen* (Motrin*) 600 Mg Tab, 600 MG PO Q6H PRN for PAIN AND OR ELEVATED TEMP, #30 TAB Prov:HORTENSIA JUDGE MD 09/13/18 Metoprolol Succinate* (Toprol XL*) 25 Mg Tab.sr.24h, 25 MG PO DAILY, #30 TAB Prov:PASILAORA WHATLEYAR F 01/20/18 Lisinopril* (Lisinopril*) 10 Mg Tablet, 10 MG PO DAILY, #30 TAB Prov:PASILAORA WHATLEYAR F 01/20/18 Levetiracetam* (Keppra*) 500 Mg Tablet, 500 MG PO BID, #60 TAB Prov:PASILAPHYLICIA,ORAAR F 01/20/18 Levetiracetam* (Keppra*) 750 Mg Tablet, 750 MG PO BID, #60 TAB Prov:SANTI DOTSON DO 01/01/18 Amlodipine Besylate* (Amlodipine Besylate*) 10 Mg Tablet, 10 MG PO BID, #30 TAB Prov:CLYDE TARIQ 10/30/17 Primary Care Provider [facility] Time spent on discharge: > 30 minutes Pending Labs Laboratory Tests Test 11/21/18 06:36 White Blood Count 5.7 10^3/ul (4.8-10.8) Red Blood Count 3.82 10^6/ul (4.70-6.10) Hemoglobin 11.7 g/dl (14.0-18.0) Hematocrit 35.5 % (42.0-52.0) Mean Corpuscular Volume 92.9 fl (82.0-101.0) Mean Corpuscular Hemoglobin 30.6 pg (29.0-33.0) Mean Corpuscular Hemoglobin Concent 33.0 g/dl (32.0-37.0) Red Cell Distribution Width 12.0 % (11.5-14.5) Platelet Count 232 10^3/UL (140-415) Mean Platelet Volume 9.4 fl (7.4-10.4) Immature Granulocytes % 0.200 % (0.001-0.429) Neutrophils % 53.2 % (39.0-77.0) Lymphocytes % 31.6 % (15.0-51.0) Monocytes % 10.6 % (0.0-11.0) Eosinophils % 3.9 % (0.0-7.0) Basophils % 0.5 % (0.0-2.0) Nucleated Red Blood Cells % 0.0 /100WBC (0.0-0.0) Immature Granulocytes # 0.010 10^3/ul (0.0-0.031) Neutrophils # 3.0 10^3/ul (1.6-7.5) Lymphocytes # 1.8 10^3/ul (0.8-2.9) Monocytes # 0.6 10^3/ul (0.3-0.9) Eosinophils # 0.2 10^3/ul (0.0-0.5) Basophils # 0.0 10^3/ul (0.0-0.1) Nucleated Red Blood Cells # 0.0 10^3/ul (0.0-0.0) Sodium Level 138 mmol/L (135-144) Potassium Level 3.6 mmol/L (3.5-5.1) Chloride Level 102 mmol/L (97-110) Carbon Dioxide Level 29 mmol/L (21-31) Anion Gap 7 (5-13) Blood Urea Nitrogen 13 mg/dl (7-20) Creatinine 0.64 mg/dl (0.61-1.24) Est Glomerular Filtrat Rate mL/min > 60 mL/min (>60) Glucose Level 101 mg/dl (70-220) Calcium Level 9.0 mg/dl (8.4-10.2) GRICELDA CANTU MD Nov 21, 2018 11:14
[2018-11-21] MEDS ORDERED: CLINDAMYCIN 150 MG CAP PO SCH (14:00)
[2018-11-21 14:16] VITALS: BP 139/91; PULSE 94; RESP 17
== END 2018-11-21 18:00 | disposition home health service (06) | DRG 581 ==
LOC: E/R 14:18 → CANRESERV 20:30 → 2NE 21:20
PROVIDERS: ADMIT Hospitalist; ATTEND Internal Medicine
PROC: 0J9P0ZZ Drainage of Left Lower Leg Subcutaneous Tissue and Fascia, Open Approach (ICD-10-PCS; principal; 2018-11-19 11:30)
DX: L02.416 Cutaneous abscess of left lower limb (principal); L03.116 Cellulitis of left lower limb; I10 Essential (primary) hypertension; D64.9 Anemia, unspecified; F41.9 Anxiety disorder, unspecified; F32.9 Major depressive disorder, single episode, unspecified; G40.909 Epilepsy, unspecified, not intractable, without status epilepticus; K75.9 Inflammatory liver disease, unspecified; E05.90 Thyrotoxicosis, unspecified without thyrotoxic crisis or storm; G89.29 Other chronic pain; M54.5 Low back pain; F10.21 Alcohol dependence, in remission; T63.301A Toxic effect of unspecified spider venom, accidental (unintentional), initial encounter; Z87.891 Personal history of nicotine dependence
CPT/HCPCS: 71045; 73610; 73721; 80048; 80061; 80307; 83036; 83605; 83735; 84100; 84439; 84443; 84480; 85025; 85610; 85651; 85730; 86140; 86704; 86709; 86803; 87070; 87075; 87102; 87116; 87340; 92610; 93922; 93970; 96374; 96375; 97110; 97116; 97162; 97530; J0360; J1170; J1650; J1885; J2060; J2250; J2270; J3010; J3370; J7040

== ENCOUNTER 2018-11-23 00:46 | Inpatient (IN) | payer OTHER ==
[~2018-11-23] VITALS: Ht 180.3 cm; Wt 78.3 kg
[~2018-11-23 00:46] MED LIST changes: -HYDR25TA6 PO; -IBUP-1542 PO; -LEVE-5 PO; -LEVE750T70 PO; -LISI10TA2 PO; -METO-335 PO; -METO-448 PO; -NITR0.4T32 SL
[2018-11-23] MEDS ORDERED: SODIUM CHLORIDE 0.9% 1L BAG IV* STA (03:18)
[2018-11-23] MEDS ORDERED: CEFEPIME 2GM/50 ML (PMX) 50 ML IVPB STA (03:18)
[2018-11-23] MEDS ORDERED: morphine 4 MG/ML VIAL IV STA (03:18)
[2018-11-23] MEDS ORDERED: VANCOMYCIN 1 GM (PMX) 250 ML IVPB ONE (03:30)
[2018-11-23] MEDS ORDERED: ONDANSETRON 4 MG INJ IV PRN ×2 (06:00)
[2018-11-23] MEDS ORDERED: NACL 0.9% 3 ML SYG IV SCH (06:00)
[2018-11-23] MEDS ORDERED: morphine 2 MG INJ IV PRN (06:00)
[2018-11-23] MEDS ORDERED: HYDROCODONE/APAP (5/325) TAB PO PRN (06:00)
[2018-11-23] MEDS ORDERED: ACETAMINOPHEN 325 MG TAB PO PRN ×2 (06:00)
[2018-11-23] MEDS ORDERED: BISACODYL (EC) 5 MG TAB PO PRN (06:00)
[2018-11-23] MEDS ORDERED: DOCUSATE SODIUM 100 MG CAP PO PRN (06:00)
--- NOTE | 2018-11-23 06:17 | ERD ---
ER Documentation Chief Complaint Chief Complaint SWELLING/PAIN LEFT LEG X 1 WEEK. HPI 53-year-old male presenting with left leg pain and swelling. He was here admitted and discharged on November 21 after he was diagnosed with cellulitis and abscess. He had drainage of his abscess charged on oral antibiotics which he has been taking. However since yesterday, his leg has been becoming more swollen and painful and erythema is spreading up the leg. Denies any fevers or chills. The pain is 9 out of 10, nonradiating, throbbing and burning, with no alleviating factors. Exacerbated by touch. ROS All systems reviewed and are negative except as per history of present illness. Medications Home Meds Active Scripts Lactobacillus Rhamnosus GG (Culturelle) 1 Each Capsule, 1 CAP PO BID for 20 Days, #40 CAP Prov:GRICELDA CANTU MD 11/21/18 Hydrocodone/Acetaminophen (Hydrocodone-Acetamin 10-325 mg) 1 Each Tablet, 1 TAB PO Q4H PRN for MODERATE PAIN LEVEL 4-6 for 5 Days, TAB Prov:GRICELDA CANTU MD 11/21/18 Acetaminophen* (Tylenol*) 325 Mg Tablet, 650 MG PO Q6H PRN for .PAIN 1-3 OR TEMP for 5 Days, TAB Prov:GRICELDA CANTU MD 11/21/18 Clindamycin Hcl* (Cleocin*) 150 Mg Cap, 450 MG PO Q8 for 8 Days, #16 CAP Prov:GRICELDA CANTU MD 11/21/18 Reported Medications Enalapril Maleate* (Enalapril Maleate*) 10 Mg Tablet, 10 MG PO BID for 30 Days, #60 11/23/18 Carvedilol* (Carvedilol*) 6.25 Mg Tablet, 6.25 MG PO BID, #60 TAB 11/16/18 Lisinopril* (Lisinopril*) 20 Mg Tablet, 40 MG PO DAILY, #30 TAB 11/16/18 Amlodipine Besylate* (Amlodipine Besylate*) 10 Mg Tablet, 10 MG PO DAILY, #30 TAB 11/16/18 Thiamine* (Vitamin B-1*) 100 Mg Tablet, 100 MG PO DAILY, TAB 11/16/18 Atorvastatin* (Atorvastatin*) 80 Mg Tablet, 80 MG PO QHS, #30 TAB 11/16/18 Levetiracetam* (Levetiracetam*) 500 Mg Tablet, 500 MG PO BID, TAB 11/16/18 Aspirin* (Aspirin* EC) 81 Mg Tablet.dr, 81 MG PO DAILY, TAB 11/16/18 Folic Acid* (Folic Acid*) 1 Mg Tablet, 1 MG PO DAILY, TAB 11/16/18 Discontinued Reported Medications Nitroglycerin* (Nitroglycerin* SL) 0.4 Mg Tab.subl, 0.4 MG SL Q5MIN PRN for CHEST PAIN, BOTTLE 11/16/18 Enalapril Maleate* (Enalapril Maleate*) 10 Mg Tablet, 10 MG PO BID, TAB 11/16/18 Levetiracetam* (Levetiracetam*) 500 Mg Tablet, 500 MG PO BID, TAB 12/13/17 Lisinopril* (Lisinopril*) 10 Mg Tablet, 10 MG PO DAILY, #30 TAB 08/21/17 Metoprolol Tartrate* (Lopressor*) 25 Mg Tab, 25 MG PO BID, #60 TAB 08/21/17 Discontinued Scripts Hydrochlorothiazide* (Hydrochlorothiazide*) 25 Mg Tab, 25 MG PO DAILY, #30 TAB Prov:HORTENSIA JUDGE MD 09/13/18 Ibuprofen* (Motrin*) 600 Mg Tab, 600 MG PO Q6H PRN for PAIN AND OR ELEVATED TEMP, #30 TAB Prov:HORTENSIA JUDGE MD 09/13/18 Metoprolol Succinate* (Toprol XL*) 25 Mg Tab.sr.24h, 25 MG PO DAILY, #30 TAB Prov:PASILABETTE WHATLEY F 01/20/18 Lisinopril* (Lisinopril*) 10 Mg Tablet, 10 MG PO DAILY, #30 TAB Prov:PASILAORA WHATLEYAR F 01/20/18 Levetiracetam* (Keppra*) 500 Mg Tablet, 500 MG PO BID, #60 TAB Prov:PASILABAN,ORAAR F 01/20/18 Levetiracetam* (Keppra*) 750 Mg Tablet, 750 MG PO BID, #60 TAB Prov:SANTI DOTSON DO 01/01/18 Amlodipine Besylate* (Amlodipine Besylate*) 10 Mg Tablet, 10 MG PO BID, #30 TAB Prov:CLYDE TARIQ 10/30/17 Allergies Allergies: Coded Allergies: Penicillins (Verified Allergy, Severe, Hives, 11/16/18) codeine (Verified Allergy, Severe, Hives, 11/16/18) 10/13/17: PER MD, PT STATES CAN TOLERATE MORPHINE PMhx/Soc History of Surgery: Yes (LEFT ANKLE) Anesthesia Reaction: No Hx Neurological Disorder: Yes (Seizures) Hx Respiratory Disorders: No Hx Cardiac Disorders: Yes (HTN) Hx Psychiatric Problems: No Hx Miscellaneous Medical Probl: Yes Hx Alcohol Use: No Hx Substance Use: No Hx Tobacco Use: Yes Smoking Status: Current every day smoker FmHx Family History: No diabetes Physical Exam Vitals Vital Signs Date Temp Pulse Resp B/P (MAP) Pulse Ox O2 O2 Flow FiO2 Time Delivery Rate 11/23/18 89 18 142/90 99 Room Air 05:54 (107) 11/23/18 75 13 142/90 100 Room Air 04:57 (107) 11/23/18 97.4 115 20 154/54 96 00:49 (87) Physical Exam Const: No acute distress Head: Atraumatic Eyes: Normal Conjunctiva ENT: Normal External Ears, Nose and Mouth. Neck: Full range of motion. No meningismus. Resp: Clear to auscultation bilaterally Cardio: Tachycardic with regular rhythm, no murmurs Abd: Soft, non tender, non distended. Normal bowel sounds Skin: No petechiae or rashes Back: No midline or flank tenderness Ext: No cyanosis. Left lower extremity with a cellulitis extending from the left foot all the way up to the left knee. No knee swelling noted. There is edema and tenderness to palpation of the lower leg with erythema but no crepitus to palpation or brawny discoloration. Medial malleolar wound well healing, no evidence of abscess. 2+ DP and PT pulses. Neur: Awake and alert Psych: Normal Mood and Affect Result Diagram: 11/23/18 0449 11/23/18 0453 Results 24 hrs Laboratory Tests Test 11/23/18 04:49 11/23/18 04:52 11/23/18 04:53 White Blood Count 9.3 10^3/ul Red Blood Count 3.83 10^6/ul Hemoglobin 11.9 g/dl Hematocrit 36.4 % Mean Corpuscular Volume 95.0 fl Mean Corpuscular Hemoglobin 31.1 pg Mean Corpuscular Hemoglobin Concent 32.7 g/dl Red Cell Distribution Width 12.4 % Platelet Count 261 10^3/UL Mean Platelet Volume 8.8 fl Immature Granulocytes % 0.500 % Neutrophils % 62.9 % Lymphocytes % 23.8 % Monocytes % 8.3 % Eosinophils % 4.0 % Basophils % 0.5 % Nucleated Red Blood Cells % 0.0 /100WBC Immature Granulocytes # 0.050 10^3/ul Neutrophils # 5.8 10^3/ul Lymphocytes # 2.2 10^3/ul Monocytes # 0.8 10^3/ul Eosinophils # 0.4 10^3/ul Basophils # 0.1 10^3/ul Nucleated Red Blood Cells # 0.0 10^3/ul Prothrombin Time 12.8 Sec Prothrombin Time Ratio 1.0 INR International Normalized Ratio 0.95 Activated Partial Thromboplast Time 26.9 Sec POC Venous Lactate 1.0 mmol/L Sodium Level 140 mmol/L Potassium Level 3.9 mmol/L Chloride Level 102 mmol/L Carbon Dioxide Level 32 mmol/L Anion Gap 6 Blood Urea Nitrogen 21 mg/dl Creatinine 0.72 mg/dl Est Glomerular Filtrat Rate mL/min > 60 mL/min Glucose Level 73 mg/dl Calcium Level 9.3 mg/dl Total Bilirubin 0.3 mg/dl Direct Bilirubin 0.00 mg/dl Indirect Bilirubin 0.3 mg/dl Aspartate Amino Transf (AST/SGOT) 20 IU/L Alanine Aminotransferase (ALT/SGPT) 17 IU/L Alkaline Phosphatase 61 IU/L Total Protein 7.9 g/dl Albumin 4.3 g/dl Globulin 3.60 g/dl Albumin/Globulin Ratio 1.19 Current Medications Medications Dose Sig/Minesh Start Time Status Last (Trade) Ordered Route PRN Stop Time Admin Dose Reason Admin Sodium 2,160 ml BOLUS OVER 2 11/23/18 DC 11/23/18 Chloride HOURS STAT 03:18 11/23/18 04:19 (NS) IV* 03:21 Morphine 6 mg ONCE STAT 11/23/18 DC 11/23/18 Sulfate IV 03:18 11/23/18 04:18 (morphine) 03:21 Cefepime HCl 50 ml @ ONCE STAT 11/23/18 DC 11/23/18 100 mls/hr IVPB 03:18 11/23/18 05:13 03:47 Vancomycin 250 ml @ ONCE ONCE 11/23/18 DC 11/23/18 HCl 125 mls/hr IVPB 03:30 11/23/18 05:30 05:29 Ondansetron 4 mg BRIDGE ORDER 11/23/18 HCl (Zofran PRN IV 06:00 Inj) NAUSEA/VOMITI 11/24/18 05:59 NG 650 mg ER BRIDGE 11/23/18 Acetaminophen PRN PO 06:00 (Tylenol .MILD PAIN 11/24/18 05:59 Tab) 1-3 OR TEMP Sodium 1,000 ml @ [id number] IV 11/23/18 Chloride 70 mls/hr 05:56 IV Flush 3 ml PER 11/23/18 (NS 3 ml) PROTOCOL IV 06:00 Ondansetron 4 mg Q6H PRN 11/23/18 HCl (Zofran IV 06:00 Inj) NAUSEA/VOMITI NG 650 mg Q6H PRN 11/23/18 Acetaminophen PO .PAIN 1-3 06:00 (Tylenol OR TEMP Tab) 1 tab Q6H PRN 11/23/18 Acetaminophen PO .MOD PAIN 06:00 / 4-6 Hydrocodone Bitart ([place] (5/325)) Morphine 2 mg Q4H PRN 11/23/18 Sulfate IV .SEVERE 06:00 (morphine) PAIN 7-10 Docusate 100 mg Q12H PRN 11/23/18 Sodium PO 06:00 (Colace) .CONSTIPATION Bisacodyl 5 mg DAILY PRN 11/23/18 (Dulcolax) PO 06:00 .CONSTIPATION Vancomycin VANCOMYCIN PER 11/23/18 HCl (Vanco PER PHARMACY PROTOCOL XX 06:30 Iv Per Pharmacy) Piperacillin 100 ml @ Q6 IVPB 11/23/18 Sod/ 200 mls/hr 12:00 Tazobactam Sod Procedures/MDM EMERGENT LABS AND DIAGNOSTIC STUDIES: Lab Results above were reviewed and interpreted by me. CBC: no anemia or evidence of infection CMP: No evidence of clinically significant electrolyte abnormality, acidosis, renal failure, hypoglycemia, liver disease, or biliary obstruction Lactate within normal limits without evidence of sepsis or tissue hypoperfusion Radiology Results as interpreted by Radiology below were reviewed by Best Castro MD: Ultrasound left lower extremity shows no evidence of DVT Initial Nursing notes reviewed. Previous Medical Records requested via the Electronic Health Record. EMERGENCY DEPARTMENT COURSE / MEDICAL DECISION MAKING: Patient is presenting with left lower extremity cellulitis that is worsening on outpatient antibiotics. Evaluation was done for DVT and was negative. He was started on broad-spectrum IV antibiotics and will be admitted for further management. Accepting Care Team: Current data and ongoing care discussed. Time: Time of admission Primary Provider: Dr. Varun Aj Diagnosis: Primary Impression: Cellulitis of left lower extremity Condition: Serious MARBELLA CASTRO MD Nov 23, 2018 06:17
[2018-11-23] MEDS ORDERED: VANCOMYCIN IV PER PHARMACY XX SCH (06:30)
[2018-11-23] MEDS: SOD CHLORIDE 0.9% 1,000 ML IV SCH ×2 (06:50→20:14)
[2018-11-23] MEDS ORDERED: IOHEXOL 300MG/ML 150 ML BTL ONE (07:26)
[2018-11-23] MEDS ORDERED: SOD CHLORIDE 0.9% 100 ML ONE (07:26)
[2018-11-23] MEDS ORDERED: LEVOFLOXACIN 750MG/D5W (PMX) 150 ML IVPB SCH (07:30)
--- NOTE | 2018-11-23 07:33 | HP ---
Date/Time of Note Date/Time of Note DATE: 11/23/18 TIME: 07:21 Assessment/Plan VTE Prophylaxis SCD applied (from Nsg): Yes Pharmacological prophylaxis: NA/contraindicated (Right lower extremity) Pharm contraindication: low risk/ambulating Lines/Catheters IV Catheter Type (from Nrsg): Peripheral IV Assessment/Plan Hospital Course This is a 53-year-old male being admitted to the [facility] floor for: #1 left lower extremity swelling: Concern for worsening of cellulitis/abscess. Patient did report increased swelling and pain of his left ankle going up to his left leg. He is afebrile and has a normal white blood cell count. He does not report a lot of pain. Lower extremity ultrasound Doppler was negative for any DVT. Will obtain a CT of the left lower extremity with contrast to further evaluate. Put the patient on vancomycin and Levaquin, given penicillin allergy. Will consult podiatry #2 history of chronic alcoholism: Patient reports that he sober. Monitor. #3 hypertension: Continue lisinopril, amlodipine #4 history of seizure disorder: Continue Keppra #5 anemia: Stable continue to monitor #6 anxiety depression: PRN Ativan #7 hepatitis C: Confirmatory test is pending #8 DVT GI prophylaxis: SCDs to the right lower extremity, no GI prophylaxis indicated Further treatment strategy will be implemented as per the clinical course. Result Diagram: 11/23/18 0449 11/23/18 0453 Results 24hrs Laboratory Tests Test 11/23/18 04:49 11/23/18 04:52 11/23/18 04:53 White Blood Count 9.3 # Red Blood Count 3.83 L Hemoglobin 11.9 L Hematocrit 36.4 L Mean Corpuscular Volume 95.0 Mean Corpuscular Hemoglobin 31.1 Mean Corpuscular Hemoglobin Concent 32.7 Red Cell Distribution Width 12.4 Platelet Count 261 Mean Platelet Volume 8.8 Immature Granulocytes % 0.500 H Neutrophils % 62.9 Lymphocytes % 23.8 Monocytes % 8.3 Eosinophils % 4.0 Basophils % 0.5 Nucleated Red Blood Cells % 0.0 Immature Granulocytes # 0.050 H Neutrophils # 5.8 Lymphocytes # 2.2 Monocytes # 0.8 Eosinophils # 0.4 Basophils # 0.1 Nucleated Red Blood Cells # 0.0 Prothrombin Time 12.8 Prothrombin Time Ratio 1.0 INR International Normalized Ratio 0.95 Activated Partial Thromboplast Time 26.9 POC Venous Lactate 1.0 Sodium Level 140 Potassium Level 3.9 Chloride Level 102 Carbon Dioxide Level 32 H Anion Gap 6 Blood Urea Nitrogen 21 H Creatinine 0.72 Est Glomerular Filtrat Rate mL/min > 60 Glucose Level 73 Calcium Level 9.3 Total Bilirubin 0.3 Direct Bilirubin 0.00 Indirect Bilirubin 0.3 Aspartate Amino Transf (AST/SGOT) 20 Alanine Aminotransferase (ALT/SGPT) 17 Alkaline Phosphatase 61 Total Protein 7.9 Albumin 4.3 Globulin 3.60 H Albumin/Globulin Ratio 1.19 HPI/ROS Admit Date/Time Admit Date/Time Hx of Present Illness Chief complaint: Left lower extremity pain and swelling This is a 53-year-old male who comes in today complaining of left lower extremity pain and swelling. He was recently discharged from the hospital on November 21 after being treated for cellulitis and an abscess. He was discharged on home oral antibiotics which she was taking. He reports that yesterday he started having pain in his left ankle and it started feeling tight with pain radiating up his leg. He denies any fevers. He reports the pain is 9 out of 10 and it feels throbbing. It is worse with touch. He denies any drainage. Allergies: Penicillin, codeine Medications: amlodipine 10 mg p.o. daily Atorvastatin 80 mg p.o. nightly Carvedilol 6.25 p.o. twice daily Folic acid 1 mg p.o. daily Hydrocodone 10/325 p.o. every 6 hours as needed Lactobacillus 1 cap p.o. daily Keppra 500 mg p.o. twice daily Lisinopril 40 mg p.o. daily Thiamine 100 mg p.o. daily ROS Const: As per HPI Eyes : No pain discharge or redness or change in visual acuity ENT: No pain, sore throat, congestion, congestion, dysphagia or discharge Respiratory: No shortness of breath, cough, sputum, wheezing, or pleuritic pain Cardiovascular: No chest pain, palpitation, PND, or edema GI : no change in appetite, abdominal pain, nausea, vomiting, diarrhea, constipation, or change in the color his stool Genitourinary: No dysuria, hematuria, flank pain , discharge or CVA tenderness Musculoskeletal: As per HPI Skin: As per HPI Neuro: No headache, dizziness, syncope, seizure, focal weakness Endocrine: No polyuria, polydipsia, temperature intolerance Psych: No hallucination, depression, anxiety or suicidal ideation PMH/Family/Social Past Medical History Lt lwr ext abscess Chronic alcoholism History of substance abuse Chronic hypertension Anemia anxiety depression Seizure disorder Hepatitis C Medications Current Medications Ondansetron HCl (Zofran Inj) 4 mg BRIDGE ORDER PRN IV NAUSEA/VOMITING; Start 11/23/18 at 06:00; Stop 11/24/18 at 05:59 Acetaminophen (Tylenol Tab) 650 mg ER BRIDGE PRN PO .MILD PAIN 1-3 OR TEMP; Start 11/23/18 at 06:00; Stop 11/24/18 at 05:59 Sodium Chloride 1,000 ml @ 70 mls/hr [id number] IV Last administered on 11/23/18at 06:50; Admin Dose 70 MLS/HR; Start 11/23/18 at 05:56 IV Flush (NS 3 ml) 3 ml PER PROTOCOL IV ; Start 11/23/18 at 06:00 Ondansetron HCl (Zofran Inj) 4 mg Q6H PRN IV NAUSEA/VOMITING; Start 11/23/18 at 06:00 Acetaminophen (Tylenol Tab) 650 mg Q6H PRN PO .PAIN 1-3 OR TEMP; Start 11/23/18 at 06:00 Acetaminophen/ Hydrocodone Bitart ([place] (5/325)) 1 tab Q6H PRN PO .MOD PAIN 4- 6; Start 11/23/18 at 06:00 Morphine Sulfate (morphine) 2 mg Q4H PRN IV .SEVERE PAIN 7-10; Start 11/23/18 at 06:00 Docusate Sodium (Colace) 100 mg Q12H PRN PO .CONSTIPATION; Start 11/23/18 at 06:00 Bisacodyl (Dulcolax) 5 mg DAILY PRN PO .CONSTIPATION; Start 11/23/18 at 06:00 Vancomycin HCl (Vanco Iv Per Pharmacy) VANCOMYCIN PER PHARMACY PER PROTOCOL XX ; Start 11/23/18 at 06:30 Piperacillin Sod/ Tazobactam Sod 100 ml @ 200 mls/hr Q6 IVPB ; Start 11/23/18 at 12:00 Coded Allergies: Penicillins (Verified Allergy, Severe, Hives, 11/16/18) codeine (Verified Allergy, Severe, Hives, 11/16/18) 10/13/17: PER MD, PT STATES CAN TOLERATE MORPHINE Past Surgical History Left lower extremity I&D Family History Significant Family History: hypertension Social History History of alcohol abuse Smoking Status: Current every day smoker Exam/Review of Systems Vital Signs Vitals Vital Signs Date Temp Pulse Resp B/P (MAP) Pulse Ox O2 O2 Flow FiO2 Time Delivery Rate 11/23/18 89 18 142/90 99 Room Air 05:54 (107) 11/23/18 97.4 00:49 Exam Exam General: Patient is a pleasant male currently lying in bed in mild distress from left lower extremity pain HEENT: Atraumatic, normocephalic. The pupils are equal, round and reactive. Extraocular motor are intact Neck: Supple with full range of motion. No rigidity or meningismus Chest: Nontender Lungs: Clear to auscultation bilaterally no crackles rales or wheezing Heart: Normal S1-S2, Regular rhythm and rate. No murmur, S3, or S4 Abdomen: Soft , nontender, nondistended , bowel sounds are present. No guarding no rebound tenderness , No masses or organomegaly. No costovertebral temporal angle mass Extremities: Left lower extremity: Swelling, warmth and tenderness noted at the left ankle radiating up the leg. No crepitus. Skin:Left lower extremity: Swelling, warmth and tenderness noted at the left ankle radiating up the leg. No crepitus. Bruising noted at the left medial ankle Neurologic: Normal mental status, speech normal, cranial nerves II through XII are intact, motor and sensory are intact, DONITA KWAN Nov 23, 2018 07:31
[2018-11-23 08:50] VITALS: BP 152/83; PULSE 80; RESP 19
[2018-11-23] MEDS: morphine 2 MG INJ IV PRN ×3 (09:06→17:49)
[2018-11-23 09:11] VITALS: Ht 180.3 cm; Wt 78.3 kg
[2018-11-23] MEDS ORDERED: LIDOCAINE 1% (MDV) 20 ML INJ SC ONE (11:00)
--- NOTE | 2018-11-23 11:16 | CONS ---
Assessment/Plan Assessment/Plan Assessment/Plan (Daily) Left ankle abscess s/p incision and drainage on previous hospitalization Cellulitis left lower extremity Edema Pain in limb Plan Consent was obtained and performed excisional debridement of skin/subQ left ankle surgical ulceration site using a pickup/scissors. Non viable tissue was removed and biofilm. There was no purulent drainage appreciated. The wound site was explored in proximal, medial, lateral, and distal aspect and there was no further tunneling or purulence appreciated. Patient failed oral abx therapy. Patient would benefit from PICC line. Compression therapy and daily dressing changes as well. Consultation Date/Type/Reason Admit Date/Time Date/Time of Note DATE: 11/23/18 TIME: 11:16 Hx of Present Illness 53 y/o M patient with left lower abscess and underwent incision and drainage on previous hospitalization. Patient presents again with pain and swelling to the left lower extremity and stated that his oral abx were not helping with his infection. Patient denies additional complaints. ROS negative except for HPI Past Medical History Lt lwr ext abscess Chronic alcoholism History of substance abuse Chronic hypertension Anemia anxiety depression Seizure disorder Hepatitis C Home Meds Active Scripts Lactobacillus Rhamnosus GG (Culturelle) 1 Each Capsule, 1 CAP PO BID for 20 Days, #40 CAP Prov:GRICELDA CANTU MD 11/21/18 Hydrocodone/Acetaminophen (Hydrocodone-Acetamin 10-325 mg) 1 Each Tablet, 1 TAB PO Q4H PRN for MODERATE PAIN LEVEL 4-6 for 5 Days, TAB Prov:GRICELDA CANTU MD 11/21/18 Acetaminophen* (Tylenol*) 325 Mg Tablet, 650 MG PO Q6H PRN for .PAIN 1-3 OR TEMP for 5 Days, TAB Prov:GRICELDA CANTU MD 11/21/18 Clindamycin Hcl* (Cleocin*) 150 Mg Cap, 450 MG PO Q8 for 8 Days, #16 CAP Prov:GRICELDA CANTU MD 11/21/18 Reported Medications Enalapril Maleate* (Enalapril Maleate*) 10 Mg Tablet, 10 MG PO BID for 30 Days, #60 11/23/18 Carvedilol* (Carvedilol*) 6.25 Mg Tablet, 6.25 MG PO BID, #60 TAB 11/16/18 Lisinopril* (Lisinopril*) 20 Mg Tablet, 40 MG PO DAILY, #30 TAB 11/16/18 Amlodipine Besylate* (Amlodipine Besylate*) 10 Mg Tablet, 10 MG PO DAILY, #30 TAB 11/16/18 Thiamine* (Vitamin B-1*) 100 Mg Tablet, 100 MG PO DAILY, TAB 11/16/18 Atorvastatin* (Atorvastatin*) 80 Mg Tablet, 80 MG PO QHS, #30 TAB 11/16/18 Levetiracetam* (Levetiracetam*) 500 Mg Tablet, 500 MG PO BID, TAB 11/16/18 Aspirin* (Aspirin* EC) 81 Mg Tablet.dr, 81 MG PO DAILY, TAB 11/16/18 Folic Acid* (Folic Acid*) 1 Mg Tablet, 1 MG PO DAILY, TAB 11/16/18 Discontinued Reported Medications Nitroglycerin* (Nitroglycerin* SL) 0.4 Mg Tab.subl, 0.4 MG SL Q5MIN PRN for CHEST PAIN, BOTTLE 11/16/18 Enalapril Maleate* (Enalapril Maleate*) 10 Mg Tablet, 10 MG PO BID, TAB 11/16/18 Levetiracetam* (Levetiracetam*) 500 Mg Tablet, 500 MG PO BID, TAB 12/13/17 Lisinopril* (Lisinopril*) 10 Mg Tablet, 10 MG PO DAILY, #30 TAB 08/21/17 Metoprolol Tartrate* (Lopressor*) 25 Mg Tab, 25 MG PO BID, #60 TAB 08/21/17 Discontinued Scripts Hydrochlorothiazide* (Hydrochlorothiazide*) 25 Mg Tab, 25 MG PO DAILY, #30 TAB Prov:HORTENSIA JUDGE MD 09/13/18 Ibuprofen* (Motrin*) 600 Mg Tab, 600 MG PO Q6H PRN for PAIN AND OR ELEVATED TEMP, #30 TAB Prov:HORTENSIA JUDGE MD 09/13/18 Metoprolol Succinate* (Toprol XL*) 25 Mg Tab.sr.24h, 25 MG PO DAILY, #30 TAB Prov:PASILAORA WHATLEYAR F 01/20/18 Lisinopril* (Lisinopril*) 10 Mg Tablet, 10 MG PO DAILY, #30 TAB Prov:PASILABETTE WHATLEY F 01/20/18 Levetiracetam* (Keppra*) 500 Mg Tablet, 500 MG PO BID, #60 TAB Prov:BETTE RICHEY 01/20/18 Levetiracetam* (Keppra*) 750 Mg Tablet, 750 MG PO BID, #60 TAB Prov:COURTNEYSANTI DOMINGUEZ MoyHernandez ALEMAN 01/01/18 Amlodipine Besylate* (Amlodipine Besylate*) 10 Mg Tablet, 10 MG PO BID, #30 TAB Prov:CLYDE TARIQ 10/30/17 Medications Current Medications Sodium Chloride 1,000 ml @ 70 mls/hr [id number] IV Last administered on 11/23/18at 06:50; Admin Dose 70 MLS/HR; Start 11/23/18 at 05:56 IV Flush (NS 3 ml) 3 ml PER PROTOCOL IV ; Start 11/23/18 at 06:00 Ondansetron HCl (Zofran Inj) 4 mg Q6H PRN IV NAUSEA/VOMITING; Start 11/23/18 at 06:00 Acetaminophen (Tylenol Tab) 650 mg Q6H PRN PO .PAIN 1-3 OR TEMP; Start 11/23/18 at 06:00 Acetaminophen/ Hydrocodone Bitart ([place] (5/325)) 1 tab Q6H PRN PO .MOD PAIN 4- 6; Start 11/23/18 at 06:00 Docusate Sodium (Colace) 100 mg Q12H PRN PO .CONSTIPATION; Start 11/23/18 at 06:00 Bisacodyl (Dulcolax) 5 mg DAILY PRN PO .CONSTIPATION; Start 11/23/18 at 06:00 Vancomycin HCl (Vanco Iv Per Pharmacy) VANCOMYCIN PER PHARMACY PER PROTOCOL XX ; Start 11/23/18 at 06:30 Levofloxacin/ Dextrose 150 ml @ 100 mls/hr Q24H IVPB Last administered on 11/23/18at 07:59; Admin Dose 100 MLS/HR; Start 11/23/18 at 07:30 Morphine Sulfate (morphine) 4 mg Q4H PRN IV .SEVERE PAIN 7-10 Last administered on 11/23/18at 09:06; Admin Dose 4 MG; Start 11/23/18 at 10:00 Vancomycin/Sodium Chloride 250 ml @ 83.333 mls/ hr Q12H IVPB ; Start 11/23/18 at 12:00 Miscellaneous Information (*Rx Drug Level Order Reminder*) VANCOMYCIN TROUGH AT 2300 2300 ONCE XX ; Start 11/24/18 at 23:00; Stop 11/24/18 at 23:01 Allergies: Coded Allergies: Penicillins (Verified Allergy, Severe, Hives, 11/16/18) codeine (Verified Allergy, Severe, Hives, 11/16/18) 10/13/17: PER MD, PT STATES CAN TOLERATE MORPHINE Past Surgical History left ankle incision and drainage Family History Significant Family History: no pertinent family hx Social History Smoking Status: Unknown if ever smoked Exam/Review of Systems Exam Vitals Vital Signs Date Temp Pulse Resp B/P (MAP) Pulse Ox O2 O2 Flow FiO2 Time Delivery Rate 11/23/18 98.2 80 19 152/83 99 Room Air 08:50 (106) Exam DP/PT pulses palpable protective sensations intact Left lower extremity surgical ulcer 3.5 x 1.2 x 0.4cm, no purulent drainage expressed, no probing to bone. Pain on palpation to ulceration site 2+ pitting edema Muscle strength 5/5 in all compartments of the foot. Results Result Diagram: 11/23/18 0449 11/23/18 0453 Results 24hrs Laboratory Tests Test 11/23/18 04:49 11/23/18 04:52 11/23/18 04:53 11/23/18 06:53 White Blood Count 9.3 # Red Blood Count 3.83 L Hemoglobin 11.9 L Hematocrit 36.4 L Mean Corpuscular Volume 95.0 Mean Corpuscular 31.1 Hemoglobin Mean Corpuscular 32.7 Hemoglobin Concent Red Cell Distribution 12.4 Width Platelet Count 261 Mean Platelet Volume 8.8 Immature Granulocytes % 0.500 H Neutrophils % 62.9 Lymphocytes % 23.8 Monocytes % 8.3 Eosinophils % 4.0 Basophils % 0.5 Nucleated Red Blood 0.0 Cells % Immature Granulocytes # 0.050 H Neutrophils # 5.8 Lymphocytes # 2.2 Monocytes # 0.8 Eosinophils # 0.4 Basophils # 0.1 Nucleated Red Blood 0.0 Cells # Prothrombin Time 12.8 Prothrombin Time Ratio 1.0 INR International 0.95 Normalized Ratio Activated 26.9 Partial Thromboplast Time POC Venous Lactate 1.0 Sodium Level 140 Potassium Level 3.9 Chloride Level 102 Carbon Dioxide Level 32 H Anion Gap 6 Blood Urea Nitrogen 21 H Creatinine 0.72 Est Glomerular Filtrat > 60 Rate mL/min Glucose Level 73 Calcium Level 9.3 Total Bilirubin 0.3 Direct Bilirubin 0.00 Indirect Bilirubin 0.3 Aspartate Amino 20 Transf (AST/SGOT) Alanine 17 Aminotransferase (ALT/SG PT) Alkaline Phosphatase 61 Total Protein 7.9 Albumin 4.3 Globulin 3.60 H Albumin/Globulin Ratio 1.19 Erythrocyte 45 H Sedimentation Rate Lactic Acid Level 0.9 C-Reactive Protein 1.9 H Test 11/23/18 09:24 Lactic Acid Level 2.0 Medications Medication Current Medications Sodium Chloride 1,000 ml @ 70 mls/hr [id number] IV Last administered on 11/23/18at 06:50; Admin Dose 70 MLS/HR; Start 11/23/18 at 05:56 IV Flush (NS 3 ml) 3 ml PER PROTOCOL IV ; Start 11/23/18 at 06:00 Ondansetron HCl (Zofran Inj) 4 mg Q6H PRN IV NAUSEA/VOMITING; Start 11/23/18 at 06:00 Acetaminophen (Tylenol Tab) 650 mg Q6H PRN PO .PAIN 1-3 OR TEMP; Start 11/23/18 at 06:00 Acetaminophen/ Hydrocodone Bitart ([place] (5/325)) 1 tab Q6H PRN PO .MOD PAIN 4- 6; Start 11/23/18 at 06:00 Docusate Sodium (Colace) 100 mg Q12H PRN PO .CONSTIPATION; Start 11/23/18 at 06:00 Bisacodyl (Dulcolax) 5 mg DAILY PRN PO .CONSTIPATION; Start 11/23/18 at 06:00 Vancomycin HCl (Vanco Iv Per Pharmacy) VANCOMYCIN PER PHARMACY PER PROTOCOL XX ; Start 11/23/18 at 06:30 Levofloxacin/ Dextrose 150 ml @ 100 mls/hr Q24H IVPB Last administered on 11/23/18at 07:59; Admin Dose 100 MLS/HR; Start 11/23/18 at 07:30 Morphine Sulfate (morphine) 4 mg Q4H PRN IV .SEVERE PAIN 7-10 Last administered on 11/23/18at 09:06; Admin Dose 4 MG; Start 11/23/18 at 10:00 Vancomycin/Sodium Chloride 250 ml @ 83.333 mls/ hr Q12H IVPB ; Start 11/23/18 at 12:00 Miscellaneous Information (*Rx Drug Level Order Reminder*) VANCOMYCIN TROUGH AT 2300 2300 ONCE XX ; Start 11/24/18 at 23:00; Stop 11/24/18 at 23:01 NICOLE CONNOR DPM Nov 23, 2018 11:16
[2018-11-23] MEDS ORDERED: PIPER-TAZO 3.375 GM IV (PMX) 100 ML IVPB SCH (12:00)
[2018-11-23] MEDS ORDERED: VANCOMYCIN 1.5 GM/NS 250 ML 250 ML IVPB SCH (12:00)
--- NOTE | 2018-11-23 13:27 | PN ---
Date/Time of Note Date/Time of Note DATE: 11/23/18 TIME: 13:20 Assessment/Plan VTE Prophylaxis SCD applied (from Nsg): Yes SCD contraindicated: low risk/ambulating Pharmacological prophylaxis: LMWH Lines/Catheters IV Catheter Type (from Nrsg): Peripheral IV Assessment/Plan Hospital Course A/P 1. Recurrent lt lwr ext cellulitis; ro recurrent abscess. Stable Review CT. Consulted ID. 2. Tobacco abuse sp counseling offered patch 3. Hypertension 4. Alcoholism 5. Anemia S: events noted; sp I&D O: vss PE no pallor reg s1s2 no mrg ctab bs+ nt nd no RRG Left lwr ext dressed Result Diagram: 11/23/18 0449 11/23/18 0453 Results 24hrs Laboratory Tests Test 11/23/18 04:49 11/23/18 04:52 11/23/18 04:53 11/23/18 06:53 White Blood Count 9.3 # Red Blood Count 3.83 L Hemoglobin 11.9 L Hematocrit 36.4 L Mean Corpuscular Volume 95.0 Mean Corpuscular 31.1 Hemoglobin Mean Corpuscular 32.7 Hemoglobin Concent Red Cell Distribution 12.4 Width Platelet Count 261 Mean Platelet Volume 8.8 Immature Granulocytes % 0.500 H Neutrophils % 62.9 Lymphocytes % 23.8 Monocytes % 8.3 Eosinophils % 4.0 Basophils % 0.5 Nucleated Red Blood 0.0 Cells % Immature Granulocytes # 0.050 H Neutrophils # 5.8 Lymphocytes # 2.2 Monocytes # 0.8 Eosinophils # 0.4 Basophils # 0.1 Nucleated Red Blood 0.0 Cells # Prothrombin Time 12.8 Prothrombin Time Ratio 1.0 INR International 0.95 Normalized Ratio Activated 26.9 Partial Thromboplast Time POC Venous Lactate 1.0 Sodium Level 140 Potassium Level 3.9 Chloride Level 102 Carbon Dioxide Level 32 H Anion Gap 6 Blood Urea Nitrogen 21 H Creatinine 0.72 Est Glomerular Filtrat > 60 Rate mL/min Glucose Level 73 Calcium Level 9.3 Total Bilirubin 0.3 Direct Bilirubin 0.00 Indirect Bilirubin 0.3 Aspartate Amino 20 Transf (AST/SGOT) Alanine 17 Aminotransferase (ALT/SG PT) Alkaline Phosphatase 61 Total Protein 7.9 Albumin 4.3 Globulin 3.60 H Albumin/Globulin Ratio 1.19 Erythrocyte 45 H Sedimentation Rate Lactic Acid Level 0.9 C-Reactive Protein 1.9 H Test 11/23/18 09:24 Lactic Acid Level 2.0 Exam/Review of Systems Exam Vitals Vital Signs Date Temp Pulse Resp B/P (MAP) Pulse Ox O2 O2 Flow FiO2 Time Delivery Rate 11/23/18 98.2 80 19 152/83 99 Room Air 08:50 (106) Results Results 24hrs Laboratory Tests Test 11/23/18 04:49 11/23/18 04:52 11/23/18 04:53 11/23/18 06:53 White Blood Count 9.3 # Red Blood Count 3.83 L Hemoglobin 11.9 L Hematocrit 36.4 L Mean Corpuscular Volume 95.0 Mean Corpuscular 31.1 Hemoglobin Mean Corpuscular 32.7 Hemoglobin Concent Red Cell Distribution 12.4 Width Platelet Count 261 Mean Platelet Volume 8.8 Immature Granulocytes % 0.500 H Neutrophils % 62.9 Lymphocytes % 23.8 Monocytes % 8.3 Eosinophils % 4.0 Basophils % 0.5 Nucleated Red Blood 0.0 Cells % Immature Granulocytes # 0.050 H Neutrophils # 5.8 Lymphocytes # 2.2 Monocytes # 0.8 Eosinophils # 0.4 Basophils # 0.1 Nucleated Red Blood 0.0 Cells # Prothrombin Time 12.8 Prothrombin Time Ratio 1.0 INR International 0.95 Normalized Ratio Activated 26.9 Partial Thromboplast Time POC Venous Lactate 1.0 Sodium Level 140 Potassium Level 3.9 Chloride Level 102 Carbon Dioxide Level 32 H Anion Gap 6 Blood Urea Nitrogen 21 H Creatinine 0.72 Est Glomerular Filtrat > 60 Rate mL/min Glucose Level 73 Calcium Level 9.3 Total Bilirubin 0.3 Direct Bilirubin 0.00 Indirect Bilirubin 0.3 Aspartate Amino 20 Transf (AST/SGOT) Alanine 17 Aminotransferase (ALT/SG PT) Alkaline Phosphatase 61 Total Protein 7.9 Albumin 4.3 Globulin 3.60 H Albumin/Globulin Ratio 1.19 Erythrocyte 45 H Sedimentation Rate Lactic Acid Level 0.9 C-Reactive Protein 1.9 H Test 11/23/18 09:24 Lactic Acid Level 2.0 Medications Medication Current Medications Sodium Chloride 1,000 ml @ 70 mls/hr [id number] IV Last administered on 11/23/18at 06:50; Admin Dose 70 MLS/HR; Start 11/23/18 at 05:56 IV Flush (NS 3 ml) 3 ml PER PROTOCOL IV ; Start 11/23/18 at 06:00 Ondansetron HCl (Zofran Inj) 4 mg Q6H PRN IV NAUSEA/VOMITING; Start 11/23/18 at 06:00 Acetaminophen (Tylenol Tab) 650 mg Q6H PRN PO .PAIN 1-3 OR TEMP; Start 11/23/18 at 06:00 Acetaminophen/ Hydrocodone Bitart ([place] (5/325)) 1 tab Q6H PRN PO .MOD PAIN 4- 6; Start 11/23/18 at 06:00 Docusate Sodium (Colace) 100 mg Q12H PRN PO .CONSTIPATION; Start 11/23/18 at 06:00 Bisacodyl (Dulcolax) 5 mg DAILY PRN PO .CONSTIPATION; Start 11/23/18 at 06:00 Vancomycin HCl (Vanco Iv Per Pharmacy) VANCOMYCIN PER PHARMACY PER PROTOCOL XX ; Start 11/23/18 at 06:30 Levofloxacin/ Dextrose 150 ml @ 100 mls/hr Q24H IVPB Last administered on 11/23/18at 07:59; Admin Dose 100 MLS/HR; Start 11/23/18 at 07:30 Morphine Sulfate (morphine) 4 mg Q4H PRN IV .SEVERE PAIN 7-10 Last administered on 11/23/18at 13:15; Admin Dose 4 MG; Start 11/23/18 at 10:00 Vancomycin/Sodium Chloride 250 ml @ 83.333 mls/ hr Q12H IVPB Last administered on 11/23/18at 12:04; Admin Dose 83.333 MLS/HR; Start 11/23/18 at 12:00 Miscellaneous Information (*Rx Drug Level Order Reminder*) VANCOMYCIN TROUGH AT 2300 2300 ONCE XX ; Start 11/24/18 at 23:00; Stop 11/24/18 at 23:01 GRICELDA CANTU MD Nov 23, 2018 13:27
[2018-11-23 14:00] VITALS: BP 144/85; PULSE 95; RESP 16
--- NOTE | 2018-11-23 14:07 | CONS ---
Assessment/Plan Assessment/Plan Hospital Course (Demo Recall) Awake feels good looks comfortable no fevers overnight Antimicrobials: Vancomycin, Levaquin Microbiology: Wound cultures grew strep Physical examination: Well-developed well-nourished middle-aged white man who is in no distress. Head atraumatic normocephalic neck is supple chest rise symme trical breath sounds diminished bases heart: S1-S2 abdomen soft bowel sounds present extremities with left foot dressing intact Assessment: 1. Left foot cellulitis with abscess, status post I&D Plan: Stable, will change antibiotics to clindamycin, keep left lower extremity elevated and follow podiatry recommendations DW pt Consultation Date/Type/Reason Admit Date/Time Nov 23, 2018 at 05:55 Initial Consult Date Type of Consult id Date/Time of Note DATE: 11/23/18 TIME: 14:06 Exam/Review of Systems Exam Vitals Vital Signs Date Temp Pulse Resp B/P (MAP) Pulse Ox O2 O2 Flow FiO2 Time Delivery Rate 11/23/18 98.2 80 19 152/83 99 Room Air 08:50 (106) Results Result Diagram: 11/23/18 0449 11/23/18 0453 Results 24hrs Laboratory Tests Test 11/23/18 04:49 11/23/18 04:52 11/23/18 04:53 11/23/18 06:53 White Blood Count 9.3 # Red Blood Count 3.83 L Hemoglobin 11.9 L Hematocrit 36.4 L Mean Corpuscular Volume 95.0 Mean Corpuscular 31.1 Hemoglobin Mean Corpuscular 32.7 Hemoglobin Concent Red Cell Distribution 12.4 Width Platelet Count 261 Mean Platelet Volume 8.8 Immature Granulocytes % 0.500 H Neutrophils % 62.9 Lymphocytes % 23.8 Monocytes % 8.3 Eosinophils % 4.0 Basophils % 0.5 Nucleated Red Blood 0.0 Cells % Immature Granulocytes # 0.050 H Neutrophils # 5.8 Lymphocytes # 2.2 Monocytes # 0.8 Eosinophils # 0.4 Basophils # 0.1 Nucleated Red Blood 0.0 Cells # Prothrombin Time 12.8 Prothrombin Time Ratio 1.0 INR International 0.95 Normalized Ratio Activated 26.9 Partial Thromboplast Time POC Venous Lactate 1.0 Sodium Level 140 Potassium Level 3.9 Chloride Level 102 Carbon Dioxide Level 32 H Anion Gap 6 Blood Urea Nitrogen 21 H Creatinine 0.72 Est Glomerular Filtrat > 60 Rate mL/min Glucose Level 73 Calcium Level 9.3 Total Bilirubin 0.3 Direct Bilirubin 0.00 Indirect Bilirubin 0.3 Aspartate Amino 20 Transf (AST/SGOT) Alanine 17 Aminotransferase (ALT/SG PT) Alkaline Phosphatase 61 Total Protein 7.9 Albumin 4.3 Globulin 3.60 H Albumin/Globulin Ratio 1.19 Erythrocyte 45 H Sedimentation Rate Lactic Acid Level 0.9 C-Reactive Protein 1.9 H Test 11/23/18 09:24 Lactic Acid Level 2.0 Medications Medication Current Medications Sodium Chloride 1,000 ml @ 70 mls/hr [id number] IV Last administered on 11/23/18at 06:50; Admin Dose 70 MLS/HR; Start 11/23/18 at 05:56 IV Flush (NS 3 ml) 3 ml PER PROTOCOL IV ; Start 11/23/18 at 06:00 Ondansetron HCl (Zofran Inj) 4 mg Q6H PRN IV NAUSEA/VOMITING; Start 11/23/18 at 06:00 Acetaminophen (Tylenol Tab) 650 mg Q6H PRN PO .PAIN 1-3 OR TEMP; Start 11/23/18 at 06:00 Acetaminophen/ Hydrocodone Bitart ([place] (5/325)) 1 tab Q6H PRN PO .MOD PAIN 4- 6; Start 11/23/18 at 06:00 Docusate Sodium (Colace) 100 mg Q12H PRN PO .CONSTIPATION; Start 11/23/18 at 06:00 Bisacodyl (Dulcolax) 5 mg DAILY PRN PO .CONSTIPATION; Start 11/23/18 at 06:00 Vancomycin HCl (Vanco Iv Per Pharmacy) VANCOMYCIN PER PHARMACY PER PROTOCOL XX ; Start 11/23/18 at 06:30 Levofloxacin/ Dextrose 150 ml @ 100 mls/hr Q24H IVPB Last administered on 11/23/18at 07:59; Admin Dose 100 MLS/HR; Start 11/23/18 at 07:30 Morphine Sulfate (morphine) 4 mg Q4H PRN IV .SEVERE PAIN 7-10 Last administered on 11/23/18at 13:15; Admin Dose 4 MG; Start 11/23/18 at 10:00 Vancomycin/Sodium Chloride 250 ml @ 83.333 mls/ hr Q12H IVPB Last administered on 11/23/18at 12:04; Admin Dose 83.333 MLS/HR; Start 11/23/18 at 12:00 Miscellaneous Information (*Rx Drug Level Order Reminder*) VANCOMYCIN TROUGH AT 2300 2300 ONCE XX ; Start 11/24/18 at 23:00; Stop 11/24/18 at 23:01 AVNI AGUILAR NP Nov 23, 2018 14:07
[2018-11-23] MEDS: CLINDAMYCIN 900 MG/D5W (PMX) 50 ML IVPB SCH ×2 (15:10→21:00)
[2018-11-23] MEDS: AMLODIPINE 10 MG TAB PO SCH (17:44)
[2018-11-23] MEDS: FOLIC ACID 1 MG TAB PO SCH (17:44)
[2018-11-23] MEDS: ASPIRIN (EC) 81 MG TAB PO SCH (17:44)
[2018-11-23] MEDS: LACTOBACILLUS RHAMNOSUS CAP PO SCH (20:47)
[2018-11-23] MEDS: ENALAPRIL 10 MG TAB PO SCH (20:48)
[2018-11-23] MEDS: ATORVASTATIN 80 MG TAB PO SCH (20:48)
[2018-11-23] MEDS: LEVETIRACETAM 500 MG TAB PO SCH (20:48)
[2018-11-23] MEDS: LORAZEPAM 2 MG INJ IV PRN (21:55)
[2018-11-23 22:08] VITALS: BP 136/79; PULSE 80; RESP 18
[2018-11-24] MEDS: SOD CHLORIDE 0.9% 1,000 ML IV SCH ×2 (01:18→10:32)
[2018-11-24 02:06] VITALS: BP 101/58; PULSE 94; RESP 18
[2018-11-24] MEDS: morphine 2 MG INJ IV PRN ×3 (05:02→20:21)
[2018-11-24] MEDS: CLINDAMYCIN 900 MG/D5W (PMX) 50 ML IVPB SCH ×3 (05:28→21:41)
[2018-11-24 07:14] VITALS: BP 110/63; PULSE 69; RESP 18
[2018-11-24] MEDS: THIAMINE 100 MG TAB PO SCH (09:00)
[2018-11-24] MEDS: FOLIC ACID 1 MG TAB PO SCH (09:00)
[2018-11-24] MEDS: DAKINS 0.0125%(1/40) 473 ML SOLUTION TP SCH (09:00)
[2018-11-24] MEDS: ENALAPRIL 10 MG TAB PO SCH (09:01)
[2018-11-24] MEDS: LEVETIRACETAM 500 MG TAB PO SCH ×2 (09:01→20:20)
[2018-11-24] MEDS: LACTOBACILLUS RHAMNOSUS CAP PO SCH ×2 (09:01→20:20)
[2018-11-24] MEDS: ASPIRIN (EC) 81 MG TAB PO SCH (09:01)
[2018-11-24] MEDS: AMLODIPINE 10 MG TAB PO SCH (09:01)
--- NOTE | 2018-11-24 10:10 | CONS ---
Assessment/Plan Assessment/Plan Hospital Course (Demo Recall) All noted, no acute changes, no fevers Antimicrobials: IV Clindamycin Microbiology: Wound cultures grew strep, bld cx + GPC Physical examination: Well-developed well-nourished middle-aged white man who is in no distress. Head atraumatic normocephalic neck is supple chest rise symmetrical breath sounds diminished bases heart: S1-S2 abdomen soft bowel sounds present extremities with left foot dressing intact Assessment: 1. Left foot cellulitis with abscess, status post I&D 2. Bacteremia poss contaminant Plan: Continue abx, repeat bld cx, wound care per podiatry recommendations Consultation Date/Type/Reason Admit Date/Time Nov 23, 2018 at 05:55 Initial Consult Date Type of Consult id Date/Time of Note DATE: 11/24/18 TIME: 10:09 Exam/Review of Systems Exam Vitals Vital Signs Date Temp Pulse Resp B/P (MAP) Pulse Ox O2 O2 Flow FiO2 Time Delivery Rate 11/24/18 98.6 69 18 110/63 99 07:14 (79) 11/23/18 Room Air 08:50 Intake and Output 11/23/18 11/23/18 11/24/18 1515:00 23:00 07:00 IntakeIntake Total 350 ml 1040 ml 850 ml OutputOutput Total 1300 ml 800 ml 750 ml BalanceBalance -950 ml 240 ml 100 ml Results Result Diagram: 11/24/18 0453 11/24/18 0453 Results 24hrs Laboratory Tests Test 11/24/18 04:53 White Blood Count 4.5 #L Red Blood Count 3.20 L Hemoglobin 10.0 L Hematocrit 30.7 L Mean Corpuscular Volume 95.9 Mean Corpuscular Hemoglobin 31.3 Mean Corpuscular Hemoglobin Concent 32.6 Red Cell Distribution Width 12.0 Platelet Count 219 Mean Platelet Volume 9.2 Immature Granulocytes % 0.400 Neutrophils % 41.0 Lymphocytes % 40.0 Monocytes % 11.7 H Eosinophils % 6.2 Basophils % 0.7 Nucleated Red Blood Cells % 0.0 Immature Granulocytes # 0.020 Neutrophils # 1.9 Lymphocytes # 1.8 Monocytes # 0.5 Eosinophils # 0.3 Basophils # 0.0 Nucleated Red Blood Cells # 0.0 Sodium Level 137 Potassium Level 3.6 Chloride Level 103 Carbon Dioxide Level 29 Anion Gap 5 Blood Urea Nitrogen 11 # Creatinine 0.59 L Est Glomerular Filtrat Rate mL/min > 60 Glucose Level 95 Calcium Level 8.4 Total Bilirubin 0.3 Direct Bilirubin 0.00 Indirect Bilirubin 0.3 Aspartate Amino Transf (AST/SGOT) 15 Alanine Aminotransferase (ALT/SGPT) 18 Alkaline Phosphatase 47 Total Protein 5.7 #L Albumin 2.9 #L Globulin 2.80 Albumin/Globulin Ratio 1.03 Medications Medication Current Medications Sodium Chloride 1,000 ml @ 70 mls/hr [id number] IV Last administered on 11/24/18at 01:18; Admin Dose 70 MLS/HR; Start 11/23/18 at 05:56 IV Flush (NS 3 ml) 3 ml PER PROTOCOL IV ; Start 11/23/18 at 06:00 Ondansetron HCl (Zofran Inj) 4 mg Q6H PRN IV NAUSEA/VOMITING; Start 11/23/18 at 06:00 Acetaminophen (Tylenol Tab) 650 mg Q6H PRN PO .PAIN 1-3 OR TEMP; Start 11/23/18 at 06:00 Acetaminophen/ Hydrocodone Bitart ([place] (5/325)) 1 tab Q6H PRN PO .MOD PAIN 4- 6; Start 11/23/18 at 06:00 Docusate Sodium (Colace) 100 mg Q12H PRN PO .CONSTIPATION; Start 11/23/18 at 06:00 Bisacodyl (Dulcolax) 5 mg DAILY PRN PO .CONSTIPATION; Start 11/23/18 at 06:00 Morphine Sulfate (morphine) 4 mg Q4H PRN IV .SEVERE PAIN 7-10 Last administered on 11/24/18at 09:04; Admin Dose 4 MG; Start 11/23/18 at 10:00 Clindamycin HCl/ Dextrose 50 ml @ 50 mls/hr Q8 IVPB Last administered on 11/24/18at 05:28; Admin Dose 50 MLS/HR; Start 11/23/18 at 15:00 Amlodipine Besylate (Norvasc) 10 mg DAILY PO Last administered on 11/24/18at 09:01; Admin Dose 10 MG; Start 11/23/18 at 17:30 Aspirin (Halfprin) 81 mg DAILY PO Last administered on 11/24/18at 09:01; Admin Dose 81 MG; Start 11/23/18 at 17:30 Atorvastatin Calcium (Lipitor) 80 mg QHS PO Last administered on 11/23/18 20:48; Admin Dose 80 MG; Start 11/23/18 at 21:00 Carvedilol (Coreg) 6.25 mg BID PO Last administered on 11/24/18 09:00; Admin Dose 6.25 MG; Start 11/23/18 at 21:00 Enalapril Maleate (Vasotec) 10 mg BID PO Last administered on 11/24/18 09:01; Admin Dose 10 MG; Start 11/23/18 at 21:00 Folic Acid (Folic Acid) 1 mg DAILY PO Last administered on 11/24/18 09:00; Admin Dose 1 MG; Start 11/23/18 at 17:30 Lactobacillus Acidophilus/ Rhamnosus (Culturelle) 1 cap BID PO Last administered on 11/24/18 09:01; Admin Dose 1 CAP; Start 11/23/18 at 21:00 Levetiracetam (Keppra) 500 mg BID PO Last administered on 11/24/18 09:01; Admin Dose 500 MG; Start 11/23/18 at 21:00 Thiamine HCl (Vitamin B1) 100 mg DAILY PO Last administered on 11/24/18 09:00; Admin Dose 100 MG; Start 11/24/18 at 09:00 Sodium Hypochlorite (Dakins Diluted (40)) 1 applic DAILY TP ; Start 11/24/18 at 09:00 Lorazepam (Ativan) 0.5 mg Q4 PRN IV anxiety Last administered on 11/23/18at 21:55; Admin Dose 0.5 MG; Start 11/23/18 at 21:30 AVNI AGUILAR NP Nov 24, 2018 10:10
[2018-11-24] MEDS: LORAZEPAM 2 MG INJ IV PRN ×3 (11:14→21:48)
[2018-11-24 14:00] VITALS: BP 123/70; PULSE 91; RESP 16
--- NOTE | 2018-11-24 15:50 | PN ---
Date/Time of Note Date/Time of Note DATE: 11/24/18 TIME: 15:49 Assessment/Plan VTE Prophylaxis Risk score (from Ns)>0 risk: 3 SCD applied (from Ns): No SCD contraindicated: low risk/ambulating Pharmacological prophylaxis: LMWH Lines/Catheters IV Catheter Type (from [facility]): Peripheral IV Assessment/Plan Hospital Course A/P 1. Recurrent lt lwr ext cellulitis? ro recurrent abscess. Stable Review CT. Cont atb. 2. Tobacco abuse sp counseling offered patch 3. Hypertension 4. Alcoholism 5. Anemia 6. Panic disorder, start beta-faby S: 11/23 events noted; sp I&D /10: No fever mild to moderate pain. No diarrhea. chr panic disorder? O: vss PE no pallor reg s1s2 no mrg ctab bs+ nt nd no RRG Left lwr ext dressed Result Diagram: 11/24/18 0453 11/24/18 0453 Results 24hrs Laboratory Tests Test 11/24/18 04:53 White Blood Count 4.5 #L Red Blood Count 3.20 L Hemoglobin 10.0 L Hematocrit 30.7 L Mean Corpuscular Volume 95.9 Mean Corpuscular Hemoglobin 31.3 Mean Corpuscular Hemoglobin Concent 32.6 Red Cell Distribution Width 12.0 Platelet Count 219 Mean Platelet Volume 9.2 Immature Granulocytes % 0.400 Neutrophils % 41.0 Lymphocytes % 40.0 Monocytes % 11.7 H Eosinophils % 6.2 Basophils % 0.7 Nucleated Red Blood Cells % 0.0 Immature Granulocytes # 0.020 Neutrophils # 1.9 Lymphocytes # 1.8 Monocytes # 0.5 Eosinophils # 0.3 Basophils # 0.0 Nucleated Red Blood Cells # 0.0 Sodium Level 137 Potassium Level 3.6 Chloride Level 103 Carbon Dioxide Level 29 Anion Gap 5 Blood Urea Nitrogen 11 # Creatinine 0.59 L Est Glomerular Filtrat Rate mL/min > 60 Glucose Level 95 Calcium Level 8.4 Total Bilirubin 0.3 Direct Bilirubin 0.00 Indirect Bilirubin 0.3 Aspartate Amino Transf (AST/SGOT) 15 Alanine Aminotransferase (ALT/SGPT) 18 Alkaline Phosphatase 47 Total Protein 5.7 #L Albumin 2.9 #L Globulin 2.80 Albumin/Globulin Ratio 1.03 Exam/Review of Systems Exam Vitals Vital Signs Date Temp Pulse Resp B/P (MAP) Pulse Ox O2 O2 Flow FiO2 Time Delivery Rate 11/24/18 98.6 69 18 110/63 99 07:14 (79) 11/23/18 Room Air 08:50 Intake and Output 11/23/18 11/23/18 11/24/18 1515:00 23:00 07:00 IntakeIntake Total 350 ml 1040 ml 850 ml OutputOutput Total 1300 ml 800 ml 750 ml BalanceBalance -950 ml 240 ml 100 ml Results Results 24hrs Laboratory Tests Test 11/24/18 04:53 White Blood Count 4.5 #L Red Blood Count 3.20 L Hemoglobin 10.0 L Hematocrit 30.7 L Mean Corpuscular Volume 95.9 Mean Corpuscular Hemoglobin 31.3 Mean Corpuscular Hemoglobin Concent 32.6 Red Cell Distribution Width 12.0 Platelet Count 219 Mean Platelet Volume 9.2 Immature Granulocytes % 0.400 Neutrophils % 41.0 Lymphocytes % 40.0 Monocytes % 11.7 H Eosinophils % 6.2 Basophils % 0.7 Nucleated Red Blood Cells % 0.0 Immature Granulocytes # 0.020 Neutrophils # 1.9 Lymphocytes # 1.8 Monocytes # 0.5 Eosinophils # 0.3 Basophils # 0.0 Nucleated Red Blood Cells # 0.0 Sodium Level 137 Potassium Level 3.6 Chloride Level 103 Carbon Dioxide Level 29 Anion Gap 5 Blood Urea Nitrogen 11 # Creatinine 0.59 L Est Glomerular Filtrat Rate mL/min > 60 Glucose Level 95 Calcium Level 8.4 Total Bilirubin 0.3 Direct Bilirubin 0.00 Indirect Bilirubin 0.3 Aspartate Amino Transf (AST/SGOT) 15 Alanine Aminotransferase (ALT/SGPT) 18 Alkaline Phosphatase 47 Total Protein 5.7 #L Albumin 2.9 #L Globulin 2.80 Albumin/Globulin Ratio 1.03 Medications Medication Current Medications Sodium Chloride 1,000 ml @ 70 mls/hr [id number] IV Last administered on 11/24/18at 01:18; Admin Dose 70 MLS/HR; Start 11/23/18 at 05:56 IV Flush (NS 3 ml) 3 ml PER PROTOCOL IV ; Start 11/23/18 at 06:00 Ondansetron HCl (Zofran Inj) 4 mg Q6H PRN IV NAUSEA/VOMITING; Start 11/23/18 at 06:00 Acetaminophen (Tylenol Tab) 650 mg Q6H PRN PO .PAIN 1-3 OR TEMP; Start 11/23/18 at 06:00 Acetaminophen/ Hydrocodone Bitart ([place] (5/325)) 1 tab Q6H PRN PO .MOD PAIN 4- 6 Last administered on 11/24/18 15:16; Admin Dose 1 TAB; Start 11/23/18 at 06:00 Docusate Sodium (Colace) 100 mg Q12H PRN PO .CONSTIPATION; Start 11/23/18 at 06:00 Bisacodyl (Dulcolax) 5 mg DAILY PRN PO .CONSTIPATION; Start 11/23/18 at 06:00 Morphine Sulfate (morphine) 4 mg Q4H PRN IV .SEVERE PAIN 7-10 Last administered on 11/24/18 09:04; Admin Dose 4 MG; Start 11/23/18 at 10:00 Clindamycin HCl/ Dextrose 50 ml @ 50 mls/hr Q8 IVPB Last administered on 11/24/18 13:34; Admin Dose 50 MLS/HR; Start 11/23/18 at 15:00 Amlodipine Besylate (Norvasc) 10 mg DAILY PO Last administered on 11/24/18 09:01; Admin Dose 10 MG; Start 11/23/18 at 17:30 Aspirin (Halfprin) 81 mg DAILY PO Last administered on 11/24/18 09:01; Admin Dose 81 MG; Start 11/23/18 at 17:30 Atorvastatin Calcium (Lipitor) 80 mg QHS PO Last administered on 11/23/18 20:48; Admin Dose 80 MG; Start 11/23/18 at 21:00 Carvedilol (Coreg) 6.25 mg BID PO Last administered on 11/24/18 09:00; Admin Dose 6.25 MG; Start 11/23/18 at 21:00 Enalapril Maleate (Vasotec) 10 mg BID PO Last administered on 11/24/18 09:01; Admin Dose 10 MG; Start 11/23/18 at 21:00 Folic Acid (Folic Acid) 1 mg DAILY PO Last administered on 11/24/18 09:00; Admin Dose 1 MG; Start 11/23/18 at 17:30 Lactobacillus Acidophilus/ Rhamnosus (Culturelle) 1 cap BID PO Last administered on 11/24/18 09:01; Admin Dose 1 CAP; Start 11/23/18 at 21:00 Levetiracetam (Keppra) 500 mg BID PO Last administered on 11/24/18at 09:01; Admin Dose 500 MG; Start 11/23/18 at 21:00 Thiamine HCl (Vitamin B1) 100 mg DAILY PO Last administered on 11/24/18at 09:00; Admin Dose 100 MG; Start 11/24/18 at 09:00 Sodium Hypochlorite (Dakins Diluted ()) 1 applic DAILY TP ; Start 11/24/18 at 09:00 Lorazepam (Ativan) 0.5 mg Q4 PRN IV anxiety Last administered on 11/24/18at 11:14; Admin Dose 0.5 MG; Start 11/23/18 at 21:30 GRICELDA CANTU MD Nov 24, 2018 15:50
[2018-11-24] MEDS: FAMOTIDINE 20 MG TAB PO SCH (16:32)
[2018-11-24] MEDS: NAPROXEN 500 MG TAB PO SCH ×2 (17:26→21:41)
[2018-11-24 19:38] VITALS: BP 112/64; PULSE 81; RESP 18
[2018-11-24] MEDS: ATORVASTATIN 80 MG TAB PO SCH (20:19)
[2018-11-24] MEDS: HYDROCODONE/APAP (10/325) TAB PO PRN (23:10)
[2018-11-25] MEDS: morphine 2 MG INJ IV PRN ×5 (00:59→23:04)
[2018-11-25 01:50] VITALS: BP 131/75; PULSE 71; RESP 18
[2018-11-25] MEDS: LORAZEPAM 2 MG INJ IV PRN ×4 (02:12→20:05)
[2018-11-25] MEDS: HYDROCODONE/APAP (10/325) TAB PO PRN ×2 (05:02→20:52)
[2018-11-25] MEDS: CLINDAMYCIN 900 MG/D5W (PMX) 50 ML IVPB SCH ×3 (05:31→22:47)
[2018-11-25 08:27] VITALS: BP 133/87; PULSE 71; RESP 14
[2018-11-25] MEDS: NAPROXEN 500 MG TAB PO SCH ×2 (09:02→20:49)
[2018-11-25] MEDS: THIAMINE 100 MG TAB PO SCH (09:02)
[2018-11-25] MEDS: LACTOBACILLUS RHAMNOSUS CAP PO SCH ×2 (09:02→20:49)
[2018-11-25] MEDS: LEVETIRACETAM 500 MG TAB PO SCH ×2 (09:02→20:48)
[2018-11-25] MEDS: FOLIC ACID 1 MG TAB PO SCH (09:02)
[2018-11-25] MEDS: ENALAPRIL 10 MG TAB PO SCH (09:03)
[2018-11-25] MEDS: FAMOTIDINE 20 MG TAB PO SCH (09:03)
[2018-11-25] MEDS: AMLODIPINE 5 MG TAB PO SCH (09:03)
[2018-11-25] MEDS: ASPIRIN (EC) 81 MG TAB PO SCH (09:03)
[2018-11-25] MEDS: DAKINS 0.0125%(1/40) 473 ML SOLUTION TP SCH (09:13)
[2018-11-25] MEDS: ENOXAPARIN 40 MG/0.4 ML SYG SC SCH (09:13)
--- NOTE | 2018-11-25 11:01 | CONS ---
Assessment/Plan Assessment/Plan Hospital Course (Demo Recall) No acute changes, awake, looks comfortable Antimicrobials: IV Clindamycin Microbiology: Wound cultures grew strep, bld cx + Staph, wound cx + Staph Physical examination: Well-developed well-nourished middle-aged white man who is in no distress. Head atraumatic normocephalic neck is supple chest rise symmetrical breath sounds diminished bases heart: S1-S2 abdomen soft bowel sounds present extremities with left foot dressing intact Assessment: 1. Left foot cellulitis with abscess, status post I&D 2. Bacteremia poss contaminant Plan: Change abx to Vanco, f/u repeat bld cx, wound care per podiatry recommendations Consultation Date/Type/Reason Admit Date/Time Nov 23, 2018 at 07:08 Initial Consult Date Type of Consult id Date/Time of Note DATE: 11/25/18 TIME: 11:00 Exam/Review of Systems Exam Vitals Vital Signs Date Temp Pulse Resp B/P (MAP) Pulse Ox O2 O2 Flow FiO2 Time Delivery Rate 11/25/18 97.9 71 14 133/87 97 08:27 (102) 11/24/18 Room Air 19:38 Intake and Output 11/24/18 11/24/18 11/25/18 1515:00 23:00 07:00 IntakeIntake Total 890 ml 1030 ml 50 ml OutputOutput Total 400 ml 950 ml 950 ml BalanceBalance 490 ml 80 ml -900 ml Results Result Diagram: 11/24/18 0453 11/24/18 0453 Medications Medication Current Medications IV Flush (NS 3 ml) 3 ml PER PROTOCOL IV ; Start 11/23/18 at 06:00 Ondansetron HCl (Zofran Inj) 4 mg Q6H PRN IV NAUSEA/VOMITING; Start 11/23/18 at 06:00 Acetaminophen (Tylenol Tab) 650 mg Q6H PRN PO .PAIN 1-3 OR TEMP; Start 11/23/18 at 06:00 Docusate Sodium (Colace) 100 mg Q12H PRN PO .CONSTIPATION; Start 11/23/18 at 06:00 Bisacodyl (Dulcolax) 5 mg DAILY PRN PO .CONSTIPATION; Start 11/23/18 at 06:00 Morphine Sulfate (morphine) 4 mg Q4H PRN IV .SEVERE PAIN 7-10 Last administered on 11/25/18 09:06; Admin Dose 4 MG; Start 11/23/18 at 10:00 Clindamycin HCl/ Dextrose 50 ml @ 50 mls/hr Q8 IVPB Last administered on 11/25/18 05:31; Admin Dose 50 MLS/HR; Start 11/23/18 at 15:00 Aspirin (Halfprin) 81 mg DAILY PO Last administered on 11/25/18 09:03; Admin Dose 81 MG; Start 11/23/18 at 17:30 Atorvastatin Calcium (Lipitor) 80 mg QHS PO Last administered on 11/24/18 20:19; Admin Dose 80 MG; Start 11/23/18 at 21:00 Folic Acid (Folic Acid) 1 mg DAILY PO Last administered on 11/25/18 09:02; Admin Dose 1 MG; Start 11/23/18 at 17:30 Lactobacillus Acidophilus/ Rhamnosus (Culturelle) 1 cap BID PO Last administered on 11/25/18 09:02; Admin Dose 1 CAP; Start 11/23/18 at 21:00 Levetiracetam (Keppra) 500 mg BID PO Last administered on 11/25/18 09:02; Admin Dose 500 MG; Start 11/23/18 at 21:00 Thiamine HCl (Vitamin B1) 100 mg DAILY PO Last administered on 11/25/18 09:02; Admin Dose 100 MG; Start 11/24/18 at 09:00 Sodium Hypochlorite (Dakins Diluted (1/40)) 1 applic DAILY TP Last administered on 11/25/18 09:13; Admin Dose 1 APPLIC; Start 11/24/18 at 09:00 Lorazepam (Ativan) 0.5 mg Q4 PRN IV anxiety Last administered on 11/25/18 10:38; Admin Dose 0.5 MG; Start 11/23/18 at 21:30 Amlodipine Besylate (Norvasc) 5 mg DAILY PO Last administered on 11/25/18 09:03; Admin Dose 5 MG; Start 11/25/18 at 09:00 Carvedilol (Coreg) 12.5 mg BID PO Last administered on 11/25/18 09:04; Admin Dose 12.5 MG; Start 11/24/18 at 21:00 Enalapril Maleate (Vasotec) 10 mg DAILY PO Last administered on 11/25/18 09:03; Admin Dose 10 MG; Start 11/25/18 at 09:00 Enoxaparin Sodium (Lovenox) 40 mg DAILY SC Last administered on 11/25/18 09:13; Admin Dose 40 MG; Start 11/25/18 at 09:00 Acetaminophen/ Hydrocodone Bitart ([place] (10)) 1 tab Q4H PRN PO MODERATE PAIN LEVEL 4-6 Last administered on 11/25/18 05:02; Admin Dose 1 TAB; Start 11/24/18 at 16:00 Naproxen (Naprosyn) 500 mg BID PO Last administered on 11/25/18 09:02; Admin Dose 500 MG; Start 11/24/18 at 16:00 Famotidine (Pepcid) 20 mg DAILY PO Last administered on 11/25/18 09:03; Admin Dose 20 MG; Start 11/24/18 at 16:00 AVNI AGUILAR NP Nov 25, 2018 11:01
--- NOTE | 2018-11-25 11:44 | PN ---
Date/Time of Note Date/Time of Note DATE: 11/25/18 TIME: 11:42 Assessment/Plan VTE Prophylaxis Risk score (from Ns)>0 risk: 3 SCD applied (from Ns): No SCD contraindicated: low risk/ambulating Pharmacological prophylaxis: LMWH Lines/Catheters IV Catheter Type (from Nrs): Peripheral IV Assessment/Plan Hospital Course A/P 1. Recurrent lt lwr ext cellulitis. ruled out dvt & recurrent abscess. Stable Review CT. Cont atb. Home soon once final cultures are known. May need to picc. 2. Tobacco abuse sp counseling offered patch 3. Hypertension 4. Alcoholism 5. Anemia 6. Panic disorder, started beta-faby S: 11/23 events noted; sp I&D /: No fever mild to moderate pain. No diarrhea. chr panic disorder? 11/25: Adjusting much better. No fever diarrhea. Moderate pain, I believe I added Cymbalta. O: vss PE no pallor reg s1s2 no mrg ctab bs+ nt nd no RRG Left lwr ext dressed Result Diagram: 11/24/1845211/24/18 0453 Exam/Review of Systems Exam Vitals Vital Signs Date Temp Pulse Resp B/P (MAP) Pulse Ox O2 O2 Flow FiO2 Time Delivery Rate 11/25/18 97.9 71 14 133/87 97 08:27 (102) 11/24/18 Room Air 19:38 Intake and Output 11/24/18 11/24/18 11/25/18 1414:59 22:59 06:59 IntakeIntake Total 890 ml 1030 ml 50 ml OutputOutput Total 400 ml 950 ml 950 ml BalanceBalance 490 ml 80 ml -900 ml Medications Medication Current Medications IV Flush (NS 3 ml) 3 ml PER PROTOCOL IV ; Start 11/23/18 at 06:00 Ondansetron HCl (Zofran Inj) 4 mg Q6H PRN IV NAUSEA/VOMITING; Start 11/23/18 at 06:00 Acetaminophen (Tylenol Tab) 650 mg Q6H PRN PO .PAIN 1-3 OR TEMP; Start 11/23/18 at 06:00 Docusate Sodium (Colace) 100 mg Q12H PRN PO .CONSTIPATION; Start 11/23/18 at 06:00 Bisacodyl (Dulcolax) 5 mg DAILY PRN PO .CONSTIPATION; Start 11/23/18 at 06:00 Morphine Sulfate (morphine) 4 mg Q4H PRN IV .SEVERE PAIN 7-10 Last administered on 11/25/18 09:06; Admin Dose 4 MG; Start 11/23/18 at 10:00 Clindamycin HCl/ Dextrose 50 ml @ 50 mls/hr Q8 IVPB Last administered on 11/25/18 05:31; Admin Dose 50 MLS/HR; Start 11/23/18 at 15:00 Aspirin (Halfprin) 81 mg DAILY PO Last administered on 11/25/18 09:03; Admin Dose 81 MG; Start 11/23/18 at 17:30 Atorvastatin Calcium (Lipitor) 80 mg QHS PO Last administered on 11/24/18 20:19; Admin Dose 80 MG; Start 11/23/18 at 21:00 Folic Acid (Folic Acid) 1 mg DAILY PO Last administered on 11/25/18 09:02; Admin Dose 1 MG; Start 11/23/18 at 17:30 Lactobacillus Acidophilus/ Rhamnosus (Culturelle) 1 cap BID PO Last administered on 11/25/18 09:02; Admin Dose 1 CAP; Start 11/23/18 at 21:00 Levetiracetam (Keppra) 500 mg BID PO Last administered on 11/25/18 09:02; Admin Dose 500 MG; Start 11/23/18 at 21:00 Thiamine HCl (Vitamin B1) 100 mg DAILY PO Last administered on 11/25/18 09:02; Admin Dose 100 MG; Start 11/24/18 at 09:00 Sodium Hypochlorite (Dakins Diluted ()) 1 applic DAILY TP Last administered on 11/25/18 09:13; Admin Dose 1 APPLIC; Start 11/24/18 at 09:00 Lorazepam (Ativan) 0.5 mg Q4 PRN IV anxiety Last administered on 11/25/18 10:38; Admin Dose 0.5 MG; Start 11/23/18 at 21:30 Amlodipine Besylate (Norvasc) 5 mg DAILY PO Last administered on 11/25/18 09:03; Admin Dose 5 MG; Start 11/25/18 at 09:00 Carvedilol (Coreg) 12.5 mg BID PO Last administered on 11/25/18 09:04; Admin Dose 12.5 MG; Start 11/24/18 at 21:00 Enalapril Maleate (Vasotec) 10 mg DAILY PO Last administered on 11/25/18 09:03; Admin Dose 10 MG; Start 11/25/18 at 09:00 Enoxaparin Sodium (Lovenox) 40 mg DAILY SC Last administered on 11/25/18 09:13; Admin Dose 40 MG; Start 11/25/18 at 09:00 Acetaminophen/ Hydrocodone Bitart ([place] (10/325)) 1 tab Q4H PRN PO MODERATE PAIN LEVEL 4-6 Last administered on 11/25/18 05:02; Admin Dose 1 TAB; Start 11/24/18 at 16:00 Naproxen (Naprosyn) 500 mg BID PO Last administered on 11/25/18 09:02; Admin Dose 500 MG; Start 11/24/18 at 16:00 Famotidine (Pepcid) 20 mg DAILY PO Last administered on 11/25/18 09:03; Admin Dose 20 MG; Start 11/24/18 at 16:00 GRICELDA CANTU MD Nov 25, 2018 11:44
[2018-11-25 14:00] VITALS: BP 120/64; PULSE 84; RESP 18
[2018-11-25] MEDS: ATORVASTATIN 80 MG TAB PO SCH (20:49)
[2018-11-25 21:21] VITALS: BP 123/76; PULSE 82; RESP 16
[2018-11-26 02:29] VITALS: BP 136/74; PULSE 74; RESP 18
[2018-11-26] MEDS: morphine 2 MG INJ IV PRN ×5 (04:25→22:08)
[2018-11-26] MEDS: CLINDAMYCIN 900 MG/D5W (PMX) 50 ML IVPB SCH ×3 (05:26→21:06)
[2018-11-26 08:02] VITALS: BP 136/86; PULSE 76
[2018-11-26] MEDS: ASPIRIN (EC) 81 MG TAB PO SCH (08:15)
[2018-11-26] MEDS: ENALAPRIL 10 MG TAB PO SCH (08:16)
[2018-11-26] MEDS: LACTOBACILLUS RHAMNOSUS CAP PO SCH ×2 (08:16→20:13)
[2018-11-26] MEDS: FAMOTIDINE 20 MG TAB PO SCH (08:16)
[2018-11-26] MEDS: FOLIC ACID 1 MG TAB PO SCH (08:16)
[2018-11-26] MEDS: NAPROXEN 500 MG TAB PO SCH ×2 (08:16→20:12)
[2018-11-26] MEDS: LEVETIRACETAM 500 MG TAB PO SCH ×2 (08:16→20:12)
[2018-11-26] MEDS: DAKINS 0.0125%(1/40) 473 ML SOLUTION TP SCH (08:17)
[2018-11-26] MEDS: AMLODIPINE 5 MG TAB PO SCH (08:17)
[2018-11-26] MEDS: THIAMINE 100 MG TAB PO SCH (08:19)
[2018-11-26] MEDS: ENOXAPARIN 40 MG/0.4 ML SYG SC SCH (08:20)
[2018-11-26] MEDS: LORAZEPAM 2 MG INJ IV PRN ×3 (09:49→21:05)
--- NOTE | 2018-11-26 12:13 | CONS ---
Assessment/Plan Assessment/Plan Hospital Course (Demo Recall) No acute changes, awake, looks comfortable Antimicrobials: Vanco Microbiology: Wound cultures grew strep, bld cx + Staph, wound cx + Staph Physical examination: Well-developed well-nourished middle-aged white man who is in no distress. Head atraumatic normocephalic neck is supple chest rise symmetrical breath sounds diminished bases heart: S1-S2 abdomen soft bowel sounds present extremities with left foot dressing intact Assessment: 1. Left foot cellulitis with abscess, status post I&D 2. Bacteremia poss contaminant Plan: Stable, pending repeat bld cx, add Levaquin, continue wound care per podiatry recommendations Consultation Date/Type/Reason Admit Date/Time Nov 23, 2018 at 07:08 Initial Consult Date Type of Consult id Date/Time of Note DATE: 11/26/18 TIME: 12:11 Exam/Review of Systems Exam Vitals Vital Signs Date Temp Pulse Resp B/P (MAP) Pulse Ox O2 O2 Flow FiO2 Time Delivery Rate 11/26/18 98.5 76 136/86 96 08:02 (103) 11/26/18 18 Room Air 02:29 Intake and Output 11/25/18 11/25/18 11/26/18 1515:00 23:00 07:00 IntakeIntake Total 410 ml 780 ml 450 ml OutputOutput Total 850 ml 500 ml 1100 ml BalanceBalance -440 ml 280 ml -650 ml Results Result Diagram: 11/26/18 0530 11/26/18 0530 Results 24hrs Laboratory Tests Test 11/26/18 05:30 White Blood Count 5.2 Red Blood Count 3.60 L Hemoglobin 11.3 L Hematocrit 33.2 L Mean Corpuscular Volume 92.2 Mean Corpuscular Hemoglobin 31.4 Mean Corpuscular Hemoglobin Concent 34.0 Red Cell Distribution Width 11.8 Platelet Count 241 Mean Platelet Volume 9.8 Immature Granulocytes % 0.400 Neutrophils % 48.3 Lymphocytes % 36.3 Monocytes % 9.0 Eosinophils % 5.4 Basophils % 0.6 Nucleated Red Blood Cells % 0.0 Immature Granulocytes # 0.020 Neutrophils # 2.5 Lymphocytes # 1.9 Monocytes # 0.5 Eosinophils # 0.3 Basophils # 0.0 Nucleated Red Blood Cells # 0.0 Sodium Level 137 Potassium Level 3.8 Chloride Level 100 Carbon Dioxide Level 34 H Anion Gap 3 L Blood Urea Nitrogen 12 Creatinine 0.67 Est Glomerular Filtrat Rate mL/min > 60 Glucose Level 88 Calcium Level 8.8 Total Bilirubin 0.4 Direct Bilirubin 0.00 Indirect Bilirubin 0.4 Aspartate Amino Transf (AST/SGOT) 20 Alanine Aminotransferase (ALT/SGPT) 18 Alkaline Phosphatase 56 Total Protein 6.9 Albumin 3.5 Globulin 3.40 H Albumin/Globulin Ratio 1.02 Medications Medication Current Medications IV Flush (NS 3 ml) 3 ml PER PROTOCOL IV ; Start 11/23/18 at 06:00 Ondansetron HCl (Zofran Inj) 4 mg Q6H PRN IV NAUSEA/VOMITING; Start 11/23/18 at 06:00 Acetaminophen (Tylenol Tab) 650 mg Q6H PRN PO .PAIN 1-3 OR TEMP; Start 11/23/18 at 06:00 Docusate Sodium (Colace) 100 mg Q12H PRN PO .CONSTIPATION; Start 11/23/18 at 06:00 Bisacodyl (Dulcolax) 5 mg DAILY PRN PO .CONSTIPATION; Start 11/23/18 at 06:00 Morphine Sulfate (morphine) 4 mg Q4H PRN IV .SEVERE PAIN 7-10 Last administered on 11/26/18 08:27; Admin Dose 4 MG; Start 11/23/18 at 10:00 Clindamycin HCl/ Dextrose 50 ml @ 50 mls/hr Q8 IVPB Last administered on 11/26/18 05:26; Admin Dose 50 MLS/HR; Start 11/23/18 at 15:00 Aspirin (Halfprin) 81 mg DAILY PO Last administered on 11/26/18 08:15; Admin Dose 81 MG; Start 11/23/18 at 17:30 Atorvastatin Calcium (Lipitor) 80 mg QHS PO Last administered on 11/25/18 20:49; Admin Dose 80 MG; Start 11/23/18 at 21:00 Folic Acid (Folic Acid) 1 mg DAILY PO Last administered on 11/26/18 08:16; Admin Dose 1 MG; Start 11/23/18 at 17:30 Lactobacillus Acidophilus/ Rhamnosus (Culturelle) 1 cap BID PO Last administered on 11/26/18 08:16; Admin Dose 1 CAP; Start 11/23/18 at 21:00 Levetiracetam (Keppra) 500 mg BID PO Last administered on 11/26/18 08:16; Admin Dose 500 MG; Start 11/23/18 at 21:00 Thiamine HCl (Vitamin B1) 100 mg DAILY PO Last administered on 11/26/18 08:19; Admin Dose 100 MG; Start 11/24/18 at 09:00 Sodium Hypochlorite (Dakins Diluted ()) 1 applic DAILY TP Last administered on 11/26/18 08:17; Admin Dose 1 APPLIC; Start 11/24/18 at 09:00 Lorazepam (Ativan) 0.5 mg Q4 PRN IV anxiety Last administered on 11/26/18 09:49; Admin Dose 0.5 MG; Start 11/23/18 at 21:30 Amlodipine Besylate (Norvasc) 5 mg DAILY PO Last administered on 11/26/18 08:17; Admin Dose 5 MG; Start 11/25/18 at 09:00 Carvedilol (Coreg) 12.5 mg BID PO Last administered on 11/26/18 08:16; Admin Dose 12.5 MG; Start 11/24/18 at 21:00 Enalapril Maleate (Vasotec) 10 mg DAILY PO Last administered on 11/26/18 08:16; Admin Dose 10 MG; Start 11/25/18 at 09:00 Enoxaparin Sodium (Lovenox) 40 mg DAILY SC Last administered on 11/26/18 08:20; Admin Dose 40 MG; Start 11/25/18 at 09:00 Acetaminophen/ Hydrocodone Bitart ([place] (10/325)) 1 tab Q4H PRN PO MODERATE PAIN LEVEL 4-6 Last administered on 11/25/18 20:52; Admin Dose 1 TAB; Start 11/24/18 at 16:00 Naproxen (Naprosyn) 500 mg BID PO Last administered on 11/26/18 08:16; Admin Dose 500 MG; Start 11/24/18 at 16:00 Famotidine (Pepcid) 20 mg DAILY PO Last administered on 11/26/18 08:16; Admin Dose 20 MG; Start 11/24/18 at 16:00 AVNI AGUILAR NP Nov 26, 2018 12:13
[2018-11-26] MEDS: LEVOFLOXACIN 500 MG TAB PO SCH (12:46)
[2018-11-26 14:00] VITALS: BP 128/75; PULSE 82; RESP 18
--- NOTE | 2018-11-26 15:38 | PN ---
Date/Time of Note Date/Time of Note DATE: 11/26/18 TIME: 15:35 Assessment/Plan VTE Prophylaxis Risk score (from Nsg)>0 risk: 1 Pharmacological prophylaxis: LMWH Lines/Catheters IV Catheter Type (from Nrsg): Peripheral IV Assessment/Plan Hospital Course 1. Recurrent left lower Ext cellulitis with abscess status post I&D Continue IV antibiotics Follow-up on repeat cultures, prior positive culture may have been secondary to contamination ID following 2. Tobacco abuse sp counseling offered patch 3. Hypertension 4. Alcoholism 5. Anemia 6. Panic disorder, started beta-faby Prophylaxis: Lovenox DC planning: Follow-up on repeat cultures Result Diagram: 11/26/18 0530 11/26/18 0530 Results 24hrs Laboratory Tests Test 11/26/18 05:30 White Blood Count 5.2 Red Blood Count 3.60 L Hemoglobin 11.3 L Hematocrit 33.2 L Mean Corpuscular Volume 92.2 Mean Corpuscular Hemoglobin 31.4 Mean Corpuscular Hemoglobin Concent 34.0 Red Cell Distribution Width 11.8 Platelet Count 241 Mean Platelet Volume 9.8 Immature Granulocytes % 0.400 Neutrophils % 48.3 Lymphocytes % 36.3 Monocytes % 9.0 Eosinophils % 5.4 Basophils % 0.6 Nucleated Red Blood Cells % 0.0 Immature Granulocytes # 0.020 Neutrophils # 2.5 Lymphocytes # 1.9 Monocytes # 0.5 Eosinophils # 0.3 Basophils # 0.0 Nucleated Red Blood Cells # 0.0 Sodium Level 137 Potassium Level 3.8 Chloride Level 100 Carbon Dioxide Level 34 H Anion Gap 3 L Blood Urea Nitrogen 12 Creatinine 0.67 Est Glomerular Filtrat Rate mL/min > 60 Glucose Level 88 Calcium Level 8.8 Total Bilirubin 0.4 Direct Bilirubin 0.00 Indirect Bilirubin 0.4 Aspartate Amino Transf (AST/SGOT) 20 Alanine Aminotransferase (ALT/SGPT) 18 Alkaline Phosphatase 56 Total Protein 6.9 Albumin 3.5 Globulin 3.40 H Albumin/Globulin Ratio 1.02 Subjective 24 Hr Interval Summary Constitutional: no complaints Exam/Review of Systems Exam Vitals Vital Signs Date Temp Pulse Resp B/P (MAP) Pulse Ox O2 O2 Flow FiO2 Time Delivery Rate 11/26/18 98.0 82 18 128/75 95 Room Air 14:00 (92) Intake and Output 11/25/18 11/25/18 11/26/18 1515:00 23:00 07:00 IntakeIntake Total 410 ml 780 ml 450 ml OutputOutput Total 850 ml 500 ml 1100 ml BalanceBalance -440 ml 280 ml -650 ml Constitutional: alert Respiratory: clear to auscultation Cardiovascular: regular rate and rhythm Gastrointestinal: soft Musculoskeletal: No nl extremities to inspection Results Results 24hrs Laboratory Tests Test 11/26/18 05:30 White Blood Count 5.2 Red Blood Count 3.60 L Hemoglobin 11.3 L Hematocrit 33.2 L Mean Corpuscular Volume 92.2 Mean Corpuscular Hemoglobin 31.4 Mean Corpuscular Hemoglobin Concent 34.0 Red Cell Distribution Width 11.8 Platelet Count 241 Mean Platelet Volume 9.8 Immature Granulocytes % 0.400 Neutrophils % 48.3 Lymphocytes % 36.3 Monocytes % 9.0 Eosinophils % 5.4 Basophils % 0.6 Nucleated Red Blood Cells % 0.0 Immature Granulocytes # 0.020 Neutrophils # 2.5 Lymphocytes # 1.9 Monocytes # 0.5 Eosinophils # 0.3 Basophils # 0.0 Nucleated Red Blood Cells # 0.0 Sodium Level 137 Potassium Level 3.8 Chloride Level 100 Carbon Dioxide Level 34 H Anion Gap 3 L Blood Urea Nitrogen 12 Creatinine 0.67 Est Glomerular Filtrat Rate mL/min > 60 Glucose Level 88 Calcium Level 8.8 Total Bilirubin 0.4 Direct Bilirubin 0.00 Indirect Bilirubin 0.4 Aspartate Amino Transf (AST/SGOT) 20 Alanine Aminotransferase (ALT/SGPT) 18 Alkaline Phosphatase 56 Total Protein 6.9 Albumin 3.5 Globulin 3.40 H Albumin/Globulin Ratio 1.02 Medications Medication Current Medications IV Flush (NS 3 ml) 3 ml PER PROTOCOL IV ; Start 11/23/18 at 06:00 Ondansetron HCl (Zofran Inj) 4 mg Q6H PRN IV NAUSEA/VOMITING; Start 11/23/18 at 06:00 Acetaminophen (Tylenol Tab) 650 mg Q6H PRN PO .PAIN 1-3 OR TEMP; Start 11/23/18 at 06:00 Docusate Sodium (Colace) 100 mg Q12H PRN PO .CONSTIPATION; Start 11/23/18 at 06:00 Bisacodyl (Dulcolax) 5 mg DAILY PRN PO .CONSTIPATION; Start 11/23/18 at 06:00 Morphine Sulfate (morphine) 4 mg Q4H PRN IV .SEVERE PAIN 7-10 Last administered on 11/26/18 13:17; Admin Dose 4 MG; Start 11/23/18 at 10:00 Clindamycin HCl/ Dextrose 50 ml @ 50 mls/hr Q8 IVPB Last administered on 11/26/18 13:37; Admin Dose 50 MLS/HR; Start 11/23/18 at 15:00 Aspirin (Halfprin) 81 mg DAILY PO Last administered on 11/26/18 08:15; Admin Dose 81 MG; Start 11/23/18 at 17:30 Atorvastatin Calcium (Lipitor) 80 mg QHS PO Last administered on 11/25/18 20:49; Admin Dose 80 MG; Start 11/23/18 at 21:00 Folic Acid (Folic Acid) 1 mg DAILY PO Last administered on 11/26/18 08:16; Admin Dose 1 MG; Start 11/23/18 at 17:30 Lactobacillus Acidophilus/ Rhamnosus (Culturelle) 1 cap BID PO Last administered on 11/26/18 08:16; Admin Dose 1 CAP; Start 11/23/18 at 21:00 Levetiracetam (Keppra) 500 mg BID PO Last administered on 11/26/18 08:16; Admin Dose 500 MG; Start 11/23/18 at 21:00 Thiamine HCl (Vitamin B1) 100 mg DAILY PO Last administered on 11/26/18 08:19; Admin Dose 100 MG; Start 11/24/18 at 09:00 Sodium Hypochlorite (Dakins Diluted (1/40)) 1 applic DAILY TP Last administered on 11/26/18 08:17; Admin Dose 1 APPLIC; Start 11/24/18 at 09:00 Lorazepam (Ativan) 0.5 mg Q4 PRN IV anxiety Last administered on 11/26/18 13:57; Admin Dose 0.5 MG; Start 11/23/18 at 21:30 Amlodipine Besylate (Norvasc) 5 mg DAILY PO Last administered on 11/26/18 08:17; Admin Dose 5 MG; Start 11/25/18 at 09:00 Carvedilol (Coreg) 12.5 mg BID PO Last administered on 11/26/18 08:16; Admin Dose 12.5 MG; Start 11/24/18 at 21:00 Enalapril Maleate (Vasotec) 10 mg DAILY PO Last administered on 11/26/18 08:16; Admin Dose 10 MG; Start 11/25/18 at 09:00 Enoxaparin Sodium (Lovenox) 40 mg DAILY SC Last administered on 11/26/18 08:20; Admin Dose 40 MG; Start 11/25/18 at 09:00 Acetaminophen/ Hydrocodone Bitart ([place] (10/325)) 1 tab Q4H PRN PO MODERATE PAIN LEVEL 4-6 Last administered on 11/25/18 20:52; Admin Dose 1 TAB; Start 11/24/18 at 16:00 Naproxen (Naprosyn) 500 mg BID PO Last administered on 11/26/18 08:16; Admin Dose 500 MG; Start 11/24/18 at 16:00 Famotidine (Pepcid) 20 mg DAILY PO Last administered on 11/26/18 08:16; Admin Dose 20 MG; Start 11/24/18 at 16:00 Levofloxacin (Levaquin) 500 mg DAILY@06 PO Last administered on 11/26/18 12:46; Admin Dose 500 MG; Start 11/26/18 at 12:30 EDIN FU Nov 26, 2018 15:38
[2018-11-26] MEDS: HYDROCODONE/APAP (10/325) TAB PO PRN (19:23)
[2018-11-26] MEDS: ATORVASTATIN 80 MG TAB PO SCH (20:13)
[2018-11-26 20:39] VITALS: BP 130/77; PULSE 81; RESP 18
[2018-11-27 01:32] VITALS: BP 128/75; PULSE 80; RESP 17
[2018-11-27] MEDS: LEVOFLOXACIN 500 MG TAB PO SCH (05:15)
[2018-11-27] MEDS: CLINDAMYCIN 900 MG/D5W (PMX) 50 ML IVPB SCH ×3 (05:15→22:49)
[2018-11-27] MEDS: morphine 2 MG INJ IV PRN ×5 (05:16→22:49)
[2018-11-27] MEDS: LORAZEPAM 2 MG INJ IV PRN ×4 (06:39→20:09)
[2018-11-27 07:33] VITALS: BP 123/74; PULSE 74; RESP 18
[2018-11-27] MEDS: ASPIRIN (EC) 81 MG TAB PO SCH (08:50)
[2018-11-27] MEDS: LACTOBACILLUS RHAMNOSUS CAP PO SCH ×2 (08:50→20:09)
[2018-11-27] MEDS: ENALAPRIL 10 MG TAB PO SCH (08:51)
[2018-11-27] MEDS: AMLODIPINE 5 MG TAB PO SCH (08:51)
[2018-11-27] MEDS: LEVETIRACETAM 500 MG TAB PO SCH ×2 (08:51→20:09)
[2018-11-27] MEDS: NAPROXEN 500 MG TAB PO SCH ×2 (08:51→20:09)
[2018-11-27] MEDS: FAMOTIDINE 20 MG TAB PO SCH (08:51)
[2018-11-27] MEDS: FOLIC ACID 1 MG TAB PO SCH (08:51)
[2018-11-27] MEDS: ENOXAPARIN 40 MG/0.4 ML SYG SC SCH (08:56)
[2018-11-27] MEDS: DAKINS 0.0125%(1/40) 473 ML SOLUTION TP SCH (08:57)
[2018-11-27] MEDS: THIAMINE 100 MG TAB PO SCH (08:59)
--- NOTE | 2018-11-27 11:31 | CONS ---
Assessment/Plan Assessment/Plan Hospital Course (Demo Recall) Awake, looks comfortable Antimicrobials: Vanco Microbiology: Wound cultures grew strep, bld cx + Staph, wound cx + Staph, repeat bld cx neg Physical examination: Well-developed well-nourished middle-aged white man who is in no distress. Head atraumatic normocephalic neck is supple chest rise symmetrical breath sounds diminished bases heart: S1-S2 abdomen soft bowel sounds present extremities with left foot dressing intact Assessment: 1. Left foot cellulitis with abscess, status post I&D 2. Bacteremia poss contaminant Plan: Stable, repeat bld cx neg, continue wound care per podiatry recommendations, anticipate dc on oral Levaquin and Clindamycin Consultation Date/Type/Reason Admit Date/Time Nov 23, 2018 at 07:08 Initial Consult Date Type of Consult id Date/Time of Note DATE: 11/27/18 TIME: 11:29 Exam/Review of Systems Exam Vitals Vital Signs Date Temp Pulse Resp B/P (MAP) Pulse Ox O2 O2 Flow FiO2 Time Delivery Rate 11/27/18 98.4 74 18 123/74 99 Room Air 07:33 (90) Intake and Output 11/26/18 11/26/18 11/27/18 1515:00 23:00 07:00 IntakeIntake Total 400 ml 500 ml 550 ml OutputOutput Total 250 ml 1250 ml 450 ml BalanceBalance 150 ml -750 ml 100 ml Results Result Diagram: 11/26/18 0530 11/26/18 0530 Medications Medication Current Medications IV Flush (NS 3 ml) 3 ml PER PROTOCOL IV ; Start 11/23/18 at 06:00 Ondansetron HCl (Zofran Inj) 4 mg Q6H PRN IV NAUSEA/VOMITING; Start 11/23/18 at 06:00 Acetaminophen (Tylenol Tab) 650 mg Q6H PRN PO .PAIN 1-3 OR TEMP; Start 11/23/18 at 06:00 Docusate Sodium (Colace) 100 mg Q12H PRN PO .CONSTIPATION; Start 11/23/18 at 06:00 Bisacodyl (Dulcolax) 5 mg DAILY PRN PO .CONSTIPATION; Start 11/23/18 at 06:00 Morphine Sulfate (morphine) 4 mg Q4H PRN IV .SEVERE PAIN 7-10 Last administered on 11/27/18 09:21; Admin Dose 4 MG; Start 11/23/18 at 10:00 Clindamycin HCl/ Dextrose 50 ml @ 50 mls/hr Q8 IVPB Last administered on 11/27/18 05:15; Admin Dose 50 MLS/HR; Start 11/23/18 at 15:00 Aspirin (Halfprin) 81 mg DAILY PO Last administered on 11/27/18 08:50; Admin Dose 81 MG; Start 11/23/18 at 17:30 Atorvastatin Calcium (Lipitor) 80 mg QHS PO Last administered on 11/26/18 20:13; Admin Dose 80 MG; Start 11/23/18 at 21:00 Folic Acid (Folic Acid) 1 mg DAILY PO Last administered on 11/27/18 08:51; Admin Dose 1 MG; Start 11/23/18 at 17:30 Lactobacillus Acidophilus/ Rhamnosus (Culturelle) 1 cap BID PO Last administered on 11/27/18 08:50; Admin Dose 1 CAP; Start 11/23/18 at 21:00 Levetiracetam (Keppra) 500 mg BID PO Last administered on 11/27/18 08:51; Admin Dose 500 MG; Start 11/23/18 at 21:00 Thiamine HCl (Vitamin B1) 100 mg DAILY PO Last administered on 11/27/18 08:59; Admin Dose 100 MG; Start 11/24/18 at 09:00 Sodium Hypochlorite (Dakins Diluted (1/40)) 1 applic DAILY TP Last administered on 11/27/18 08:57; Admin Dose 1 APPLIC; Start 11/24/18 at 09:00 Lorazepam (Ativan) 0.5 mg Q4 PRN IV anxiety Last administered on 11/27/18 10:50; Admin Dose 0.5 MG; Start 11/23/18 at 21:30 Amlodipine Besylate (Norvasc) 5 mg DAILY PO Last administered on 11/27/18 08:51; Admin Dose 5 MG; Start 11/25/18 at 09:00 Carvedilol (Coreg) 12.5 mg BID PO Last administered on 11/27/18 08:50; Admin Dose 12.5 MG; Start 11/24/18 at 21:00 Enalapril Maleate (Vasotec) 10 mg DAILY PO Last administered on 11/27/18 08:51; Admin Dose 10 MG; Start 11/25/18 at 09:00 Enoxaparin Sodium (Lovenox) 40 mg DAILY SC Last administered on 11/27/18 08:56; Admin Dose 40 MG; Start 11/25/18 at 09:00 Acetaminophen/ Hydrocodone Bitart ([place] (10/325)) 1 tab Q4H PRN PO MODERATE PAIN LEVEL 4-6 Last administered on 11/26/18 19:23; Admin Dose 1 TAB; Start 11/24/18 at 16:00 Naproxen (Naprosyn) 500 mg BID PO Last administered on 11/27/18 08:51; Admin Dose 500 MG; Start 11/24/18 at 16:00 Famotidine (Pepcid) 20 mg DAILY PO Last administered on 11/27/18 08:51; Admin Dose 20 MG; Start 11/24/18 at 16:00 Levofloxacin (Levaquin) 500 mg DAILY@06 PO Last administered on 11/27/18 05:15; Admin Dose 500 MG; Start 11/26/18 at 12:30 AVNI AGUILAR NP Nov 27, 2018 11:30
[2018-11-27] MEDS: HYDROCODONE/APAP (10/325) TAB PO PRN ×2 (12:18→21:07)
[2018-11-27 14:00] VITALS: BP 119/69; PULSE 91; RESP 18
--- NOTE | 2018-11-27 15:19 | PN ---
Date/Time of Note Date/Time of Note DATE: 11/27/18 TIME: 15:16 Assessment/Plan VTE Prophylaxis Risk score (from Nsg)>0 risk: 1 Pharmacological prophylaxis: LMWH Lines/Catheters IV Catheter Type (from Nrsg): Peripheral IV Assessment/Plan Hospital Course 1. Recurrent left lower Ext cellulitis with abscess status post I&D Continue IV antibiotics Repeat cultures are negative, prior positive culture may have been secondary to contamination ID following 2. Tobacco abuse sp counseling offered patch 3. Hypertension 4. Alcoholism 5. Anemia 6. Panic disorder, started beta-faby Prophylaxis: Lovenox DC planning: Dissipate DC home tomorrow, patient still reporting significant pain in the foot and does not feel ready to go home Result Diagram: 11/26/18 0530 11/26/18 0530 Subjective 24 Hr Interval Summary Musculoskeletal: bone/joint pain Exam/Review of Systems Exam Vitals Vital Signs Date Temp Pulse Resp B/P (MAP) Pulse Ox O2 O2 Flow FiO2 Time Delivery Rate 11/27/18 98.0 91 18 119/69 95 Room Air 14:00 (86) Intake and Output 11/26/18 11/26/18 11/27/18 1515:00 23:00 07:00 IntakeIntake Total 400 ml 500 ml 550 ml OutputOutput Total 250 ml 1250 ml 450 ml BalanceBalance 150 ml -750 ml 100 ml Constitutional: alert, oriented Respiratory: clear to auscultation Cardiovascular: regular rate and rhythm Gastrointestinal: soft Musculoskeletal: No nl extremities to inspection Medications Medication Current Medications IV Flush (NS 3 ml) 3 ml PER PROTOCOL IV ; Start 11/23/18 at 06:00 Ondansetron HCl (Zofran Inj) 4 mg Q6H PRN IV NAUSEA/VOMITING; Start 11/23/18 at 06:00 Acetaminophen (Tylenol Tab) 650 mg Q6H PRN PO .PAIN 1-3 OR TEMP; Start 11/23/18 at 06:00 Docusate Sodium (Colace) 100 mg Q12H PRN PO .CONSTIPATION; Start 11/23/18 at 06:00 Bisacodyl (Dulcolax) 5 mg DAILY PRN PO .CONSTIPATION; Start 11/23/18 at 06:00 Morphine Sulfate (morphine) 4 mg Q4H PRN IV .SEVERE PAIN 7-10 Last administered on 11/27/18at 13:30; Admin Dose 4 MG; Start 11/23/18 at 10:00 Clindamycin HCl/ Dextrose 50 ml @ 50 mls/hr Q8 IVPB Last administered on 11/27/18 12:13; Admin Dose 50 MLS/HR; Start 11/23/18 at 15:00 Aspirin (Halfprin) 81 mg DAILY PO Last administered on 11/27/18 08:50; Admin Dose 81 MG; Start 11/23/18 at 17:30 Atorvastatin Calcium (Lipitor) 80 mg QHS PO Last administered on 11/26/18 20:13; Admin Dose 80 MG; Start 11/23/18 at 21:00 Folic Acid (Folic Acid) 1 mg DAILY PO Last administered on 11/27/18 08:51; Ad min Dose 1 MG; Start 11/23/18 at 17:30 Lactobacillus Acidophilus/ Rhamnosus (Culturelle) 1 cap BID PO Last administered on 11/27/18 08:50; Admin Dose 1 CAP; Start 11/23/18 at 21:00 Levetiracetam (Keppra) 500 mg BID PO Last administered on 11/27/18 08:51; Admin Dose 500 MG; Start 11/23/18 at 21:00 Thiamine HCl (Vitamin B1) 100 mg DAILY PO Last administered on 11/27/18 08:59; Admin Dose 100 MG; Start 11/24/18 at 09:00 Sodium Hypochlorite (Dakins Diluted (1/40)) 1 applic DAILY TP Last administered on 11/27/18 08:57; Admin Dose 1 APPLIC; Start 11/24/18 at 09:00 Lorazepam (Ativan) 0.5 mg Q4 PRN IV anxiety Last administered on 11/27/18 10:50; Admin Dose 0.5 MG; Start 11/23/18 at 21:30 Amlodipine Besylate (Norvasc) 5 mg DAILY PO Last administered on 11/27/18 08:51; Admin Dose 5 MG; Start 11/25/18 at 09:00 Carvedilol (Coreg) 12.5 mg BID PO Last administered on 11/27/18 08:50; Admin Dose 12.5 MG; Start 11/24/18 at 21:00 Enalapril Maleate (Vasotec) 10 mg DAILY PO Last administered on 11/27/18 08:51; Admin Dose 10 MG; Start 11/25/18 at 09:00 Enoxaparin Sodium (Lovenox) 40 mg DAILY SC Last administered on 11/27/18 08:56; Admin Dose 40 MG; Start 11/25/18 at 09:00 Acetaminophen/ Hydrocodone Bitart ([place] (10/325)) 1 tab Q4H PRN PO MODERATE PAIN LEVEL 4-6 Last administered on 11/27/18 12:18; Admin Dose 1 TAB; Start 11/24/18 at 16:00 Naproxen (Naprosyn) 500 mg BID PO Last administered on 11/27/18 08:51; Admin Dose 500 MG; Start 11/24/18 at 16:00 Famotidine (Pepcid) 20 mg DAILY PO Last administered on 11/27/18 08:51; Admin Dose 20 MG; Start 11/24/18 at 16:00 Levofloxacin (Levaquin) 500 mg DAILY@06 PO Last administered on 11/27/18 05:15; Admin Dose 500 MG; Start 11/26/18 at 12:30 EDIN FU Nov 27, 2018 15:19
[2018-11-27 19:38] VITALS: BP 121/80; PULSE 82; RESP 18
[2018-11-27] MEDS: ATORVASTATIN 80 MG TAB PO SCH (20:09)
[2018-11-28 01:20] VITALS: BP 122/77; PULSE 81; RESP 17
[2018-11-28] MEDS: LORAZEPAM 2 MG INJ IV PRN ×3 (01:25→09:42)
[2018-11-28] MEDS: morphine 2 MG INJ IV PRN ×3 (03:22→12:49)
[2018-11-28] MEDS: CLINDAMYCIN 900 MG/D5W (PMX) 50 ML IVPB SCH ×2 (05:27→14:27)
[2018-11-28] MEDS: LEVOFLOXACIN 500 MG TAB PO SCH (05:29)
[2018-11-28 07:52] VITALS: BP 135/95; RESP 14
[2018-11-28] MEDS: LEVETIRACETAM 500 MG TAB PO SCH (08:16)
[2018-11-28] MEDS: LACTOBACILLUS RHAMNOSUS CAP PO SCH (08:16)
[2018-11-28] MEDS: THIAMINE 100 MG TAB PO SCH (08:16)
[2018-11-28] MEDS: FOLIC ACID 1 MG TAB PO SCH (08:16)
[2018-11-28] MEDS: FAMOTIDINE 20 MG TAB PO SCH (08:16)
[2018-11-28] MEDS: ASPIRIN (EC) 81 MG TAB PO SCH (08:16)
[2018-11-28] MEDS: NAPROXEN 500 MG TAB PO SCH (08:16)
[2018-11-28] MEDS: ENALAPRIL 10 MG TAB PO SCH (08:17)
[2018-11-28] MEDS: AMLODIPINE 5 MG TAB PO SCH (08:18)
[2018-11-28] MEDS: DAKINS 0.0125%(1/40) 473 ML SOLUTION TP SCH (08:18)
[2018-11-28] MEDS: ENOXAPARIN 40 MG/0.4 ML SYG SC SCH (08:26)
[2018-11-28] MEDS: HYDROCODONE/APAP (10/325) TAB PO PRN (11:49)
--- NOTE | 2018-11-28 12:18 | PDOCDIS ---
Discharge Instructions CONDITION [id number] Patient Condition: [id number] Good HOME CARE INSTRUCTIONS: [id number] Diet Instructions: [id number] Regular ACTIVITY: [id number] Activity Restrictions: [id number] No Restrictions FOLLOW UP/APPOINTMENTS Follow-up Plan FOLLOW UP WITH YOUR PCP IN 1-2 WEEKS, FOLLOW UP WITH APC WITH DR KWESI RENDON OF PODIATRY EDIN FU Nov 28, 2018 12:18
[2018-11-28 15:07] VITALS: BP 151/89; PULSE 88; RESP 16
--- NOTE | 2018-11-28 15:08 | DS ---
Date/Time of Note Date/Time of Note DATE: 11/28/18 TIME: 15:04 Discharge Summary Admission/Discharge Info Admit Date/Time Nov 23, 2018 at 07:08 Discharge Date/Time November 28, 2018 Discharge Diagnosis 1. Recurrent left lower Ext cellulitis with abscess status post I&D Per podiatry no clear abscess was noted in the OR Status post IV antibiotics DC with oral antibiotics per ID Repeat cultures are negative, prior positive culture may have been secondary to contamination 2. Tobacco abuse sp counseling offered patch 3. Hypertension-continue home meds 4. Alcoholism 5. Anemia 6. Panic disorder-continue beta-faby Patient Condition: Good Hospital Course Patient is a 53-year-old male with a history of hypertension, alcoholism, tobacco abuse who presents with recurrent left lower extremity cellulitis and questionable abscess in the left foot as reported on CT. Patient was taken to the OR with podiatry for I&D but no clear abscess was noted. Patient did have blood cultures are positive for coag negative staph, repeat cultures were negative. Patient was seen by ID and was placed on IV antibiotics, patient was stable for DC to home with antibiotics per ID and podiatry. On the day of discharge patient vitals, labs and physical exam are stable. Home Meds Active Scripts Clindamycin Hcl* (Clindamycin Hcl*) 300 Mg Capsule, 600 MG PO Q8 for 10 Days, #60 CAP Prov:EIDN FU 11/28/18 Levofloxacin* (Levaquin*) 500 Mg Tablet, 500 MG PO DAILY@06 for 10 Days, #10 TAB Prov:EDIN FU 11/28/18 Lactobacillus Rhamnosus GG (Culturelle) 1 Each Capsule, 1 CAP PO BID for 20 Days, #40 CAP Prov:GRICELDA CANTU MD 11/21/18 Hydrocodone/Acetaminophen (Hydrocodone-Acetamin 10-325 mg) 1 Each Tablet, 1 TAB PO Q4H PRN for MODERATE PAIN LEVEL 4-6 for 5 Days, TAB Prov:GRICELDA CANTU MD 11/21/18 Acetaminophen* (Tylenol*) 325 Mg Tablet, 650 MG PO Q6H PRN for .PAIN 1-3 OR TEMP for 5 Days, TAB Prov:GRICELDA CANTU MD 11/21/18 Reported Medications Enalapril Maleate* (Enalapril Maleate*) 10 Mg Tablet, 10 MG PO BID for 30 Days, #60 11/23/18 Carvedilol* (Carvedilol*) 6.25 Mg Tablet, 6.25 MG PO BID, #60 TAB 11/16/18 Lisinopril* (Lisinopril*) 20 Mg Tablet, 40 MG PO DAILY, #30 TAB 11/16/18 Amlodipine Besylate* (Amlodipine Besylate*) 10 Mg Tablet, 10 MG PO DAILY, #30 TAB 11/16/18 Thiamine* (Vitamin B-1*) 100 Mg Tablet, 100 MG PO DAILY, TAB 11/16/18 Atorvastatin* (Atorvastatin*) 80 Mg Tablet, 80 MG PO QHS, #30 TAB 11/16/18 Levetiracetam* (Levetiracetam*) 500 Mg Tablet, 500 MG PO BID, TAB 11/16/18 Aspirin* (Aspirin* EC) 81 Mg Tablet.dr, 81 MG PO DAILY, TAB 11/16/18 Folic Acid* (Folic Acid*) 1 Mg Tablet, 1 MG PO DAILY, TAB 11/16/18 Discontinued Reported Medications Nitroglycerin* (Nitroglycerin* SL) 0.4 Mg Tab.subl, 0.4 MG SL Q5MIN PRN for CHEST PAIN, BOTTLE 11/16/18 Enalapril Maleate* (Enalapril Maleate*) 10 Mg Tablet, 10 MG PO BID, TAB 11/16/18 Discontinued Scripts Clindamycin Hcl* (Cleocin*) 150 Mg Cap, 450 MG PO Q8 for 8 Days, #16 CAP Prov:GRICELDA CANTU MD 11/21/18 Follow-up Plan FOLLOW UP WITH YOUR PCP IN 1-2 WEEKS, FOLLOW UP WITH APC WITH DR KWESI RENDON OF PODIATRY Primary Care Provider [facility] Time spent on discharge: > 30 minutes EDIN FU Nov 28, 2018 15:08
--- NOTE | 2018-11-28 15:11 | CONS ---
Assessment/Plan Assessment/Plan Hospital Course (Demo Recall) Awake, feels good, looks comfortable Antimicrobials: Levaquin Microbiology: Wound cultures grew strep, bld cx + Staph, wound cx + Staph, repeat bld cx neg Physical examination: Well-developed well-nourished middle-aged white man who is in no distress. Head atraumatic normocephalic neck is supple chest rise symmetrical breath sounds diminished bases heart: S1-S2 abdomen soft bowel sounds present extremities with left foot dressing intact Assessment: 1. Left foot cellulitis with abscess, status post I&D 2. Bacteremia poss contaminant Plan: Stable, repeat bld cx neg, continue wound care per podiatry recommendations, anticipate dc on oral Levaquin and Clindamycin for 10 more days Consultation Date/Type/Reason Admit Date/Time Nov 23, 2018 at 07:08 Initial Consult Date Type of Consult id Date/Time of Note DATE: 11/28/18 TIME: 15:10 Exam/Review of Systems Exam Vitals Vital Signs Date Temp Pulse Resp B/P (MAP) Pulse Ox O2 O2 Flow FiO2 Time Delivery Rate 11/28/18 98.1 88 16 151/89 98 Room Air 15:07 (109) Intake and Output 11/27/18 11/27/18 11/28/18 1515:00 23:00 07:00 IntakeIntake Total 250 ml 100 ml OutputOutput Total 550 ml 600 ml BalanceBalance -300 ml -600 ml 100 ml Results Result Diagram: 11/26/18 0530 11/26/18 0530 Medications Medication Current Medications IV Flush (NS 3 ml) 3 ml PER PROTOCOL IV ; Start 11/23/18 at 06:00 Ondansetron HCl (Zofran Inj) 4 mg Q6H PRN IV NAUSEA/VOMITING; Start 11/23/18 at 06:00 Acetaminophen (Tylenol Tab) 650 mg Q6H PRN PO .PAIN 1-3 OR TEMP; Start 11/23/18 at 06:00 Docusate Sodium (Colace) 100 mg Q12H PRN PO .CONSTIPATION; Start 11/23/18 at 06:00 Bisacodyl (Dulcolax) 5 mg DAILY PRN PO .CONSTIPATION; Start 11/23/18 at 06:00 Morphine Sulfate (morphine) 4 mg Q4H PRN IV .SEVERE PAIN 7-10 Last administered on 11/28/18 12:49; Admin Dose 4 MG; Start 11/23/18 at 10:00 Clindamycin HCl/ Dextrose 50 ml @ 50 mls/hr Q8 IVPB Last administered on 11/28/18 14:27; Admin Dose 50 MLS/HR; Start 11/23/18 at 15:00 Aspirin (Halfprin) 81 mg DAILY PO Last administered on 11/28/18 08:16; Admin Dose 81 MG; Start 11/23/18 at 17:30 Atorvastatin Calcium (Lipitor) 80 mg QHS PO Last administered on 11/27/18 20:09; Admin Dose 80 MG; Start 11/23/18 at 21:00 Folic Acid (Folic Acid) 1 mg DAILY PO Last administered on 11/28/18 08:16; Admin Dose 1 MG; Start 11/23/18 at 17:30 Lactobacillus Acidophilus/ Rhamnosus (Culturelle) 1 cap BID PO Last administered on 11/28/18 08:16; Admin Dose 1 CAP; Start 11/23/18 at 21:00 Levetiracetam (Keppra) 500 mg BID PO Last administered on 11/28/18 08:16; Admin Dose 500 MG; Start 11/23/18 at 21:00 Thiamine HCl (Vitamin B1) 100 mg DAILY PO Last administered on 11/28/18 08:16; Admin Dose 100 MG; Start 11/24/18 at 09:00 Sodium Hypochlorite (Dakins Diluted (1/40)) 1 applic DAILY TP Last administered on 11/28/18 08:18; Admin Dose 1 APPLIC; Start 11/24/18 at 09:00 Lorazepam (Ativan) 0.5 mg Q4 PRN IV anxiety Last administered on 11/28/18 09: 42; Admin Dose 0.5 MG; Start 11/23/18 at 21:30 Amlodipine Besylate (Norvasc) 5 mg DAILY PO Last administered on 11/28/18 08:18; Admin Dose 5 MG; Start 11/25/18 at 09:00 Carvedilol (Coreg) 12.5 mg BID PO Last administered on 11/28/18 08:18; Admin Dose 12.5 MG; Start 11/24/18 at 21:00 Enalapril Maleate (Vasotec) 10 mg DAILY PO Last administered on 11/28/18 08:17; Admin Dose 10 MG; Start 11/25/18 at 09:00 Enoxaparin Sodium (Lovenox) 40 mg DAILY SC Last administered on 11/28/18 08:26; Admin Dose 40 MG; Start 11/25/18 at 09:00 Acetaminophen/ Hydrocodone Bitart ([place] (10/325)) 1 tab Q4H PRN PO MODERATE PAIN LEVEL 4-6 Last administered on 11/28/18 11:49; Admin Dose 1 TAB; Start 11/24/18 at 16:00 Naproxen (Naprosyn) 500 mg BID PO Last administered on 11/28/18 08:16; Admin Dose 500 MG; Start 11/24/18 at 16:00 Famotidine (Pepcid) 20 mg DAILY PO Last administered on 11/28/18 08:16; Admin Dose 20 MG; Start 11/24/18 at 16:00 Levofloxacin (Levaquin) 500 mg DAILY@06 PO Last administered on 11/28/18 05:29; Admin Dose 500 MG; Start 11/26/18 at 12:30 AVNI AGUILAR NP Nov 28, 2018 15:11
[2018-11-28] MEDS ORDERED: CLINDAMYCIN 300 MG CAP PO SCH (15:30)
== END 2018-11-28 16:25 | disposition home or self-care (01) | DRG 572 ==
LOC: E/R 00:46 → MS3 05:55 → OBSVTOIN 07:08
PROVIDERS: ADMIT Family Medicine; ATTEND Internal Medicine
PROC: 0JBP0ZZ Excision of Left Lower Leg Subcutaneous Tissue and Fascia, Open Approach (ICD-10-PCS; principal; 2018-11-23)
DX: L03.116 Cellulitis of left lower limb (principal); L02.416 Cutaneous abscess of left lower limb; B19.20 Unspecified viral hepatitis C without hepatic coma; D64.9 Anemia, unspecified; F41.9 Anxiety disorder, unspecified; F32.9 Major depressive disorder, single episode, unspecified; F17.200 Nicotine dependence, unspecified, uncomplicated; F41.0 Panic disorder [episodic paroxysmal anxiety]; F10.20 Alcohol dependence, uncomplicated; G40.909 Epilepsy, unspecified, not intractable, without status epilepticus; I10 Essential (primary) hypertension; M79.605 Pain in left leg; R60.0 Localized edema; Z79.82 Long term (current) use of aspirin
CPT/HCPCS: 73700; 80053; 83605; 85025; 85610; 85651; 85730; 86140; 87070; 87081; 93971; 96374; 96375; G0378; J0692; J1650; J1956; J2060; J2270; J3370; J7030; Q9967